=== PATIENT | female | born 1975 | race Caucasian/White ===

== ENCOUNTER → 2017-07-03 | Outpatient (CLI) | payer OTHER ==
[~2017-07-03] MED LIST: DRV100 PO; PRENTAB26 PO
--- NOTE | 2017-07-03 15:20 | MAMMOGRAPHY REPORT ---
UNILATERAL LEFT DIGITAL DIAGNOSTIC MAMMOGRAM TOMOSYNTHESIS: 07/03/2017 CLINICAL HISTORY: Callback from screening mammogram for left breast asymmetry. TECHNIQUE: Breast tomosynthesis in addition to standard 2D mammography was performed. Spot compress ion left MLO 2-D and tomosynthesis images were obtained. COMPARISON: Comparison is made to exams dated: 06/18/2016 mammogram, 06/21/2017 mammogram, 04/03/2013 mammogram, and 06/15/2015 mammogram - [facility]. BREAST COMPOSITION: The tissue of the left breast is heterogeneously dense, which may obscure small masses. FINDINGS: The previously described asymmetry within the left superior posterior breast effaces to a b aseline appearance on the additional images, with appearance of this region similar to multiple prior exams including the 2014 and also the 2012 exams. The tissue in this region has the appearance of n ormal fibroglandular tissue on the tomosynthesis images, without a suspicious mass, architectural dis tortion, or other suspicious abnormality seen on the additional images. Findings are benign and comp atible with normal fibroglandular tissue. IMPRESSION: ACR BI-RADS CATEGORY 2: BENIGN The left breast asymmetry effaces on the additional images, and is benign and compatible with normal fibroglandular tissue. There is no mammographic evidence of malignancy. A 1 year screening mammogram is recommended. The patient has been verbally notified of the results. Approximately 10% of breast cancers are not detected with mammography. A negative mammographic report should not delay biopsy if a clinically suggestive mass is present. Kyra Maxwell M.D. ah/:07/03/2017 11:24:23 Log Rafter: Karen LEE(Caitlyn)(M), [facility] letter sent: Normal 1/2 BI-RADS Code: ACR BI-RADS Category 2: Benign
== END | disposition home or self-care (01) ==
LOC: C.MAMM 11:02
PROVIDERS: ATTEND Family Medicine
DX: N64.89 Other specified disorders of breast (principal)

== ENCOUNTER 2024-04-13 17:33 | Inpatient (IN) ==
--- NOTE | 2024-04-13 18:48 | Emergency Department Note ---
Impression & Plan Elevated LFTs, Cholelithiasis, Biliary colic ED Provider Note NAME: PATY SIMMS AGE: 49 SEX: F : 1975 ARRIVES VIA: Walk-In INFORMANT: Patient, ED PROVIDER(S): Paul Duran MD CHIEF COMPLAINT: Abdominal pain, abnormal blood work, outpatient referral MEDICAL DECISION MAKING: Patient presents due to concern for abdominal pain that is postprandial nature: No history of gallstones with transaminitis as an outpatient. IV was established and blood work was obtained along with a right upper quadrant ultrasound. Gallbladder ultrasound shows CBD of 0.5 cm and gallbladder wall is 0.2 cm. Patient does have a large gallstone approximately 2.4 cm. Blood work does show a leukopenia with anemia of 11.9 which is virtually normal. The patient does have transaminitis with an AST and ALT of 1171 and 1189. Alk phos of 143 bilirubin of 2.1. Lipase is negative. Urinalysis does not show evidence of obvious infection. I did speak with on-call general surgery CAMELIA Dinero and the patient was seen and evaluated. I also did speak with the inpatient medicine service Dr. Arnold and the patient was admitted. MRCP was ordered and pending at the time of admission. Discussion w/ other healthcare providers: John Smith PA-C with Dr. Dodson general surgery Dr. Arnold inpatient medicine service Prior /Outside records reviewed: None Differential diagnosis: Appendicitis, ovarian cyst, ovarian torsion, ectopic , TOA, PID, diverticulitis, UTI, obstruction, inflammatory bowel disease, renal colic, PUD, pancreatitis, biliary pathology, hernia, volvulus, constipation, as well as other pathologies were considered. Diagnostics, as interpreted by me: ECG: None Cardiac monitoring: An order was placed for continuous cardiac monitoring. The monitor shows a rate of 75 with sinus rhythm. Patient was placed on pulse oximetry Medical decision rules: None Imaging studies: I informally interpreted the patient's right upper quadrant ultrasound does show gallstone with formal report to follow. HPI: Patient presents due to concern for abnormal outpatient blood work which showed elevated liver function testing. I was able to review these from her [employer]. The patient's liver function testing did show a bilirubin of 2.3 with an AST of greater than 700 and an ALT of 697. The patient reports that she has weekly blood work checked as she does follow with Dr. Ferreira and is currently on chemotherapy for history of breast cancer. Patient states that her last chemo was about a week prior. Patient thought that maybe she was having gallbladder attacks over the weekend is after she would eat or drink something she would get pain in her upper abdomen which would radiate toward her back. Patient did have some associated nausea but no vomiting. No urinary symptoms no issues with defecation. Patient was told about her abnormal blood work and was advised to present here for further evaluation and treatment. The patient states that she does have a prior history of gallstones and was told that she did have a large gallstone noted on a prior ultrasound that she believes was completed years ago. PAST MEDICAL HISTORY: See Below PAST SURGICAL HISTORY: See Below SOCIAL HISTORY: See Below HOME MEDICATIONS: See Below ALLERGIES: See Below VITALS: See Below PHYSICAL EXAMINATION: GENERAL: NAD, non-toxic. Wearing a mask. EYE EXAM: Normal conjunctiva. PERRL, no anisocoria and EOM's grossly intact w/o pain. NECK: Trachea midline, no stridor. LUNGS: Clear to auscultation. Normal chest wall mechanics. HEART: NSR, no MRG. ABDOMEN: Abdomen soft, non-tender, negative Madison sign, no masses, no rebound or guarding. BACK: No CVA TTP. SKIN: No rashes and no bruising. UPPER EXTREMITIES: Upper extremities are grossly normal. LOWER EXTREMITIES: Grossly normal, no edema. NEURO EXAM: A&O x3, cranial nerves II-XII grossly intact, normal speech, moves all 4 extremities. Past Med/Surg History Problem List (Updated 04/13/24 @ 23:18 by Paul Duran MD) Biliary colic (Acute) Elevated LFTs (Acute) Cholelithiasis (Acute) Malignant neoplasm of central portion of left breast in female, estrogen receptor positive (Chronic 11/29/23) Family history of malignant neoplasm of ovary sister, granulosa cell 2008 Medical History Gallstone Nausea after anesthesia Limb alert care status left arm Breast cancer (2023) left History of COVID-19 (2019) Symptoms resolved GERD (gastroesophageal reflux disease) Hypothyroidism History of PCOS H/O dysfunctional uterine bleeding no current issues Surgical History History of partial mastectomy of left breast (01/20/24) 01/20/24; limb restriction History of esophagogastroduodenoscopy (EGD) Hx of colonoscopy H/O cervical polypectomy Family History Sister Ovarian cancer Onset age 20, recurrence in 30's. Granulosa Cell Tumor Mother Breast cancer, Onset Age: 64 Radiation Therapy Father Prostate cancer Brachytherapy Son No problems noted. Social History Smoking Status: Never smoker Second Hand Exposure: Yes (mother smoked in home and history of bartending); Do You Dip or Chew Tobacco: No; Hx Alcohol Use: Yes (social) Hx Substance Use: No Preferred Language: Bengali Communication Ability: Effective Visual Impairment: Limited Hearing Ability: Normal Public Transit Bus Driver Required: No Beliefs That Will Affect Care: None marital status: Current Living Situation: Spouse current occupational status: employed How many Children do You have: 1 Feels Safe at Home: Yes Childhood Exposure to Second-Hand Smoke: Yes Diet: regular caffeine: Yes during the past year weight has: remained stable Dental Care, Regularly: Yes Assistive Devices: Contacts and Glasses Allergies Allergies Allergy/AdvReac Type Severity Reaction Status Date / Time No Known Allergies Allergy Unknown Verified 02/28/24 07:28 Home Meds Home Medications Medication Instructions Recorded Confirmed levothyroxine 50 mcg tablet 50 mcg PO QAM 09/15/19 02/28/24 omeprazole 20 mg capsule,delayed 20 mg PO DAILY PRN Acid Reflux 01/08/24 02/28/24 release cholecalciferol (vitamin D3) 1,250 1,250 mcg PO DAILY 02/21/24 02/28/24 mcg (50,000 unit) tablet dexamethasone 4 mg tablet 4 mg PO UD PRN prior to chemo 02/21/24 02/28/24 ondansetron HCl 8 mg tablet 8 mg PO Q8H PRN Nausea And Vomiting 02/21/24 02/28/24 prochlorperazine maleate 10 mg 10 mg PO Q6H PRN Nausea And 02/21/24 02/28/24 tablet Vomiting Results & Data (ED) Vital Signs Vital Signs - 24 hr 04/13/24 18:06 04/13/24 19:14 04/13/24 21:00 Temperature 36.5 C Temperature Source Temporal Artery Scan Pulse Rate 86 Pulse Rate [Finger] 74 82 Respiratory Rate 16 18 18 Respiratory Effort / Characteristics Non-Labored Spontaneous Non-Labored Spontaneous Non-Labored Spontaneous Respiratory Depth Normal Normal Normal Respiratory Pattern Regular Regular Blood Pressure 132/90 Blood Pressure [Right Arm] 124/79 117/84 Blood Pressure Mean 104 Blood Pressure Mean [Right Arm] 94 95 Pulse Oximetry 97 98 100 Oxygen Delivery Method Room Air Room Air Room Air Sepsis Recent Fever Within 48 Hours No Sepsis New/Unexplained Change in Mental Status No Sepsis Action Taken by Nursing No Action Required 04/13/24 22:30 Temperature Temperature Source Pulse Rate Pulse Rate [Finger] 77 Respiratory Rate 16 Respiratory Effort / Characteristics Non-Labored Spontaneous Respiratory Depth Normal Respiratory Pattern Regular Blood Pressure Blood Pressure [Right Arm] 131/91 Blood Pressure Mean Blood Pressure Mean [Right Arm] 104 Pulse Oximetry 97 Oxygen Delivery Method Room Air Sepsis Recent Fever Within 48 Hours Sepsis New/Unexplained Change in Mental Status Sepsis Action Taken by Usp Medications Current Medication List: was personally reviewed by me Laboratory Data Attestation: I reviewed the patient's lab results. 04/13/24 19:15 04/13/24 19:15 Lab Results 04/13/24 04/13/24 Range/Units 19:15 20:25 WBC 2.96 L (4.8-10.8) K/ul RBC 4.12 L (4.20-5.40) M/uL Hgb 11.9 L (12.0-16.0) g/dl Hct 34.8 L (37.0-47.0) % MCV 84.5 (80.0-100.0) fL MCH 28.9 (25.0-34.0) pg MCHC 34.2 (32.0-36.0) g/dL RDW Std Deviation 41.1 (36.4-46.3) fL RDW Coeff of Lauri 13.5 (11.5-14.5) % Plt Count 311 (130-400) K/uL MPV 9.5 (9.4-12.4) fL Immature Gran % (Auto) 1.4 % Neut % (Auto) 57.0 % Lymph % (Auto) 34.5 % [place] % (Auto) 4.7 % Eos % (Auto) 0.7 % Baso % (Auto) 1.7 % Neut # (Auto) 1.69 (1.40-6.50) K/uL Lymph # (Auto) 1.02 L (1.20-3.40) K/uL [place] # (Auto) 0.14 (0.11-0.59) K/uL Eos # (Auto) 0.02 (0.00-0.50) K/uL Baso # (Auto) 0.05 (0.00-0.20) K/uL Immature Gran # (Auto) 0.04 (0.01-0.20) K/uL Sodium 136 (136-145) mmol/L Potassium 4.0 (3.5-5.1) mmol/L Chloride 106 (98-107) mmol/L Carbon Dioxide 24 (21-32) mmol/L Anion Gap 6 (3-11) BUN 6 (6-23) mg/dl Creatinine 0.66 (0.6-1.2) mg/dl Est Cr Clr Drug Dosing 83.4 ml/min Est GFR ( Amer) 118.5 ml/min Est GFR (Non-Af Amer) 102.3 ml/min BUN/Creatinine Ratio 9.1 L (10-20) Glucose 95 (70-99(Fasting)) mg/dl Calcium 9.1 (8.6-10.3) mg/dl Total Bilirubin 2.1 H (0.2-1.0) mg/dl AST 1171 H (13-39) U/L ALT 1189 H (7-52) U/L Alkaline Phosphatase 143 H (34-104) U/L Total Protein 7.1 (6.0-8.3) gm/dl Albumin 4.6 (3.4-5.0) gm/dl Globulin 2.5 (2.5-4.0) gm/dl Albumin/Globulin Ratio 1.8 (0.9-2) Lipase 62 (11-82) U/L HCG, Qual Negative (Negative) Urine Color Dark Yellow Urine Appearance Clear (Clear) Urine pH 5.5 (4.5-7.5) Ur Specific [place] 1.014 (1.000-1.030) Urine Protein Negative (Negative) Urine Glucose (UA) Negative (Negative) Urine Ketones Negative (Negative) Urine Blood Negative (Negative) Urine Nitrite Negative (Negative) Urine Bilirubin 1+ H (Negative) Urine Urobilinogen Negative (Negative) Ur Leukocyte Esterase Trace H (Negative) Urine WBC (Auto) 0-5 (0-5) /hpf Urine RBC (Auto) 0-2 (0-2) /hpf U Hyaline Cast (Auto) 0-2 (0-2) /lpf U Epithel Cells (Auto) 0-2 (0-2) /hpf Urine Bacteria (Auto) None Seen (None Seen) Administered Medications Discontinued Medications Famotidine (Pepcid 20mg Iv Push) 20 mg in 5 mls @ 2.5 mls/min IV NOW STA Stop: 04/13/24 21:56 Last Admin: 04/13/24 22:06 Dose: 2.5 mls/min Documented By: ELADIO Sodium Chloride (Nss) 500 mls @ 999 mls/hr IV .Q31M ONE Stop: 04/13/24 22:25 Last Admin: 04/13/24 22:07 Dose: 999 mls/hr Documented By: ELADIO Ondansetron HCl (Ondansetron Inj 2 Mg/Ml 2 Ml Vial) 4 mg IV NOW STA Stop: 04/13/24 21:56 Last Admin: 04/13/24 22:06 Dose: 4 mg Documented By: ELADIO Discharge Plan Visit Data Chief Complaint: Abnormal Labs/Diagnostic Testing Stated Complaint: ABNORMAL LABS, POSS GALLBLADDER ATTACK, REF BY ED Provider: Paul Duran Discharge Problem: Elevated LFTs, Cholelithiasis, Biliary colic Forms Stand Alone Forms: [facility] Prescriptions Prescriptions: No Action levothyroxine 50 mcg tablet 50 mcg PO QAM omeprazole 20 mg Capsule,Delayed Release(Dr/Ec) 20 mg PO DAILY PRN (Reason: Acid Reflux) ondansetron HCl 8 mg Tablet 8 mg PO Q8H PRN (Reason: Nausea And Vomiting) prochlorperazine maleate 10 mg Tablet 10 mg PO Q6H PRN (Reason: Nausea And Vomiting) dexamethasone 4 mg Tablet 4 mg PO UD PRN (Reason: prior to chemo) cholecalciferol (vitamin D3) 1,250 mcg (50,000 unit) Tablet 1,250 mcg PO DAILY Referrals Referrals: Haylee Skinner DO [Primary Care Provider] - Discharge Problem: Cholelithiasis Qualifiers: Cholelithiasis location: gallbladder Cholecystitis presence: without cholecystitis Biliary obstruction: without biliary obstruction Qualified Code(s): K80.20 - Calculus of gallbladder without cholecystitis without obstruction
[2024-04-13 19:43] LABS: Basophils # (auto) 0.05 K/uL (0.00-0.20); Basophils % (auto) 1.7 %; Eosinophils # (auto) 0.02 K/uL (0.00-0.50); Eosinophils % (auto) 0.7 %; Hematocrit (blood only) 34.8 % (37.0-47.0); Hemoglobin 11.9 g/dl (12.0-16.0); Immature Granulocytes # (auto) 0.04 K/uL (0.01-0.20); Immature Granulocytes % (auto) 1.4 %; Lymphocytes # (auto) 1.02 K/uL (1.20-3.40); Lymphocytes % (auto) 34.5 %; Mean Corpuscular Hemoglobin 28.9 pg (25.0-34.0); Mean Corpuscular Hgb Conc 34.2 g/dL (32.0-36.0); Mean Corpuscular Volume 84.5 fL (80.0-100.0); Mean Platelet Volume 9.5 fL (9.4-12.4); Monocytes # (auto) 0.14 K/uL (0.11-0.59); Monocytes % (auto) 4.7 %; Neutrophils # (auto) 1.69 K/uL (1.40-6.50); Platelet Count 311 K/uL (130-400); RDW Coefficient of Variation 13.5 % (11.5-14.5); RDW Standard Deviation 41.1 fL (36.4-46.3); Red Blood Count 4.12 M/uL (4.20-5.40); White Blood Count 2.96 K/ul (4.8-10.8)
[2024-04-13 20:55] LABS: Pregnancy Test, Serum Negative (Negative)
[2024-04-13 20:57] LABS: BUN Creatinine Ratio 9.1 (10-20); Calcium 9.1 mg/dl (8.6-10.3); Creatinine Clr Calc Pharmacy 83.4 ml/min; Est GFR (African American) 118.5 ml/min; Est GFR (Non-African American) 102.3 ml/min
[2024-04-13 20:59] LABS: Appearance Urine Clear (Clear); Bacteria Urine Automated None Seen (None Seen); Bilirubin Urine 1+ (Negative); Blood Urine Negative (Negative); Cast Urine Automated 0-2 /lpf (0-2); Color Urine Dark Yellow; Epithelial Cell Urine Auto 0-2 /hpf (0-2); Glucose Urine UA Negative (Negative); Ketones Urine Negative (Negative); Leukocyte Esterase Urine Trace (Negative); Nitrite Urine Negative (Negative); Protein Urine Negative (Negative); RBC Urine Automated 0-2 /hpf (0-2); Specific Gravity Urine 1.014 (1.000-1.030); Urobilinogen Urine Negative (Negative); WBC Urine Automated 0-5 /hpf (0-5); pH Urine 5.5 (4.5-7.5)
[2024-04-13 21:26] LABS: Albumin Globulin Ratio 1.8 (0.9-2); Albumin Level 4.6 gm/dl (3.4-5.0); Bilirubin,Total 2.1 mg/dl (0.2-1.0); Globulin 2.5 gm/dl (2.5-4.0); Total Protein 7.1 gm/dl (6.0-8.3)
[2024-04-13] MEDS: ONDANSETRON INJ 2 MG/ML 2 ML VIAL IV STA (22:06)
[2024-04-13] MEDS: FAMOTIDINE 20MG IV PUSH 20 MG/5 ML SYR IV STA (22:06)
[2024-04-13] MEDS: SODIUM CHLORIDE 0.9% 500 ML IV ONE (22:07)
--- NOTE | 2024-04-13 22:27 | Surgery Consultation ---
Date of Consultation April 13, 2024 Assessment & Plan (1) Cholelithiasis: I discussed with the treating emergency room physician the patient is being admitted on the hospitalist service. From surgery perspective we recommend the following: It does not appear that the patient has cholecystitis, however the official radiology report of her gallbladder ultrasound is pending and we will follow for the results of this The patient does have known cholelithiasis, raising the question if patient has choledocholithiasis causing her elevated LFTs. I did discuss with the patient that I am uncertain if her elevated LFTs are related to her underlying cholelithiasis or could be a side effect of her chemotherapy medications. I did discuss with the patient that it may be beneficial to obtain an MRCP (this has been ordered by the treating emergency room physician) to see if she does have any element of choledocholithiasis and if this is present gastroenterology consultation will be warranted to determine if patient will require an ERCP I did discuss with the patient that typically if patients have symptomatic gallstones the treatment of choice is typically cholecystectomy, however in her case with the patient undergoing active chemotherapy a discussion will need to be had between the surgical team and the patient's oncologist to determine the best course of actionif the patient does not have evidence of cholecystitis perhaps watchful waiting until patient completes her chemotherapy may be in her best interest or if some type of biliary drainage is needed a temporary cholecystostomy with plans for a cholecystectomy upon conclusion of her chemotherapy. Would recommend following serial laboratories Analgesics to be provided Antiemetics to be provided Antibiotic should be initiated IV fluid should be provided for hydration As the patient is currently asymptomatic the feel be acceptable for her to have sips of clear liquids this evening, but she should be made n.p.o. after midnight in the event of any procedural intervention is planned for 04/14/2024 Additional recommendations with forthcoming based on patient's MRCP results, pending laboratory results, as well as input from her oncology team and gastroenterology (2) Elevated LFTs: Supervising Physician Co-Signing Physician Notes Patient seen and examined, labs and imaging reviewed, agree with above. 49-year-old female with breast cancer status post lumpectomy, now on chemotherapy. She developed epigastric pain radiating to her back over the past few days after eating. She had routine blood work done prior to her chemo and LFTs were elevated. She presented to the emergency department and imaging showed cholelithiasis with no choledocholithiasis or cholecystitis. GI has been consulted as well. AFVSS NAD, AAOx3 Lungs CTAP CV RRR Abdomen soft, minimally tender to palpation in epigastrium, no right upper quadrant tenderness, no guarding or rebound Labs: WBC 3.28, bilirubin normalized, AST and ALT still elevated but slightly d own from yesterday Ultrasound showed 2.5 cm gallstone with no choledocholithiasis or cholecystitis, MRCP confirmed a large gallstone, no cholecystitis, no choledocholithiasis Appreciate GI input, we will consult oncology to determine best timing for cholecystectomy if necessary Discussed options to include observation versus cholecystectomy LFT elevation may be secondary to cholelithiasis, occult choledocholithiasis, or reaction to chemotherapy If LFTs continue to downtrend and GI plans no intervention and oncology okay with timing of surgery, they may proceed with cholecystectomy tomorrow Further recommendations to follow History of Present Illness Reason for Consultation: Cholelithiasis History of Present Illness This is a 49-year-old female who presented the emergency department at the recommendation of her outpatient physicians. Patient currently is undergoing treatment for breast cancer. Patient says that she has left-sided breast cancer that was diagnosed in November of this year. She has undergone a left lumpectomy and is having a port placed in February of this year. Patient states that she has had 6 cycles of chemotherapy with her most recent treatment being 1 week ago and her next treatment being due tomorrow which is 04/14/2024 okay. Patient says that she is scheduled to undergo radiation therapy at the conclusion of her chemotherapy but she has yet to initiate this that okay. As part of the patient's chemotherapy regimen she is having routine blood work checked at selected intervals and she was told that her LFTs were elevated prompting her visit to the emergency department. Patient does report that she has never been told that she has had any elevation of her LFTs since her chemotherapy was initiated. The patient's current oncologist is Dr. Orantes of [facility] hematology/oncology. It is noteworthy to mention that the patient reports she has a known gallstone but has never had any issues related to this. Patient does admit to 2 to 3 days ago however she did have 2 episodes of upper abdominal pain radiating to her shoulder that self resolved. She does note that the second episode was worse than the first. When she did have a tachycardia since. She denies any nausea or vomiting and also denies any fevers, shakes, or chills. Patient says that she has never had any abdominal surgeries in the past. Patient denies ever having any blood clotting issues and she also denies taking any anticoagulant. Since arrival to the emergency department the patient has had labs and independently reviewed. Patient did have a gallbladder ultrasound which showed the patient had at least 1 large gallstone. There not appear to be any dilatation of the common bile duct., Pericholecystic fluid, or gallbladder wall thickening (of note the official radiology report is pending however). Labs included CBC her white blood cell count was 2.9. Hemoglobin and hematocrit are 11.9 and 34.8. Patient's neutrophil count was within the normal range. Chemistry profile showed sodium and potassium as well as the BUN and creatinine were within normal. Patient's LFTs were elevated including total bilirubin of 2.1, AST of 1171, ALT of 1189, and alkaline phosphatase of 143. The patient's lipase was nonelevated and a test was negative. The urinalysis did show trace leukocyte Estrace but was otherwise not indicative of infection. At the time of my interview the patient was resting comfortably in bed and she was in no distress or pain. Allergies Allergy/AdvReac Type Severity Reaction Status Date / Time No Known Allergies Allergy Unknown Verified 02/28/24 07:28 Home Medications Medication Instructions Recorded Confirmed Type levothyroxine 50 mcg tablet 50 mcg PO QAM 09/15/19 04/14/24 History ondansetron HCl 8 mg tablet 8 mg PO Q8H PRN Nausea And Vomiting 02/21/24 04/14/24 History prochlorperazine maleate 10 mg 10 mg PO Q6H PRN Nausea And 02/21/24 04/14/24 History tablet Vomiting Patient History Medical History Gallstone Nausea after anesthesia Limb alert care status left arm Breast cancer (2023) left History of COVID-19 (2019) Symptoms resolved GERD (gastroesophageal reflux disease) Hypothyroidism History of PCOS H/O dysfunctional uterine bleeding no current issues Surgical History History of partial mastectomy of left breast (01/20/24) 01/20/24; limb restriction History of esophagogastroduodenoscopy (EGD) Hx of colonoscopy H/O cervical polypectomy Family History Sister Ovarian cancer Onset age 20, recurrence in 30's. Granulosa Cell Tumor Mother Breast cancer, Onset Age: 64 Radiation Therapy Father Prostate cancer Brachytherapy Son No problems noted. Social History Smoking Status: Never smoker Second Hand Exposure: No; Do You Dip or Chew Tobacco: No; Tobacco Cessation Education Requested by Patient: No Hx Alcohol Use: No Hx Substance Use: No Preferred Language: Kinyarwanda Communication Ability: Effective Visual Impairment: Limited Hearing Ability: Normal Tape Sewer Required: No Beliefs That Will Affect Care: None marital status: Current Living Situation: Spouse current occupational status: employed How many Children do You have: 1 Other Information That Helps Us Care for You: No Feels Safe at Home: Yes Safety Concerns: Feels Safe At This Time Childhood Exposure to Second-Hand Smoke: Yes Diet: regular caffeine: Yes during the past year weight has: remained stable Dental Care, Regularly: Yes Assistive Devices: None Review of Systems Review of Systems: All systems reviewed & are unremarkable except as noted in HPI & below Physical Exam Constitutional: WD/WN, vitals as above Eyes: + anicteric sclerae ENMT: Ears: no hearing impairment and no external ear abnormality Sublingual jaundice is absent Neck: trachea midline Respiratory: normal respiratory effort; no respiratory distress and no labored breathing Cardiovascular: Rate/Rhythm: regular rate and regular rhythm Vessels: posterior tibial pulses present Gastrointestinal (Abdomen): At the time of my exam the patient's abdomen is noted to be soft and nondistended. It is nonrigid. There is no tenderness noted with palpation Madison sign is noted to be negative. Musculoskeletal: No calf tenderness Skin: no jaundice Neurologic: moves all extremities Psychiatric: A+Ox3, euthymic affect Results & Data Vital Signs (Past 12 Hours) Vital Signs Temp Pulse Pulse Resp BP BP Pulse Ox 04/13/24 21:00 82 18 117/84 100 04/13/24 19:14 74 18 124/79 98 04/13/24 18:06 36.5 C 86 16 132/90 97 O2 Del Method 04/13/24 21:00 Room Air 04/13/24 19:14 Room Air 04/13/24 18:06 Room Air PG Care Time/CCT Total # of Minutes Spent Total Time Spent with Patient: Total time spent is greater than 50% in coordination of care (as documented) at patient's floor/unit and/or counseling patient: Coding Level of Care Code 24399 IN/OBS CONSULT LVL 5,80M Diagnoses Cholelithiasis K80.20 Elevated LFTs R79.89
--- NOTE | 2024-04-13 23:24 | Ultrasound Report ---
Exam(s): US GALLBLADDER EXAM: US Abdomen Limited, Gallbladder CLINICAL HISTORY: Reason for exam: RUQ pain, transaminitis. TECHNIQUE: Real-time ultrasound of the right upper quadrant with image documentation. COMPARISON: No relevant prior studies available. FINDINGS: Gallbladder: The gallbladder is distended containing a 2.4 cm calculus. It also contained some sludge. Gallbladder wall measured 2 mm. A negative Madison sign was reported.. Common bile duct: Unremarkable as visualized. No stones. The common bile duct measured 5 mm. Pancreas: The pancreas is limitedly visualized. The visualized portions are unremarkable. Liver: The liver is of increased echogenicity. Right kidney: No evidence of calculi or hydronephrosis. IMPRESSION: The gallbladder is distended containing a 2.4 cm calculus. It also contained some sludge. Liver is of increased echogenicity which may be due to fatty infiltration and/or hepatocellular disease. Electronically signed by: Quentin Kurtz MD 04/13/24 23:24 PM
--- NOTE | 2024-04-13 23:49 | History & Physical Report ---
Date of Service April 13, 2024 Assessment & Plan (1) Biliary colic: Plan: choledocholithiasis No sepsis for now hypothyroidism, euthyroid as of recent outpatient TSH left breast cancer status post surgery ongoing chemotherapy Incidental finding of complex renal cyst on imaging chronic anemia, hemoglobin at baseline OBS GMF GI consult re: choledocholithiasis N.p.o. until patient seen by GI in anticipation of procedure Outpatient urology consult for complex renal cyst DVT prophylaxis. SCDs Full code Text document was generated using Beanup voice recognition software. It may contain grammatical or spelling errors. Kindly contact undersigned for clarification of any documentation item in question. History of Present Illness Chief Complaint: Abdominal pain, abnormal blood work Primary Care Provider: Haylee Skinner DO History obtained from patient and records. Medical history significant for hypothyroidism, left breast cancer status post surgery ongoing chemotherapy, PCOS, chronic anemia (baseline hemoglobin of 11). Few days history of intermittent postprandial upper abdominal pain attributed to possible gallbladder attack. Some nausea without emesis. No chest pain, no SOB, no fever, no chills. Short-lived episodes the last few months. Discomfort more intense than usual. Abnormal LFTs noted on outpatient blood work today. AST 700, ALT 697, bilirubin 2.3. Patient directed to ER by PCP after being seen at the office. Medical History as above Surgical History : Vascular procedure, left partial mastectomy Family History : Breast cancer, colon cancer, DM, heart disease, ovarian cancer Personal/Social history : Non-smoker, no EtOH intake, production checker at [employer] Allergies Allergy/AdvReac Type Severity Reaction Status Date / Time No Known Allergies Allergy Unknown Verified 02/28/24 07:28 Home Medications Medication Instructions Recorded Confirmed Type levothyroxine 50 mcg tablet 50 mcg PO QAM 09/15/19 04/14/24 History ondansetron HCl 8 mg tablet 8 mg PO Q8H PRN Nausea And Vomiting 02/21/24 04/14/24 History prochlorperazine maleate 10 mg 10 mg PO Q6H PRN Nausea And 02/21/24 04/14/24 History tablet Vomiting Past Med/Surg History Problem List (Updated 04/14/24 @ 10:53 by IAN Liu) Complex renal cyst Biliary colic (Acute) Elevated LFTs (Acute) Cholelithiasis (Acute) Malignant neoplasm of central portion of left breast in female, estrogen receptor positive (Chronic 11/29/23) Family history of malignant neoplasm of ovary sister, granulosa cell 2009 Medical History Gallstone Nausea after anesthesia Limb alert care status left arm Breast cancer (2023) left History of COVID-19 (2019) Symptoms resolved GERD (gastroesophageal reflux disease) Hypothyroidism History of PCOS H/O dysfunctional uterine bleeding no current issues Surgical History History of partial mastectomy of left breast (01/20/24) 01/20/24; limb restriction History of esophagogastroduodenoscopy (EGD) Hx of colonoscopy H/O cervical polypectomy Family History Sister Ovarian cancer Onset age 20, recurrence in 30's. Granulosa Cell Tumor Mother Breast cancer, Onset Age: 64 Radiation Therapy Father Prostate cancer Brachytherapy Son No problems noted. Social History Smoking Status: Never smoker Second Hand Exposure: No; Do You Dip or Chew Tobacco: No; Tobacco Cessation Education Requested by Patient: No Hx Alcohol Use: No Hx Substance Use: No Preferred Language: Malay Communication Ability: Effective Visual Impairment: Limited Hearing Ability: Normal School Standards Coach Required: No Beliefs That Will Affect Care: None marital status: Current Living Situation: Spouse current occupational status: employed How many Children do You have: 1 Other Information That Helps Us Care for You: No Feels Safe at Home: Yes Safety Concerns: Feels Safe At This Time Childhood Exposure to Second-Hand Smoke: Yes Diet: regular caffeine: Yes during the past year weight has: remained stable Dental Care, Regularly: Yes Assistive Devices: None Review of Systems Review of Systems: As per HPI, all other systems reviewed and negative Physical Exam Physical Exam: GENERAL: Comfortable, pleasant, no respiratory distress SKIN: Pallor, warm HEENT: Alopecia, pale palpebral conjunctivae, no ptosis, dry buccal mucosa NECK : Supple, no tenderness CHEST : CTA, no tenderness HEART : RRR, no obvious murmurs ABDOMEN: Some distention, epigastric tenderness EXTREMITIES : No LE swelling/tenderness, no other conspicuous deformities noted NEUROLOGIC : Coherent, no facial asymmetry, no other gross focality Results & Data Results & Data Vital Signs (Past 12 Hours) Vital Signs Temp Pulse Pulse Resp BP BP Pulse Ox 04/13/24 22:30 77 16 131/91 97 04/13/24 21:00 82 18 117/84 100 04/13/24 19:14 74 18 124/79 98 04/13/24 18:06 36.5 C 86 16 132/90 97 O2 Del Method 04/13/24 22:30 Room Air 04/13/24 21:00 Room Air 04/13/24 19:14 Room Air 04/13/24 18:06 Room Air Laboratory Results Laboratory Results WBC 2.96 K/ul (4.8-10.8) L 04/13/24 19:15 RBC 4.12 M/uL (4.20-5.40) L 04/13/24 19:15 Hgb 11.9 g/dl (12.0-16.0) L 04/13/24 19:15 Hct 34.8 % (37.0-47.0) L 04/13/24 19:15 MCV 84.5 fL (80.0-100.0) 04/13/24 19:15 MCH 28.9 pg (25.0-34.0) 04/13/24 19:15 MCHC 34.2 g/dL (32.0-36.0) 04/13/24 19:15 RDW Std Deviation 41.1 fL (36.4-46.3) 04/13/24 19:15 RDW Coeff of Lauri 13.5 % (11.5-14.5) 04/13/24 19:15 Plt Count 311 K/uL (130-400) 04/13/24 19:15 MPV 9.5 fL (9.4-12.4) 04/13/24 19:15 Immature Gran % (Auto) 1.4 % 04/13/24 19:15 Neut % (Auto) 57.0 % 04/13/24 19:15 Lymph % (Auto) 34.5 % 04/13/24 19:15 [place] % (Auto) 4.7 % 04/13/24 19:15 Eos % (Auto) 0.7 % 04/13/24 19:15 Baso % (Auto) 1.7 % 04/13/24 19:15 Neut # (Auto) 1.69 K/uL (1.40-6.50) 04/13/24 19:15 Lymph # (Auto) 1.02 K/uL (1.20-3.40) L 04/13/24 19:15 [place] # (Auto) 0.14 K/uL (0.11-0.59) 04/13/24 19:15 Eos # (Auto) 0.02 K/uL (0.00-0.50) 04/13/24 19:15 Baso # (Auto) 0.05 K/uL (0.00-0.20) 04/13/24 19:15 Immature Gran # (Auto) 0.04 K/uL (0.01-0.20) 04/13/24 19:15 Sodium 136 mmol/L (136-145) 04/13/24 19:15 Potassium 4.0 mmol/L (3.5-5.1) 04/13/24 19:15 Chloride 106 mmol/L (98-107) 04/13/24 19:15 Carbon Dioxide 24 mmol/L (21-32) 04/13/24 19:15 Anion Gap 6 (3-11) 04/13/24 19:15 BUN 6 mg/dl (6-23) 04/13/24 19:15 Creatinine 0.66 mg/dl (0.6-1.2) 04/13/24 19:15 Est Cr Clr Drug Dosing 83.4 ml/min 04/13/24 19:15 Est GFR ( Amer) 118.5 ml/min 04/13/24 19:15 Est GFR (Non-Af Amer) 102.3 ml/min 04/13/24 19:15 BUN/Creatinine Ratio 9.1 (10-20) L 04/13/24 19:15 Glucose 95 mg/dl (70-99(Fasting)) 04/13/24 19:15 Calcium 9.1 mg/dl (8.6-10.3) 04/13/24 19:15 Total Bilirubin 2.1 mg/dl (0.2-1.0) H 04/13/24 19:15 AST 1171 U/L (13-39) H 04/13/24 19:15 ALT 1189 U/L (7-52) H 04/13/24 19:15 Alkaline Phosphatase 143 U/L (34-104) H 04/13/24 19:15 Total Protein 7.1 gm/dl (6.0-8.3) 04/13/24 19:15 Albumin 4.6 gm/dl (3.4-5.0) 04/13/24 19:15 Globulin 2.5 gm/dl (2.5-4.0) 04/13/24 19:15 Albumin/Globulin Ratio 1.8 (0.9-2) 04/13/24 19:15 Lipase 62 U/L (11-82) 04/13/24 19:15 HCG, Qual Negative (Negative) 04/13/24 19:15 Urine Color Dark Yellow 04/13/24 20:25 Urine Appearance Clear (Clear) 04/13/24 20:25 Urine pH 5.5 (4.5-7.5) 04/13/24 20:25 Ur Specific [place] 1.014 (1.000-1.030) 04/13/24 20:25 Urine Protein Negative (Negative) 04/13/24 20:25 Urine Glucose (UA) Negative (Negative) 04/13/24 20:25 Urine Ketones Negative (Negative) 04/13/24 20:25 Urine Blood Negative (Negative) 04/13/24 20:25 Urine Nitrite Negative (Negative) 04/13/24 20:25 Urine Bilirubin 1+ (Negative) H 04/13/24 20:25 Urine Urobilinogen Negative (Negative) 04/13/24 20:25 Ur Leukocyte Esterase Trace (Negative) H 04/13/24 20:25 Urine WBC (Auto) 0-5 /hpf (0-5) 04/13/24 20:25 Urine RBC (Auto) 0-2 /hpf (0-2) 04/13/24 20:25 U Hyaline Cast (Auto) 0-2 /lpf (0-2) 04/13/24 20:25 U Epithel Cells (Auto) 0-2 /hpf (0-2) 04/13/24 20:25 Urine Bacteria (Auto) None Seen (None Seen) 04/13/24 20:25 Impressions Gallbladder Ultrasound 04/13/24 19:03 Exam(s): US GALLBLADDER EXAM: US Abdomen Limited, Gallbladder CLINICAL HISTORY: Reason for exam: RUQ pain, transaminitis. TECHNIQUE: Real-time ultrasound of the right upper quadrant with image documentation. COMPARISON: No relevant prior studies available. FINDINGS: Gallbladder: The gallbladder is distended containing a 2.4 cm calculus. It also contained some sludge. Gallbladder wall measured 2 mm. A negative Madison sign was reported.. Common bile duct: Unremarkable as visualized. No stones. The common bile duct measured 5 mm. Pancreas: The pancreas is limitedly visualized. The visualized portions are unremarkable. Liver: The liver is of increased echogenicity. Right kidney: No evidence of calculi or hydronephrosis. IMPRESSION: The gallbladder is distended containing a 2.4 cm calculus. It also contained some sludge. Liver is of increased echogenicity which may be due to fatty infiltration and/or hepatocellular disease. Electronically signed by: Quentin Kurtz MD 04/13/24 23:24 PM MRCP: Cholelithiasis. No ductal dilatation is noted. The liver is of diffuse signal abnormality which may be due to fatty infiltration and/or hepatocellular disease. There is a 5 mm lesion noted in the upper pole of the right kidney which may represent a complex cyst. Other possibilities cannot be excluded on this non-contrast study..
--- NOTE | 2024-04-14 | Magnetic Resonance Report ---
Exam(s): MRI MRCP EXAM: MR Abdomen Without Intravenous Contrast, MRCP Protocol CLINICAL HISTORY: Reason for exam: transaminitis. TECHNIQUE: Multiplanar magnetic resonance images of the abdomen without intravenous contrast using MRCP protocol. COMPARISON: No relevant prior studies available. FINDINGS: Bile ducts:. The common bile duct measured 5 mm. No filling defect is noted.. Gallbladder: There is a 2 cm filling defect noted within the gallbladder.. Liver: The liver is of diffuse signal abnormality. Pancreas: No ductal dilation. Spleen: No splenomegaly. Adrenals: No mass. Kidneys and ureters: No hydronephrosis. There is a 5 mm rounded lesion noted in the upper pole of the right kidney. Stomach and bowel: There are some air and fluid within the stomach. There is air and stool noted in the colon.. IMPRESSION: Cholelithiasis. No ductal dilatation is noted. The liver is of diffuse signal abnormality which may be due to fatty infiltration and/or hepatocellular disease. There is a 5 mm lesion noted in the upper pole of the right kidney which may represent a complex cyst. Other possibilities cannot be excluded on this non-contrast study.. Electronically signed by: Quentin Kurtz MD 04/13/24 23:59 PM
[2024-04-14] MEDS ORDERED: LORazepam 0.5 MG TAB PO PRN (00:20)
[2024-04-14] MEDS ORDERED: MoRPHine SULFATE 4 MG/ML 1 ML CARP\\VIAL IV PRN (00:20)
[2024-04-14] MEDS ORDERED: PROMETHAZINE 6.25 MG/50.25 ML BAG IV PRN (00:20)
[2024-04-14] MEDS ORDERED: LORATADINE 10 MG TAB PO PRN (00:22)
[2024-04-14] MEDS: SODIUM CHLORIDE 0.9% 1,000 ML IV ONE (00:31)
[2024-04-14] MEDS: LEVOTHYROXINE SODIUM 50 MCG TABLET PO SCH (06:59)
--- OUTSIDE RECORDS SUMMARY | 2024-04-14 07:10 | External Medical Summary | Summary of Care ---
Author Name Unknown Organization [facility] Address [address] [facility] [facility] [address] Phone [phone] Care Team Providers Care Office Support Clerk Name Role Phone Haylee Skinner DO Primary Care Provider [phone] Reason for Visit * Reason Comments Outpatient Testing Encounter Details Date Type Department Care Team (Late st Contact Info) Description 04/13/2024 8:40 AM EDT Laboratory Laboratory, [facility] [address] [facility] [place] [phone] [facility] [address] [facility] [place] [address] Vitamin D deficiency; Breast carcinoma, female, left (HCC) Allergies No known active allergiesdocumented as of this encounter (statuses as of 04/13/2024) Medications Medication Sig Dispensed Refills Start Date End Date Status Loratadine 10 MG Oral Tablet (Claritin)Indicati ons:Viral URI with cough,Sensation of fullness in both ears Take 1 Tablet by mouth at bedtime. 07/08/2023 Active Additional Information Patient not taking.Reported on 03/03/2024 Omeprazole 20 MG Oral Tablet Delayed Release Take 1 Tablet by mouth in the morning and 1 Tablet in the evening. 180 Tablet 3 10/14/2023 Active Ondansetron HCl 8 MG Oral TabletIndications: Breast carcinoma, female, left (HCC) Take 1 Tablet by mouth every 8 hours as needed for Nausea. 30 Tablet 02/19/2024 Active Additional Information Patient not taking.Reported on 03/03/2024 Prochlorperazine Maleate 10 MG Oral Tablet (Compazine)Indicat ions:Breast carcinoma, female, left (HCC) Take 1 Tablet by mouth every 6 hours as needed for Nausea. 30 Tablet 02/19/2024 Active Additional Information Patient not taking.Reported on 03/03/2024 Levothyroxine Sodium 50 MCG Oral Tablet (Levoxyl)Indicatio ns:Abnormal thyroid blood test TAKE 1 TABLET BY MOUTH EVERY DAY AT LEAST 30 MINUTES PRIOR TO BREAKFAST OR OTHER MEDICATIONS 90 Tablet 1 03/18/2024 Active Vitamin D3 1.25 MG (75646 UT) Oral CapsuleIndications :Vitamin D deficiency TAKE 1 CAPSULE BY MOUTH ONCE WEEKLY 12 Capsule 03/26/2024 Active One-A-Day Womens VitaCraves Oral Tablet Chewable Take 1 Tablet by mouth daily. Active dexAMETHasone 4 MG Oral TabletIndications: Breast carcinoma, female, left (HCC) 12 mg (3 tab) 12 and 6 hours before chemotherapy 42 Tablet 03/31/2024 Active documented as of this encounter (statuses as of 04/13/2024) Active Problems Problem Noted Date Diagnosed Date Encounter for antineoplastic chemotherapy 2023 Breast carcinoma, female, left 02/19/2024 PND (post-nasal drip) 11/15/2021 Acquired hypothyroidism 02/25/2021 Polycystic ovaries 12/30/2001 documented as of this encounter (statuses as of 04/13/2024) Resolved Problems Problem Noted Date Diagnosed Date Resolved Date Throat irritation 11/15/2021 06/12/2023 COVID-19 virus infection 08/09/2020 documented as of this encounter (statuses as of 04/13/2024) Immunizations Name Administration Dates Next Due COVID-19 mRNA, LNP-s, No Pre serve, 2-Dose Series (CHARMS PPEC) 11/26/2020,11/05/2020 COVID-19, LNP-s, No Preserve , Yusef-sucrose, Ages 12+ (CHARMS PPEC) 05/10/2022,07/25/2021 Seasonal Influenza Virus Vac cine, Unspecified Formulation 06/04/2019 Seasonal Influenza, PF, 6 M & above, IM , (FluLaval or Fluzone) 06/12/2023,05/08/2022,05/09/2021,2019,05/08/2017 Seasonal Influenza, Quadriva lent, No Preserve, IM 05/01/2018 Seasonal Influenza, Split, I IV3, With Preserve, Inj 06/17/2016,05/19/2014,06/04/2011,2006 TD - Tetanus/Diptheria (ADULT) 01/05/2000 TDAP (age 10 and older)(Boostrix) 11/22/2021 TDAP, Age 7 and older, IM (Adacel) 09/12/2011 Zoster Vaccine Recombinant (Shingrix) 06/12/2023 documented as of this encounter Social History Tobacco Use Types Packs/Day Years Used Date Smoking Tobacco: Never Smokeless Tobacco: Never Alcohol Use Standard Drinks/Week Comments No 0 (1 standard drink = 0.6 oz pur e alcohol) PHQ-2 Answer Date Recorded PHQ Adult Total Score 0 06/12/2023 Hunger Vital Sign Answer Date Recorded Within the past 12 months, y ou worried that your food would run out before you got the money to buy more. Never true 09/06/19 21 Within the past 12 months, t he food you bought just didn't last and you didn't have money to get more. Never true 09/06/2020 Utilities Answer Date Recorded Do you have trouble paying y our heating, water, or electric bill? (Adult - for ages 18 years and over) Not on file 02/04/2024 Is your family able to pay t he heat, water, or electric bill? (Household - for ages 0-17 years) Not on file 02/04/2024 Does your family have access to good internet? (Household - for ages 0-17 years) Not on file 02/04/2024 Social Connections Answer Date Recorded How often do you feel lonely or isolated from those around you? (Adult - for ages 18 years and over) Not on file 02/04/2024 Sex and Gender Information Value Date Recorded Sex Assigned at Not on file Gender Identity Not on file Sexual Orientation Not on file Job Start Date Occupation Industry Not on file Not on file Not on file documented as of this encounter Plan of Treatment Upcoming Encounters Date Type Department Care Team (Late st Contact Info) Description 04/14/2024 1:00 PM EDT Hem/Onc Treatment Hematology/Oncology Treatment, [place] [address] [facility], [place] [phone] Sada, Chair 10 Hem Onc Sc[address] [place] [address] 04/21/2024 8:00 AM EDT [facility], [facility] [address] [facility] [phone] Ian Roman [facility] [address] [facility] [place] [address] 04/22/2024 8:00 AM EDT [facility] [address] [facility], [place] [phone] Sada, Chair 1 Hem Onc Scenery [address] [place] [address] 04/27/2024 9:00 AM EDT Laboratory Laboratory [facility] [place] [address] [place] [phone] Sada, Lab [facility] [address] [place], [place] [address] 04/27/2024 9:30 AM EDT Office Visit Hematology/Oncology [facility] [address] [place] [phone] Corina Dong CRNP [address] [place] [address] [place] [address] 04/28/2024 8:00 AM EDT [facility] [address] [facility], [place] [phone] Sada, Chair 5 Hem Onc Scenery [address] [place] [address] 07/10/2024 9:45 AM EST Office Visit General Surgery, [facility] [address] [place] [address] Renzo Rees MD [address] [place] [address] 07/14/2024 11:00 AM EST Telemedicine Genetics HemOnc, [facility] [address] [place] [address] Jen Marie, [place] [address] [place] [address] Pending Results Name Type Priority Associated Diagnoses Date /Time 25-HYDROXY VITAMIN D Lab Routine Vitamin D deficiency 04/13/2024 8:33 AM EDT CBC WITH WBC DIFFERENTIAL Lab STAT Breast carcinoma, female, left (HCC) 04/13/2024 8:33 AM EDT COMPREHENSIVE METABOLIC PANEL Lab STAT Breast carcinoma, female, left (HCC) 04/13/2024 8:33 AM EDT CBC Lab STAT Breast carcinoma, female, left (HCC) 04/13/2024 8:33 AM EDT DIFFERENTIAL, AUTOMATED Lab STAT Breast carcinoma, female, left (HCC) 04/13/2024 8:33 AM EDT HCG QUALITATIVE, URINE Lab STAT Breast carcinoma, female, left (HCC) 04/13/2024 8:49 AM EDT Scheduled Procedures Name Priority Associated Diagnoses Date/Ti me MASTECTOMY PARTIAL Infiltrating ductal carcinoma of breast, left (HCC) EXCISION OF BREAST LESION RADIOLOGICAL MARKER Infiltrating ductal carcinoma of breast, left (HCC) BIOPSY LYMPH NODE DEEP AXILL ROBERTA OPEN Infiltrating ductal carcinoma of breast, left (HCC) INJECTION PROCEDURE FOR IDENTIFICATION SENTINEL NODE Infiltrating ductal carcinoma of breast, left (HCC) COLONOSCOPY FLEXIBLE PROXIMA L DIAGNOSTIC Recall History of colonic polyps Health Maintenance Due Date Last Done Comments Hepatitis C Screening 1991 Hepatitis B Vaccine (1 of 3 - 19+ 3-dose series) 02/14/1992 HPV/Co-Test 2003 Cologuard 2018 Fecal Occult Blood Test 2018 Sigmoidoscopy 2018 COVID-19 Vaccine ( season) 2023 05/10/2022, 05/10/2022, 07/25/2021, Additional history exists Zoster Vaccines (2 of 2) 08/07/2023 06/12/2023 Influenza Vaccine (FLU shot) (#1) 2024 06/12/2023, 05/08/2022, 05/08/2022, Additional history exists Depression Screening 06/12/2024 06/12/2023 Cervical Cancer Screening 11/22/2024 Pap Smear 11/22/2024 11/22/2021, 08/19, 06/02/2015, Additional history exists Mammogram 12/31/2024 01/01/2024, 11/17, 11/27/2023, Additional history exists TSH 04/06/2025 04/06/2024, 03/19, 11/24/2021, Additional history exists Colonoscopy 05/19/2026 05/19/2021, 05/19/2021 Colorectal Cancer Screening 05/19/2026 Lipid Panel 01/08/2029 01/09/2024, 0412/2018, 09/15/2011 DTaP,Tdap,and Td Vaccines (3 - Td or Tdap) 11/23/2031 11/22/2021, 09/12/2011, 01/05/2000, Additional history exists RETIRED - COLONOSCOPY-EVERY 5 YRS AGES 18-100 Discontinued 05/19/2021, 05/19/2021 HPV (Gardasil) Vaccine Aged Out No lo nger eligible based on patient's age to complete this topic MENINGOCOCCAL (MENACTRA/MENVEO) Aged Out No longer eligible based on patient's age to complete this topic Pneumococcal Vaccine: Pediatrics (0 to 5 Years) and At-Risk Patients (6 to 64 Years) Aged Out No longer eligible based on patient's age to complete this topic documented as of this encounter Medical Devices Not on filedocumented as of this encounter Visit Diagnoses Diagnosis Vitamin D deficiency Unspecified vitamin D deficiency Breast carcinoma, female, left (HCC) documented in this encounter Care Teams Office Support Clerk Relationship Specialty Start Date End Date Haylee Skinner DO [address] [place] [id number] PCP - General Family Medicine 11/13/18 documented as of this encounter
--- OUTSIDE RECORDS SUMMARY | 2024-04-14 07:10 | External Medical Summary ---
Author Name Unknown Address Unknown Organization [facility] [address] [place] [address] Laboratory Report Ordering Provider Test Date Status BETZAIDA IBARRA 04/13/2024 08:33:43 Final Observation Date Value Abnormality Reference (Units ) Status Nucleated erythrocytes/100 leukocytes [Ratio] in Blood by Automated count 04/13/2024 08:33:43 Final Performing Location [facility] [place] [address]
--- OUTSIDE RECORDS SUMMARY | 2024-04-14 07:10 | External Medical Summary ---
Author Name Unknown Address Unknown Organization [facility] [address] [place] [address] Laboratory Report Ordering Provider Test Date Status BETZAIDA IBARRA 04/13/2024 08:33:43 Final Observation Date Value Abnormality Reference (Units ) Status BUN 04/13/2024 08:33:43 8 6-20 (mg/dL) Final Creatinine 04/13/2024 08:33:43 0.8 0.5-1.0 (mg/dL) Final Glomerular filtration rate/1.73 sq M.predicted [Volume Rate/Area] in Serum, Plasma or Blood by Creatinine-based formula (CKD-EPI) 04/13/2024 08:33:43 >90 >=60 (mL/min) Final eGFR is calculated based on the CKD-EPI 2020 equation. Sodium 04/13/2024 08:33:43 140 135-146 (m mol/L) Final Potassium 04/13/2024 08:33:43 3.6 3.5-5.1 (m mol/L) Final Cl 04/13/2024 08:33:43 102 98-107 (mm ol/L) Final CO2 04/13/2024 08:33:43 27 22-32 (mmo l/L) Final Anion gap 04/13/2024 08:33:43 11 7-15 (mmol /L) Final Glucose 04/13/2024 08:33:43 161 Above high normal 70 -120 (mg/dL) Final Albumin 04/13/2024 08:33:43 4.4 3.8-5.0 (g /dL) Final AST (Aspartate aminotransferase) 04/13/2024 08:33:43 >700 Above high normal 10-35 (U/L) Final Results rechecked Alk Phos 04/13/2024 08:33:43 128 35-130 (U/ L) Final Bilirubin, Total 04/13/2024 08:33:43 2.3 Above high no rmal <=1.2 (mg/dL) Final Calcium 04/13/2024 08:33:43 9.4 8.4-10.2 ( mg/dL) Final Protein 04/13/2024 08:33:43 7.2 6.0-8.3 (g /dL) Final ALT (Alanine aminotransferase) 04/13/2024 08:33:43 697 Above high normal 10-35 (U/L) Final Results rechecked [facility] [address] [place] [address]
--- OUTSIDE RECORDS SUMMARY | 2024-04-14 07:10 | External Medical Summary ---
Author Name Unknown Address Unknown Organization [id number][facility] [facility] [address] [place] [address] Laboratory Report Ordering Provider Test Date Status BETZAIDA IBARRA 04/13/2024 08:33:43 Final Observation Date Value Abnormality Reference (Units ) Status SYNC LEUKOCYTES IN BLOOD BY AUTOMATED COUNT 04/13/2024 08:33:43 3.27 Below low normal 4.00-10.80 (K/uL) Final Segs 04/13/2024 08:33:43 62.4 40.0-75.0 (%) Final Lymphs % 04/13/2024 08:33:43 32.4 18.0-42.0 (%) Final Monos 04/13/2024 08:33:43 4.0 1.0-11.0 (%) Final Eosinophils 04/13/2024 08:33:43 0.3 0.0-6.0 (%) Final Basos 04/13/2024 08:33:43 0.9 0.0-2.0 (%) Final Absolute Segs 04/13/2024 08:33:43 2.04 1.80-7.70 (K/uL) Final Lymphs, absolute 04/13/2024 08:33:43 1.06 1.00-4.80 (K/ul) Final Monos, Abs 04/13/2024 08:33:43 0.13 0.00-1.10 (K/uL) Final Eos, Abs 04/13/2024 08:33:43 0.01 0.00-0.70 (K/uL) Final Basos, Abs 04/13/2024 08:33:43 0.03 0.00-0.20 (K/uL) Final Performing Location LABORATORY ROB [facility] 57-1 0 - [address] [place] [address]
--- OUTSIDE RECORDS SUMMARY | 2024-04-14 07:10 | External Medical Summary ---
Author Name Unknown Address Unknown Organization [id number]:LAB[facility]ORY [facility] MAIRELA 57-10 - [address] [place] [address] Laboratory Report Ordering Provider Test Date Status BETZAIDA IBARRA 04/13/2024 08:33:43 Final Observation Date Value Abnormality Reference (Units ) Status WBC, Total 04/13/2024 08:33:43 3.27 Below low normal 4. 00-10.80 (K/uL) Final RBC 04/13/2024 08:33:43 4.22 3.85-5.15 (M/uL) Final Hemoglobin 04/13/2024 08:33:43 12.4 12.0-15.3 (g/dL) Final HCT 04/13/2024 08:33:43 36.5 36.0-45.2 (%) Final MCV 04/13/2024 08:33:43 86.5 81.5-97.5 (fL) Final MCH 04/13/2024 08:33:43 29.4 27.0-34.0 (pg) Final MCHC 04/13/2024 08:33:43 34.0 32.0-36.0 (g/dL) Final RDW 04/13/2024 08:33:43 13.5 11.5-15.5 (%) Final Platelets 04/13/2024 08:33:43 331 140-400 (K /uL) Final MPV 04/13/2024 08:33:43 9.3 6.6-11.1 ( fL) Final Performing Location LABORATORY SHANTE [facility] 57-1 0 - [address] [place] [address]
--- OUTSIDE RECORDS SUMMARY | 2024-04-14 07:10 | External Medical Summary | Summary of Care ---
Author Name Unknown Organization [facility] Address [address] [facility] [address] Phone [phone] Care Team Providers Care Recording Studio Internship Name Role Phone Haylee Skinner DO Primary Care Provider [phone] Reason for Visit * Reason Comments Outpatient Testing Encounter Details Date Type Department Care Team (Late st Contact Info) Description 04/13/2024 8:40 AM EDT Laboratory Laboratory, [facility] 132 [facility] [place] [phone] [facility] 132 [facility] [place] [address] Vitamin D deficiency; Breast carcinoma, female, left [...] 1 03/18/2024 Active Vitamin D3 1.25 MG (45280 UT) Oral CapsuleIndications :Vitamin D deficiency TAKE [...] mRNA, LNP-s, No Pre serve, 2-Dose Series (Suitey) 11/26/2020,11/05/2020 COVID-19, LNP-s, No Preserve , Yusef-sucrose, Ages 12+ (Suitey) 05/10/2022,07/25/2021 Seasonal Influenza Virus Vac cine, Unspecified [...] 1:00 PM EDT Hem/Onc Treatment Hematology/Oncology Treatment, [place] 200 [facility], [place] [phone] Sada, Chair 10 Hem Onc Scenery [address] [place] [address] 04/21/2024 8:00 AM EDT Laboratory Laboratory, [facility] [phone] Ian Roman [facility] [place] [address] 04/22/2024 8:00 AM EDT [facility] 200 [facility], [place] [phone] Sada, Chair 1 Hem Onc Scenery [address] [place] [address] 04/27/2024 9:00 AM EDT Laboratory Laboratory [facility] [place] [address] [place] [phone] Sada, Lab [facility] [address] [place], [place] [address] 04/27/2024 9:30 AM EDT Office Visit Hematology/Oncology [facility] [address] [place] [phone] Corina Dong CRNP [address] [place] [address] [place] [address] 04/28/2024 8:00 AM EDT Hem[facility] 200 [facility], [place] [phone] Sada, Chair 5 Hem Onc Scenery [address] [place] [address] 07/10/2024 9:45 AM EST Office Visit General Surgery, [facility] 132 [place] [address] Renzo Rees MD [address] [place] [address] 07/14/2024 11:00 AM EST Telemedicine Genetics HemOnc, [facility] [address] [place] [address] [place], [place] [address] [place] [address] Pending Results Name Type Priority Associated Diagnoses [...] (HCC) documented in this encounter Care Teams Recording Studio Internship Relationship Specialty Start Date End Date Haylee Skinner DO [address] [place] [address] PCP - General Family Medicine 11/13/18 documented as of this encounter
--- OUTSIDE RECORDS SUMMARY | 2024-04-14 07:10 | External Medical Summary ---
Author Name Unknown Address Unknown Organization K0G:LABORATORY ROB [facility] [address] - [address] [place] [address] Laboratory Report Ordering Provider Test Date Status BETZAIDA IBARRA 04/13/2024 08:49:51 Final Observation Date Value Abnormality Reference (Units ) Status Screen, Urine 04/13/2024 08:49:51 Negative Negative Final Performing Location LABORATORY ROB [facility] 57-[address] 0 - [address] [place] [address]
--- OUTSIDE RECORDS SUMMARY | 2024-04-14 07:10 | External Medical Summary ---
Author Name Unknown Address Unknown Organization K01:[facility]ATORY [facility] - [address] [place] [address] Laboratory Report Ordering Provider Test Date Status JACI KNOTT 04/13/2024 08:33:43 Final Deficient: <20 ng/mL
Ins ufficient: 20-29 ng/mL
Recommended/Optimum:30-50 ng/mL

Vitamin D intoxication is rare. If suspicious of Vitamin D toxicity, evaluation of serum Calcium and PTH is recommended. Observation Date Value Abnormality Reference (Units ) Status 25-OH Vitamin D total 04/13/2024 08:33:43 67 >19 (ng/mL) Final Performing Location LAB[facility]ORY [facility] - [address] [place] [address]
--- OUTSIDE RECORDS SUMMARY | 2024-04-14 07:11 | External Medical Summary | Summary of Care ---
Author Name Unknown Organization [facility] Address [address] [place] [address] Phone [phone] Care Team Providers Care Beef Cattle Grazier Name Role Phone BrodyHaylee Kiran LOYOLA Primary Care Provider [phone] Encounter Details Date Type Department Care Team (Late st Contact Info) Description 04/05/2024 Orders Only Hematology/Oncology, [facility] 400 [facility] [place] [address] Charlotte Ferreira MD 200 [facility] [address] Allergies No known active allergiesdocumented as of this encounter (statuses as of 04/05/2024) Medications Medication Sig Dispensed Refills Start Date [...] 1 03/18/2024 Active Vitamin D3 1.25 MG (91696 UT) Oral CapsuleIndications :Vitamin D deficiency TAKE 1 CAPSULE BY MOUTH ONCE WEEKLY 12 Capsule 03/26/2024 Active One-A-Day Womens VitaCraves Oral Tablet Chewable Take 1 Tablet by mouth daily. Active dexAMETHasone 4 MG Oral TabletIndications: Breast carcinoma, female, left (HCC) 12 mg (3 tab) 12 and 6 hours before chemotherapy 42 Tablet 03/31/2024 Active documented as of this encounter (statuses as of 04/05/2024) Active Problems Problem Noted Date Diagnosed Date Encounter for antineoplastic chemotherapy 2023 Breast carcinoma, female, left 02/19/2024 PND (post-nasal drip) 11/15/2021 Acquired hypothyroidism 02/25/2021 Polycystic ovaries 12/30/2001 documented as of this encounter (statuses as of 04/05/2024) Resolved Problems Problem Noted Date Diagnosed Date Resolved Date Throat irritation 11/15/2021 06/12/2023 COVID-19 virus infection 08/09/2020 documented as of this encounter (statuses as of 04/05/2024) Immunizations Name Administration Dates Next Due COVID-19 mRNA, LNP-s, No Pre serve, 2-Dose Series (Twingly) 11/26/2020,11/05/2020 COVID-19, LNP-s, No Preserve , Yusef-sucrose, Ages 12+ (Twingly) 05/10/2022,07/25/2021 Seasonal Influenza Virus Vac cine, Unspecified Formulation 06/04/2019 Seasonal Influenza, PF, 6 M & above, IM , (FluLaval or Fluzone) 06/12/2023,05/08/2022,05/09/2021,2019,05/08/2017 Seasonal Influenza, Quadriva lent, No Preserve, IM 05/01/2018 Seasonal Influenza, Split, I IV3, With Preserve, Inj 06/17/2016,05/19/2014,06/04/2011,2006 TDAP (age 10 and older)(Boostrix) 11/22/2021 TDAP, [...] Care Team (Late st Contact Info) Description 04/06/2024 8:00 AM EDT [facility] 132 [facility] [place] [phone] Ian Roman [facility] [address] 04/07/2024 1:45 PM EDT Hem/Onc Treatment Hematology/Oncology Treatment, [place] [address] [place] [phone] 04/27/2024 9:30 AM EDT Office Visit Hematology/Oncology [facility] [address] [place] [phone] oCrina Dong CRNP 400 [place] [address] 07/10/2024 9:45 AM EST Office Visit General Surgery, [facility] 132 [facility] [place] [address] Renzo Rees MD 132 [place] [address] 07/14/2024 11:00 AM EST Telemedicine Genetics HemOnc, [facility] [address] [place] [address] [place], [place] [address] [place] [address] Scheduled Procedures Name Priority Associated Diagnoses Date/Ti [...] Zoster Vaccines (2 of 2) 08/07/2023 06/12/2023 TSH 04/04/2024 04/04/2023, 04/0 03/2022, 02/25/2021, Additional history exists Influenza Vaccine (FLU shot) (#1) 2024 06/12/2023, 05/08/2022, 05/08/2022, Additional history exists Depression Screening 06/12/2024 06/12/2023 Cervical Cancer Screening 11/22/2024 Pap Smear 11/22/2024 11/22/2021, 08/19, 06/02/2015, Additional history exists Mammogram 12/31/2024 01/01/2024, 11/17, 11/27/2023, Additional history exists Colonoscopy 05/19/2026 05/19/2021, 05/19/2021 Colorectal Cancer Screening 05/19/2026 Lipid Panel 01/08/2029 01/09/2024, 04/0 12/2018, 09/15/2011 DTaP,Tdap,and Td Vaccines (3 - Td [...] Not on filedocumented as of this encounter Care Teams Beef Cattle Grazier Relationship Specialty Start Date End Date Haylee Skinner DO [address] [place] [address] PCP - General Family Medicine 11/13/18 documented as of this encounter
--- OUTSIDE RECORDS SUMMARY | 2024-04-14 07:11 | External Medical Summary ---
Author Name Unknown Address Unknown Organization K0G:LABORATORY ROB [facility] 57-[address] - [address] [place] [address] Laboratory Report Ordering Provider Test Date Status BETZAIDA IBARRA 04/06/2024 08:58:49 Final Observation Date Value Abnormality Reference (Units ) Status Screen, Urine 04/06/2024 08:58:49 Negative Negative Final Performing Location LABORATORY ROB [facility] 57-[address] 0 - [address] [place] [address]
--- OUTSIDE RECORDS SUMMARY | 2024-04-14 07:11 | External Medical Summary ---
Author Name Unknown Address Unknown Organization K0G:LABORATORY ROB [facility] 57-[address] - [address] [place] [address] Laboratory Report Ordering Provider Test Date Status BETZAIDA IBARRA 04/06/2024 08:56:17 Final Observation Date Value Abnormality Reference (Units ) Status BUN 04/06/2024 08:56:17 8 6-20 (mg/dL) Final Creatinine 04/06/2024 08:56:17 0.7 0.5-1.0 (mg/dL) Final Glomerular filtration rate/1.73 sq M.predicted [Volume Rate/Area] in Serum, Plasma or Blood by Creatinine-based formula (CKD-EPI) 04/06/2024 08:56:17 >90 >=60 (mL/min) Final eGFR is calculated based on the CKD-EPI 2020 equation. Sodium 04/06/2024 08:56:17 140 135-146 (m mol/L) Final Potassium 04/06/2024 08:56:17 4.0 3.5-5.1 (m mol/L) Final Cl 04/06/2024 08:56:17 105 98-107 (mm ol/L) Final CO2 04/06/2024 08:56:17 25 22-32 (mmo l/L) Final Anion gap 04/06/2024 08:56:17 10 7-15 (mmol /L) Final Glucose 04/06/2024 08:56:17 104 70-120 (mg /dL) Final Albumin 04/06/2024 08:56:17 4.2 3.8-5.0 (g /dL) Final AST (Aspartate aminotransferase) 04/06/2024 08:56:17 18 10-35 (U/L) Fin al Alk Phos 04/06/2024 08:56:17 44 35-130 (U/ L) Final Bilirubin, Total 04/06/2024 08:56:17 0.6 <=1 .2 (mg/dL) Final Calcium 04/06/2024 08:56:17 9.2 8.4-10.2 ( mg/dL) Final Protein 04/06/2024 08:56:17 6.6 6.0-8.3 (g /dL) Final ALT (Alanine aminotransferase) 04/06/2024 08:56:17 36 Above high normal 10-35 (U/L) Final Performing Location LABORATORY [facility] 57-1 0 - [address] [facility] [address]
--- OUTSIDE RECORDS SUMMARY | 2024-04-14 07:11 | External Medical Summary | Summary of Care ---
Author Name Unknown Organization [facility] Address [address] [facility] [place] [address] Phone [phone] Care Team Providers Care Kettle Loader Name Role Phone Haylee Skinner DO Primary Care Provider [phone] Reason for Visit * Reason Comments Chemotherapy C6D1 Ontruzant/ Pacl iaxel * Episode Based Medications (Routine) - Authorized Specialty Diagnoses / Procedures Referred By Reggie miller Referred To Contact Diagnoses Breast carcinoma, female, left (HCC) Encounter for antineoplastic chemotherapy Procedures [place] PALONOSETRON HCL [place] INJ ONTRUZANT 10 MG [place] PACLITAXEL INJECTION Charlotte Ferreira MD [address] [place] [id number] Anc Hem/Onc [address] [address] Referral ID Status Reason Start Date Expiration Date V isits Requested Visits Authorized [id number] Authorized 02/26/2024 07/28/2024 [id number] Encounter Details Date Type Department Care Team (Latest Contact Info) Description 04/07/2024 1:45 PM EDT Hem/Onc Treatment Hematology/Oncolog y Treatment, [address] [phone] Breast carcinoma, female, left (HCC)*; Encounter for antineoplastic chemotherapy Allergies No known active allergiesdocumented as of this encounter (statuses as of 04/07/2024) Medications Medication Sig Dispensed Refills Start Date [...] 1 03/18/2024 Active Vitamin D3 1.25 MG (56896 UT) Oral CapsuleIndications :Vitamin D deficiency TAKE 1 CAPSULE BY MOUTH ONCE WEEKLY 12 Capsule 03/26/2024 Active One-A-Day Womens VitaCraves Oral Tablet Chewable Take 1 Tablet by mouth daily. Active dexAMETHasone 4 MG Oral TabletIndications: Breast carcinoma, female, left (HCC) 12 mg (3 tab) 12 and 6 hours before chemotherapy 42 Tablet 03/31/2024 Active documented as of this encounter (statuses as of 04/07/2024) Active Problems Problem Noted Date Diagnosed Date Encounter for antineoplastic chemotherapy 2023 Breast carcinoma, female, left 02/19/2024 PND (post-nasal drip) 11/15/2021 Acquired hypothyroidism 02/25/2021 Polycystic ovaries 12/30/2001 documented as of this encounter (statuses as of 04/07/2024) Resolved Problems Problem Noted Date Diagnosed Date Resolved Date Throat irritation 11/15/2021 06/12/2023 COVID-19 virus infection 08/09/2020 documented as of this encounter (statuses as of 04/07/2024) Immunizations Name Administration Dates Next Due COVID-19 mRNA, LNP-s, No Pre serve, 2-Dose Series (Pfizer) 11/26/2020,11/05/2020 COVID-19, LNP-s, No Preserve , Yusef-sucrose, Ages 12+ (Pfizer) 05/10/2022,07/25/2021 Seasonal Influenza Virus Vac cine, Unspecified [...] on file documented as of this encounter Last Filed Vital Signs Vital Sign Reading Time Taken Comments Blood Pressure 131/89 04/07/2024 2:29 PM EDT Pulse 93 04/07/2024 2:29 PM EDT Temperature 37.1 C (98.8 F) 04/07/2024 2:29 PM ED T Respiratory Rate 18 04/07/2024 2:29 PM EDT Oxygen Saturation 98% 04/07/2024 2:29 PM EDT Inhaled Oxygen Concentration - - Weight 61.6 kg (135 lb 12.8 oz) 04/07/2024 2:29 PM EDT Height - - Body Mass Index 24.44 02/19/2024 2:54 PM EDT documented in this encounter Nursing Notes * Chandni Eric RN - 04/07/2024 4:22 PM EDT Goals: Patient will remain free from injury Possible barriers to meeting goals: Benadryl and Ambulating with IV pump Stability of the patient: Moderately stable - low risk of patient condition declining or worsening Summary regarding today's goals: Met: Patient remained free from harm. Patient received treatment without difficulty or complaints. Pt discharged in stable condition. * Chandni Eric RN - 04/07/2024 2:30 PM EDT Chair 6 Patient arrived for infusion. Complained of diarrhea over weekend and took imodium Saturday which resolved it. She offered no other complaints. Labs reviewed with tucker Montano to treat. Port accessed with good blood return and without difficulty. Chemotherapy/Immunotherapy agents: HERCEPTIN and TAXOL Consent for chemotherapy drug treatment complete, dated, and signed? yes, date - 02/19/24 Treatment lab parameters met? Yes Has treatment weight changed > than 10%? No Treatment preauthorized? Yes VITALS Filed Vitals: 04/07/24 1429 BP: 131/89 Pulse: 93 Resp: 18 Temp: 37.1 C (98.8 F) SpO2: 98% Weight: 61.6 kg (135 lb 12.8 oz) Urine protein: N/A Patient education completed for treatment? Yes Blood transfusion consent signed and complete? NA Return appointment scheduled? Yes Patient had provider visit today? No - If no provider visit must complete Pretreatment Assessment Functional Status: Functional status at today's visit: Fully active, able to carry on all pre-disease performance without restriction The drug name, dose, infusion volume, rate and route of administration, expiration date and time, appearance and physical integrity of the drug and rate set on the pump and sequencing of drug administration (as applicable) were verified by me and second sign-in RN. Patient was assessed for symptoms or adverse side effects during treatment. Patient Education: Patient instructed on use of heat and massage functions where applicable. Patient shown how to operate the heat function of the chair and to alert nursing staff if the chair feels too warm. Patient instructed on the risk of potential reza while using the heat function. PRE-TREATMENT ASSESSMENT: NEURO: denies symptoms CV/RESP: denies symptoms GI/: diarrhea: see above documentation OTHER: rash:reports rash on chest a couple days after treatment but resolves after a day or so. PAIN: 0 Safety and Risk for Injury Patient will remain free from injury. Ensure appropriate safety devices are available. Provide and maintain safe environment. documented in this encounter Plan of Treatment Upcoming Encounters Date Type Department Care Team (Late st Contact Info) Description 04/13/2024 8:00 AM EDT Laboratory Laboratory, [facility] [place] [address] [place] [phone] Ian Roman [address] [place] [address] 04/14/2024 1:00 PM EDT Hem/Onc Treatment Hematology/Oncology Treatment, [place] [address] [place] [address] Park, Chair 10 Hem Onc Scenery [address] [place], [place] [address] 04/21/2024 8:00 AM EDT Laboratory Laboratory, [facility] 132 [facility] [place] [phone] [facility] 132 [facility] [place] [address] 04/22/2024 8:00 AM EDT [facility] 200 [facility], [place] [phone] Sada, Chair 1 Hem Onc Scenery [address] [place] [address] 04/27/2024 9:00 AM EDT Laboratory Laboratory [facility] [place] [address] [place] [phone] Sada, Lab Scenery [address] [facility] [place] [address] 04/27/2024 9:30 AM EDT Office Visit Hematology/Oncology [facility] [place] [address] [place] [phone] Corina Dong CRNP 400 [facility] [place] [phone] 04/28/2024 8:00 AM EDT Hem[facility]c [facility] 200 [facility], [place] [phone] Sada, Chair 5 Hem Onc Scenery [address] [place] [address] 07/10/2024 9:45 AM EST Office Visit General Surgery, [facility] 132 [facility] [place] [phone] Renzo Rees MD [address] [place] [address] 07/14/2024 11:00 AM EST Telemedicine Genetics HemOnc, [facility] [address] [place] [address] [place], [place] [address] [place] [phone] Scheduled Procedures Name Priority Associated Diagnoses Date/Ti [...] as of this encounter Visit Diagnoses Diagnosis Breast carcinoma, female, left (HCC)- Primary Encounter for antineoplastic chemotherapy documented in this encounter Administered Medications Active Administered Medications - up to 3 most recent administrations Medication Order MAR Action Action Date Dose Rate Site diphenhydrAMINE (Benadryl) inj 50 mg 50 mg, IV Push, ONCE PRN Other, Hypersensitivity Reaction, Starting on Sat04/07/24 at 1401, Until Sat04/08/24 at 1400, For 24 hours EPINEPHrine 1 MG/ML inj 0.3 mg 0.3 mg, Intramuscular, ONCE PRN Other, Hypersensitivity Reaction or Anaphylaxis, Starting on Sat04/07/24 at 1401, Until Sat04/08/24 at 1400, For 24 hours hEParin 100 UNIT/ML Lock Flush inj 500 Units 500 Units (5 mL), IV Lock, PRN Other, IV Flush, Starting on Sat04/07/24 at 1401, Until Sat04/08/24 at 1400, For 24 hours, Do not flush if lock, PICC, or central line not in place; IV infusing or unable to flush. Given 04/07/2024 4:15 PM EDT 500 Units Hydrocortisone Sod Suc (PF) (Solu-Cortef) inj 100 mg 100 mg, IV Push, ONCE PRN Other, Hypersensitivity Reaction, Starting on Sat04/07/24 at 1401, Until Sat04/08/24 at 1400, For 24 hours NSS infusion Intravenous, at 50 mL/hr, PRN, Starting on Sat04/07/24 at 1515, Until Discontinued, Maintenance line Start Infusion 04/07/2024 2:05 PM EDT 50 mL/hr oxygen GAS Inhalation, OXYGEN, First dose on Sat04/07/24 at 1600, Until Discontinued, Device/Managed by: Low Flow Device, Goal SPO2 (%): 91-95, Starting Device: Nasal Cannula, Initial Flow Rate (LPM): 2, Lowest Support: Nasal Cannula: Flow 0-6 LPM. Titrate up/down by 1 LPM., Higher Support: Non-Rebreather (NRB) Mask: Minimum of 10 LPM. Titrate to maintain bag inflation., Titration Interval: Q2 minutes and as needed., Notify Provider: For sudden DECREASE in resting SPO2 to less than 85% and when escalating delivery device., Wean patient off Oxygen when the oxygen saturation is greater than or equal to 93% sodium chloride 0.9 % flush central line 10 mL 10 mL, IV Push, PRN Other, IV Flush, Starting on Sat04/07/24 at 1401, Until Sat04/08/24 at 1400, For 24 hours, Do not flush if lock, PICC, or central line not in place; IV infusing or unable to flush. Given 04/07/2024 4:15 PM EDT 10 mL Inactive Administered Medications - up to 3 most recent administrations Medication Order MAR Action Action Date Dose Rate Site Acetaminophen (Tylenol) tab 650 mg 650 mg, Oral, ONCE, On Sat04/07/24 at 1515, For 1 dose, Give 30 minutes prior to chemotherapy. Maximum of 4 grams (4000 mg) per day. Given 04/07/2024 2:10 PM EDT 650 mg dexAMETHasone (Decadron) tab 12 mg 12 mg, Oral, ONCE, On Sat04/07/24 at 1445, For 1 dose Given 04/07/2024 2:10 PM EDT 12 mg diphenhydrAMINE (Benadryl) cap 25 mg 25 mg, Oral, ONCE, On Sat04/07/24 at 1515, For 1 dose Given 04/07/2024 2:10 PM EDT 25 mg Famotidine (Pepcid) tab 20 mg 20 mg, Oral, ONCE, On Sat04/07/24 at 1515, For 1 dose Given 04/07/2024 2:10 PM EDT 20 mg PACLitaxel (Taxol) 136 mg in NSS 250 mL infusion 136 mg (80 mg/m2 1.7 m2 Treatment Plan BSA from Recorded weight), IV Piggyback, ONCE, 1 dose, On Sat04/07/24 at 1545, Administer over 60 Minutes, Administer through 0.22 micron low protein binding filter! Start Infusion 04/07/2024 3:10 PM EDT 136 mg 255 mL/hr Trastuzumab-dttb (Ontruzant) 131.46 mg in NSS 250 mL infusion 131.46 mg (rounded from 131.4 mg = 2 mg/kg 65.7 kg Treatment plan Recorded weight), IV Piggyback, ONCE, 1 dose, On Sat04/07/24 at 1545, Administer over 30 Minutes Start Infusion 04/07/2024 2:21 PM EDT 131.46 mg 510 mL/hr documented in this encounter Care Teams Kettle Loader Relationship Specialty Start Date End Date Haylee Skinner DO [address] [place] [address] PCP - General Family Medicine 11/13/18 documented as of this encounter
--- OUTSIDE RECORDS SUMMARY | 2024-04-14 07:11 | External Medical Summary ---
Author Name Unknown Address Unknown Organization K0G:[facility] - [address] [place] [address] Laboratory Report Ordering Provider Test Date Status BETZAIDA IBARRA 04/06/2024 08:56:17 Final Observation Date Value Abnormality Reference (Units ) Status SYNC LEUKOCYTES IN BLOOD BY AUTOMATED COUNT 04/06/2024 08:56:17 3.54 Below low normal 4.00-10.80 (K/uL) Final Neutrophils/100 leukocytes in Blood by Manual count 04/06/2024 08:56:17 40.0 40.0-75.0 (%) Final Lymphocytes/100 leukocytes in Blood by Manual count 04/06/2024 08:56:17 53.0 Above high normal 18.0-42.0 (%) Final Monocytes/100 leukocytes in Blood by Manual count 04/06/2024 08:56:17 7.0 1.0-11.0 (%) Final Neutrophils [#/volume] in Blood by Manual count 04/06/2024 08:56:17 1.42 Below low normal 1.80-7.70 (K/uL) Final Lymphocytes [#/volume] in Blood by Manual count 04/06/2024 08:56:17 1.88 1.00-4.80 (K/uL) Final Monocytes [#/volume] in Blood by Manual count 04/06/2024 08:56:17 0.25 0.00-1.10 (K/uL) Final Nucleated erythrocytes/100 leukocytes [Ratio] in Blood by Automated count 04/06/2024 08:56:17 Final Variant lymphocytes [Presence] in Blood by Light microscopy 04/06/2024 08:56:17 Present Abnormal None Seen Final Performing Location [facility] 0 - [address] [place] [address]
--- OUTSIDE RECORDS SUMMARY | 2024-04-14 07:11 | External Medical Summary | Summary of Care ---
Author Name Unknown Organization [facility] Address [address] [facility] [address] Phone [phone] Care Team Providers Care Outreach Educator Name Role Phone Haylee Skinner DO Primary Care Provider [phone] Reason for Visit * Reason Comments Outpatient Testing Encounter Details Date Type Department Care Team (Late st Contact Info) Description 04/06/2024 9:00 AM EDT Laboratory Laboratory, [facility] [address] [facility] [place] [address] [facility] 132 [facility] [place] [address] Acquired hypothyroidism; Breast carcinoma, female, left (HCC) Allergies No known active allergiesdocumented as of this encounter (statuses as of 04/06/2024) Medications Medication Sig Dispensed Refills Start Date [...] 1 03/18/2024 Active Vitamin D3 1.25 MG (26100 UT) Oral CapsuleIndications :Vitamin D deficiency TAKE 1 CAPSULE BY MOUTH ONCE WEEKLY 12 Capsule 03/26/2024 Active One-A-Day Womens VitaCraves Oral Tablet Chewable Take 1 Tablet by mouth daily. Active dexAMETHasone 4 MG Oral TabletIndications: Breast carcinoma, female, left (HCC) 12 mg (3 tab) 12 and 6 hours before chemotherapy 42 Tablet 03/31/2024 Active documented as of this encounter (statuses as of 04/06/2024) Active Problems Problem Noted Date Diagnosed Date Encounter for antineoplastic chemotherapy 2023 Breast carcinoma, female, left 02/19/2024 PND (post-nasal drip) 11/15/2021 Acquired hypothyroidism 02/25/2021 Polycystic ovaries 12/30/2001 documented as of this encounter (statuses as of 04/06/2024) Resolved Problems Problem Noted Date Diagnosed Date Resolved Date Throat irritation 11/15/2021 06/12/2023 COVID-19 virus infection 08/09/2020 documented as of this encounter (statuses as of 04/06/2024) Immunizations Name Administration Dates Next Due COVID-19 mRNA, LNP-s, No Pre serve, 2-Dose Series ([employer] 11/26/2020,11/05/2020 COVID-19, LNP-s, No Preserve , Yusef-sucrose, Ages 12+ ([employer] 05/10/2022,07/25/2021 Seasonal Influenza Virus Vac cine, Unspecified [...] Care Team (Late st Contact Info) Description 04/07/2024 1:45 PM EDT Hem/Onc Treatment Hematology/Oncology Treatment, [place] [address] [place] [address] 04/27/2024 9:30 AM EDT Office Visit Hematology/Oncology [facility] [address] [place] [phone] Corina Dong CRNP [address] [facility] [place] [address] 07/10/2024 9:45 AM EST Office Visit General Surgery, [facility] [address] [place] [address] Renzo Rees MD [address] [place] [address] 07/14/2024 11:00 AM EST Telemedicine Genetics HemOnc, [facility] [address] [place] [address] [place], [place] [address] [place] [address] Pending Results Name Type Priority Associated Diagnoses Date /Time TSH WITH FREE T4 IF INDICATED Lab Routine Acquired hypothyroidism 04/06/2024 8:56 AM EDT Scheduled Orders Name Type Priority Associated Diagnoses Orde r Schedule TSH WITH FREE T4 IF INDICATED Lab Routine Acquired hypothyroidism Expected: 04/06/2024 (Approximate), Expires: 04/06/2025 Scheduled Procedures Name Priority Associated Diagnoses Date/Ti [...] Blood Test 2018 Sigmoidoscopy 2018 COVID-19 Vaccine (6 - 2022-24 season) 2023 05/10/2022, 05/10/2022, 07/25/2021, Additional history [...] Not on filedocumented as of this encounter Procedures Procedure Name Priority Date/Time Associated Diagnosis Comments HCG QUALITATIVE, URINE STAT 4 8:58 AM EDT Breast carcinoma, female, left (HCC) DIFFERENTIAL, AUTOMATED STAT 04/06/2024 8:56 AM EDT Breast carcinoma, female, left (HCC) COMPREHENSIVE METABOLIC PANEL STAT 04/06/2024 8:56 AM EDT Breast carcinoma, female, left (HCC) CBC STAT 04/06/2024 8:56 AM EDT Breast carcinoma, female, left (HCC) CBC STAT 04/06/2024 8:56 AM EDT Breast carcinoma, female, left (HCC) DIFFERENTIAL, TECHNOLOGIST REVIEW Routine 04/06/2024 8:56 AM EDT Breast carcinoma, female, left (HCC) documented in this encounter Results * HCG QUALITATIVE, URINE (04/06/2024 8:58 AM EDT) HCG Qualitative, Urine Negative Negative 04/06/2024 9:04 AM EDT [facility] 57-10 Urine Urine specimen obtained by clean catch procedure / Unknown Non-blood Collection / Unknown 04/06/2024 8:58 AM EDT 04/06/2024 8:58 AM EDT Charlotte Ferreira MD LAB URINE [facility] [address] [place] [address] * (ABNORMAL) DIFFERENTIAL, TECHNOLOGIST REVIEW (04/06/2024 8:56 AM EDT) WBC 3.54(L) 4.00 - 10.80 K/uL 04/06/2024 9:43 AM EDT [facility] Neutrophils % 40.0 40.0 - 75.0 % 04/06/2024 9:43 AM EDT [facility] [place] [facility]10 Lymphocytes % 53.0(H) 18.0 - 42.0 % 04/06/2024 9:43 AM EDT [facility] [place] [facility] [facility]10 Monocytes % 7.0 1.0 - 11.0 % 04/06/2024 9:43 AM EDT [facility] [place] [facility] Absolute Neutrophils 1.42(L) 1.80 - 7.70 K/uL 04/06/2024 9:43 AM EDT [facility] [place] [facility]10 Absolute Lymphocytes 1.88 1.00 - 4.80 K/uL 04/06/2024 9:43 AM EDT [facility] [place] [facility] [facility] Absolute Monocytes 0.25 0.00 - 1.10 K/uL 04/06/2024 9:43 AM EDT [facility] [place] [facility]10 nRBCs 04/06/2024 9:43 AM EDT [facility] [place] [facility] [facility]10 Reactive Lymphocytes Present(A ) None Seen 04/06/2024 9:43 AM EDT [facility] [place] [facility] [facility]10 Blood Venous blood specimen / Unknown Venipuncture / Unknown 04/06/2024 8:56 AM EDT 04/06/2024 8:56 AM EDT Charlotte Ferreira MD LAB BLOOD [facility] [place] [facility] [facility] ([place], [place] [address] * DIFFERENTIAL, AUTOMATED (04/06/2024 8:56 AM EDT) Blood Venous blood specimen / Unknown Venipuncture / Unknown 04/06/2024 8:56 AM EDT 04/06/2024 8:56 AM EDT Charlotte Ferreira MD LAB BLOOD [facility] [place] [facility] [facility], [place] [address] * (ABNORMAL) CBC (04/06/2024 8:56 AM EDT) [facility] WBC 3.54(L) 4.00 - 10.80 K/uL 04/06/2024 9:43 AM EDT [facility] [place] [facility]10 RBC 4.04 3.85 - 5.15 M/uL 04/06/2024 9:43 AM EDT [facility] [place] [facility]10 HGB 11.9(L) 12.0 - 15.3 g/dL 04/06/2024 9:43 AM EDT [facility] [place] [facility] [facility]10 HCT 35.2(L) 36.0 - 45.2 % 04/06/2024 9:43 AM EDT [facility] [place] [facility] [facility]10 MCV 87.1 81.5 - 97.5 fL 04/06/2024 9:43 AM EDT [facility] [place] [facility]10 MCH 29.5 27.0 - 34.0 pg 04/06/2024 9:43 AM EDT [facility] [place] [facility]10 MCHC 33.8 32.0 - 36.0 g/dL 04/06/2024 9:43 AM EDT [facility] [place] [facility] [facility]10 RDW 13.1 11.5 - 15.5 % 04/06/2024 9:43 AM EDT [facility] [place] [facility]10 PLT 326 140 - 400 K/uL 04/06/2024 9:43 AM EDT [facility] [place] [facility] MPV 9.3 6.6 - 11.1 fL 04/06/2024 9:43 AM EDT [facility] [place] [facility] [facility]10 Blood Venous blood specimen / Unknown Venipuncture / Unknown 04/06/2024 8:56 AM EDT 04/06/2024 8:56 AM EDT Charlotte Ferreira MD LAB BLOOD ORDER[facility] [place] [facility] [place] [address] * (ABNORMAL) COMPREHENSIVE METABOLIC PANEL (04/06/2024 8:56 AM EDT) BUN 8 6 - 20 mg/dL 04/06/2024 9:20 AM EDT [facility] [place] [facility]10 Creatinine 0.7 0.5 - 1.0 mg/dL 04/06/2024 9:20 AM EDT [facility] [place] [facility] [facility]10 Estimated Glomerular Filtration Rate >90 >=60 mL/min 04/06/2024 9:20 AM EDT [facility] [place] [facility]10 Comment:eGFR is calculated b ased on the CKD-EPI 2020 equation. Sodium 140 135 - 146 mmol/L 04/06/2024 9:20 AM EDT [facility] [place] [facility]10 Potassium 4.0 3.5 - 5.1 mmol/L 04/06/2024 9:20 AM EDT [facility] [place] [facility] [facility]10 Chloride 105 98 - 107 mmol/L 04/06/2024 9:20 AM EDT [facility] [place] [facility]10 CO2 25 22 - 32 mmol/L 04/06/2024 9:20 AM EDT [facility] [place] [facility] [facility]10 Anion Gap 10 7 - 15 mmol/L 04/06/2024 9:20 AM EDT [facility] [place] [facility]10 Glucose 104 70 - 120 mg/dL 04/06/2024 9:20 AM EDT [facility] [place] [facility]10 Albumin 4.2 3.8 - 5.0 g/dL 04/06/2024 9:20 AM EDT [facility] [place] [facility]10 AST 18 10 - 35 U/L 04/06/2024 9:20 AM EDT [facility] [place] [facility]10 Alkaline Phosphatase 44 35 - 130 U/L 04/06/2024 9:20 AM EDT [facility] [place] [facility]10 Bilirubin, Total 0.6 <=1.2 mg/dL 04/06/2024 9:20 AM EDT [facility] [place] [facility]10 Calcium 9.2 8.4 - 10.2 mg/dL 04/06/2024 9:20 AM EDT [facility] [place] [facility]10 Protein 6.6 6.0 - 8.3 g/dL 04/06/2024 9:20 AM EDT [facility] [place] [facility]10 ALT 36(H) 10 - 35 U/L 04/06/2024 9:20 AM EDT [facility] [place] [facility]10 Blood Venous blood specimen / Unknown Venipuncture / Unknown 04/06/2024 8:56 AM EDT 04/06/2024 8:56 AM EDT Charlotte Ferreira MD LAB BLOOD ORDERA BLES [facility] [place] [address] documented in this encounter Visit Diagnoses Diagnosis Acquired hypothyroidism Unspecified hypothyroidism Breast carcinoma, female, left (HCC) documented in this encounter Care Teams Outreach Educator Relationship Specialty Start Date End Date Haylee Skinner DO [address] [place] [address] PCP - General Family Medicine 11/13/18 documented as of this encounter
--- OUTSIDE RECORDS SUMMARY | 2024-04-14 07:11 | External Medical Summary ---
Author Name Unknown Address Unknown Organization K0G:[facility] - [address] [place] [address] Laboratory Report Ordering Provider Test Date Status BETZAIDA IBARRA 04/06/2024 08:56:17 Final Observation Date Value Abnormality Reference (Units ) Status WBC, Total 04/06/2024 08:56:17 3.54 Below low normal 4. 00-10.80 (K/uL) Final RBC 04/06/2024 08:56:17 4.04 3.85-5.15 (M/uL) Final Hemoglobin 04/06/2024 08:56:17 11.9 Below low normal 12 .0-15.3 (g/dL) Final HCT 04/06/2024 08:56:17 35.2 Below low normal 36. 0-45.2 (%) Final MCV 04/06/2024 08:56:17 87.1 81.5-97.5 (fL) Final MCH 04/06/2024 08:56:17 29.5 27.0-34.0 (pg) Final MCHC 04/06/2024 08:56:17 33.8 32.0-36.0 (g/dL) Final RDW 04/06/2024 08:56:17 13.1 11.5-15.5 (%) Final Platelets 04/06/2024 08:56:17 326 140-400 (K /uL) Final MPV 04/06/2024 08:56:17 9.3 6.6-11.1 ( fL) Final Performing Location [facility] 0 - [address] [place] [address]
--- OUTSIDE RECORDS SUMMARY | 2024-04-14 07:11 | External Medical Summary | Summary of Care ---
Author Name Unknown Organization [facility] Address [address] [facility] [address] Phone [phone] Care Team Providers Care Audio Visual Production Specialist Name Role Phone BrodyHaylee Kiran LOYOLA Primary Care Provider [phone] Encounter Details Date Type Department Care Team (Late st Contact Info) Description 04/11/2024 Orders Only Hematology/Oncology [facility] [place] [address] [facility] [place] [phone] Charlotte Ferreira MD 200 [facility] [place] [address] Allergies No known active allergiesdocumented as of this encounter (statuses as of 04/11/2024) Medications Medication Sig Dispensed Refills Start Date [...] 1 03/18/2024 Active Vitamin D3 1.25 MG (39975 UT) Oral CapsuleIndications :Vitamin D deficiency TAKE 1 CAPSULE BY MOUTH ONCE WEEKLY 12 Capsule 03/26/2024 Active One-A-Day Womens VitaCraves Oral Tablet Chewable Take 1 Tablet by mouth daily. Active dexAMETHasone 4 MG Oral TabletIndications: Breast carcinoma, female, left (HCC) 12 mg (3 tab) 12 and 6 hours before chemotherapy 42 Tablet 03/31/2024 Active documented as of this encounter (statuses as of 04/11/2024) Active Problems Problem Noted Date Diagnosed Date Encounter for antineoplastic chemotherapy 2023 Breast carcinoma, female, left 02/19/2024 PND (post-nasal drip) 11/15/2021 Acquired hypothyroidism 02/25/2021 Polycystic ovaries 12/30/2001 documented as of this encounter (statuses as of 04/11/2024) Resolved Problems Problem Noted Date Diagnosed Date Resolved Date Throat irritation 11/15/2021 06/12/2023 COVID-19 virus infection 08/09/2020 documented as of this encounter (statuses as of 04/11/2024) Immunizations Name Administration Dates Next Due COVID-19 mRNA, LNP-s, No Pre serve, 2-Dose Series ([employer]) 11/26/2020,11/05/2020 COVID-19, LNP-s, No Preserve , Yusef-sucrose, Ages 12+ ([employer]) 05/10/2022,07/25/2021 Seasonal Influenza Virus Vac cine, Unspecified [...] Description 04/13/2024 8:00 AM EDT Laboratory Laboratory, [facility] [place] [address] RomanIan aaron 132 [facility] [place] [address] 04/14/2024 1:00 PM EDT [facility] 200 [facility], [place] [address] Sada, Chair 10 Hem Onc Scenery 200 [facility] [place] [address] 04/21/2024 8:00 AM EDT [facility] 132 [facility] [place] [phone] Ian Roman [address] [facility] [place] [address] 04/22/2024 8:00 AM EDT Hem[facility] 200 [facility], [place] [phone] Sada, Chair 1 Hem Onc Scenery 200 [facility] [place], [place] [address] 04/27/2024 9:00 AM EDT Laboratory Laboratory [facility] 200 [facility] [place], [place] [address] Sada, Lab [facility] 200 [facility] [place], [place] [address] 04/27/2024 9:30 AM EDT Office Visit Hematology/Oncology [facility] 200 [facility] [place], [place] [address] Corina Dong CRNP [address] [place] [address] [place] [address] 04/28/2024 8:00 AM EDT Hem[facility]c [facility] 200 [facility], [place] [phone] Sada, Chair 5 Hem Onc Scenery 200 [facility] [place], [place] [address] 07/10/2024 9:45 AM EST Office Visit General Surgery, [facility] [address] [place] [address] Renzo Rees MD [address] [place] [address] 07/14/2024 11:00 AM EST Telemedicine Genetics HemOnc, [facility] [address] [place] [place] [phone] [place], [place] [address] [facility] [place] [phone] Scheduled Procedures Name Priority Associated Diagnoses Date/Ti [...] filedocumented as of this encounter Care Teams Audio Visual Production Specialist Relationship Specialty Start Date End Date Haylee Skinner DO [address] [place] [address] PCP - General Family Medicine 11/13/18 documented as of this encounter
--- OUTSIDE RECORDS SUMMARY | 2024-04-14 07:11 | External Medical Summary | Summary of Care ---
Author Name Unknown Organization [facility] Address [address] [place] [address] Phone [phone] Care Team Providers Care Enamel Finisher Name Role Phone BrodyHaylee Kiran LOYOLA Primary Care Provider [phone] Encounter Details Date Type Department Care Team (Late st Contact Info) Description 04/05/2024 Orders Only Hematology/Oncology, [facility] [address] [facility] [address] Charlotte Fer[facility] [address] [facility] [address] Allergies No known active allergiesdocumented as [...] 1 03/18/2024 Active Vitamin D3 1.25 MG (80251 UT) Oral CapsuleIndications :Vitamin D deficiency TAKE [...] mRNA, LNP-s, No Pre serve, 2-Dose Series ([employer]) 11/26/2020,11/05/2020 COVID-19, LNP-s, No Preserve , Yusef-sucrose, Ages 12+ ([employer]) 05/10/2022,07/25/2021 Seasonal Influenza Virus Vac cine, Unspecified [...] Description 04/06/2024 8:00 AM EDT [facility] 132 [facility] [place] [address] Ian Roman [address] [place] [address] 04/07/2024 1:45 PM EDT Hem/Onc Treatment Hematology/Oncology Treatment, [place] [address] [place] [phone] 04/27/2024 9:30 AM EDT Office Visit Hematology/Oncology [facility] [address] [place] [phone] Corina Dong CRNP 400 [place] [address] 07/10/2024 9:45 AM EST Office Visit General Surgery, [facility] 132 [facility] [place] [address] Renzo Rees MD 132 [facility] [place] [address] 07/14/2024 11:00 AM EST Telemedicine Genetics HemOnc, [facility] [address] [place] [address] [place], [place] [address] [place] [address] Scheduled Procedures Name Priority Associated Diagnoses Date/Ti [...] filedocumented as of this encounter Care Teams Enamel Finisher Relationship Specialty Start Date End Date Haylee Skinner DO [address] [place] [address] PCP - General Family Medicine 11/13/18 documented as of this encounter
--- OUTSIDE RECORDS SUMMARY | 2024-04-14 07:11 | External Medical Summary ---
Author Name Unknown Address Unknown Organization K01:LAB[facility]ATORY [facility] - [address] [place] [address] Laboratory Report Ordering Provider Test Date Status JACI KNOTT 04/06/2024 08:56:17 Final Observation Date Value Abnormality Reference (Units ) Status TSH 04/06/2024 08:56:17 2.12 0.27-4.20 (uIU/mL) Final Performing Location LABORATORY C - [address] [place] [address]
--- OUTSIDE RECORDS SUMMARY | 2024-04-14 07:12 | External Medical Summary | Summary of Care ---
Author Name Unknown Organization [facility] Address [address] [place] [address] Phone [phone] Care Team Providers Care Metal Crafts Teacher Name Role Phone Haylee Skinner DO Primary Care Provider [phone] Reason for Visit * Reason Comments Treatment Ontruzant/Taxol C1,D 1 * Episode Based Medications (Routine) - Authorized Specialty Diagnoses / Procedures Referred By Reggie miller Referred To Contact Diagnoses Breast carcinoma, female, left (HCC) Encounter for antineoplastic chemotherapy Procedures WI PALONOSETRON HCL WI INJ ONTRUZANT 10 MG WI PACLITAXEL INJECTION Charlotte Ferreira MD 200 [facility] [place] [address] Anc Hem/Onc [address] [address] Referral ID Status Reason Start Date Expiration Date V isits Requested Visits Authorized [id number] Authorized 02/26/2024 07/28/2024 [id number] Encounter Details Date Type Department Care Team (Latest Contact Info) Description 03/03/2024 10:45 AM EDT Hem/Onc Treatment Hematology/Oncolog y Treatment, [address] [address] Sada Chair 2 Hem Onc [address] [place] [address] Breast carcinoma, female, left (HCC)*; Encounter for antineoplastic chemotherapy Allergies No known active allergiesdocumented as of this encounter (statuses as of 03/27/2024) Medications Medication Sig Dispensed Refills Start Date End Date Status Loratadine 10 MG Oral Tablet (Claritin)Indic ations:Viral URI with cough,Sensation of fullness in both ears Take 1 Tablet by mouth at bedtime. 3 Active Additional Information Patient not taking.Reported on 03/03/2024 Omeprazole 20 MG Oral Tablet Delayed Release Take 1 Tablet by mouth in the morning and 1 Tablet in the evening. 180 Tablet 3 4 Active Ondansetron HCl 8 MG Oral TabletIndicatio ns:Breast carcinoma, female, left (HCC) Take 1 Tablet by mouth every 8 hours as needed for Nausea. 30 Tablet 4 Active Additional Information Patient not taking.Reported on 03/03/2024 Prochlorperazin e Maleate 10 MG Oral Tablet (Compazine)Raeann cations:Breast carcinoma, female, left (HCC) Take 1 Tablet by mouth every 6 hours as needed for Nausea. 30 Tablet 4 Active Additional Information Patient not taking.Reported on 03/03/2024 dexAMETHasone 4 MG Oral TabletIndicatio ns:Breast carcinoma, female, left (HCC) 12 mg (3 tab) 12 and 6 hours before chemotherapy 40 Tablet 4 Active Levothyroxine Sodium 50 MCG Oral Tablet (Levoxyl)Indica tions:Abnormal thyroid blood test TAKE 1 TABLET BY MOUTH EVERY DAY AT LEAST 30 MINUTES PRIOR TO BREAKFAST OR OTHER MEDICATIONS 90 Tablet 1 4 03/18/20 24 Discontinued(Ref ill) Vitamin D3 1.25 MG (71306 UT) Oral CapsuleIndicati ons:Vitamin D deficiency Take 1 Capsule by mouth once a week. 12 Capsule 4 03/26/20 24 Discontinued documented as of this encounter (statuses as of 03/27/2024) Active Problems Problem Noted Date Diagnosed Date Encounter for antineoplastic chemotherapy 2023 Breast carcinoma, female, left 02/19/2024 PND (post-nasal drip) 11/15/2021 Acquired hypothyroidism 02/25/2021 Polycystic ovaries 12/30/2001 documented as of this encounter (statuses as of 03/27/2024) Resolved Problems Problem Noted Date Diagnosed Date Resolved Date Throat irritation 11/15/2021 06/12/2023 COVID-19 virus infection 08/09/2020 documented as of this encounter (statuses as of 03/27/2024) Immunizations Name Administration Dates Next Due COVID-19 [...] Sign Reading Time Taken Comments Blood Pressure 129/84 03/03/2024 10:51 AM EDT Pulse 98 03/03/2024 10:51 AM EDT Temperature 36.7 C (98.1 F) 03/03/2024 10:51 AM E DT Respiratory Rate - - Oxygen Saturation 98% 03/03/2024 10:51 AM EDT Inhaled Oxygen Concentration - - Weight 65 kg (143 lb 3.2 oz) 03/03/2024 10:51 AM EDT Height - - Body Mass Index 25.77 02/19/2024 2:54 PM EDT documented in this encounter Nursing Notes * Sammy Schneider, RN - 03/03/2024 2:55 PM EDT Pt infusions completed without issues. Pt denies any current symptoms and is feeling well other than some minor fatigue. VAD flushed with NSS/Heparin per orders, positive blood return noted. VAD access removed. Pt ambulated from treatment room in stable condition. Goals: Pt will remain free from injury. Possible barriers to meeting goals: Chemotherapy Stability of the patient: Moderately stable - low risk of patient condition declining or worsening Summary regarding today's goals: Met: Pt remained free from injury. * Rita Jordan RN - 03/03/2024 10:54 AM EDT Chemotherapy/Immunotherapy agents: ONTRUZANT and TAXOL Consent for chemotherapy drug treatment complete, dated, and signed? yes, date - 02/19/24 Treatment lab parameters met? Yes Has treatment weight changed > than 10%? No Treatment preauthorized? Yes VITALS Filed Vitals: 03/03/24 1051 BP: 129/84 Pulse: 98 Temp: 36.7 C (98.1 F) TempSrc: Tympanic SpO2: 98% Weight: 65 kg (143 lb 3.2 oz) Urine protein: N/A Patient education completed for treatment? Yes Blood transfusion consent signed and complete? NA Return appointment scheduled? No Patient had provider visit today? No - If no provider visit must complete Pretreatment Assessment PRE-TREATMENT ASSESSMENT: NEURO: denies symptoms CV/RESP: denies symptoms GI/: denies symptoms OTHER: denies any additional symptoms PAIN: 0 Functional Status: Functional status at today's visit: [...] symptoms or adverse side effects during treatment. documented in this encounter Plan of Treatment Upcoming Encounters Date Type Department Care Team (Late st Contact Info) Description 03/30/2024 8:00 AM EDT Laboratory Laboratory [address] [place] [phone] [address] [facility] [place] [address] 03/30/2024 8:30 AM EDT Office Visit Hematology/Oncology [facility] [address] [place] [address] Corina Dong CRNP 400 [facility] [place] [address] 03/31/2024 11:30 AM EDT Hem/Onc Treatment Hematology/Oncology Treatment, [address] [place] [phone] 07/10/2024 9:45 AM EST Office Visit General Surgery, [facility] [address] [place] [address] Renzo Rees MD [address] [place] [address] 07/14/2024 11:00 AM EST Telemedicine Genetics HemOnc, [facility] [address] [place] [phone] [place], [place] [address] [place] [address] Scheduled Procedures Name Priority Associated Diagnoses Date/Ti [...] chemotherapy documented in this encounter Administered Medications Inactive Administered Medications - up to 3 most recent administrations Medication Order MAR Action Action Date Dose Rate Site Acetaminophen (Tylenol) tab 650 mg 650 mg, Oral, ONCE, On Sat03/03/24 at 1200, For 1 dose, Give 30 minutes prior to chemotherapy. Maximum of 4 grams (4000 mg) per day. Given 03/03/2024 11:15 AM EDT 650 mg dexAMETHasone (Decadron) tab 12 mg 12 mg, Oral, ONCE, On Sat03/03/24 at 1130, For 1 dose Given 03/03/2024 11:15 AM EDT 12 mg diphenhydrAMINE (Benadryl) cap 50 mg 50 mg, Oral, ONCE, On Sat03/03/24 at 1200, For 1 dose Given 03/03/2024 11:15 AM EDT 50 mg Famotidine (Pepcid) tab 20 mg 20 mg, Oral, ONCE, On Sat03/03/24 at 1200, For 1 dose Given 03/03/2024 11:15 AM EDT 20 mg hEParin 100 UNIT/ML Lock Flush inj 500 Units 500 Units (5 mL), IV Lock, PRN Other, IV Flush, Starting on Sat03/03/24 at 1058, Until Sat03/03/24 at 1857, For 24 hours, Do not flush if lock, PICC, or central line not in place; IV infusing or unable to flush. Given 03/03/2024 2:41 PM EDT 500 Units NSS infusion Intravenous, at 50 mL/hr, PRN, Starting on Sat03/03/24 at 1200, Until Sat03/03/24 at 1857, Maintenance line Start Infusion 03/03/2024 11:16 AM EDT 50 mL/hr PACLitaxel (Taxol) 136 mg in NSS 250 mL infusion 136 mg (80 mg/m2 1.7 m2 Treatment Plan BSA from Recorded weight), IV Piggyback, ONCE, 1 dose, On Sat03/03/24 at 1230, Administer over 60 Minutes, Administer through 0.22 micron low protein binding filter! Rate Verify 03/03/2024 1:42 PM EDT 255 mL/hr Start Infusion 03/03/2024 1:38 PM EDT 136 mg 255 mL/hr sodium chloride 0.9 % flush central line 10 mL 10 mL, IV Push, PRN Other, IV Flush, Starting on Sat03/03/24 at 1058, Until Sat03/03/24 at 1857, For 24 hours, Do not flush if lock, PICC, or central line not in place; IV infusing or unable to flush. Given 03/03/2024 2:41 PM EDT 10 mL Trastuzumab-dttb (Ontruzant) 262.71 mg in NSS 250 mL infusion 262.71 mg (rounded from 262.8 mg = 4 mg/kg 65.7 kg Treatment plan Recorded weight), IV Piggyback, ONCE, 1 dose, On Sat03/03/24 at 1230, Administer over 90 Minutes Start Infusion 03/03/2024 12:02 PM EDT 262.71 mg 170 mL/hr documented in this encounter Care Teams Metal Crafts Teacher Relationship Specialty Start Date End Date Haylee Skinner DO [address] [place] [address] PCP - General Family Medicine 11/13/18 documented as of this encounter
--- OUTSIDE RECORDS SUMMARY | 2024-04-14 07:12 | External Medical Summary | Summary of Care ---
Author Name Unknown Organization [facility] Address [address] [place] [address] Phone [phone] Care Team Providers Care Summer Counselor Name Role Phone BrodyHaylee Kiran LOYOLA Primary Care Provider [phone] Reason for Visit * Reason Onset Date Comments Medication Refill 03/31/2024 Encounter Details Date Type Department Care Team (Late st Contact Info) Description 03/31/2024 Refill Hematology/Oncology Treatment, [place] [address] [facility] [address] [place] [phone] Rossi Greco MD [address] [place] [address] Breast carcinoma, female, left (HCC) Allergies No known active allergiesdocumented as of this encounter (statuses as of 03/31/2024) Medications Medication Sig Dispensed Refills Start Date End Date Status Loratadine 10 MG Oral Tablet (Claritin)Indica tions:Viral URI with cough,Sensation of fullness in both ears Take 1 Tablet by mouth at bedtime. 07/08/2023 Active Additional Information Patient not taking.Reported on 03/03/2024 Omeprazole 20 MG Oral Tablet Delayed Release Take 1 Tablet by mouth in the morning and 1 Tablet in the evening. 180 Tablet 3 10/14/2023 Active Ondansetron HCl 8 MG Oral TabletIndication s:Breast carcinoma, female, left (HCC) Take 1 Tablet by mouth every 8 hours as needed for Nausea. 30 Tablet 02/19/2024 Active Additional Information Patient not taking.Reported on 03/03/2024 Prochlorperazine Maleate 10 MG Oral Tablet (Compazine)Indic ations:Breast carcinoma, female, left (HCC) Take 1 Tablet by mouth every 6 hours as needed for Nausea. 30 Tablet 02/19/2024 Active Additional Information Patient not taking.Reported on 03/03/2024 Levothyroxine Sodium 50 MCG Oral Tablet (Levoxyl)Indicat ions:Abnormal thyroid blood test TAKE 1 TABLET BY MOUTH EVERY DAY AT LEAST 30 MINUTES PRIOR TO BREAKFAST OR OTHER MEDICATIONS 90 Tablet 1 03/18/2024 Active Vitamin D3 1.25 MG (92202 UT) Oral CapsuleIndicatio ns:Vitamin D deficiency TAKE 1 CAPSULE BY MOUTH ONCE WEEKLY 12 Capsule 03/26/2024 Active One-A-Day Womens VitaCraves Oral Tablet Chewable Take 1 Tablet by mouth daily. Active dexAMETHasone 4 MG Oral TabletIndication s:Breast carcinoma, female, left (HCC) 12 mg (3 tab) 12 and 6 hours before chemotherapy 42 Tablet 03/31/2024 Active dexAMETHasone 4 MG Oral TabletIndication s:Breast carcinoma, female, left (HCC) 12 mg (3 tab) 12 and 6 hours before chemotherapy 40 Tablet 02/19/2024 Discontinue d(Refill) documented as of this encounter (statuses as of 03/31/2024) Active Problems Problem Noted Date Diagnosed Date Encounter for antineoplastic chemotherapy 2023 Breast carcinoma, female, left 02/19/2024 PND (post-nasal drip) 11/15/2021 Acquired hypothyroidism 02/25/2021 Polycystic ovaries 12/30/2001 documented as of this encounter (statuses as of 03/31/2024) Resolved Problems Problem Noted Date Diagnosed Date Resolved Date Throat irritation 11/15/2021 06/12/2023 COVID-19 virus infection 08/09/2020 documented as of this encounter (statuses as of 03/31/2024) Immunizations Name Administration Dates Next Due COVID-19 mRNA, LNP-s, No Pre serve, 2-Dose Series ([employer]) 11/26/2020,11/05/2020 COVID-19, LNP-s, No Preserve , Yusef-sucrose, Ages 12+ ([employer]) 05/10/2022,07/25/2021 Seasonal Influenza Virus Vac cine, Unspecified [...] on file documented as of this encounter Miscellaneous Notes * Telephone Encounter - Sammy Schneider, RN - 03/31/2024 3:57 PM EDTSigned Prescriptions: Disp Refills dexAMETHasone 4 MG Oral Tablet 42 Tab*0 Si mg (3 tab) 12 and 6 hours before chemotherapyAuthorizing Provider: ROSSI GRECO * Telephone Encounter - Rossi Greco MD - 03/31/2024 3:53 PM EDT E-prescribed Rossi Greco MD Hem/Onc * Telephone Encounter - Lauren Stephens RN - 03/31/2024 3:16 PM EDT Patient states that she needs refill of decadron. documented in this encounter Plan of Treatment Upcoming Encounters Date Type Department Care Team (Late st Contact Info) Description 04/06/2024 8:00 AM EDT Laboratory Laboratory [facility] [place] [phone] [address] [facility] [place] [address] 04/07/2024 1:45 PM EDT Hem/Onc Treatment Hematology/Oncology Treatment, [place] [address] [facility] [place] [phone] 04/30/2024 12:00 PM EDT Office Visit Hematology/Oncology [facility] [place] [address] [place] [address] Corina Dong CRNP [address] [place] [place] [address] 07/10/2024 9:45 AM EST Office Visit General Surgery, [facility] [address] [place] [address] Renzo Rees MD [address] [place] [address] 07/14/2024 11:00 AM EST Telemedicine Genetics HemOnc, [facility] [address] [place] [address] [place], [place] [address] [place] [address] Scheduled Procedures Name Priority Associated Diagnoses Date/Ti [...] Blood Test 2018 Sigmoidoscopy 2018 COVID-19 Vaccine (2022- season) 2023 05/10/2022, 05/10/2022, 07/25/2021, Additional history [...] Visit Diagnoses Diagnosis Breast carcinoma, female, left (HCC) documented in this encounter Care Teams Summer Counselor Relationship Specialty Start Date End Date Haylee Skinner DO [address] [place] [address] PCP - General Family Medicine 11/13/18 documented as of this encounter
--- OUTSIDE RECORDS SUMMARY | 2024-04-14 07:12 | External Medical Summary ---
Author Name Unknown Address Unknown Organization [facility] [place] [place] [address] Laboratory Report Ordering Provider Test Date Status IBARRABETZAIDA 03/30/2024 08:23:32 Final Observation Date Value Abnormality Reference (Units ) Status Nucleated erythrocytes/100 leukocytes [Ratio] in Blood by Automated count 03/30/2024 08:23:32 Final Variant lymphocytes [Presence] in Blood by Light microscopy 03/30/2024 08:23:32 Present Abnormal None Seen Final Performing Location [facility] [place] [address]
--- OUTSIDE RECORDS SUMMARY | 2024-04-14 07:12 | External Medical Summary ---
Author Name Unknown Address Unknown Organization [facility] [place] [address] Laboratory Report Ordering Provider Test Date Status BETZAIDA IBARRA 03/30/2024 08:23:32 Final Observation Date Value Abnormality Reference (Units ) Status Screen, Urine 03/30/2024 08:23:32 Negative Negative Final Performing Location [facility] [place] [address]
--- OUTSIDE RECORDS SUMMARY | 2024-04-14 07:12 | External Medical Summary ---
Author Name Unknown Address Unknown Organization [facility] [place] [address] Laboratory Report Ordering Provider Test Date Status BETZAIDA IBARRA 03/30/2024 08:23:32 Final Observation Date Value Abnormality Reference (Units ) Status WBC, Total 03/30/2024 08:23:32 3.83 Below low normal 4. 00-10.80 (K/uL) Final RBC 03/30/2024 08:23:32 4.24 3.85-5.15 (M/uL) Final Hemoglobin 03/30/2024 08:23:32 12.3 12.0-15.3 (g/dL) Final HCT 03/30/2024 08:23:32 37.0 36.0-45.2 (%) Final MCV 03/30/2024 08:23:32 87.3 81.5-97.5 (fL) Final MCH 03/30/2024 08:23:32 29.0 27.0-34.0 (pg) Final MCHC 03/30/2024 08:23:32 33.2 32.0-36.0 (g/dL) Final RDW 03/30/2024 08:23:32 13.1 11.5-15.5 (%) Final Platelets 03/30/2024 08:23:32 344 140-400 (K /uL) Final MPV 03/30/2024 08:23:32 9.2 6.6-11.1 ( fL) Final Performing Location [facility] [place] [address]
--- OUTSIDE RECORDS SUMMARY | 2024-04-14 07:12 | External Medical Summary | Summary of Care ---
Author Name Unknown Organization [facility] Address [address] [place] [address] Phone [phone] Care Team Providers Care Lock Corner Machine Operator Name Role Phone BrodyHaylee Kiran LOYOLA Primary Care Provider [phone] Encounter Details Date Type Department Care Team (Late st Contact Info) Description 03/30/2024 Orders Only Outcomes Research Department [address] [place] [address] Abbie Pinedo CHRA [employer] Other*[id number] Allergies No known active allergiesdocumented as of this encounter (statuses as of 03/30/2024) Medications Medication Sig Dispensed Refills Start Date [...] taking.Reported on 03/03/2024 dexAMETHasone 4 MG Oral TabletIndications: Breast carcinoma, female, left (HCC) 12 mg (3 tab) 12 and 6 hours before chemotherapy 40 Tablet 02/19/2024 Active Levothyroxine Sodium 50 MCG Oral Tablet (Levoxyl)Indicatio ns:Abnormal thyroid blood test TAKE 1 TABLET BY MOUTH EVERY DAY AT LEAST 30 MINUTES PRIOR TO BREAKFAST OR OTHER MEDICATIONS 90 Tablet 1 03/18/2024 Active Vitamin D3 1.25 MG (15458 UT) Oral CapsuleIndications :Vitamin D deficiency TAKE 1 CAPSULE BY MOUTH ONCE WEEKLY 12 Capsule 03/26/2024 Active One-A-Day Womens VitaCraves Oral Tablet Chewable Take 1 Tablet by mouth daily. Active documented as of this encounter (statuses as of 03/30/2024) Active Problems Problem Noted Date Diagnosed Date Encounter for antineoplastic chemotherapy 2023 Breast carcinoma, female, left 02/19/2024 PND (post-nasal drip) 11/15/2021 Acquired hypothyroidism 02/25/2021 Polycystic ovaries 12/30/2001 documented as of this encounter (statuses as of 03/30/2024) Resolved Problems Problem Noted Date Diagnosed Date Resolved Date Throat irritation 11/15/2021 06/12/2023 COVID-19 virus infection 08/09/2020 documented as of this encounter (statuses as of 03/30/2024) Immunizations Name Administration Dates Next Due COVID-19 mRNA, LNP-s, No Pre serve, 2-Dose Series ([employer]) 11/26/2020,11/05/2020 COVID-19, LNP-s, No Preserve , Yusef-sucrose, Ages 12+ ([employer]) 05/10/2022,07/25/2021 Seasonal Influenza Virus Vac cine, Unspecified [...] Description 03/30/2024 8:00 AM EDT Laboratory Laboratory [facility] [place] [address] [place] [phone] Ian Tomlin [address] [place] [address] 03/30/2024 8:30 AM EDT Office Visit Hematology/Oncology [facility] [address] [place] [phone] Cor[facility] Dong [facility] [address] [facility] [place] [address] 03/31/2024 11:30 AM EDT Hem/Onc Treatment Hematology/Oncology Treatment, [place] [address] [facility] [address] [place] [phone] 07/10/2024 9:45 AM EST Office Visit General Surgery, [facility] [address] [place] [address] Renzo Rees MD [address] [place] [address] 07/14/2024 11:00 AM EST Telemedicine Genetics HemOnc, [facility] [address] [place] [address] [place], [place] [address] [place] [address] Scheduled Orders Name Type Priority Associated Diagnoses Orde r Schedule MYCODE SUBSEQUENT ADULT Lab Routine [employer] Other*[id number] Every 6 Months for 2 Occurrences starting 03/30/2024 until 04/19/2025 Scheduled Procedures Name Priority Associated Diagnoses Date/Ti [...] 2018 Sigmoidoscopy 2018 COVID-19 Vaccine (6 - 2023-24 season) 2023 05/10/2022, 05/10/2022, 07/25/2021, Additional history [...] as of this encounter Visit Diagnoses Diagnosis [employer] Other*[id number] documented in this encounter Care Teams Lock Corner Machine Operator Relationship Specialty Start Date End Date Haylee Skinner DO [address] [place] [address] PCP - General Family Medicine 11/13/18 documented as of this encounter
--- OUTSIDE RECORDS SUMMARY | 2024-04-14 07:12 | External Medical Summary | Summary of Care ---
Author Name Unknown Organization [facility] [address] [facility] [address] Phone [phone] Care Team Providers Care Plastics Scientist Name Role Phone Haylee Skinner DO Primary Care Provider [phone] Reason for Visit * Reason Comments Outpatient Testing Encounter Details Date Type Department Care Team (Late st Contact Info) Description 03/30/2024 8:00 AM EDT Laboratory Laboratory [facility] [place] [address] [place] [phone] [place], Lab [address]en[address] [place] [address] Breast carcinoma, female, left (HCC); [employer] Other*[id number] Allergies No known active allergiesdocumented as of [...] 1 03/18/2024 Active Vitamin D3 1.25 MG (31774 UT) Oral CapsuleIndications :Vitamin D deficiency TAKE [...] mRNA, LNP-s, No Pre serve, 2-Dose Series ([employer]) 11/26/2020,11/05/2020 COVID-19, LNP-s, No Preserve , Yusef-sucrose, Ages 12+ ([employer]) 05/10/2022,07/25/2021 Seasonal Influenza Virus Vac cine, Unspecified [...] Team (Late st Contact Info) Description 03/31/2024 11:30 AM EDT Hem/Onc Treatment Hematology/Oncology Treatment, [place] [address] [place] [address] 07/10/2024 9:45 AM EST Office Visit General Surgery, [facility] [address] [place] [address] Renzo Rees MD [address] [place] [address] 07/14/2024 11:00 AM EST Telemedicine Genetics HemOnc, [facility] [address] [place] [address] [place], [place] [address] [place] [phone] Pending Results Name Type Priority Associated Diagnoses Date /Time CBC WITH WBC DIFFERENTIAL Lab STAT Breast carcinoma, female, left (HCC) 03/30/2024 8:23 AM EDT COMPREHENSIVE METABOLIC PANEL Lab STAT Breast carcinoma, female, left (HCC) 03/30/2024 8:23 AM EDT MYCODE SUBSEQUENT ADULT Lab Routine [employer] Other*[id number] 03/30/2024 8:23 AM EDT CBC Lab STAT Breast carcinoma, female, left (HCC) 03/30/2024 8:23 AM EDT DIFFERENTIAL, AUTOMATED Lab STAT Breast carcinoma, female, left (HCC) 03/30/2024 8:23 AM EDT MYCODE SST1 Lab Routine [employer] Other*[id number] 03/30/2024 8:23 AM EDT MYCODE SST2 Lab Routine [employer] Other*[id number] 03/30/2024 8:23 AM EDT Scheduled Procedures Name Priority Associated [...] Test 2018 Sigmoidoscopy 2018 COVID-19 Vaccine ( - 2022- season) 2023 05/10/2022, 05/10/2022, 07/25/2021, Additional history [...] Associated Diagnosis Comments HCG QUALITATIVE, URINE STAT 03/30/2024 8:23 AM EDT Breast carcinoma, female, left (HCC) documented in this encounter Results * HCG QUALITATIVE, URINE (03/30/2024 8:23 AM EDT) HCG Qualitative, Urine Negative Negative 03/30/2024 8:37 AM EDT [facility] 56-02 Urine Urine specimen obtained by clean catch procedure / Unknown Non-blood Collection / Unknown 03/30/2024 8:23 AM EDT 03/30/2024 8:23 AM EDT Charlotte Ferreira MD LAB URINE ORDERA BLES [facility] [address] [place] [address] documented in this encounter Visit Diagnoses Diagnosis Breast carcinoma, female, left (HCC) [employer] Other*[id number] documented in this encounter Care Teams Plastics Scientist Relationship Specialty Start Date End Date Haylee Skinner DO [address] [facility] [place] [address] PCP - General Family Medicine 11/13/18 documented as of this encounter
--- OUTSIDE RECORDS SUMMARY | 2024-04-14 07:12 | External Medical Summary ---
Author Name Unknown Address Unknown Organization K09:[facility] [address] [place] [address] Laboratory Report Ordering Provider Test Date Status BETZAIDA IBARRA 03/30/2024 08:23:32 Final Observation Date Value Abnormality Reference (Units ) Status BUN 03/30/2024 08:23:32 11 6-20 (mg/dL) Final Creatinine 03/30/2024 08:23:32 0.8 0.5-1.0 (mg/dL) Final Glomerular filtration rate/1.73 sq M.predicted [Volume Rate/Area] in Serum, Plasma or Blood by Creatinine-based formula (CKD-EPI) 03/30/2024 08:23:32 >90 >=60 (mL/min) Final eGFR is calculated based on the CKD-EPI 2020 equation. Sodium 03/30/2024 08:23:32 139 135-146 (m mol/L) Final Potassium 03/30/2024 08:23:32 4.2 3.5-5.1 (m mol/L) Final Cl 03/30/2024 08:23:32 104 98-107 (mm ol/L) Final CO2 03/30/2024 08:23:32 24 22-32 (mmo l/L) Final Anion gap 03/30/2024 08:23:32 11 7-15 (mmol /L) Final Glucose 03/30/2024 08:23:32 110 70-120 (mg /dL) Final Albumin 03/30/2024 08:23:32 4.4 3.8-5.0 (g /dL) Final AST (Aspartate aminotransferase) 03/30/2024 08:23:32 12 10-35 (U/L) Final Alk Phos 03/30/2024 08:23:32 45 35-130 (U/ L) Final Bilirubin, Total 03/30/2024 08:23:32 0.5 <=1 .2 (mg/dL) Final Calcium 03/30/2024 08:23:32 9.4 8.4-10.2 ( mg/dL) Final Protein 03/30/2024 08:23:32 7.0 6.0-8.3 (g /dL) Final ALT (Alanine aminotransferase) 03/30/2024 08:23:32 20 10-35 (U/L) Final Performing Location [facility] [address]- 02 [address] [place] [address]
--- OUTSIDE RECORDS SUMMARY | 2024-04-14 07:12 | External Medical Summary | Summary of Care ---
Author Name Unknown Organization [facility] Address [address] [place] [address] Phone [phone] Care Team Providers Care Etiquette Coach Name Role Phone Haylee Skinner DO Primary Care Provider [phone] Reason for Visit * Reason Comments Treatment Ontruzant/Taxol C1,D 1 * Episode Based Medications (Routine) - Authorized Specialty Diagnoses / Procedures Referred By Reggie miller Referred To Contact Diagnoses Breast carcinoma, female, left (HCC) Encounter for antineoplastic chemotherapy Procedures [place] PALONOSETRON HCL [place] INJ ONTRUZANT 10 MG [place] PACLITAXEL INJECTION Charlotte Ferreira MD 200 [facility] [place] [address] Anc Hem/Onc [address] [address] Referral ID Status Reason Start Date Expiration Date V isits Requested Visits Authorized [id number] Authorized 02/26/2024 07/28/[id number] Encounter Details Date Type Department Care Team (Latest Contact Info) Description 03/03/2024 10:45 AM EDT Hem/Onc Treatment Hematology/Oncolog y Treatment, [address] [address] Sada Chair [address] Hem Onc [address] [place] [address] Breast carcinoma, female, left (HCC)*; Encounter for [...] 24 Discontinued(Ref ill) Vitamin D3 1.25 MG (99412 UT) Oral CapsuleIndicati ons:Vitamin D deficiency Take [...] Description 03/30/2024 8:00 AM EDT Laboratory Laboratory [address] [place] [address] [place] [address] [facility] [place] [address] 03/30/2024 8:30 AM EDT Office Visit Hematology/Oncology [facility] [address] [place] [address] Corina Dong CRNP 400 [facility] [place] [address] 03/31/2024 11:30 AM EDT Hem/Onc Treatment Hematology/Oncology Treatment, [address] [place] [phone] 07/10/2024 9:45 AM EST Office Visit General Surgery, [facility] [address] [place] [address] Renzo Rees MD [address] [place] [address] 07/14/2024 11:00 AM EST Telemedicine Genetics HemOnc, [facility] [address] [place] [phone] [place], [place] [address] [place] [address] Scheduled Procedures Name Priority Associated Diagnoses Date/Ti [...] mL/hr documented in this encounter Care Teams Etiquette Coach Relationship Specialty Start Date End Date Haylee Skinner DO 132 [place] [address] PCP - General Family Medicine 11/13/18 documented as of this encounter
--- OUTSIDE RECORDS SUMMARY | 2024-04-14 07:12 | External Medical Summary | Summary of Care ---
Author Name Unknown Organization [facility] Address [address] [place] [address] Phone [phone] Care Team Providers Care Molecular Technologist Name Role Phone Haylee Skinner DO Primary Care Provider [phone] Reason for Visit * Reason Comments Treatment Ontruzant/Taxol C1,D 1 * Episode Based Medications (Routine) - Authorized Specialty Diagnoses / Procedures Referred By Reggie miller Referred To Contact Diagnoses Breast carcinoma, female, left (HCC) Encounter for antineoplastic chemotherapy Procedures MD PALONOSETRON HCL MD INJ ONTRUZANT 10 MG MD PACLITAXEL INJECTION Charlotte Ferreira MD 200 [facility] [place] [address] Anc Hem/Onc [address] [address] Referral ID Status Reason Start Date Expiration Date V isits Requested Visits Authorized [id number] Authorized 02/26/2024 07/28/[id number] Encounter Details Date Type Department Care Team (Latest Contact Info) Description 03/03/2024 10:45 AM EDT Hem/Onc Treatment Hematology/Oncolog y Treatment, [address] [address] Sada Chair 2 Hem Onc [address] [place] [address] Breast carcinoma, female, left (HCC)*; Encounter for [...] 24 Discontinued(Ref ill) Vitamin D3 1.25 MG (51785 UT) Oral CapsuleIndicati ons:Vitamin D deficiency Take [...] Description 03/30/2024 8:00 AM EDT Laboratory Laboratory [address] [place] [address] [place] [address] [facility] [place] [address] 03/30/2024 8:30 AM EDT Office Visit Hematology/Oncology [facility] [address] [place] [address] Corina Dong CRNP 400 [facility] [place] [address] 03/31/2024 11:30 AM EDT Hem/Onc Treatment Hematology/Oncology Treatment, [address] [place] [phone] 07/10/2024 9:45 AM EST Office Visit General Surgery, [facility] [address] [place] [address] Renzo Rees MD [address] [place] [address] 07/14/2024 11:00 AM EST Telemedicine Genetics HemOnc, [facility] [address] [place] [phone] [place], [place] [address] [place] [address] Scheduled Procedures Name Priority Associated Diagnoses Date/Ti [...] mL/hr documented in this encounter Care Teams Molecular Technologist Relationship Specialty Start Date End Date Haylee Skinner DO 132 [place] [address] PCP - General Family Medicine 11/13/18 documented as of this encounter
--- OUTSIDE RECORDS SUMMARY | 2024-04-14 07:12 | External Medical Summary | Summary of Care ---
Author Name Unknown Organization [facility] Address [address] [place] [address] Phone [phone] Care Team Providers Care Seafood Harvester Name Role Phone Haylee Skinner DO Primary Care Provider [phone] Reason for Visit * Reason Comments Treatment Ontruzant/Taxol C1,D 1 * Episode Based Medications (Routine) - Authorized Specialty Diagnoses / Procedures Referred By Reggie miller Referred To Contact Diagnoses Breast carcinoma, female, left (HCC) Encounter for antineoplastic chemotherapy Procedures [place] PALONOSETRON HCL NM INJ ONTRUZANT 10 MG [place] PACLITAXEL INJECTION Charlotte Ferreira MD 200 [facility] [place] [address] Anc Hem/Onc [address] [address] Referral ID Status Reason Start Date Expiration Date V isits Requested Visits Authorized [id number] Authorized 02/26/2024 07/28/[phone] Encounter Details Date Type Department Care Team (Latest Contact Info) Description 03/03/2024 10:45 AM EDT Hem/Onc Treatment Hematology/Oncolog y Treatment, [address] [address] Sada Chair 2 Hem Onc [address] [place] [address] Breast carcinoma, female, left (HCC)*; Encounter for [...] 24 Discontinued(Ref ill) Vitamin D3 1.25 MG (13359 UT) Oral CapsuleIndicati ons:Vitamin D deficiency Take [...] Description 03/30/2024 8:00 AM EDT Laboratory Laboratory [address] [place] [address] [place] [address] [facility] [place] [address] 03/30/2024 8:30 AM EDT Office Visit Hematology/Oncology [facility] [address] [place] [address] Corina Dong CRNP 400 [facility] [place] [address] 03/31/2024 11:30 AM EDT Hem/Onc Treatment Hematology/Oncology Treatment, [address] [place] [phone] 07/10/2024 9:45 AM EST Office Visit General Surgery, [facility] [address] [place] [address] Renzo Rees MD [address] [place] [address] 07/14/2024 11:00 AM EST Telemedicine Genetics HemOnc, [facility] [address] [place] [phone] [place], [place] [address] [place] [address] Scheduled Procedures Name Priority Associated Diagnoses Date/Ti [...] mL/hr documented in this encounter Care Teams Seafood Harvester Relationship Specialty Start Date End Date Haylee Skinner DO 132 [place] [address] PCP - General Family Medicine 11/13/18 documented as of this encounter
--- OUTSIDE RECORDS SUMMARY | 2024-04-14 07:12 | External Medical Summary | Summary of Care ---
Author Name Unknown Organization [facility] Address [address] [place] [address] Phone [phone] Care Team Providers Care Filler Spreader Name Role Phone Haylee Skinner DO Primary Care Provider [phone] Reason for Visit * Reason Comments Treatment Ontruzant/Taxol C1,D 1 * Episode Based Medications (Routine) - Authorized Specialty Diagnoses / Procedures Referred By Reggie miller Referred To Contact Diagnoses Breast carcinoma, female, left (HCC) Encounter for antineoplastic chemotherapy Procedures NM PALONOSETRON HCL NM INJ ONTRUZANT 10 MG NM PACLITAXEL INJECTION Charlotte Ferreira MD 200 [facility] [place] [address] Anc Hem/Onc [address] [address] Referral ID Status Reason Start Date Expiration Date V isits Requested Visits Authorized [id number] Authorized 02/26/2024 07/28/[phone] Encounter Details Date Type Department Care Team (Latest Contact Info) Description 03/03/2024 10:45 AM EDT Hem/Onc Treatment Hematology/Oncolog y Treatment, [address] [address] Sada Chair [address] Hem On[address] [place] [address] Breast carcinoma, female, left (HCC)*; Encounter for [...] 24 Discontinued(Ref ill) Vitamin D3 1.25 MG (65864 UT) Oral CapsuleIndicati ons:Vitamin D deficiency Take [...] Description 03/30/2024 8:00 AM EDT Laboratory Laboratory [address] [place] [address] [place] [address] [facility] [place] [address] 03/30/2024 8:30 AM EDT Office Visit Hematology/Oncology [facility] [address] [place] [address] Corina Dong CRNP 400 [facility] [place] [address] 03/31/2024 11:30 AM EDT Hem/Onc Treatment Hematology/Oncology Treatment, [address] [place] [address] 07/10/2024 9:45 AM EST Office Visit General Surgery, [facility] [address] [place] [address] Renzo Rees MD [address] [place] [address] 07/14/2024 11:00 AM EST Telemedicine Genetics HemOnc, [facility] [address] [place] [phone] [place], [place] [address] [place] [address] Scheduled Procedures Name Priority Associated Diagnoses Date/Ti [...] mL/hr documented in this encounter Care Teams Filler Spreader Relationship Specialty Start Date End Date Haylee Skinner DO 132 [place] [address] PCP - General Family Medicine 11/13/18 documented as of this encounter
--- OUTSIDE RECORDS SUMMARY | 2024-04-14 07:12 | External Medical Summary | Summary of Care ---
Author Name Unknown Organization [facility] Address [address] [place] [address] Phone [phone] Care Team Providers Care Outside Energy Sales Representatives Name Role Phone Haylee Skinner DO Primary Care Provider [phone] Reason for Visit * Reason Comments Treatment Ontruzant/Taxol C1,D 1 * Episode Based Medications (Routine) - Authorized Specialty Diagnoses / Procedures Referred By Reggie miller Referred To Contact Diagnoses Breast carcinoma, female, left (HCC) Encounter for antineoplastic chemotherapy Procedures [place] PALONOSETRON HCL [place] INJ ONTRUZANT 10 MG [place] PACLITAXEL INJECTION Charlotte Ferreira MD 200 [facility] [place] [address] Anc Hem/Onc [address] [address] Referral ID Status Reason Start Date Expiration Date V isits Requested Visits Authorized [id number] Authorized 02/26/2024 07/28/[phone] Encounter Details Date Type Department Care Team (Latest Contact Info) Description 03/03/2024 10:45 AM EDT Hem/Onc Treatment Hematology/Oncolog y Treatment, [address] [address] Sada Chair 2 Hem Onc [address] [place] [address] Breast carcinoma, female, left (HCC)*; Encounter for [...] 24 Discontinued(Ref ill) Vitamin D3 1.25 MG (38269 UT) Oral CapsuleIndicati ons:Vitamin D deficiency Take [...] Description 03/30/2024 8:00 AM EDT Laboratory Laboratory [address] [place] [address] [place] [address] [facility] [place] [address] 03/30/2024 8:30 AM EDT Office Visit Hematology/Oncology [facility] [address] [place] [address] Corina Dong CRNP 400 [facility] [place] [address] 03/31/2024 11:30 AM EDT Hem/Onc Treatment Hematology/Oncology Treatment, [address] [place] [phone] 07/10/2024 9:45 AM EST Office Visit General Surgery, [facility] [address] [place] [address] Renzo Rees MD [address] [place] [address] 07/14/2024 11:00 AM EST Telemedicine Genetics HemOnc, [facility] [address] [place] [phone] [place], [place] [address] [place] [address] Scheduled Procedures Name Priority Associated Diagnoses Date/Ti [...] mL/hr documented in this encounter Care Teams Outside Energy Sales Representatives Relationship Specialty Start Date End Date Haylee Skinner DO 132 [place] [address] PCP - General Family Medicine 11/13/18 documented as of this encounter
--- OUTSIDE RECORDS SUMMARY | 2024-04-14 07:12 | External Medical Summary ---
Author Name Unknown Address Unknown Organization K01:[facility] - [address] [place] [address] Laboratory Report Ordering Provider Test Date Status JITENDRA CROWDER 03/30/2024 08:23:32 Final Observation Date Value Abnormality Reference (Units ) Status MYCODE SPECIMEN-SST 03/30/2024 08:23:32 Freezing of extracted DNA, whole blood and/or serum. Final Performing Location [facility] - [address] [place] [address]
--- OUTSIDE RECORDS SUMMARY | 2024-04-14 07:12 | External Medical Summary | Summary of Care ---
Author Name Unknown Organization [facility] Address [address] [place] [place] [address] Phone [phone] Care Team Providers Care Uniform Room Attendant Name Role Phone SherieHaylee lawson Kiran LOYOLA Primary Care Provider [phone] Reason for Visit * Reason Comments Chemotherapy Chemo/recheck Encounter Details Date Type Department Care Team (Late st Contact Info) Description 03/30/2024 8:30 AM EDT Office Visit Hematology/Oncology [facility] [place] [address] [facility] [address] Corina Dong CRNP [address] [place] [address] Breast carcinoma, female, left (HCC)* Allergies No known active allergiesdocumented as of [...] 1 03/18/2024 Active Vitamin D3 1.25 MG (41613 UT) Oral CapsuleIndications :Vitamin D deficiency TAKE [...] mRNA, LNP-s, No Pre serve, 2-Dose Series (Fanchimp) 11/26/2020,11/05/2020 COVID-19, LNP-s, No Preserve , Yusef-sucrose, Ages 12+ (Fanchimp) 05/10/2022,07/25/2021 Seasonal Influenza Virus Vac cine, Unspecified [...] Date Smoking Tobacco: Never Smokeless Tobacco: Never Tobacco Cessation:Counseling Given: Not Answered Alcohol Use Standard Drinks/Week Comments No 0 [...] Sign Reading Time Taken Comments Blood Pressure 118/80 03/30/2024 8:29 AM EDT Pulse 82 03/30/2024 8:29 AM EDT Temperature 36.3 C (97.4 F) 03/30/2024 8:29 AM ED T Respiratory Rate - - Oxygen Saturation 98% 03/30/2024 8:29 AM EDT Inhaled Oxygen Concentration - - Weight 62.4 kg (137 lb 9.6 oz) 03/30/2024 8:29 AM EDT Height - - Body Mass Index 24.77 02/19/2024 2:54 PM EDT documented in this encounter Progress Notes * Corina Dong CRNP - 03/30/2024 8:30 AM EDT Hematology/Oncology Outpatient Clinic note [facility] [address] [place] [address] Name: Tata Lombardi Date: 03/30/2024 CHIEF COMPLAINT: Tata Lombardi is a 49 year old female patient of Dr. Charlotte Ferreira here today for f/u visit today. From Patient chart confirmed with patient. From Dr. Charlotte Ferreira note 03/10/24. HEMATOLOGY/ONCOLOGY DIAGNOSIS: Infiltrating ductal carcinoma of left breast -grade 2, the size of the tumor was 10 x 8 x 8 mm and lymph nodes were negative for metastasis Cancer Staging She has pT1 pN0 disease DATE OF DIAGNOSIS: 11/29/23 TREATMENT HISTORY: 01/21/2024 she underwent partial mastectomy and sentinel lymph biopsy CURRENT TREATMENT: Weekly Paclitaxel + Trastuzumab x 12 Weeks, Followed by Trastuzumab Maintenance q21 Days x 13 Cycles (03/03/24 - ) ONCOLOGY HISTORY: Premenopausal woman otherwise healthy referred with the diagnosis of left breast cancer which was found on screening mammogram. She had screening mammogram and ultrasound done on 11/29/2023 which revealed Irregular hypoechoic 10 mm mass in the left 12:00 breast on ultrasound, which corresponds witha mammographic focal asymmetry with associated architectural distortion. A few faint calcifications are seen extending anterior to the mass, with total extent of the mass, distortion, and calcifications estimated to measure approximately 19 x 11 mm mammographically. Biopsy from this areas consistent with invasive ductal carcinoma grade 2 with ER/NE and HER2 Jagdeep positive. Ki-67 index was 35%. FINAL DIAGNOSIS Breast, left, 12:00, core biopsy: - Invasive ductal carcinoma, grade 2. - Estrogen Receptor: Positive (90%, intermediate intensity, H score 180). - Progesterone Receptor: Positive (95%, strong intensity, H score 285). - HER2/jagdeep Immunohistochemistry: Positive (score 3+). - Ki-67 Proliferation Index: 35% (high) MRI breast was done on 12/18/2023 which revealed Irregular enhancing 1.1 x 1.0 cm mass with associated clip artifact in the left 12:00 breast, consistent with the biopsy-proven malignancy. Focal non-mass enhancement measuring 2.1 x 0.5 cm in the left 1:00 breast middle depth, superior and lateral to the biopsy-proven malignancy. No evidence of axillary or internal mammary adenopathy. Biopsy from the other breast lesion seen on MRI was done on 01/01/2024 and pathology was consistentwith high-grade ductal carcinoma in Situ with focal expenses central necrosis ER was strongly positive and NE moderate to weak positive. On 01/21/2024 she underwent partial mastectomy and sentinel lymph biopsy and pathology was consistent with infiltrative ductal carcinoma grade 2 with negative surgical margin. FINAL DIAGNOSIS A. Breast, left (left breast partial mastectomy with wire localization and left axillary sentinel lymph node biopsy): - Infiltrative duct adenocarcinoma, grade 2, is seen. - The en face surgical margins of resection are negative for carcinoma. - Lymphatic/vascular space invasion is not seen. - Please see comment. - Please see synoptic report. B. Breast, left, new anterior margin: - Fibrocystic change is seen. - No tumor seen. C. Breast, left, new inferior margin: - Fibrocystic change is seen. - No tumor seen. D. Lymph node, left axillary lymph node #1: - Sinus histiocytosis is seen. - No tumor seen. - An immunohistochemical stain for cytokeratin is negative. - Please note that external control cells are appropriately positive for all immunohistochemical stains in this case. E. Lymph node, left axillary lymph node #2: - Sinus histiocytosis is seen. - No tumor seen. - An immunohistochemical stain for cytokeratin is negative TUMOR Tumor Site: Not specified Histologic Type: Invasive carcinoma of no special type (ductal) Histologic Type Comment: None Glandular (Acinar) / Tubular Differentiation: Score 2 Nuclear Pleomorphism: Score 3 Mitotic Rate: Score 2 Overall Grade: Grade 2 (scores of 6 or 7) Tumor Size: Greatest dimension of largest invasive focus (Millimeters) - 10 x 8 x 8 mm Tumor Focality: Single focus of invasive carcinoma Ductal Carcinoma In Situ (DCIS): Present Number of Blocks with DCIS: 4 Number of Blocks Examined: 5 Lymphatic and / or Vascular Invasion: Not identified Treatment Effect in the Breast: No known presurgical therapy MARGINS Margin Status for Invasive Carcinoma: All margins negative for invasive carcinoma Distance from Invasive Carcinoma to Closest Margin: 7 mm Margin Status for DCIS: All margins negative for DCIS Distance from DCIS to Closest Margin: 10 mm Closest Margin(s) to DCIS: Anterior Margin Comment: None REGIONAL LYMPH NODES Regional Lymph Node Status: All regional lymph nodes negative for tumor Total Number of Lymph Nodes Examined (sentinel and non-sentinel): 2 Number of [place] Nodes Examined: 0 Regional Lymph Node Comment: None pTNM CLASSIFICATION (AJCC 8th Edition) pT Category: pT1b pN Category: pN0 She denies smoking and drinks alcohol socially. Family history significant for mother was diagnosed of breast cancer at the age of 64. Maternal grandmother was diagnosed of colon cancer and breast cancer. Sister was diagnosed of ovarian cancer. HISTORY OF PRESENT ILLNESS: Tata Lombardi is a 49 year old female with a history as outlined above. Currently here for f/u visittoday and consideration for C5D1 of treatment scheduled for tomorrow. Patient overall feels that she is tolerating treatment well. Some mild diarrhea. Imodium is effective. Denies nausea or vomiting.Denies mouth sores or pain. Some mild numbness in her fingertips that is intermittent. Past Medical History: Diagnosis Date COVID-19 virus infection 08/09/2020 NONE PCOS (polycystic ovarian syndrome) Past Surgical History: Procedure Laterality Date COLONOSCOPY, DIAGNOSTIC (RECTUM) 05/19/2021 internal hemorrhoids/biopsies show adenomatous polyps/recall 5 years/COLONOSCOPY FLEXIBLE PROXIMAL DIAGNOSTIC performed by Delma Gonzales MD at [facility]COPY [facility] EGD, FLEXIBLE, DIAGNOSTIC 05/19/2021 normal/ESOPHAGOGASTRODUODENOSCOPY (EGD), FLEXIBLE, TRANSORAL, DIAGNOSTIC performed by Delma Gonzales MD at ENDOSCOPY [facility] NONE SURGICAL PROCEDURE ONLY Left 01/20/2024 Left breast partial mastectomy by Dr. Renzo Rees. Social History Socioeconomic History Marital status: Spouse name: Not on file Number of children: Not on file Years of education: Not on file Highest education level: Not on file Occupational History Occupation: Human Resources Tobacco Use Smoking status: Never Smokeless tobacco: Never Vaping Use Vaping status: Never Used Substance and Sexual Activity Alcohol use: No Drug use: No Sexual activity: Yes control/protection: Pill Other Topics Concern Not on file Social History Narrative Not on file Social Determinants of Health Financial Resource Strain: Not on file Food Insecurity: No Food Insecurity (09/06/2020) Hunger Vital Sign Worried About Running Out of Food in the Last Year: Never true Ran Out of Food in the Last Year: Never true Transportation Needs: Not on file Social Connections: Unknown (02/04/2024) Social Connections How often do you feel lonely or isolated from those around you? (Adult - for ages 18 years and over): Not on file Housing Stability: Not on file Review of patient's allergies indicates: No Known Allergies Current Outpatient Medications Medication Sig Dispense Refill Loratadine 10 MG Oral Tablet (Claritin) Take 1 Tablet by mouth at bedtime. (Patient not taking: Reported on 03/03/2024) Omeprazole 20 MG Oral Tablet Delayed Release Take 1 Tablet by mouth in the morning and 1 Tablet in the evening. 180 Tablet 3 Ondansetron HCl 8 MG Oral Tablet Take 1 Tablet by mouth every 8 hours as needed for Nausea. (Patient not taking: Reported on 03/03/2024) 30 Tablet 0 Prochlorperazine Maleate 10 MG Oral Tablet (Compazine) Take 1 Tablet by mouth every 6 hours as needed for Nausea. (Patient not taking: Reported on 03/03/2024) 30 Tablet 0 dexAMETHasone 4 MG Oral Tablet 12 mg (3 tab) 12 and 6 hours before chemotherapy 40 Tablet 0 Levothyroxine Sodium 50 MCG Oral Tablet (Levoxyl) TAKE 1 TABLET BY MOUTH EVERY DAY AT LEAST 30 MINUTES PRIOR TO BREAKFAST OR OTHER MEDICATIONS 90 Tablet 1 Vitamin D3 1.25 MG (99897 UT) Oral Capsule TAKE 1 CAPSULE BY MOUTH ONCE WEEKLY 12 Capsule 0 One-A-Day Womens VitaCraves Oral Tablet Chewable Take 1 Tablet by mouth daily. No current facility-administered medications for this visit. REVIEW OF SYSTEMS: See HPI - otherwise negative OBJECTIVE: Filed Vitals: 03/30/24 0829 BP: 118/80 Pulse: 82 Temp: 36.3 C (97.4 F) TempSrc: Tympanic SpO2: 98% Weight: 62.4 kg (137 lb 9.6 oz) Wt Readings from Last 5 Encounters: 03/30/24 62.4 kg (137 lb 9.6 oz) 03/24/24 63 kg (138 lb 12.8 oz) 03/17/24 63.6 kg (140 lb 3.2 oz) 03/10/24 63 kg (139 lb) 03/03/24 65 kg (143 lb 3.2 oz) PHYSICAL EXAM: ECOG: Performance Status 0 = 100% Normal Activity General Appearance: Normal - Healthy appearing patient in no acute distress HEENT: Normal - No oral or pharyngeal masses, ulceration or thrush noted Lymph Nodes: Normal - No palpable lymph nodes in the neck or supraclavicular areas Lungs/Thorax: Normal - Clear to auscultation Heart: Normal - Regular rate and rhythm, normal S1, S2, no appreciable murmurs Pulses/Extremities: Normal - 2+ throughout and symmetrical, no edema Neurologic: Normal - Grossly intact LABS: Results for orders placed or performed in visit on 03/30/24 COMPREHENSIVE METABOLIC PANEL Result Value Ref Range BUN 11 6 - 20 mg/dL Creatinine 0.8 0.5 - 1.0 mg/dL Estimated Glomerular Filtration Rate >90 >=60 mL/min Sodium 139 135 - 146 mmol/L Potassium 4.2 3.5 - 5.1 mmol/L Chloride 104 98 - 107 mmol/L CO2 24 22 - 32 mmol/L Anion Gap 11 7 - 15 mmol/L Glucose 110 70 - 120 mg/dL Albumin 4.4 3.8 - 5.0 g/dL AST 12 10 - 35 U/L Alkaline Phosphatase 45 35 - 130 U/L Bilirubin, Total 0.5 <=1.2 mg/dL Calcium 9.4 8.4 - 10.2 mg/dL Protein 7.0 6.0 - 8.3 g/dL ALT 20 10 - 35 U/L HCG QUALITATIVE, URINE Result Value Ref Range HCG Qualitative, Urine Negative Negative CBC Result Value Ref Range WBC 3.83 (L) 4.00 - 10.80 K/uL RBC 4.24 3.85 - 5.15 M/uL HGB 12.3 12.0 - 15.3 g/dL HCT 37.0 36.0 - 45.2 % MCV 87.3 81.5 - 97.5 fL MCH 29.0 27.0 - 34.0 pg MCHC 33.2 32.0 - 36.0 g/dL RDW 13.1 11.5 - 15.5 % PLT 344 140 - 400 K/uL MPV 9.2 6.6 - 11.1 fL DIFFERENTIAL, AUTOMATED Result Value Ref Range WBC 3.83 (L) 4.00 - 10.80 K/uL Neutrophils % 50.7 40.0 - 75.0 % Lymphocytes % 44.1 (H) 18.0 - 42.0 % Monocytes % 3.9 1.0 - 11.0 % Eosinophils % 0.3 0.0 - 6.0 % Basophils % 1.0 0.0 - 2.0 % Absolute Neutrophils 1.94 1.80 - 7.70 K/uL Absolute Lymphocytes 1.69 1.00 - 4.80 K/ul Absolute Monocytes 0.15 0.00 - 1.10 K/uL Absolute Eosinophils 0.01 0.00 - 0.70 K/uL Absolute Basophils 0.04 0.00 - 0.20 K/uL DIFFERENTIAL, TECHNOLOGIST REVIEW Result Value Ref Range nRBCs Reactive Lymphocytes Present (A) None Seen IMPRESSION/PLAN: Infiltrating ductal carcinoma of left breast 01/21/2024 she underwent partial mastectomy and sentinel lymph biopsy Now completing adjuvant chemotherapy with weekly Paclitaxel + Trastuzumab x 12 Weeks, Followed by Trastuzumab Maintenance q21 Days x 13 Cycles. Presents today for consideration of C5D1. Lab results reviewed: unremarkable Ok for treatment tomorrow as scheduled. Tolerating treatment plan well with no signs or symptoms of toxicity noted. Confirmed taking dexamethasone as prescribed. ECHO every three months during treatment - next due early May Continue to follow with general surgery as recommended. Recommend alternating mammogram and MRI forbreast surveillance every six months. Mammogram will be due October and MRI April Plan for radiation therapy to follow chemotherapy Genetic appointment scheduled for June RTC in four weeks with provider for chemo return IAN Herrera documented in this encounter Nursing Notes * Rita Fofana MED ASSIST - 03/30/2024 8:29 AM EDT Patient identifed by name and birthdate Do you have any concerns about pain management for today's visit? No Living Will or Advance Directive for Health Care as noted on the problem list. [facility] is a way you can talk to your provider on line through e-mail. Would you like to sign up? I can activate it for you? ALREADY ACTIVE Filed Vitals: 03/30/24 0829 BP: 118/80 Pulse: 82 Temp: 36.3 C (97.4 F) TempSrc: Tympanic SpO2: 98% Weight: 62.4 kg (137 lb 9.6 oz) Patient was instructed to not get up on the exam table/exam chair until directed and assisted by their provider; patient is to remain seated in the chair/ wheelchair/ exam table/ exam chair for fall prevention and safety reasons. Patient is aware to have assistance to step down off exam table/exam chair with personnel. Patient voiced full comprehension of instructions. documented in this encounter Plan of Treatment Upcoming Encounters Date Type Department Care Team (Late st Contact Info) Description 03/31/2024 11:30 AM EDT Hem/Onc Treatment [facility]ology[facility] [place] [address] [facility] [address] 04/30/2024 12:00 PM EDT Office Visit Hematology/Oncology [facility] [address] [facility] [address] Corina Dong CRNP [address] [place] [address] [place] [address] 07/10/2024 9:45 AM EST Office Visit General Surgery, [facility] [address] [place] [address] Renzo Rees MD [address] [place] [address] 07/14/2024 11:00 AM EST Telemedicine Genetics HemOnc, [facility] [address] [place] [address] Jen Marie [place], [place] [address] [place] [id number] Scheduled Procedures Name Priority Associated Diagnoses Date/Ti [...] Diagnosis Breast carcinoma, female, left (HCC)- Primary documented in this encounter Care Teams Uniform Room Attendant Relationship Specialty Start Date End Date Haylee Skinner DO [address] [facility] [place] [address] PCP - General Family Medicine 11/13/18 documented as of this encounter
--- OUTSIDE RECORDS SUMMARY | 2024-04-14 07:12 | External Medical Summary ---
Author Name Unknown Address Unknown Organization [id number]:LABORATORY [facility] - [address] [place] [address] Laboratory Report Ordering Provider Test Date Status JITENDRA CROWDER 03/30/2024 08:23:32 Final Observation Date Value Abnormality Reference (Units ) Status MYCODE SPECIMEN-SST 03/30/2024 08:23:32 Freezing of extracted DNA, whole blood and/or serum. Final Performing Location LABORATORY C - [address] [place] [address]
--- OUTSIDE RECORDS SUMMARY | 2024-04-14 07:12 | External Medical Summary ---
Author Name Unknown Address Unknown Organization K09:[facility] [place] [place] [address] Laboratory Report Ordering Provider Test Date Status BETZAIDA IBARRA 03/30/2024 08:23:32 Final Observation Date Value Abnormality Reference (Units ) Status SYNC LEUKOCYTES IN BLOOD BY AUTOMATED COUNT 03/30/2024 08:23:32 3.83 Below low normal 4.00-10.80 (K/uL) Final Segs 03/30/2024 08:23:32 50.7 40.0-75.0 (%) Final Lymphs % 03/30/2024 08:23:32 44.1 Above high normal 18.0-42.0 (%) Final Monos 03/30/2024 08:23:32 3.9 1.0-11.0 (%) Final Eosinophils 03/30/2024 08:23:32 0.3 0.0-6.0 (%) Final Basos 03/30/2024 08:23:32 1.0 0.0-2.0 (%) Final Absolute Segs 03/30/2024 08:23:32 1.94 1.80-7.70 (K/uL) Final Lymphs, absolute 03/30/2024 08:23:32 1.69 1.00-4.80 (K/ul) Final Monos, Abs 03/30/2024 08:23:32 0.15 0.00-1.10 (K/uL) Final Eos, Abs 03/30/2024 08:23:32 0.01 0.00-0.70 (K/uL) Final Basos, Abs 03/30/2024 08:23:32 0.04 0.00-0.20 (K/uL) Final Performing Location [facility] [place] [address]
--- OUTSIDE RECORDS SUMMARY | 2024-04-14 07:12 | External Medical Summary | Summary of Care ---
Author Name Unknown Organization [facility] Address [address] [place] [address] Phone [phone] Care Team Providers Care Python Developer Name Role Phone Haylee Skinner DO Primary Care Provider [phone] Reason for Visit * Reason Comments Treatment * Episode Based Medications (Routine) - Authorized Specialty Diagnoses / Procedures Referred By Reggie t Referred To Contact Diagnoses Breast carcinoma, female, left (HCC) Encounter for antineoplastic chemotherapy Procedures [place] PALONOSETRON HCL [place] INJ ONTRUZANT 10 MG [place] PACLITAXEL INJECTION Charlotte Ferreira MD [address] [place] [address] Anc Hem/Onc [address] [address] Referral ID Status Reason Start Date Expiration Date V isits Requested Visits Authorized [id number] Authorized 02/26/2024 07/28/2024 [id number] Encounter Details Date Type Department Care Team (Latest Contact Info) Description 03/31/2024 11:30 AM EDT Hem/Onc Treatment Hematology/Oncolog y Treatment, [address] [address] Breast carcinoma, female, left (HCC)*; [...] 1 03/18/2024 Active Vitamin D3 1.25 MG (94770 UT) Oral CapsuleIndications :Vitamin D deficiency TAKE [...] Sign Reading Time Taken Comments Blood Pressure 116/80 03/31/2024 11:42 AM EDT Pulse 66 03/31/2024 11:42 AM EDT Temperature 36.9 C (98.4 F) 03/31/2024 11:42 AM E DT Respiratory Rate 18 03/31/2024 11:42 AM EDT Oxygen Saturation 96% 03/31/2024 11:42 AM EDT Inhaled Oxygen Concentration - - Weight - - Height - - Body Mass Index - - documented in this encounter Nursing Notes * Cee Schmidt RN - 03/31/2024 2:30 PM EDT Chemotherapy/Immunotherapy agents: Ontruzant and TAXOL Consent for chemotherapy drug treatment complete, dated, and signed? yes, date - 02/19/24 Treatment lab parameters met? Yes Has treatment weight changed > than 10%? No Treatment preauthorized? Yes VITALS Filed Vitals: 03/31/24 1142 BP: 116/80 Pulse: 66 Resp: 18 Temp: 36.9 C (98.4 F) TempSrc: Tympanic SpO2: 96% Urine protein: N/A Patient education completed for [...] heat function. PRE-TREATMENT ASSESSMENT: NEURO: denies symptoms and OTHER: finger sensitivity CV/RESP: denies symptoms GI/: denies symptoms OTHER: denies any additional symptoms PAIN: 0 Goals: Patient kept safe while in treatment chair. Possible barriers to meeting goals: none Stability of the patient: Moderately stable - low risk of patient condition declining or worsening Summary regarding today's goals: Met: Patient received treatment without any issues. Patient instructed on use of heat and massage functions where applicable. Patient shown how to operate the heat function of the chair and to alert nursing staff if the chair feels too warm. Patient instructed on the risk of potential reza while using the heat function. documented in this encounter Plan of Treatment Upcoming Encounters Date Type Department Care Team (Late st Contact Info) Description 04/06/2024 8:00 AM EDT Laboratory Laboratory [address] [place] [address] [place] [address] [place] [address] 04/07/2024 1:45 PM EDT Hem/Onc Treatment Hematology/Oncology [address] [id number] 04/30/2024 12:00 PM EDT Office Visit Hematology/Oncology [facility] [address] [place] [address] Corina Dong CRNP [address] [facility] [place] [address] 07/10/2024 9:45 AM EST Office Visit General Surgery, [facility] [address] [place] [address] Renzo Rees MD [address] [place] [address] 07/14/2024 11:00 AM EST Telemedicine Genetics HemOnc, [facility] [address] [place] [address] [place], [place] [address] [place] [address] Scheduled Procedures Name Priority Associated Diagnoses Date/Ti [...] Cancer Screening 05/19/2026 Lipid Panel 01/08/2029 01/09/2024, 12/2018, 09/15/2011 DTaP,Tdap,and Td Vaccines (3 - [...] ONCE PRN Other, Hypersensitivity Reaction, Starting on Sat03/31/24 at 1144, Until Sat04/01/24 at 1143, For 24 hours EPINEPHrine 1 MG/ML inj 0.3 mg 0.3 mg, Intramuscular, ONCE PRN Other, Hypersensitivity Reaction or Anaphylaxis, Starting on Sat03/31/24 at 1144, Until Sat04/01/24 at 1143, For 24 hours hEParin 100 UNIT/ML Lock Flush inj 500 Units 500 Units (5 mL), IV Lock, PRN Other, IV Flush, Starting on Sat03/31/24 at 1144, Until Sat04/01/24 at 1143, For 24 hours, Do not flush if lock, PICC, or central line not in place; IV infusing or unable to flush. Given 03/31/2024 2:16 PM EDT 500 Units Hydrocortisone Sod Suc (PF) (Solu-Cortef) inj 100 mg 100 mg, IV Push, ONCE PRN Other, Hypersensitivity Reaction, Starting on Sat03/31/24 at 1144, Until Sat04/01/24 at 1143, For 24 hours NSS infusion Intravenous, at 50 mL/hr, PRN, Starting on Sat03/31/24 at 1245, Until Discontinued, Maintenance line Start Infusion 03/31/2024 12:35 PM EDT 50 mL/hr oxygen GAS Inhalation, OXYGEN, First dose on Sat03/31/24 at 1600, Until Discontinued, Device/Managed by: Low [...] Push, PRN Other, IV Flush, Starting on Sat03/31/24 at 1144, Until Sat04/01/24 at 1143, For 24 hours, Do not flush if lock, PICC, or central line not in place; IV infusing or unable to flush. Given 03/31/2024 2:16 PM EDT 10 mL Inactive Administered Medications - up to 3 most recent administrations Medication Order MAR Action Action Date Dose Rate Site Acetaminophen (Tylenol) tab 650 mg 650 mg, Oral, ONCE, On Sat03/31/24 at 1245, For 1 dose, Give 30 minutes prior to chemotherapy. Maximum of 4 grams (4000 mg) per day. Given 03/31/2024 11:49 AM EDT 650 mg dexAMETHasone (Decadron) tab 12 mg 12 mg, Oral, ONCE, On Sat03/31/24 at 1215, For 1 dose Given 03/31/2024 11:49 AM EDT 12 mg diphenhydrAMINE (Benadryl) cap 25 mg 25 mg, Oral, ONCE, On Sat03/31/24 at 1245, For 1 dose Given 03/31/2024 11:49 AM EDT 25 mg Famotidine (Pepcid) tab 20 mg 20 mg, Oral, ONCE, On Sat03/31/24 at 1245, For 1 dose Given 03/31/2024 11:49 AM EDT 20 mg PACLitaxel (Taxol) 136 mg in NSS 250 mL infusion 136 mg (80 mg/m2 1.7 m2 Treatment Plan BSA from Recorded weight), IV Piggyback, ONCE, 1 dose, On Sat03/31/24 at 1315, Administer over 60 Minutes, Administer through 0.22 micron low protein binding filter! Start Infusion 03/31/2024 1:17 PM EDT 136 mg 255 mL/hr Trastuzumab-dttb (Ontruzant) 131.46 mg in NSS 250 mL infusion 131.46 mg (rounded from 131.4 mg = 2 mg/kg 65.7 kg Treatment plan Recorded weight), IV Piggyback, ONCE, 1 dose, On Sat03/31/24 at 1315, Administer over 30 Minutes Start Infusion 03/31/2024 12:38 PM EDT 131.46 mg 510 mL/hr documented in this encounter Care Teams Python Developer Relationship Specialty Start Date End Date Haylee Skinner DO [address] [place] [address] PCP - General Family Medicine 11/13/18 documented as of this encounter
--- OUTSIDE RECORDS SUMMARY | 2024-04-14 07:13 | External Medical Summary | Summary of Care ---
Author Name Unknown Organization [facility] Address [address] [place] [address] Phone [phone] Care Team Providers Care Disbursement Clerk Name Role Phone Haylee Skinner DO Primary Care Provider [phone] Reason for Visit * Reason Comments Chemotherapy C2/D1 - Ontruzant * Episode Based Medications (Routine) - Authorized Specialty Diagnoses / Procedures Referred By Contciara t Referred To Contact Diagnoses Breast carcinoma, female, left (HCC) Encounter for antineoplastic chemotherapy Procedures NM PALONOSETRON HCL NM INJ ONTRUZANT 10 MG NM PACLITAXEL INJECTION Charlotte Ferreira MD 200 [facility] [place] [address] Anc Hem/Onc [address] [address] Referral ID Status Reason Start Date Expiration Date V isits Requested Visits Authorized [id number] Authorized 02/26/2024 07/28/2024 999 [id number] Encounter Details Date Type Department Care Team (Latest Contact Info) Description 03/10/2024 1:30 PM EDT Hem/Onc Treatment Hematology/Oncolog y Treatment, [address] [address] Chair Sada 7 Hem Onc [address] [place] [address] Breast carcinoma, female, left (HCC)*; Encounter for [...] 24 Discontinued(Ref ill) Vitamin D3 1.25 MG (57529 UT) Oral CapsuleIndicati ons:Vitamin D deficiency Take [...] on file documented as of this encounter Nursing Notes * Dorothea Abdi RN - 03/10/2024 4:29 PM EDT Goals: Patient will remain free from injury. Possible barriers to meeting goals: ambulating with IV pole Stability of the patient: Moderately stable - low risk of patient condition declining or worsening Summary regarding today's goals: Met: patient remained free of harm today Patient tolerated treatment well without any acute issues or problems. Patient left facility in stable condition and denied any further needs. * Dorothea Abdi RN - 03/10/2024 3:29 PM EDT Chair 5. Port accessed, no issues. Patient saw Dr. Ferreira today -- see OV note for details. Chemotherapy/Immunotherapy agents: Ontruzant and TAXOL Consent for chemotherapy drug treatment complete, dated, and signed? yes, date - 02/19/2024 Treatment lab parameters met? Yes Has treatment weight changed > than 10%? No Treatment preauthorized? Yes VITALS There were no vitals filed for this visit. Urine protein: N/A Patient education completed for treatment? Yes Blood transfusion consent signed and complete? NA Return appointment scheduled? Yes Patient had provider visit today? Yes - Ok to release order and treat per provider Functional Status: Functional status at today's visit: [...] symptoms or adverse side effects during treatment. Safety and Risk for Injury Patient will remain free from injury. Ensure appropriate safety devices are available. Provide and maintain safe environment. documented in this encounter Plan of Treatment Upcoming Encounters Date Type Department Care Team (Late st Contact Info) Description 03/30/2024 8:00 AM EDT Laboratory Laboratory [facility] [address] [address] [address] 03/30/2024 8:30 AM EDT Office Visit Hematology/Oncology [address] [address] Corina Dong CRNP [address] [place] [address] [place] [address] 03/31/2024 11:30 AM EDT Hem/Onc Treatment Hematology/Oncology Treatment, [address] [address] 07/10/2024 9:45 AM EST Office Visit General Surgery, [facility] 132 [facility] [place] [address] Renzo Rees MD 132 [facility] [place] [address] 07/14/2024 11:00 AM EST Telemedicine Genetics HemOnc, [facility] [address] [place] [phone] [place], [place] 1000 E [facility] [place] [address] Scheduled Procedures Name Priority Associated Diagnoses Date/Ti [...] 650 mg 650 mg, Oral, ONCE, On Sat03/10/24 at 1500, For 1 dose, Give 30 minutes prior to chemotherapy. Maximum of 4 grams (4000 mg) per day. Given 03/10/2024 2:18 PM EDT 650 mg dexAMETHasone (Decadron) tab 12 mg 12 mg, Oral, ONCE, On Sat03/10/24 at 1430, For 1 dose Given 03/10/2024 2:18 PM EDT 12 mg diphenhydrAMINE (Benadryl) cap 25 mg 25 mg, Oral, ONCE, On Sat03/10/24 at 1500, For 1 dose Given 03/10/2024 2:17 PM EDT 25 mg Famotidine (Pepcid) tab 20 mg 20 mg, Oral, ONCE, On Sat03/10/24 at 1500, For 1 dose Given 03/10/2024 2:18 PM EDT 20 mg hEParin 100 UNIT/ML Lock Flush inj 500 Units 500 Units (5 mL), IV Lock, PRN Other, IV Flush, Starting on Sat03/10/24 at 1352, Until Sat03/10/24 at 2030, For 24 hours, Do not flush if lock, PICC, or central line not in place; IV infusing or unable to flush. Given 03/10/2024 4:25 PM EDT 500 Units NSS infusion Intravenous, at 50 mL/hr, PRN, Starting on Sat03/10/24 at 1500, Until Sat03/10/24 at 2030, Maintenance line Start Infusion 03/10/2024 2:19 PM EDT 50 mL/hr PACLitaxel (Taxol) 136 mg in NSS 250 mL infusion 136 mg (80 mg/m2 1.7 m2 Treatment Plan BSA from Recorded weight), IV Piggyback, ONCE, 1 dose, On Sat03/10/24 at 1530, Administer over 60 Minutes, Administer through 0.22 micron low protein binding filter! Start Infusion 03/10/2024 3:21 PM EDT 136 mg 255 mL/hr sodium chloride 0.9 % flush central line 10 mL 10 mL, IV Push, PRN Other, IV Flush, Starting on Sat03/10/24 at 1352, Until Sat03/10/24 at 2031, For 24 hours, Do not flush if lock, PICC, or central line not in place; IV infusing or unable to flush. Given 03/10/2024 4:25 PM EDT 10 mL Trastuzumab-dttb (Ontruzant) 131.46 mg in NSS 250 mL infusion 131.46 mg (rounded from 131.4 mg = 2 mg/kg 65.7 kg Treatment plan Recorded weight), IV Piggyback, ONCE, 1 dose, On Sat03/10/24 at 1530, Administer over 30 Minutes Start Infusion 03/10/2024 2:39 PM EDT 131.46 mg 510 mL/hr documented in this encounter Care Teams Disbursement Clerk Relationship Specialty Start Date End Date Haylee Skinner DO 132 [place] [address] PCP - General Family Medicine 11/13/18 documented as of this encounter
--- OUTSIDE RECORDS SUMMARY | 2024-04-14 07:13 | External Medical Summary | Summary of Care ---
Author Name Unknown Organization [facility] Address [address] [place] [address] Phone [phone] Care Team Providers Care Cab Driver Name Role Phone Haylee Skinner DO Primary Care Provider [phone] Reason for Visit * Reason Comments Chemotherapy C2/D1 - Ontruzant * Episode Based Medications (Routine) - Authorized Specialty Diagnoses / Procedures Referred By Contciara t Referred To Contact Diagnoses Breast carcinoma, female, left (HCC) Encounter for antineoplastic chemotherapy Procedures MT PALONOSETRON HCL MT INJ ONTRUZANT 10 MG MT PACLITAXEL INJECTION Charlotte Ferriera MD 200 [facility] [place] [address] Anc Hem/Onc [address] [address] Referral ID Status Reason Start Date Expiration Date V isits Requested Visits Authorized [id number] Authorized 02/26/2024 07/28/2024 999 [id number] Encounter Details Date Type Department Care Team (Latest Contact Info) Description 03/10/2024 1:30 PM EDT Hem/Onc Treatment Hematology/Oncolog y Treatment, [address] [address] Chair Sada 7 Hem Onc [address] [place] [address] Breast carcinoma, female, left (HCC)*; Encounter for [...] 24 Discontinued(Ref ill) Vitamin D3 1.25 MG (97709 UT) Oral CapsuleIndicati ons:Vitamin D deficiency Take [...] Description 03/30/2024 8:00 AM EDT Laboratory Laboratory [facility] [address] [address] [address] 03/30/2024 8:30 AM EDT Office Visit Hematology/Oncology [address] [phone] Corina Dong CRNP [address] [place] [address] [place] [address] 03/31/2024 11:30 AM EDT Hem/Onc Treatment Hematology/Oncology Treatment, [address] [address] 07/10/2024 9:45 AM EST Office Visit General Surgery, [facility] 132 [facility] [place] [address] Renzo Rees MD 132 [facility] [place] [address] 07/14/2024 11:00 AM EST Telemedicine Genetics HemOnc, [facility] 1000 [facility] [place] [phone] [place], [place] 1000 [address] [facility] [place] [address] Scheduled Procedures Name Priority Associated Diagnoses Date/Ti [...] mL/hr documented in this encounter Care Teams Cab Driver Relationship Specialty Start Date End Date Haylee Skinner DO 132 [place] [address] PCP - General Family Medicine 11/13/18 documented as of this encounter
--- OUTSIDE RECORDS SUMMARY | 2024-04-14 07:13 | External Medical Summary | Summary of Care ---
Author Name Unknown Organization [facility] Address [address] [place] [address] Phone [phone] Care Team Providers Care Pourer Metal Name Role Phone Haylee Skinner DO Primary Care Provider [phone] Reason for Visit * Reason Comments Chemotherapy C2/D1 - Ontruzant * Episode Based Medications (Routine) - Authorized Specialty Diagnoses / Procedures Referred By Contciara t Referred To Contact Diagnoses Breast carcinoma, female, left (HCC) Encounter for antineoplastic chemotherapy Procedures MT PALONOSETRON HCL MT INJ ONTRUZANT 10 MG MT PACLITAXEL INJECTION Charlotte Ferreira MD 200 [facility] [place] [place] [address] Anc Hem/Onc [address] [address] Referral ID Status Reason Start Date Expiration Date V isits Requested Visits Authorized [id number] Authorized 02/26/2024 07/28/2024 999 999 Encounter Details Date Type Department Care Team (Latest Contact Info) Description 03/10/2024 1:30 PM EDT Hem/Onc Treatment Hematology/Oncolog y Treatment, [address] [address] Chair Sada 7 Hem Onc [address] [place] [address] Breast carcinoma, female, left (HCC)*; Encounter for antineoplastic chemotherapy Allergies No known active allergiesdocumented as of this encounter (statuses as of 03/26/2024) Medications Medication Sig Dispensed Refills Start Date [...] 24 Discontinued(Ref ill) Vitamin D3 1.25 MG (25957 UT) Oral CapsuleIndicati ons:Vitamin D deficiency Take 1 Capsule by mouth once a week. 12 Capsule 4 03/26/20 24 Discontinued documented as of this encounter (statuses as of 03/26/2024) Active Problems Problem Noted Date Diagnosed Date Encounter for antineoplastic chemotherapy 2023 Breast carcinoma, female, left 02/19/2024 PND (post-nasal drip) 11/15/2021 Acquired hypothyroidism 02/25/2021 Polycystic ovaries 12/30/2001 documented as of this encounter (statuses as of 03/26/2024) Resolved Problems Problem Noted Date Diagnosed Date Resolved Date Throat irritation 11/15/2021 06/12/2023 COVID-19 virus infection 08/09/2020 documented as of this encounter (statuses as of 03/26/2024) Immunizations Name Administration Dates Next Due COVID-19 [...] Description 03/30/2024 8:00 AM EDT Laboratory Laboratory [facility] [address] [address] [address] 03/30/2024 8:30 AM EDT Office Visit Hematology/Oncology [address] [phone] Corina Dong CRNP [address] [place] [address] [place] [address] 03/31/2024 11:30 AM EDT Hem/Onc Treatment Hematology/Oncology Treatment, [address] [address] 07/10/2024 9:45 AM EST Office Visit General Surgery, [facility] 132 [facility] [place] [address] Renzo Rees MD 132 [facility] [place] [address] 07/14/2024 11:00 AM EST Telemedicine Genetics HemOnc, [facility] 1000 [place] [phone] [place], [place] 1000 E [facility] [place] [address] Scheduled Procedures Name Priority Associated Diagnoses Date/Ti [...] mL/hr documented in this encounter Care Teams Pourer Metal Relationship Specialty Start Date End Date Haylee Skinner DO 132 [place] [address] PCP - General Family Medicine 11/13/18 documented as of this encounter
--- OUTSIDE RECORDS SUMMARY | 2024-04-14 07:13 | External Medical Summary | Summary of Care ---
Author Name Unknown Organization [facility] Address [address] [place] [address] Phone [phone] Care Team Providers Care Wireless Consultant Name Role Phone Haylee Skinner DO Primary Care Provider [phone] Reason for Visit * Reason Comments Chemotherapy C2/D1 - Ontruzant * Episode Based Medications (Routine) - Authorized Specialty Diagnoses / Procedures Referred By Contciara t Referred To Contact Diagnoses Breast carcinoma, female, left (HCC) Encounter for antineoplastic chemotherapy Procedures [place] PALONOSETRON HCL VA INJ ONTRUZANT 10 MG VA PACLITAXEL INJECTION Charlotte Ferreira MD 200 [facility] [place] [address] Anc Hem/Onc [address] [address] Referral ID Status Reason Start Date Expiration Date V isits Requested Visits Authorized [id number] Authorized 02/26/2024 07/28/[phone] Encounter Details Date Type Department Care Team (Latest Contact Info) Description 03/10/2024 1:30 PM EDT Hem/Onc Treatment Hematology/Oncolog y Treatment, [address] [address] Chair Sada 7 Hem Onc [address] [place] [address] Breast carcinoma, female, left (HCC)*; Encounter for [...] 24 Discontinued(Ref ill) Vitamin D3 1.25 MG (65685 UT) Oral CapsuleIndicati ons:Vitamin D deficiency Take [...] Description 03/30/2024 8:00 AM EDT Laboratory Laboratory [facility] 200 [facility] [address] [address] [address] 03/30/2024 8:30 AM EDT Office Visit Hematology/Oncology [address] [address] Corina Dong CRNP [address] [place] [address] [place] [address] 03/31/2024 11:30 AM EDT Hem/Onc Treatment Hematology/Oncology Treatment, [address] [address] 07/10/2024 9:45 AM EST Office Visit General Surgery, [facility] 132 [facility] [place] [address] Renzo Rees MD 132 [facility] [place] [address] 07/14/2024 11:00 AM EST Telemedicine Genetics HemOnc, [facility] [address] [place] [phone] Jen Marie, [place] 1000 E [facility] [place] [address] Scheduled Procedures Name Priority Associated Diagnoses Date/Ti [...] mL/hr documented in this encounter Care Teams Wireless Consultant Relationship Specialty Start Date End Date Haylee Skinner DO 132 [place] [address] PCP - General Family Medicine 11/13/18 documented as of this encounter
--- OUTSIDE RECORDS SUMMARY | 2024-04-14 07:13 | External Medical Summary | Summary of Care ---
Author Name Unknown Organization [facility] Address [address] [place] [address] Phone [phone] Care Team Providers Care Resident Inspector Name Role Phone Haylee Skinner DO Primary Care Provider [phone] Reason for Visit * Reason Comments Treatment Ontruzant/Taxol C1,D 1 * Episode Based Medications (Routine) - Authorized Specialty Diagnoses / Procedures Referred By Reggie miller Referred To Contact Diagnoses Breast carcinoma, female, left (HCC) Encounter for antineoplastic chemotherapy Procedures [place] PALONOSETRON HCL [place] INJ ONTRUZANT 10 MG [place] PACLITAXEL INJECTION Charlotte Ferreira MD 200 [facility] [place] [address] Anc Hem/Onc [address] [address] Referral ID Status Reason Start Date Expiration Date V isits Requested Visits Authorized [id number] Authorized 02/26/2024 07/28/2024 999 999 Encounter Details Date Type Department Care Team (Latest Contact Info) Description 03/03/2024 10:45 AM EDT Hem/Onc Treatment Hematology/Oncolog y Treatment, [address] [address] Sada Chair 2 Hem Onc [address] [place] [address] Breast carcinoma, female, left (HCC)*; Encounter for [...] 24 Discontinued(Ref ill) Vitamin D3 1.25 MG (00581 UT) Oral CapsuleIndicati ons:Vitamin D deficiency Take [...] Description 03/30/2024 8:00 AM EDT Laboratory Laboratory [address] [place] [address] [place] [address] [facility] [place] [address] 03/30/2024 8:30 AM EDT Office Visit Hematology/Oncology [facility] [address] [place] [address] Corina Dong CRNP 400 [facility] [place] [address] 03/31/2024 11:30 AM EDT Hem/Onc Treatment Hematology/Oncology Treatment, [address] [place] [address] 07/10/2024 9:45 AM EST Office Visit General Surgery, [facility] [address] [place] [address] Renzo Rees MD [address] [place] [address] 07/14/2024 11:00 AM EST Telemedicine Genetics HemOnc, [facility] [address] [place] [phone] [place], [place] [address] [place] [address] Scheduled Procedures Name Priority Associated Diagnoses Date/Ti [...] mL/hr documented in this encounter Care Teams Resident Inspector Relationship Specialty Start Date End Date Haylee Skinner DO 132 [place] [address] PCP - General Family Medicine 11/13/18 documented as of this encounter
--- OUTSIDE RECORDS SUMMARY | 2024-04-14 07:13 | External Medical Summary | Summary of Care ---
Author Name Unknown Organization [facility] Address 100 [facility] [place] [address] Phone [phone] Care Team Providers Care Big Data Developer Name Role Phone Nikos Beatty DO Primary Care Provider [phone] Reason for Visit * Reason Comments eRx-Medication Refill Encounter Details Date Type Department Care Team (Late st Contact Info) Description 03/25/2024 Refill Family Practice [facility] [address] [place] [address] Nikos Beatty DO [address] [place] [address] Vitamin D deficiency Allergies No known active allergiesdocumented as of [...] 10/14/2023 Active Ondansetron HCl 8 MG Oral TabletIndicatio [...] 1 03/18/2024 Active Vitamin D3 1.25 MG (36515 UT) Oral CapsuleIndicati ons:Vitamin D deficiency TAKE 1 CAPSULE BY MOUTH ONCE WEEKLY 12 Capsule 03/26/2024 Active One-A-Day Womens VitaCraves Oral Tablet Chewable Take 1 Tablet by mouth daily. Active Vitamin D3 1.25 MG (47923 UT) Oral CapsuleIndicati ons:Vitamin D deficiency Take 1 Capsule by mouth once a week. 12 Capsule 01/15/2024 Discontinued documented as of this encounter (statuses [...] mRNA, LNP-s, No Pre serve, 2-Dose Series ([employer]) 11/26/2020,11/05/2020 COVID-19, LNP-s, No Preserve , Yusef-sucrose, Ages 12+ ([employer]) 05/10/2022,07/25/2021 Seasonal Influenza Virus Vac cine, Unspecified [...] encounter Miscellaneous Notes * Telephone Encounter - Nikos Beatty DO - 03/26/2024 10:39 AM EDTSigned Prescriptions: Disp Refills Vitamin D3 1.25 MG (74150 UT) Oral Capsule 12 Cap*0 Sig: TAKE 1 CAPSULE BY MOUTH ONCE WEEKLY Authorizing Provider: NIKOS BEATTY * Telephone Encounter - Kevyn Castillo [facility] - 03/26/2024 7:48 AM EDT Pending Prescriptions: Disp Refills Vitamin D3 1.25 MG (25366 UT) Oral Capsule*12 Cap*0 Sig: TAKE 1CAPSULE BY MOUTH ONCE WEEKLY documented in this encounter Plan of Treatment Upcoming Encounters Date Type Department Care Team (Late st Contact Info) Description 03/30/2024 8:00 AM EDT Laboratory Laboratory [facility] [place] [address] [place] [place], [place] [address] Ian Tom[place] [address] [place] [address] 03/30/2024 8:30 AM EDT Office Visit Hematology/Oncology [facility] [place] 200 [facility] [place], [place] [address] Corina Dong CRNP [address] [place], [place] [address] [address] 03/31/2024 11:30 AM EDT Hem/Onc Treatment Hematology/Oncology Treatment, [place] [address] [place] [address] 07/10/2024 9:45 AM EST Office Visit General Surgery, [facility] [address] [place] [address] Renzo Rees MD [address] [place] [address] 07/14/2024 11:00 AM EST Telemedicine Genetics HemOnc, [facility] [address] [place] [phone] [place], [place] [address] [place] [phone] Scheduled Procedures Name Priority Associated Diagnoses Date/Ti [...] Vitamin D deficiency Unspecified vitamin D deficiency documented in this encounter Care Teams Big Data Developer Relationship Specialty Start Date End Date Nikos Beatty DO 132 [place] [address] PCP - General Family Medicine 11/13/18 documented as of this encounter
--- OUTSIDE RECORDS SUMMARY | 2024-04-14 07:13 | External Medical Summary | Summary of Care ---
Author Name Unknown Organization [facility] Address [address] [place] [address] Phone [phone] Care Team Providers Care Bread Jockey Name Role Phone Haylee Skinner DO Primary Care Provider [phone] Reason for Visit * Reason Comments Chemotherapy C2/D1 - Ontruzant * Episode Based Medications (Routine) - Authorized Specialty Diagnoses / Procedures Referred By Contciara t Referred To Contact Diagnoses Breast carcinoma, female, left (HCC) Encounter for antineoplastic chemotherapy Procedures NM PALONOSETRON HCL NM INJ ONTRUZANT 10 MG NM PACLITAXEL INJECTION Charlotte Ferreira MD 200 [facility] [place] [address] Anc Hem/Onc [address] [address] Referral ID Status Reason Start Date Expiration Date V isits Requested Visits Authorized [id number] Authorized 02/26/2024 07/28/2024 999 999 Encounter Details Date Type Department Care Team (Latest Contact Info) Description 03/10/2024 1:30 PM EDT Hem/Onc Treatment Hematology/Oncolog y Treatment, [address] [address] Chair Sada 7 Hem On[address] [place] [address] Breast carcinoma, female, left (HCC)*; Encounter for [...] 24 Discontinued(Ref ill) Vitamin D3 1.25 MG (78709 UT) Oral CapsuleIndicati ons:Vitamin D deficiency Take [...] Description 03/30/2024 8:00 AM EDT Laboratory Laboratory [facility] 200 [facility] [address] [address] [address] 03/30/2024 8:30 AM EDT Office Visit Hematology/Oncology [address] [address] Corina Dong CRNP [address] [place] [address] [place] [address] 03/31/2024 11:30 AM EDT Hem/Onc Treatment Hematology/Oncology Treatment, [address] [address] 07/10/2024 9:45 AM EST Office Visit General Surgery, [facility] 132 [facility] [place] [address] Renzo Rees MD 132 [facility] [place] [address] 07/14/2024 11:00 AM EST Telemedicine Genetics HemOnc, [facility] [address] [place] [phone] Jen Marie, [place] 1000 E [facility] [place] [address] Scheduled Procedures Name Priority Associated Diagnoses Date/Ti [...] mL/hr documented in this encounter Care Teams Bread Jockey Relationship Specialty Start Date End Date Haylee Skinner DO 132 [place] [address] PCP - General Family Medicine 11/13/18 documented as of this encounter
--- OUTSIDE RECORDS SUMMARY | 2024-04-14 07:14 | External Medical Summary ---
Author Name Unknown Address Unknown Organization [facility] [place] [address] [place] [address] Laboratory Report Ordering Provider Test Date Status BETZAIDA IBARRA 03/23/2024 08:19:48 Final Observation Date Value Abnormality Reference (Units ) Status Screen, Urine 03/23/2024 08:19:48 Negative Negative Final Performing Location [facility] [place] [facility] 0 - [address] [place] [address]
--- OUTSIDE RECORDS SUMMARY | 2024-04-14 07:14 | External Medical Summary | Summary of Care ---
Author Name Unknown Organization [facility] Address [address] [place] [address] Phone [phone] Care Team Providers Care Coremaker Name Role Phone Haylee Skinner DO Primary Care Provider [phone] Reason for Visit * Reason Comments Chemotherapy Ontruzant/paclitaxel . * Episode Based Medications (Routine) - Authorized Specialty Diagnoses / Procedures Referred By Contciara t Referred To Contact Diagnoses Breast carcinoma, female, left (HCC) Encounter for antineoplastic chemotherapy Procedures MT PALONOSETRON HCL MT INJ ONTRUZANT 10 MG [place] PACLITAXEL INJECTION Charlotte Ferreira MD 200 [facility] [place] [address] Anc Hem/Onc [address] [address] Referral ID Status Reason Start Date Expiration Date V isits Requested Visits Authorized [id number] Authorized 02/26/2024 07/28/2024 999 [id number] Encounter Details Date Type Department Care Team (Latest Contact Info) Description 03/17/2024 10:00 AM EDT Hem/Onc Treatment Hematology/Oncolog y Treatment, [address] [address] Chair Sada 10 Hem Onc [address] [place] [address] Breast carcinoma, female, left (HCC)*; Encounter for antineoplastic chemotherapy Allergies No known active allergiesdocumented as of this encounter (statuses as of 03/24/2024) Medications Medication Sig Dispensed Refills Start Date [...] the evening. 180 Tablet 3 10/14/2023 Active Vitamin D3 1.25 MG (16877 UT) Oral CapsuleIndicatio ns:Vitamin D deficiency Take 1 Capsule by mouth once a week. 12 Capsule 01/15/2024 4 Active Ondansetron HCl 8 MG Oral TabletIndication [...] taking.Reported on 03/03/2024 dexAMETHasone 4 MG Oral TabletIndication s:Breast carcinoma, female, left (HCC) 12 mg (3 tab) 12 and 6 hours before chemotherapy 40 Tablet 02/19/2024 Active Levothyroxine Sodium 50 MCG Oral Tablet (Levoxyl)Indicat ions:Abnormal thyroid blood test TAKE 1 TABLET BY MOUTH EVERY DAY AT LEAST 30 MINUTES PRIOR TO BREAKFAST OR OTHER MEDICATIONS 90 Tablet 1 12/30/2023 4 Discontinue d(Refill) documented as of this encounter (statuses as of 03/24/2024) Active Problems Problem Noted Date Diagnosed Date Encounter for antineoplastic chemotherapy 2023 Breast carcinoma, female, left 02/19/2024 PND (post-nasal drip) 11/15/2021 Acquired hypothyroidism 02/25/2021 Polycystic ovaries 12/30/2001 documented as of this encounter (statuses as of 03/24/2024) Resolved Problems Problem Noted Date Diagnosed Date Resolved Date Throat irritation 11/15/2021 06/12/2023 COVID-19 virus infection 08/09/2020 documented as of this encounter (statuses as of 03/24/2024) Immunizations Name Administration Dates Next Due COVID-19 [...] Sign Reading Time Taken Comments Blood Pressure 127/77 03/17/2024 10:51 AM EDT Pulse 94 03/17/2024 10:51 AM EDT Temperature 36.3 C (97.3 F) 03/17/2024 10:51 AM E DT Respiratory Rate 18 03/17/2024 10:51 AM EDT Oxygen Saturation 97% 03/17/2024 10:51 AM EDT Inhaled Oxygen Concentration - - Weight 63.6 kg (140 lb 3.2 oz) 03/17/2024 10:51 AM EDT Height - - Body Mass Index 25.23 02/19/2024 2:54 PM EDT documented in this encounter Nursing Notes * Joyce Tillman RN - 03/17/2024 12:59 PM EDT Goals: Patient will remain free from injury. Possible barriers to meeting goals: Fall risk d/t ambulation with IV pole. Stability of the patient: Moderately stable - low risk of patient condition declining or worsening Summary regarding today's goals: Met: Patient remained free of injury. Patient tolerated infusion well. Discharged in stable condition. * Joyce Tillman RN - 03/17/2024 10:53 AM EDT Chair 9. Patient arrrived for Ontruzant/paclitaxel with no acute complaints. VAD accessed. Chemotherapy/Immunotherapy agents: Ontruzant/paclitaxel. Consent for chemotherapy drug treatment complete, dated, and signed? yes, date - 02/19/24 Treatment lab parameters met? Yes Has treatment weight changed > than 10%? No Treatment preauthorized? Yes VITALS Filed Vitals: 03/17/24 1051 BP: 127/77 Pulse: 94 Resp: 18 Temp: 36.3 C (97.3 F) TempSrc: Tympanic SpO2: 97% Weight: 63.6 kg (140 lb 3.2 oz) Urine protein: N/A Patient [...] OTHER: denies any additional symptoms PAIN: 0 Safety and Risk for Injury Patient will remain free from injury. Ensure appropriate safety devices are available. Provide and maintain safe environment. documented in this encounter Plan of Treatment Upcoming Encounters Date Type Department Care Team (Late st Contact Info) Description 03/24/2024 1:00 PM EDT Hem/Onc Treatment Hematology/Oncology Treatment, [place] [address] [place] [phone] Sada, Chair 5 Hem Onc Scenery [address] [place] [address] 03/30/2024 8:00 AM EDT Laboratory Laboratory [place] [place] [address] [place] [address] [phone] Ian Tomlin [facility] [address] [place] [address] 03/30/2024 8:30 AM EDT Office Visit Hematology/Oncology [facility] 200 [facility] [place] [phone] Corina Dong, STRIP MILL OPERATOR [address] [place] [address] 03/31/2024 11:30 AM EDT Hem/Onc Treatment Hematology/Oncology Treatment, [place] [facility], [place] [phone] 07/10/2024 9:45 AM EST Office Visit General Surgery, [facility] [address] [place] [address] Renzo Rees MD [address] [place] [address] 07/14/2024 11:00 AM EST Telemedicine Genetics HemOnc, [facility] [address] [place] [address] [place] Marie, [place] [address] [place] [address] Scheduled Procedures Name Priority Associated Diagnoses Date/Ti [...] 05/19/2026 05/19/2021, 05/19/2021 Colorectal Cancer Screening 05/19/2026 Diabetes Screening 03/23/2027 03/23/2024, 0 03/16/2024, 03/09/2024, Additional history exists Lipid Panel 01/08/2029 01/09/2024, 04/0 12/2018, 09/15/2011 [...] 650 mg 650 mg, Oral, ONCE, On Sat03/17/24 at 1100, For 1 dose, Give 30 minutes prior to chemotherapy. Maximum of 4 grams (4000 mg) per day. Given 03/17/2024 10:20 AM EDT 650 mg dexAMETHasone (Decadron) tab 12 mg 12 mg, Oral, ONCE, On Sat03/17/24 at 1030, For 1 dose Given 03/17/2024 10:20 AM EDT 12 mg diphenhydrAMINE (Benadryl) cap 25 mg 25 mg, Oral, ONCE, On Sat03/17/24 at 1100, For 1 dose Given 03/17/2024 10:20 AM EDT 25 mg Famotidine (Pepcid) tab 20 mg 20 mg, Oral, ONCE, On Sat03/17/24 at 1100, For 1 dose Given 03/17/2024 10:20 AM EDT 20 mg hEParin 100 UNIT/ML Lock Flush inj 500 Units 500 Units (5 mL), IV Lock, PRN Other, IV Flush, Starting on Sat03/17/24 at 0959, Until Sat03/17/24 at 1701, For 24 hours, Do not flush if lock, PICC, or central line not in place; IV infusing or unable to flush. Given 03/17/2024 12:27 PM EDT 500 Units NSS infusion Intravenous, at 50 mL/hr, PRN, Starting on Sat03/17/24 at 1100, Until Sat03/17/24 at 1701, Maintenance line Start Infusion 03/17/2024 10:19 AM EDT 50 mL/hr PACLitaxel (Taxol) 136 mg in NSS 250 mL infusion 136 mg (80 mg/m2 1.7 m2 Treatment Plan BSA from Recorded weight), IV Piggyback, ONCE, 1 dose, On Sat03/17/24 at 1130, Administer over 60 Minutes, Administer through 0.22 micron low protein binding filter! Start Infusion 03/17/2024 11:27 AM EDT 136 mg 255 mL/hr sodium chloride 0.9 % flush central line 10 mL 10 mL, IV Push, PRN Other, IV Flush, Starting on Sat03/17/24 at 0959, Until Sat03/17/24 at 1701, For 24 hours, Do not flush if lock, PICC, or central line not in place; IV infusing or unable to flush. Given 03/17/2024 12:27 PM EDT 10 mL Trastuzumab-dttb (Ontruzant) 131.46 mg in NSS 250 mL infusion 131.46 mg (rounded from 131.4 mg = 2 mg/kg 65.7 kg Treatment plan Recorded weight), IV Piggyback, ONCE, 1 dose, On Sat03/17/24 at 1130, Administer over 30 Minutes Start Infusion 03/17/2024 10:44 AM EDT 131.46 mg 510 mL/hr documented in this encounter Care Teams Coremaker Relationship Specialty Start Date End Date Haylee Skinner DO [address] [place] [address] PCP - General Family Medicine 11/13/18 documented as of this encounter
--- OUTSIDE RECORDS SUMMARY | 2024-04-14 07:14 | External Medical Summary ---
Author Name Unknown Address Unknown Organization K01:LABORATORY [facility] [place] - [address] [place] [address] Laboratory Report Ordering Provider Test Date Status JITENDRA CROWEDR 03/23/2024 08:19:48 Final Observation Date Value Abnormality Reference (Units ) Status MYCODE SPECIMEN-SST 03/23/2024 08:19:48 Freezing of extracted DNA, whole blood and/or serum. Final Performing Location LABORATORY C - [address] [place] [address]
--- OUTSIDE RECORDS SUMMARY | 2024-04-14 07:14 | External Medical Summary | Summary of Care ---
Author Name Unknown Organization [facility] Address [address] [place] [address] Phone [phone] Care Team Providers Care Nail Welter Name Role Phone Haylee Skinner DO Primary Care Provider [phone] Reason for Visit * Reason Comments Chemotherapy Ontruzant/paclitaxel . * Episode Based Medications (Routine) - Authorized Specialty Diagnoses / Procedures Referred By Contciara t Referred To Contact Diagnoses Breast carcinoma, female, left (HCC) Encounter for antineoplastic chemotherapy Procedures [place] PALONOSETRON HCL [place] INJ ONTRUZANT 10 MG [place] PACLITAXEL INJECTION Charlotte Ferreira MD 200 [facility] [place] [address] Anc Hem/Onc [address] [address] Referral ID Status Reason Start Date Expiration Date V isits Requested Visits Authorized [id number] Authorized 02/26/2024 07/28/[phone] Encounter Details Date Type Department Care Team (Latest Contact Info) Description 03/17/2024 10:00 AM EDT Hem/Onc Treatment Hematology/Oncolog y Treatment, [address] [address] Chair Sada 10 Hem Onc [address] [place] [address] Breast carcinoma, female, left (HCC)*; Encounter for [...] 3 10/14/2023 Active Vitamin D3 1.25 MG (55552 UT) Oral CapsuleIndicatio ns:Vitamin D deficiency Take [...] 1:00 PM EDT Hem/Onc Treatment Hematology/Oncology Treatment, [place] [address] [place] [phone] Sada, Chair 5 Hem Onc Scenery [address] [place] [address] 03/30/2024 8:00 AM EDT Laboratory Laboratory [place] [place] [address] [place] [address] [phone] Ian Tomlin [facility] [address] [place] [address] 03/30/2024 8:30 AM EDT Office Visit Hematology/Oncology [facility] 200 [facility] [place] [phone] Corina Dong, BLENDING KETTLE TENDER [address] [place] [address] 03/31/2024 11:30 AM EDT Hem/Onc Treatment Hematology/Oncology Treatment, [place] 200 [facility], [place] [phone] 07/10/2024 9:45 AM EST Office Visit General Surgery, [facility] [address] [place] [address] Renzo Rees MD [address] [place] [address] 07/14/2024 11:00 AM EST Telemedicine Genetics HemOnc, [facility] [address] [place] [address] [place] Marie, [place] [address] [place] [address] Scheduled Procedures Name Priority Associated Diagnoses Date/Ti [...] mL/hr documented in this encounter Care Teams Nail Welter Relationship Specialty Start Date End Date Haylee Skinner DO [address] [place] [address] PCP - General Family Medicine 11/13/18 documented as of this encounter
--- OUTSIDE RECORDS SUMMARY | 2024-04-14 07:14 | External Medical Summary ---
Author Name Unknown Address Unknown Organization K01:[facility] [address] [place] [address] Laboratory Report Ordering Provider Test Date Status JITENDRA CROWDER 03/23/2024 08:19:48 Final Observation Date Value Abnormality Reference (Units ) Status MYCODE SPECIMEN-SST 03/23/2024 08:19:48 Freezing of extracted DNA, whole blood and/or serum. Final Performing Location LABORATORY C - [address] [place] [address]
--- OUTSIDE RECORDS SUMMARY | 2024-04-14 07:14 | External Medical Summary | Summary of Care ---
Author Name Unknown Organization [facility] Address [address] [place] [address] Phone [phone] Care Team Providers Care Public Policy Mediator Name Role Phone Haylee Skinner DO Primary Care Provider [phone] Reason for Visit * Reason Comments Chemotherapy Ontruzant/paclitaxel . * Episode Based Medications (Routine) - Authorized Specialty Diagnoses / Procedures Referred By Contciara t Referred To Contact Diagnoses Breast carcinoma, female, left (HCC) Encounter for antineoplastic chemotherapy Procedures [place] PALONOSETRON HCL [place] INJ ONTRUZANT 10 MG [place] PACLITAXEL INJECTION Charlotte Ferreira MD 200 [place] [address] Anc Hem/Onc [address] [address] Referral ID Status Reason Start Date Expiration Date V isits Requested Visits Authorized [id number] Authorized 02/26/2024 07/28/[phone] Encounter Details Date Type Department Care Team (Latest Contact Info) Description 03/17/2024 10:00 AM EDT Hem/Onc Treatment Hematology/Oncolog y Treatment, [address] [address] Chair Sada 10 Hem Onc [address] [place] [address] Breast carcinoma, female, left (HCC)*; Encounter for [...] 3 10/14/2023 Active Vitamin D3 1.25 MG (87926 UT) Oral CapsuleIndicatio ns:Vitamin D deficiency Take [...] 1:00 PM EDT Hem/Onc Treatment Hematology/Oncology Treatment, [place] [address] [place] [phone] Sada, Chair 5 Hem Onc Scenery [address] [place] [address] 03/30/2024 8:00 AM EDT Laboratory Laboratory [place] [place] [address] [place] [phone] Ian Tomlin [facility] [address] [place] [address] 03/30/2024 8:30 AM EDT Office Visit Hematology/Oncology [facility] 200 [facility] [place] [phone] Corina Dong, BAND TOP MAKER [address] [place] [address] 03/31/2024 11:30 AM EDT Hem/Onc Treatment Hematology/Oncology Treatment, [place] 200 [facility], [place] [phone] 07/10/2024 9:45 AM EST Office Visit General Surgery, [facility] [address] [place] [address] Renzo Rees MD [address] [place] [address] 07/14/2024 11:00 AM EST Telemedicine Genetics HemOnc, [facility] [address] [place] [address] Jen Marie, [place] [address] [place] [address] Scheduled Procedures Name Priority Associated Diagnoses Date/Ti [...] mL/hr documented in this encounter Care Teams Public Policy Mediator Relationship Specialty Start Date End Date Haylee Skinner DO 132 [place] [address] PCP - General Family Medicine 11/13/18 documented as of this encounter
--- OUTSIDE RECORDS SUMMARY | 2024-04-14 07:14 | External Medical Summary ---
Author Name Unknown Address Unknown Organization K01:[facility] [place] [address] [place] [address] Laboratory Report Ordering Provider Test Date Status JITENDRA CROWDER 03/23/2024 08:19:48 Final Observation Date Value Abnormality Reference (Units ) Status MYCODE SPECIMEN-LAV 03/23/2024 08:19:48 Freezing of extracted DNA, whole blood and/or serum. Final Performing Location LABORATORY C - [address] [place] [address]
--- OUTSIDE RECORDS SUMMARY | 2024-04-14 07:14 | External Medical Summary | Summary of Care ---
Author Name Unknown Organization [facility] Address [address] [place] [address] Phone [phone] Care Team Providers Care Cannon Crewmember Name Role Phone Haylee Skinner DO Primary Care Provider [phone] Reason for Visit * Reason Comments Chemotherapy Ontruzant/paclitaxel . * Episode Based Medications (Routine) - Authorized Specialty Diagnoses / Procedures Referred By Contciara t Referred To Contact Diagnoses Breast carcinoma, female, left (HCC) Encounter for antineoplastic chemotherapy Procedures [place] PALONOSETRON HCL [place] INJ ONTRUZANT 10 MG [place] PACLITAXEL INJECTION Charlotte Ferreira MD 200 [facility] [place] [address] Anc Hem/Onc [address] [address] Referral ID Status Reason Start Date Expiration Date V isits Requested Visits Authorized [id number] Authorized 02/26/2024 07/28/[phone] Encounter Details Date Type Department Care Team (Latest Contact Info) Description 03/17/2024 10:00 AM EDT Hem/Onc Treatment Hematology/Oncolog y Treatment, [address] [address] Chair Sada 10 Hem On[address] [place] [address] Breast carcinoma, female, left (HCC)*; Encounter for [...] 3 10/14/2023 Active Vitamin D3 1.25 MG (34097 UT) Oral CapsuleIndicatio ns:Vitamin D deficiency Take [...] 1:00 PM EDT Hem/Onc Treatment Hematology/Oncology Treatment, [place] [address] [place] [phone] Sada, Chair 5 Hem Onc Scenery [address] [place] [address] 03/30/2024 8:00 AM EDT Laboratory Laboratory [place] [address] [place] [address] [phone] Ian Tomlin [facility] [address] [place] [address] 03/30/2024 8:30 AM EDT Office Visit Hematology/Oncology [facility] 200 [facility] [place] [phone] Corina Dong, OTORHINOLARYNGOLOGIST [address] [place] [address] 03/31/2024 11:30 AM EDT Hem/Onc Treatment Hematology/Oncology Treatment, [place] 200 [facility], [place] [phone] 07/10/2024 9:45 AM EST Office Visit General Surgery, [facility] [address] [place] [address] Renzo Rees MD [address] [place] [address] 07/14/2024 11:00 AM EST Telemedicine Genetics HemOnc, [facility] [address] [place] [address] Jen Marie, [place] [address] [place] [address] Scheduled Procedures Name Priority Associated Diagnoses Date/Ti [...] mL/hr documented in this encounter Care Teams Cannon Crewmember Relationship Specialty Start Date End Date Haylee Skinner DO [address] [place] [address] PCP - General Family Medicine 11/13/18 documented as of this encounter
--- OUTSIDE RECORDS SUMMARY | 2024-04-14 07:14 | External Medical Summary | Summary of Care ---
Author Name Unknown Organization [facility] Address [address] [place] [address] Phone [phone] Care Team Providers Care International Travel Consultant Name Role Phone Haylee Skinner DO Primary Care Provider [phone] Reason for Visit * Reason Comments Chemotherapy Ontruzant/paclitaxel . * Episode Based Medications (Routine) - Authorized Specialty Diagnoses / Procedures Referred By Contciara t Referred To Contact Diagnoses Breast carcinoma, female, left (HCC) Encounter for antineoplastic chemotherapy Procedures MT PALONOSETRON HCL MT INJ ONTRUZANT 10 MG MT PACLITAXEL INJECTION Charlotte Ferreira MD 200 [facility] [address] Anc Hem/Onc [address] [address] Referral ID Status Reason Start Date Expiration Date V isits Requested Visits Authorized [id number] Authorized 02/26/2024 07/28/[phone] Encounter Details Date Type Department Care Team (Latest Contact Info) Description 03/17/2024 10:00 AM EDT Hem/Onc Treatment Hematology/Oncolog y Treatment, [address] [address] Chair Sada [address] Hem On[address] [place] [address] Breast carcinoma, female, left (HCC)*; Encounter for [...] 3 10/14/2023 Active Vitamin D3 1.25 MG (30080 UT) Oral CapsuleIndicatio ns:Vitamin D deficiency Take [...] 1:00 PM EDT Hem/Onc Treatment Hematology/Oncology Treatment, [place] [address] [place] [phone] Sada, Chair 5 Hem Onc Scenery [address] [place] [address] 03/30/2024 8:00 AM EDT Laboratory Laboratory [place] [address] [place] [address] [phone] [place] Tom[place] [facility] [address] [place] [address] 03/30/2024 8:30 AM EDT Office Visit Hematology/Oncology [facility] 200 [facility] [place] [phone] Corina Dong, METALLURGICAL TESTER [address] [place] [address] 03/31/2024 11:30 AM EDT Hem/Onc Treatment Hematology/Oncology Treatment, [place] 200 [facility], [place] [phone] 07/10/2024 9:45 AM EST Office Visit General Surgery, [facility] [address] [place] [address] Renzo Rees MD [address] [place] [address] 07/14/2024 11:00 AM EST Telemedicine Genetics HemOnc, [facility] [address] [place] [address] Jen Marie, [place] [address] [place] [address] [place] [address] Scheduled Procedures Name Priority Associated Diagnoses Date/Ti [...] mL/hr documented in this encounter Care Teams International Travel Consultant Relationship Specialty Start Date End Date Haylee Skinner DO [address] [place] [address] PCP - General Family Medicine 11/13/18 documented as of this encounter
--- OUTSIDE RECORDS SUMMARY | 2024-04-14 07:14 | External Medical Summary | Summary of Care ---
Author Name Unknown Organization [facility] Address [address] [facility] [address] Phone [phone] Care Team Providers Care Sales Merchandising Specialist Name Role Phone Haylee Skinner DO Primary Care Provider [phone] Reason for Visit * Reason Comments Outpatient Testing Encounter Details Date Type Department Care Team (Late st Contact Info) Description 03/23/2024 8:30 AM EDT Laboratory Laboratory, [facility] 132 [facility] [place] [phone] [facility] 132 [facility] [place] [address] [employer] Other*[id number]; Breast carcinoma, female, left (HCC) Allergies No known active allergiesdocumented as of this encounter (statuses as of 03/23/2024) Medications Medication Sig Dispensed Refills Start Date End Date Status Loratadine 10 MG Oral Tablet (Claritin)Indicat ions:Viral URI with cough,Sensation of fullness in both ears Take 1 Tablet by mouth at bedtime. 07/08/2023 Active Additional Information Patient not taking.Reported on 03/03/2024 Omeprazole 20 MG Oral Tablet Delayed Release Take 1 Tablet by mouth in the morning and 1 Tablet in the evening. 180 Tablet 3 10/14/2023 Active Vitamin D3 1.25 MG (74069 UT) Oral CapsuleIndication s:Vitamin D deficiency Take 1 Capsule by mouth once a week. 12 Capsule 01/15/2024 04/14/2024 Active Ondansetron HCl 8 MG Oral TabletIndications :Breast carcinoma, female, left (HCC) Take 1 Tablet by mouth every 8 hours as needed for Nausea. 30 Tablet 02/19/2024 Active Additional Information Patient not taking.Reported on 03/03/2024 Prochlorperazine Maleate 10 MG Oral Tablet (Compazine)Indica tions:Breast carcinoma, female, left (HCC) Take 1 Tablet by mouth every 6 hours as needed for Nausea. 30 Tablet 02/19/2024 Active Additional Information Patient not taking.Reported on 03/03/2024 dexAMETHasone 4 MG Oral TabletIndications :Breast carcinoma, female, left (HCC) 12 mg (3 tab) 12 and 6 hours before chemotherapy 40 Tablet 02/19/2024 Active Levothyroxine Sodium 50 MCG Oral Tablet (Levoxyl)Indicati ons:Abnormal thyroid blood test TAKE 1 TABLET BY MOUTH EVERY DAY AT LEAST 30 MINUTES PRIOR TO BREAKFAST OR OTHER MEDICATIONS 90 Tablet 1 03/18/2024 Active documented as of this encounter (statuses as of 03/23/2024) Active Problems Problem Noted Date Diagnosed Date Encounter for antineoplastic chemotherapy 2023 Breast carcinoma, female, left 02/19/2024 PND (post-nasal drip) 11/15/2021 Acquired hypothyroidism 02/25/2021 Polycystic ovaries 12/30/2001 documented as of this encounter (statuses as of 03/23/2024) Resolved Problems Problem Noted Date Diagnosed Date Resolved Date Throat irritation 11/15/2021 06/12/2023 COVID-19 virus infection 08/09/2020 documented as of this encounter (statuses as of 03/23/2024) Immunizations Name Administration Dates Next Due COVID-19 mRNA, LNP-s, No Pre serve, 2-Dose Series (iLike) 11/26/2020,11/05/2020 COVID-19, LNP-s, No Preserve , Yusef-sucrose, Ages 12+ (iLike) 05/10/2022,07/25/2021 Seasonal Influenza Virus Vac cine, Unspecified [...] Care Team (Late st Contact Info) Description 03/23/2024 9:20 AM EDT Laboratory Laboratory, [facility] 132 [facility] [place] [phone] [facility] [place] [address] 03/24/2024 1:00 PM EDT Hem/Onc Treatment Hematology/Oncology [facility] [phone] Sada, Chair 5 Hem Onc [address] [address] 03/30/2024 8:00 AM EDT Laboratory Laboratory [facility] 200 [facility] [place] [phone] Sada Lab [address] [place] [address] 03/30/2024 8:30 AM EDT Office Visit Hematology/Oncology [facility] [phone] Corina Dong CRNP [address] [place] [address] 03/31/2024 11:30 AM EDT Hem/Onc Treatment [facility]cology [facility] [phone] 07/10/2024 9:45 AM EST Office Visit General Surgery, [facility] 132 [facility] [place] [address] Renzo Rees MD 132 [facility] [place] [address] 07/14/2024 11:00 AM EST Telemedicine Genetics [facility], [facility] [place] [phone] [place], [place] [address] [facility] [place] [phone] Pending Results Name Type Priority Associated Diagnoses Date /Time MYCODE INITIAL ADULT Lab Routine [employer] Research Other*[id number] 03/23/2024 8:19 AM EDT CBC WITH WBC DIFFERENTIAL Lab STAT Breast carcinoma, female, left (HCC) 03/23/2024 8:19 AM EDT COMPREHENSIVE METABOLIC PANEL Lab STAT Breast carcinoma, female, left (HCC) 03/23/2024 8:19 AM EDT MYCODE INITIAL ADULT-PINK Lab Routine [employer] Other*[id number] 03/23/2024 8:19 AM EDT MYCODE SST1 Lab Routine [employer] Other*[id number] 03/23/2024 8:19 AM EDT MYCODE SST2 Lab Routine [employer] Other*[id number] 03/23/2024 8:19 AM EDT CBC Lab STAT Breast carcinoma, female, left (HCC) 03/23/2024 8:19 AM EDT DIFFERENTIAL, AUTOMATED Lab STAT Breast carcinoma, female, left (HCC) 03/23/2024 8:19 AM EDT Scheduled Procedures Name Priority Associated [...] 05/19/2021 Colorectal Cancer Screening 05/19/2026 Diabetes Screening 03/16/2027 03/16/2024, 0 03/09/2024, 03/02/2024, Additional history exists Lipid Panel 01/08/2029 01/09/2024, 04/12/2018, 09/15/2011 DTaP,Tdap,and Td Vaccines (3 - Td [...] Associated Diagnosis Comments HCG QUALITATIVE, URINE STAT 03/23/2024 8:19 AM EDT Breast carcinoma, female, left (HCC) documented in this encounter Results * HCG QUALITATIVE, URINE (03/23/2024 8:19 AM EDT) HCG Qualitative, Urine Negative Negative 03/23/2024 8:28 AM EDT LABORATORY [facility] 57-10 Urine Urine specimen obtained by clean catch procedure / Unknown Non-blood Collection / Unknown 03/23/2024 8:19 AM EDT 03/23/2024 8:19 AM EDT Charlotte Ferreira MD LAB URINE ORDERA BLES [facility] 57-10 [address] [place] [address] documented in this encounter Visit Diagnoses Diagnosis [employer] Other*[id number] Breast carcinoma, female, left (HCC) documented in this encounter Care Teams Sales Merchandising Specialist Relationship Specialty Start Date End Date Haylee Skinner DO 132 [place] [address] PCP - General Family Medicine 11/13/18 documented as of this encounter
--- OUTSIDE RECORDS SUMMARY | 2024-04-14 07:14 | External Medical Summary | Summary of Care ---
Author Name Unknown Organization [facility] Address [address] [place] [address] Phone [phone] Care Team Providers Care Human Resources Technician Name Role Phone Haylee Skinner DO Primary Care Provider [phone] Reason for Visit * Reason Comments Chemotherapy C4D1 Ontruzant/Taxol * Episode Based Medications (Routine) - Authorized Specialty Diagnoses / Procedures Referred By Contciara t Referred To Contact Diagnoses Breast carcinoma, female, left (HCC) Encounter for antineoplastic chemotherapy Procedures MI PALONOSETRON HCL MI INJ ONTRUZANT 10 MG MI PACLITAXEL INJECTION Charlotte Ferreira MD 200 [facility] [place] [address] Anc Hem/Onc [address] [phone] Referral ID Status Reason Start Date Expiration Date V isits Requested Visits Authorized [id number] Authorized 02/26/2024 07/28/[phone] Encounter Details Date Type Department Care Team (Latest Contact Info) Description 03/24/2024 1:00 PM EDT Hem/Onc Treatment Hematology/Oncolog y Treatment, [address] [phone] Sada Chair 5 Hem Onc [address] [place] [address] Breast carcinoma, female, left (HCC)*; Encounter for [...] 3 10/14/2023 Active Vitamin D3 1.25 MG (54341 UT) Oral CapsuleIndication s:Vitamin D deficiency Take [...] Sign Reading Time Taken Comments Blood Pressure 116/79 03/24/2024 1:10 PM EDT Pulse 96 03/24/2024 1:10 PM EDT Temperature 36.5 C (97.7 F) 03/24/2024 1:10 PM ED T Respiratory Rate 14 03/24/2024 1:10 PM EDT Oxygen Saturation 97% 03/24/2024 1:10 PM EDT Inhaled Oxygen Concentration - - Weight 63 kg (138 lb 12.8 oz) 03/24/2024 1:10 PM EDT Height - - Body Mass Index 24.98 02/19/2024 2:54 PM EDT documented in this encounter Nursing Notes * Shandra Prado RN - 03/24/2024 4:05 PM EDT Goals: Patient will remain free from injury. Possible barriers to meeting goals: ambulation with IV pole Stability of the patient: Moderately stable - low risk of patient condition declining or worsening Summary regarding today's goals: Met: patient without injury during treatment today. Pt tolerated ordered meds well. No complaints. Discharged in stable condition. * Shandra Prado RN - 03/24/2024 3:50 PM EDT Chair 5 Pt here for C4D1 Ontruzant/Taxol. No acute complaints. Chemotherapy/Immunotherapy agents: Ontruzant and TAXOL Consent for chemotherapy drug treatment complete, dated, and signed? yes, date - 02/19/24 Treatment lab parameters met? No, Dr. Ferreira aware of ANC 1.26 and ok for treatment today. Explainedneutropenic precautions to patient. Has treatment weight changed > than 10%? No Treatment preauthorized? Yes VITALS Filed Vitals: 03/24/24 1310 BP: 116/79 Pulse: 96 Resp: 14 Temp: 36.5 C (97.7 F) TempSrc: Tympanic SpO2: 97% Weight: 63 kg (138 lb 12.8 oz) Urine protein: N/A Patient education completed for treatment? Yes Blood transfusion consent signed and complete? NA Return appointment scheduled? Yes Patient had provider visit today? No - If no provider visit must complete Pretreatment Assessment Functional Status: Functional status at today's visit: Restricted in physically strenuous activity but ambulatory and able to carry out work on a light orsedentary nature, e.g. light house work, office work The drug name, dose, infusion volume, rate [...] using the heat function. PRE-TREATMENT ASSESSMENT: NEURO: fatigue:at times CV/RESP: denies symptoms GI/: diarrhea: after treatment - now resolved and mucositis:after treatment - now resolved OTHER: denies any additional symptoms PAIN: 0 Safety and Risk for Injury Patient will remain free from injury. Ensure appropriate safety devices are available. Provide and maintain safe environment. documented in this encounter Plan of Treatment Upcoming Encounters Date Type Department Care Team (Late st Contact Info) Description 03/30/2024 8:00 AM EDT Laboratory [facility] [place] [address] [place] [address] [place] [phone] Ian o[facility]mlin [facility] [address] [place] [address] [address] 03/30/2024 8:30 AM EDT Office Visit Hematology/Oncology [facility] [address] [place], [place] [phone] Corina Dong CRNP 400 [facility] [place] [address] 03/31/2024 11:30 AM EDT Hem/Onc Treatment Hematology/Oncology Treatment, [place] 200 [facility], [place] [phone] 07/10/2024 9:45 AM EST Office Visit General Surgery, [facility] [address] [place] [address] Renzo Rees MD [address] [place] [address] 07/14/2024 11:00 AM EST Telemedicine Genetics HemOnc, [facility] [address] [facility] [place] [address] [place], [place] [address] [place] [address] Scheduled Procedures Name Priority Associated Diagnoses Date/Ti [...] ONCE PRN Other, Hypersensitivity Reaction, Starting on Sat03/24/24 at 1322, Until Sat03/25/24 at 1321, For 24 hours EPINEPHrine 1 MG/ML inj 0.3 mg 0.3 mg, Intramuscular, ONCE PRN Other, Hypersensitivity Reaction or Anaphylaxis, Starting on Sat03/24/24 at 1322, Until Sat03/25/24 at 1321, For 24 hours hEParin 100 UNIT/ML Lock Flush inj 500 Units 500 Units (5 mL), IV Lock, PRN Other, IV Flush, Starting on Sat03/24/24 at 1322, Until Sat03/25/24 at 1321, For 24 hours, Do not flush if lock, PICC, or central line not in place; IV infusing or unable to flush. Given 03/24/2024 3:56 PM EDT 500 Units Hydrocortisone Sod Suc (PF) (Solu-Cortef) inj 100 mg 100 mg, IV Push, ONCE PRN Other, Hypersensitivity Reaction, Starting on Sat03/24/24 at 1322, Until Sat03/25/24 at 1321, For 24 hours NSS infusion Intravenous, at 50 mL/hr, PRN, Starting on Sat03/24/24 at 1430, Until Discontinued, Maintenance line Start Infusion 03/24/2024 1:40 PM EDT 50 mL/hr oxygen GAS Inhalation, OXYGEN, First dose on Sat03/24/24 at 1600, Until Discontinued, Device/Managed by: Low [...] Push, PRN Other, IV Flush, Starting on Sat03/24/24 at 1322, Until Sat03/25/24 at 1321, For 24 hours, Do not flush if lock, PICC, or central line not in place; IV infusing or unable to flush. Given 03/24/2024 3:56 PM EDT 10 mL Inactive Administered Medications - up to 3 most recent administrations Medication Order MAR Action Action Date Dose Rate Site Acetaminophen (Tylenol) tab 650 mg 650 mg, Oral, ONCE, On Sat03/24/24 at 1430, For 1 dose, Give 30 minutes prior to chemotherapy. Maximum of 4 grams (4000 mg) per day. Given 03/24/2024 1:38 PM EDT 650 mg dexAMETHasone (Decadron) tab 12 mg 12 mg, Oral, ONCE, On Sat03/24/24 at 1400, For 1 dose Given 03/24/2024 1:38 PM EDT 12 mg diphenhydrAMINE (Benadryl) cap 25 mg 25 mg, Oral, ONCE, On Sat03/24/24 at 1430, For 1 dose Given 03/24/2024 1:38 PM EDT 25 mg Famotidine (Pepcid) tab 20 mg 20 mg, Oral, ONCE, On Sat03/24/24 at 1430, For 1 dose Given 03/24/2024 1:38 PM EDT 20 mg PACLitaxel (Taxol) 136 mg in NSS 250 mL infusion 136 mg (80 mg/m2 1.7 m2 Treatment Plan BSA from Recorded weight), IV Piggyback, ONCE, 1 dose, On Sat03/24/24 at 1500, Administer over 60 Minutes, Administer through 0.22 micron low protein binding filter! Start Infusion 03/24/2024 2:56 PM EDT 136 mg 255 mL/hr Trastuzumab-dttb (Ontruzant) 131.46 mg in NSS 250 mL infusion 131.46 mg (rounded from 131.4 mg = 2 mg/kg 65.7 kg Treatment plan Recorded weight), IV Piggyback, ONCE, 1 dose, On Sat03/24/24 at 1415, Administer over 30 Minutes Start Infusion 03/24/2024 2:14 PM EDT 131.46 mg 510 mL/hr documented in this encounter Care Teams Human Resources Technician Relationship Specialty Start Date End Date Haylee Skinner DO 132 [place] [address] PCP - General Family Medicine 3/28/19 documented as of this encounter
--- OUTSIDE RECORDS SUMMARY | 2024-04-14 07:14 | External Medical Summary ---
Author Name Unknown Address Unknown Organization [facility]:LABORATORY [facility] [address] - [address] [place] [address] Laboratory Report Ordering Provider Test Date Status BETZAIDA IBARRA 03/23/2024 08:19:48 Final Observation Date Value Abnormality Reference (Units ) Status BUN 03/23/2024 08:19:48 14 6-20 (mg/dL) Final Creatinine 03/23/2024 08:19:48 0.8 0.5-1.0 (mg/dL) Final Glomerular filtration rate/1.73 sq M.predicted [Volume Rate/Area] in Serum, Plasma or Blood by Creatinine-based formula (CKD-EPI) 03/23/2024 08:19:48 >90 >=60 (mL/min) Final eGFR is calculated based on the CKD-EPI 2020 equation. Sodium 03/23/2024 08:19:48 138 135-146 (m mol/L) Final Potassium 03/23/2024 08:19:48 4.2 3.5-5.1 (m mol/L) Final Cl 03/23/2024 08:19:48 102 98-107 (mm ol/L) Final CO2 03/23/2024 08:19:48 24 22-32 (mmo l/L) Final Anion gap 03/23/2024 08:19:48 12 7-15 (mmol /L) Final Glucose 03/23/2024 08:19:48 112 70-120 (mg /dL) Final Albumin 03/23/2024 08:19:48 4.4 3.8-5.0 (g /dL) Final AST (Aspartate aminotransferase) 03/23/2024 08:19:48 23 10-35 (U/L) Fin al Alk Phos 03/23/2024 08:19:48 50 35-130 (U/ L) Final Bilirubin, Total 03/23/2024 08:19:48 0.5 <=1 .2 (mg/dL) Final Calcium 03/23/2024 08:19:48 9.3 8.4-10.2 ( mg/dL) Final Protein 03/23/2024 08:19:48 7.1 6.0-8.3 (g /dL) Final ALT (Alanine aminotransferase) 03/23/2024 08:19:48 36 Above high normal 10-35 (U/L) Final Performing Location LABORATORY [place] 57-[address] 0 - [address] [facility] [address]
--- OUTSIDE RECORDS SUMMARY | 2024-04-14 07:14 | External Medical Summary ---
Author Name Unknown Address Unknown Organization [facility] 57-[address] - [address] [place] [address] Laboratory Report Ordering Provider Test Date Status BETZAIDA IBARRA 03/23/2024 08:19:48 Final Observation Date Value Abnormality Reference (Units ) Status Nucleated erythrocytes/100 leukocytes [Ratio] in Blood by Automated count 03/23/2024 08:19:48 Final Performing Location LABORATORY [facility] 57-1 0 - [address] [place] [address]
--- OUTSIDE RECORDS SUMMARY | 2024-04-14 07:14 | External Medical Summary ---
Author Name Unknown Address Unknown Organization [facility] [place] 57-[address] - [address] [place] [address] Laboratory Report Ordering Provider Test Date Status BETZAIDA IBARRA 03/23/2024 08:19:48 Final Observation Date Value Abnormality Reference (Units ) Status SYNC LEUKOCYTES IN BLOOD BY AUTOMATED COUNT 03/23/2024 08:19:48 3.14 Below low normal 4.00-10.80 (K/uL) Final Segs 03/23/2024 08:19:48 40.1 40.0-75.0 (%) Final Lymphs % 03/23/2024 08:19:48 50.3 Above high normal 18.0-42.0 (%) Final Monos 03/23/2024 08:19:48 8.0 1.0-11.0 (%) Final Eosinophils 03/23/2024 08:19:48 0.6 0.0-6.0 (%) Final Basos 03/23/2024 08:19:48 1.0 0.0-2.0 (%) Final Absolute Segs 03/23/2024 08:19:48 1.26 Below low normal 1.80-7.70 (K/uL) Final Lymphs, absolute 03/23/2024 08:19:48 1.58 1.00-4.80 (K/ul) Final Monos, Abs 03/23/2024 08:19:48 0.25 0.00-1.10 (K/uL) Final Eos, Abs 03/23/2024 08:19:48 0.02 0.00-0.70 (K/uL) Final Basos, Abs 03/23/2024 08:19:48 0.03 0.00-0.20 (K/uL) Final Performing Location LABORATORY [facility] 57-1 0 - [address] [place] [address]
--- OUTSIDE RECORDS SUMMARY | 2024-04-14 07:14 | External Medical Summary ---
Author Name Unknown Address Unknown Organization [facility] - [address] [place] [address] Laboratory Report Ordering Provider Test Date Status BETZAIDA IBARRA 03/23/2024 08:19:48 Final Observation Date Value Abnormality Reference (Units ) Status WBC, Total 03/23/2024 08:19:48 3.14 Below low normal 4. 00-10.80 (K/uL) Final RBC 03/23/2024 08:19:48 4.29 3.85-5.15 (M/uL) Final Hemoglobin 03/23/2024 08:19:48 12.6 12.0-15.3 (g/dL) Final HCT 03/23/2024 08:19:48 37.2 36.0-45.2 (%) Final MCV 03/23/2024 08:19:48 86.7 81.5-97.5 (fL) Final MCH 03/23/2024 08:19:48 29.4 27.0-34.0 (pg) Final MCHC 03/23/2024 08:19:48 33.9 32.0-36.0 (g/dL) Final RDW 03/23/2024 08:19:48 12.9 11.5-15.5 (%) Final Platelets 03/23/2024 08:19:48 348 140-400 (K /uL) Final MPV 03/23/2024 08:19:48 8.9 6.6-11.1 ( fL) Final Performing Location LABORATORY [facility] 57-1 0 - [address] [place] [address]
--- OUTSIDE RECORDS SUMMARY | 2024-04-14 07:14 | External Medical Summary | Summary of Care ---
Author Name Unknown Organization [facility] Address [address] [facility] [place] [address] Phone [phone] Care Team Providers Care Photographer Assistant Name Role Phone BrodyHaylee Kiran LOYOLA Primary Care Provider [phone] Encounter Details Date Type Department Care Team (Late st Contact Info) Description 03/24/2024 Orders Only Hematology/Oncology [facility] [place] 200 [facility] [place] [phone] Corina Dong CRNP [address] [place] [address] Breast carcinoma, female, left (HCC)* [...] 3 10/14/2023 Active Vitamin D3 1.25 MG (99341 UT) Oral CapsuleIndication s:Vitamin D deficiency Take [...] mRNA, LNP-s, No Pre serve, 2-Dose Series (DragonRAD) 11/26/2020,11/05/2020 COVID-19, LNP-s, No Preserve , Yusef-sucrose, Ages 12+ (DragonRAD) 05/10/2022,07/25/2021 Seasonal Influenza Virus Vac cine, Unspecified [...] Description 03/30/2024 8:00 AM EDT Laboratory Laboratory [facility] [place] [address] [place] [phone] [address] [place] [address] 03/30/2024 8:30 AM EDT Office [facility] [address] [place] [phone] Corina Dong CRNP [address] [place] [address] 03/31/2024 11:30 AM EDT Hem/Onc Treatment Hematology/Oncology Treatment, [place] [address] [place] [phone] 07/10/2024 9:45 AM EST Office Visit General Surgery, [facility] [place] [address] Renzo Rees MD 132 [facility] [place] [address] 07/14/2024 11:00 AM EST Telemedicine Genetics HemOnc, [facility] [address] [place] [address] [place] Marie, [place] [address] [facility] [place] [phone] Scheduled Procedures Name Priority Associated Diagnoses Date/Ti [...] Primary documented in this encounter Care Teams Photographer Assistant Relationship Specialty Start Date End Date Haylee Skinner DO [address] [place] [address] PCP - General Family Medicine 11/13/18 documented as of this encounter
--- OUTSIDE RECORDS SUMMARY | 2024-04-14 07:15 | External Medical Summary | Summary of Care ---
Author Name Unknown Organization [facility] Address [address] [place] [address] Phone [phone] Care Team Providers Care Manager Casino Name Role Phone BrodyHaylee Kiran LOYOLA Primary Care Provider [phone] Encounter Details Date Type Department Care Team (Late st Contact Info) Description 03/14/2024 Orders Only Hematology/Oncology, [facility] 400 [facility] [place] [address] Charlotte Ferreira MD 200 [facility] [address] Allergies No known active allergiesdocumented as of this encounter (statuses as of 03/14/2024) Medications Medication Sig Dispensed Refills Start Date [...] the evening. 180 Tablet 3 10/14/2023 Active Levothyroxine Sodium 50 MCG Oral Tablet (Levoxyl)Indicati ons:Abnormal thyroid blood test TAKE 1 TABLET BY MOUTH EVERY DAY AT LEAST 30 MINUTES PRIOR TO BREAKFAST OR OTHER MEDICATIONS 90 Tablet 1 12/30/2023 Active Vitamin D3 1.25 MG (73440 UT) Oral CapsuleIndication s:Vitamin D deficiency Take [...] hours before chemotherapy 40 Tablet 02/19/2024 Active documented as of this encounter (statuses as of 03/14/2024) Active Problems Problem Noted Date Diagnosed Date Encounter for antineoplastic chemotherapy 2023 Breast carcinoma, female, left 02/19/2024 PND (post-nasal drip) 11/15/2021 Acquired hypothyroidism 02/25/2021 Polycystic ovaries 12/30/2001 documented as of this encounter (statuses as of 03/14/2024) Resolved Problems Problem Noted Date Diagnosed Date Resolved Date Throat irritation 11/15/2021 06/12/2023 COVID-19 virus infection 08/09/2020 documented as of this encounter (statuses as of 03/14/2024) Immunizations Name Administration Dates Next Due COVID-19 mRNA, LNP-s, No Pre serve, 2-Dose Series (AFFi[employer]iS) 11/26/2020,11/05/2020 COVID-19, LNP-s, No Preserve , Yusef-sucrose, Ages 12+ (AFFiRiS) 05/10/2022,07/25/2021 Seasonal Influenza Virus Vac cine, Unspecified [...] Care Team (Late st Contact Info) Description 03/16/2024 9:30 AM EDT [facility] [address] [place] [phone] Ian Roman 132 [facility] [place] [address] 03/17/2024 10:00 AM EDT Hem/Onc Treatment Hematology/Oncology Treatment, [place] [facility] [phone] Sada, Chair 10 Hem Onc Scenery 200 [facility] [place] [address] 03/23/2024 9:20 AM EDT Laboratory Laboratory, [facility] 132 [facility] [place] [phone] Ian Roman[address] [place] [address] 03/24/2024 1:00 PM EDT Hem[facility] [phone] Sada, Chair 5 Hem Onc [facility] 200 [facility] [place] [address] 03/30/2024 8:00 AM EDT Laboratory Laboratory [facility] [place] 200 [facility] [place] [phone] Sada, Lab [facility] 200 [facility] [place], [place] [address] 03/30/2024 8:30 AM EDT Office Visit Hematology/Oncology [facility] [place] [address] [place] [phone] Corina Dong CRNP 400 [facility] [place] [address] 03/31/2024 11:30 AM EDT Hem[facility]Onc [facility] [phone] 07/10/2024 9:45 AM EST Office Visit General Surgery, [facility] [address] [address] Renzo Rees MD [address] [place] [address] 07/14/2024 11:00 AM EST Telemedicine Genetics HemOnc, [facility] [address] [place] [address] [place], [place] 1000 [address] [facility] [place] [address] Scheduled Procedures Name Priority Associated Diagnoses Date/Ti [...] 05/19/2021 Colorectal Cancer Screening 05/19/2026 Diabetes Screening 03/09/2027 03/09/2024, 0 03/02/2024, 02/24/2024, Additional history exists Lipid Panel 01/08/2029 01/09/2024, [...] filedocumented as of this encounter Care Teams Manager Casino Relationship Specialty Start Date End Date Haylee Skinner DO [address] [place] [address] PCP - General Family Medicine 11/13/18 documented as of this encounter
--- OUTSIDE RECORDS SUMMARY | 2024-04-14 07:15 | External Medical Summary ---
Author Name Unknown Address Unknown Organization [facility] [address] [place] [address] Laboratory Report Ordering Provider Test Date Status BETZAIDA IBARRA 03/16/2024 08:41:19 Final Observation Date Value Abnormality Reference (Units ) Status WBC, Total 03/16/2024 08:41:19 3.47 Below low normal 4. 00-10.80 (K/uL) Final RBC 03/16/2024 08:41:19 4.15 3.85-5.15 (M/uL) Final Hemoglobin 03/16/2024 08:41:19 12.0 12.0-15.3 (g/dL) Final HCT 03/16/2024 08:41:19 36.2 36.0-45.2 (%) Final MCV 03/16/2024 08:41:19 87.2 81.5-97.5 (fL) Final MCH 03/16/2024 08:41:19 28.9 27.0-34.0 (pg) Final MCHC 03/16/2024 08:41:19 33.1 32.0-36.0 (g/dL) Final RDW 03/16/2024 08:41:19 12.7 11.5-15.5 (%) Final Platelets 03/16/2024 08:41:19 313 140-400 (K /uL) Final MPV 03/16/2024 08:41:19 9.4 6.6-11.1 ( fL) Final Performing Location [facility] [address] 0 [address] [place] [address]
--- OUTSIDE RECORDS SUMMARY | 2024-04-14 07:15 | External Medical Summary | Summary of Care ---
Author Name Unknown Organization [facility] Address [address] [facility] [address] Phone [phone] Care Team Providers Care Tin Plater Name Role Phone Haylee Skinner DO Primary Care Provider [phone] Reason for Visit * Reason Comments Outpatient Testing Encounter Details Date Type Department Care Team (Late st Contact Info) Description 03/16/2024 9:30 AM EDT Laboratory Laboratory, [facility] 132 [facility] [place] [phone] [facility] 132 [facility] [place] [address] Breast carcinoma, female, left (HCC) Allergies No known active allergiesdocumented as of this encounter (statuses as of 03/16/2024) Medications Medication Sig Dispensed Refills Start Date [...] 1 12/30/2023 Active Vitamin D3 1.25 MG (92344 UT) Oral CapsuleIndication s:Vitamin D deficiency Take [...] as of this encounter (statuses as of 03/16/2024) Active Problems Problem Noted Date Diagnosed Date Encounter for antineoplastic chemotherapy 2023 Breast carcinoma, female, left 02/19/2024 PND (post-nasal drip) 11/15/2021 Acquired hypothyroidism 02/25/2021 Polycystic ovaries 12/30/2001 documented as of this encounter (statuses as of 03/16/2024) Resolved Problems Problem Noted Date Diagnosed Date Resolved Date Throat irritation 11/15/2021 06/12/2023 COVID-19 virus infection 08/09/2020 documented as of this encounter (statuses as of 03/16/2024) Immunizations Name Administration Dates Next Due COVID-19 mRNA, LNP-s, No Pre serve, 2-Dose Series ([employer]) 11/26/2020,11/05/2020 COVID-19, LNP-s, No Preserve , Yusef-sucrose, Ages 12+ ([employer]) 05/10/2022,07/25/2021 Seasonal Influenza Virus Vac cine, Unspecified [...] Care Team (Late st Contact Info) Description 03/17/2024 10:00 AM EDT Hem/Onc Treatment Hematology/Oncology Treatment, [place] [address] [place] [address] Sada, Chair 10 Hem Onc Scenery 200 [facility] [place] [address] 03/23/2024 9:20 AM EDT Laboratory Laboratory, [facility] 132 [facility] [place] [phone] Ian Roman [facility] 132 [facility] [place] [address] 03/24/2024 1:00 PM EDT Hem/Onc Treatment Hematology/Oncology [facility] 200 [facility], [place] [phone] Sada, Chair 5 Hem Onc [facility] 200 [facility] [place] [address] 03/30/2024 8:00 AM EDT Laboratory Laboratory [facility] [place] 200 [facility] [place] [phone] Sada Lab [address] [place], [place] [address] 03/30/2024 8:30 AM EDT Office Visit Hematology/Oncology [facility] 200 [facility] [phone] Corina Dong, SENIOR CLINICAL RESEARCH ASSOCIATE [address] [place] [address] [place] [address] 03/31/2024 11:30 AM EDT Hem[facility]Onc [facility] 200 [facility], [place] [phone] 07/10/2024 9:45 AM EST Office Visit General Surgery, [facility] 132 [facility] [place] [address] Renzo Rees MD 132 [facility] [place] [address] 07/14/2024 11:00 AM EST Telemedicine Genetics HemOnc, [facility] [address] [place] [address] [place], [place] 1000 [address] [facility] [place] [phone] Pending Results Name Type Priority Associated Diagnoses Date /Time CBC WITH WBC DIFFERENTIAL Lab STAT Breast carcinoma, female, left (HCC) 03/16/2024 8:41 AM EDT COMPREHENSIVE METABOLIC PANEL Lab STAT Breast carcinoma, female, left (HCC) 03/16/2024 8:41 AM EDT HCG QUALITATIVE, URINE Lab STAT Breast carcinoma, female, left (HCC) 03/16/2024 8:41 AM EDT CBC Lab STAT Breast carcinoma, female, left (HCC) 03/16/2024 8:41 AM EDT DIFFERENTIAL, AUTOMATED Lab STAT Breast carcinoma, female, left (HCC) 03/16/2024 8:41 AM EDT Scheduled Procedures Name Priority Associated [...] Additional history exists Lipid Panel 01/08/2029 01/09/2024, 0412/2018, 09/15/2011 DTaP,Tdap,and [...] (HCC) documented in this encounter Care Teams Tin Plater Relationship Specialty Start Date End Date Haylee Skinner DO 132 [facility] [place] [address] PCP - General Family Medicine 11/13/18 documented as of this encounter
--- OUTSIDE RECORDS SUMMARY | 2024-04-14 07:15 | External Medical Summary ---
Author Name Unknown Address Unknown Organization [facility] [address] [place] [address] Laboratory Report Ordering Provider Test Date Status BETZAIDA IBARRA 03/16/2024 08:41:19 Final Observation Date Value Abnormality Reference (Units ) Status BUN 03/16/2024 08:41:19 13 6-20 (mg/dL) Final Creatinine 03/16/2024 08:41:19 0.8 0.5-1.0 (mg/dL) Final Glomerular filtration rate/1.73 sq M.predicted [Volume Rate/Area] in Serum, Plasma or Blood by Creatinine-based formula (CKD-EPI) 03/16/2024 08:41:19 >90 >=60 (mL/min) Final eGFR is calculated based on the CKD-EPI 2020 equation. Sodium 03/16/2024 08:41:19 140 135-146 (m mol/L) Final Potassium 03/16/2024 08:41:19 4.1 3.5-5.1 (m mol/L) Final Cl 03/16/2024 08:41:19 105 98-107 (mm ol/L) Final CO2 03/16/2024 08:41:19 24 22-32 (mmo l/L) Final Anion gap 03/16/2024 08:41:19 11 7-15 (mmol /L) Final Glucose 03/16/2024 08:41:19 95 70-120 (mg /dL) Final Albumin 03/16/2024 08:41:19 4.2 3.8-5.0 (g /dL) Final AST (Aspartate aminotransferase) 03/16/2024 08:41:19 10 10-35 (U/L) Final Alk Phos 03/16/2024 08:41:19 44 35-130 (U/ L) Final Bilirubin, Total 03/16/2024 08:41:19 0.4 <=1 .2 (mg/dL) Final Calcium 03/16/2024 08:41:19 9.2 8.4-10.2 ( mg/dL) Final Protein 03/16/2024 08:41:19 6.5 6.0-8.3 (g /dL) Final ALT (Alanine aminotransferase) 03/16/2024 08:41:19 20 10-35 (U/L) Final Performing Location [facility] [place] [address] [facility] [address]
--- OUTSIDE RECORDS SUMMARY | 2024-04-14 07:15 | External Medical Summary | Summary of Care ---
Author Name Unknown Organization [facility] Address [address] [place] [address] Phone [phone] Care Team Providers Care Quick Mixer Operator Name Role Phone BrodyHaylee Kiran LOYOLA Primary Care Provider [phone] Encounter Details Date Type Department Care Team (Late st Contact Info) Description 03/14/2024 Orders Only Hematology/Oncology, [facility] 400 [facility] [place] [address] Charlotte Ferreira MD 200 [facility] [address] Allergies No known active allergiesdocumented as [...] 1 12/30/2023 Active Vitamin D3 1.25 MG (96553 UT) Oral CapsuleIndication s:Vitamin D deficiency Take [...] mRNA, LNP-s, No Pre serve, 2-Dose Series ([employer]) 11/26/2020,11/05/2020 COVID-19, LNP-s, No Preserve , Yusef-sucrose, Ages 12+ ([employer]) 05/10/2022,07/25/2021 Seasonal Influenza Virus Vac cine, Unspecified [...] 03/16/2024 9:30 AM EDT Laboratory [facility] [address] [place] [phone] Ian Roman 132 [facility] [place] [address] 03/17/2024 10:00 AM EDT Hem/Onc Treatment Hematology/Oncology Treatment, [place] 200 [facility] [phone] Sada, Chair 10 Hem Onc Scenery 200 [facility] [place] [address] 03/23/2024 9:20 AM EDT Laboratory Laboratory, [facility] 132 [facility] [place] [phone] Ian Roman[address] [place] [address] 03/24/2024 1:00 PM EDT Hem[facility] 200 [facility] [phone] Sada, Chair 5 Hem Onc [facility] 200 [facility] [place] [address] 03/30/2024 8:00 AM EDT Laboratory Laboratory [facility] [place] 200 [facility] [place] [phone] Sada, Lab [facility] 200 [facility] [place], [place] [address] 03/30/2024 8:30 AM EDT Office Visit Hematology/Oncology [facility] [place] [address] [place] [phone] Corina Dong CRNP 400 [facility] [place] [address] 03/31/2024 11:30 AM EDT Hem[facility]Onc Treatment [facility] 200 [facility] [phone] 07/10/2024 9:45 AM EST Office Visit General Surgery, [facility] [address] [place] [address] Renzo Rees MD [address] [place] [address] 07/14/2024 11:00 AM EST Telemedicine Genetics HemOnc, [facility] [address] [place] [address] [place], [place] [address] [facility] [place] [address] Scheduled Procedures Name Priority [...] filedocumented as of this encounter Care Teams Quick Mixer Operator Relationship Specialty Start Date End Date Haylee Skinner DO [address] [place] [address] PCP - General Family Medicine 11/13/18 documented as of this encounter
--- OUTSIDE RECORDS SUMMARY | 2024-04-14 07:15 | External Medical Summary | Summary of Care ---
Author Name Unknown Organization [facility] Address [address] [place] [address] Phone [phone] Care Team Providers Care Application Release Manager Name Role Phone BrodyHaylee Kiran LOYOLA Primary Care Provider [phone] Encounter Details Date Type Department Care Team (Late st Contact Info) Description 03/22/2024 Orders Only Hematology/Oncology, [facility] 400 [facility] [place] [address] Charlotte Ferreira MD 200 [facility] [address] Allergies No known active allergiesdocumented as of this encounter (statuses as of 03/22/2024) Medications Medication Sig Dispensed Refills Start Date [...] 3 10/14/2023 Active Vitamin D3 1.25 MG (94367 UT) Oral CapsuleIndication s:Vitamin D deficiency Take [...] as of this encounter (statuses as of 03/22/2024) Active Problems Problem Noted Date Diagnosed Date Encounter for antineoplastic chemotherapy 2023 Breast carcinoma, female, left 02/19/2024 PND (post-nasal drip) 11/15/2021 Acquired hypothyroidism 02/25/2021 Polycystic ovaries 12/30/2001 documented as of this encounter (statuses as of 03/22/2024) Resolved Problems Problem Noted Date Diagnosed Date Resolved Date Throat irritation 11/15/2021 06/12/2023 COVID-19 virus infection 08/09/2020 documented as of this encounter (statuses as of 03/22/2024) Immunizations Name Administration Dates Next Due COVID-19 mRNA, LNP-s, No Pre serve, 2-Dose Series ([email or web address]) 11/26/2020,11/05/2020 COVID-19, LNP-s, No Preserve , Yusef-sucrose, Ages 12+ ([email or web address]) 05/10/2022,07/25/2021 Seasonal Influenza Virus Vac cine, Unspecified [...] Description 03/23/2024 9:20 AM EDT [facility] [address] [place] [phone] Ian Roman 132 [facility] [place] [address] 03/24/2024 1:00 PM EDT Hem[facility]Onc [facility] 200 [facility] [phone] Sada, Chair 5 Hem Onc [address] [place] [address] 03/30/2024 8:00 AM EDT Laboratory Laboratory [address] [place] [phone] Sada, Lab [address] [facility] [place] [address] 03/30/2024 8:30 AM EDT Office Visit Hematology/Oncology [address] [place] [phone] Corina Dong CRNP [address] [place] [address] [place] [address] 03/31/2024 11:30 AM EDT Hem/Onc Treatment Hematology/Oncology [facility] [address] [phone] 07/10/2024 9:45 AM EST Office Visit General Surgery, [facility] 132 [facility] [place] [address] Renzo Rees MD 132 [facility] [place] [address] 07/14/2024 11:00 AM EST Telemedicine Genetics HemOnc, [facility] [address] [place] [phone] [place], [place] 1000 [address] [facility] [place] [address] Scheduled Procedures Name Priority Associated Diagnoses Date/Ti [...] filedocumented as of this encounter Care Teams Application Release Manager Relationship Specialty Start Date End Date Haylee Skinner DO [address] [place] [address] PCP - General Family Medicine 11/13/18 documented as of this encounter
--- OUTSIDE RECORDS SUMMARY | 2024-04-14 07:15 | External Medical Summary | Summary of Care ---
Author Name Unknown Organization [facility] Address [address] [place] [address] Phone [phone] Care Team Providers Care Director Consumer Name Role Phone Haylee Skinner DO Primary Care Provider [phone] Reason for Visit * Reason Comments Chemotherapy Ontruzant/paclitaxel . * Episode Based Medications (Routine) - Authorized Specialty Diagnoses / Procedures Referred By Contciara t Referred To Contact Diagnoses Breast carcinoma, female, left (HCC) Encounter for antineoplastic chemotherapy Procedures AR PALONOSETRON HCL AR INJ ONTRUZANT 10 MG AR PACLITAXEL INJECTION Charlotte Ferreira MD 200 [facility] [place] [address] Anc Hem/Onc [address] [phone] Referral ID Status Reason Start Date Expiration Date V isits Requested Visits Authorized [id number] Authorized 02/26/2024 07/28/2024 999 999 Encounter Details Date Type Department Care Team (Latest Contact Info) Description 03/17/2024 10:00 AM EDT Hem/Onc Treatment Hematology/Oncolog y Treatment, [address] [phone] Chair Sada 10 Hem On[address] [place] [address] Breast carcinoma, female, left (HCC)*; Encounter for antineoplastic chemotherapy Allergies No known active allergiesdocumented as of this encounter (statuses as of 03/17/2024) Medications Medication Sig Dispensed Refills Start Date [...] 1 12/30/2023 Active Vitamin D3 1.25 MG (34176 UT) Oral CapsuleIndication s:Vitamin D deficiency Take [...] as of this encounter (statuses as of 03/17/2024) Active Problems Problem Noted Date Diagnosed Date Encounter for antineoplastic chemotherapy 2023 Breast carcinoma, female, left 02/19/2024 PND (post-nasal drip) 11/15/2021 Acquired hypothyroidism 02/25/2021 Polycystic ovaries 12/30/2001 documented as of this encounter (statuses as of 03/17/2024) Resolved Problems Problem Noted Date Diagnosed Date Resolved Date Throat irritation 11/15/2021 06/12/2023 COVID-19 virus infection 08/09/2020 documented as of this encounter (statuses as of 03/17/2024) Immunizations Name Administration Dates Next Due COVID-19 [...] Description 03/23/2024 9:20 AM EDT Laboratory [facility] [place] [address] [place] [phone] Ian Roman [address] [place] [address] 03/24/2024 1:00 PM EDT Hem/Onc Treatment Hematology/Oncology Treatment, [place] [address] [place] [phone] Sada Chair 5 Hem Onc Scenery 200 [facility] [address] 03/30/2024 8:00 AM EDT Laboratory Laboratory [facility] [address] [place] [phone] [place], [facility] Scenery [address] [facility] [place] [address] 03/30/2024 8:30 AM EDT Office Visit Hematology/Oncology [facility] [place] [address] [place] [phone] Corina Dong CRNP 400 [facility] [place] [address] 03/31/2024 11:30 AM EDT Hem/Onc Treatment Hematology/Oncology Treatment, [place] [address] [place] [phone] 07/10/2024 9:45 AM EST Office Visit General Surgery, [facility] [place] [address] Renzo Rees MD [address] [place] [address] 07/14/2024 11:00 AM EST Telemedicine Genetics HemOnc, [facility] [address] [place] [address] [place], [place] 1000 [address] [facility] [place] [address] Scheduled Procedures Name Priority Associated Diagnoses Date/Ti [...] ONCE PRN Other, Hypersensitivity Reaction, Starting on Sat03/17/24 at 0959, Until Sat03/18/24 at 0958, For 24 hours EPINEPHrine 1 MG/ML inj 0.3 mg 0.3 mg, Intramuscular, ONCE PRN Other, Hypersensitivity Reaction or Anaphylaxis, Starting on Sat03/17/24 at 0959, Until Sat03/18/24 at 0958, For 24 hours hEParin 100 UNIT/ML Lock Flush inj 500 Units 500 Units (5 mL), IV Lock, PRN Other, IV Flush, Starting on Sat03/17/24 at 0959, Until Sat03/18/24 at 0958, For 24 hours, Do not flush if lock, PICC, or central line not in place; IV infusing or unable to flush. Given 03/17/2024 12:27 PM EDT 500 Units Hydrocortisone Sod Suc (PF) (Solu-Cortef) inj 100 mg 100 mg, IV Push, ONCE PRN Other, Hypersensitivity Reaction, Starting on Sat03/17/24 at 0959, Until Sat03/18/24 at 0958, For 24 hours NSS infusion Intravenous, at 50 mL/hr, PRN, Starting on Sat03/17/24 at 1100, Until Discontinued, Maintenance line Start Infusion 03/17/2024 10:19 AM EDT 50 mL/hr oxygen GAS Inhalation, OXYGEN, First dose on Sat03/17/24 at 1030, Until Discontinued, Device/Managed by: Low Flow Device, [...] Flush, Starting on Sat03/17/24 at 0959, Until Sat03/18/24 at 0958, For 24 hours, Do not flush if lock, PICC, or central line not in place; IV infusing or unable to flush. Given 03/17/2024 12:27 PM EDT 10 mL Inactive Administered Medications [...] Given 03/17/2024 10:20 AM EDT 20 mg PACLitaxel (Taxol) 136 mg in NSS 250 mL infusion 136 mg (80 mg/m2 1.7 m2 Treatment Plan BSA from Recorded weight), IV Piggyback, ONCE, 1 dose, On Sat03/17/24 at 1130, Administer over 60 Minutes, Administer through 0.22 micron low protein binding filter! Start Infusion 03/17/2024 11:27 AM EDT 136 mg 255 mL/hr Trastuzumab-dttb (Ontruzant) 131.46 mg in NSS 250 mL infusion 131.46 mg (rounded from 131.4 mg = 2 mg/kg 65.7 kg Treatment plan Recorded weight), IV Piggyback, ONCE, 1 dose, On Sat03/17/24 at 1130, Administer over 30 Minutes Start Infusion 03/17/2024 10:44 AM EDT 131.46 mg 510 mL/hr documented in this encounter Care Teams Director Consumer Relationship Specialty Start Date End Date Haylee Skinner DO 132 [place] [address] PCP - General Family Medicine 11/13/18 documented as of this encounter
--- OUTSIDE RECORDS SUMMARY | 2024-04-14 07:15 | External Medical Summary | Summary of Care ---
Author Name Unknown Organization [facility] Address [address] [place] [address] Phone [phone] Care Team Providers Care Instructor Robotics Name Role Phone BrodyHaylee Kiran LOYOLA Primary Care Provider [phone] Encounter Details Date Type Department Care Team (Late st Contact Info) Description 03/14/2024 Orders Only Hematology/Oncology, [facility] 400 [facility] [place] [address] Charlotte Ferreira [facility] 200 [facility] [address] Allergies No known active [...] 1 12/30/2023 Active Vitamin D3 1.25 MG (92074 UT) Oral CapsuleIndication s:Vitamin D deficiency Take [...] mRNA, LNP-s, No Pre serve, 2-Dose Series ([employer]) 11/26/2020,11/05/2020 COVID-19, LNP-s, No Preserve , Yusef-sucrose, Ages 12+ ([employer]) 05/10/2022,07/25/2021 Seasonal Influenza Virus Vac cine, Unspecified [...] 03/16/2024 9:30 AM EDT [facility] [address] [place] [phone] Ian Roman 132 [facility] [place] [address] 03/17/2024 10:00 AM EDT Hem/Onc Treatment Hematology/Oncology Treatment, [place] 200 [facility] [phone] Sada, Chair 10 Hem Onc Scenery 200 [facility] [place] [address] 03/23/2024 9:20 AM EDT Laboratory Laboratory, [facility] 132 [facility] [place] [phone] Ian Roman[address] [place] [address] 03/24/2024 1:00 PM EDT Hem[facility] 200 [facility] [phone] Sada, Chair 5 Hem Onc [facility] 200 [facility] [place] [address] 03/30/2024 8:00 AM EDT Laboratory Laboratory [facility] [place] 200 [facility] [place] [phone] Sada, Lab [facility] 200 [facility] [place], [place] [address] 03/30/2024 8:30 AM EDT Office Visit Hematology/Oncology [facility] [place] [address] [place] [phone] Corina Dong CRNP 400 [facility] [place] [address] 03/31/2024 11:30 AM EDT Hem[facility] 200 [facility] [phone] 07/10/2024 9:45 AM EST Office Visit General Surgery, [facility] [address] [address] Renzo Rees MD [address] [place] [address] 07/14/2024 11:00 AM EST Telemedicine Genetics HemOnc, [facility] [address] [place] [address] [place], [place] 1000 [address] [facility] [place] [address] Scheduled Procedures Name Priority [...] filedocumented as of this encounter Care Teams Instructor Robotics Relationship Specialty Start Date End Date Haylee Skinner DO [address] [place] [address] PCP - General Family Medicine 11/13/18 documented as of this encounter
--- OUTSIDE RECORDS SUMMARY | 2024-04-14 07:15 | External Medical Summary ---
Author Name Unknown Address Unknown Organization : Laboratory Report Ordering Provider Test Date Status BETZAIDA IBARRA 03/16/2024 08:41:19 Final Observation Date Value Abnormality Reference (Units ) Status Screen, Urine 03/16/2024 08:41:19 Negative Negative Final Performing Location
--- OUTSIDE RECORDS SUMMARY | 2024-04-14 07:15 | External Medical Summary ---
Author Name Unknown Address Unknown Organization [facility] [place] [address] Laboratory Report Ordering Provider Test Date Status BETZAIDA IBARRA 03/16/2024 08:41:19 Final Observation Date Value Abnormality Reference (Units ) Status SYNC LEUKOCYTES IN BLOOD BY AUTOMATED COUNT 03/16/2024 08:41:19 3.47 Below low normal 4.00-10.80 (K/uL) Final Segs 03/16/2024 08:41:19 43.7 40.0-75.0 (%) Final Lymphs % 03/16/2024 08:41:19 49.0 Above high normal 18.0-42.0 (%) Final Monos 03/16/2024 08:41:19 5.8 1.0-11.0 (%) Final Eosinophils 03/16/2024 08:41:19 0.9 0.0-6.0 (%) Final Basos 03/16/2024 08:41:19 0.6 0.0-2.0 (%) Final Absolute Segs 03/16/2024 08:41:19 1.52 Below low normal 1.80-7.70 (K/uL) Final Lymphs, absolute 03/16/2024 08:41:19 1.70 1.00-4.80 (K/ul) Final Monos, Abs 03/16/2024 08:41:19 0.20 0.00-1.10 (K/uL) Final Eos, Abs 03/16/2024 08:41:19 0.03 0.00-0.70 (K/uL) Final Basos, Abs 03/16/2024 08:41:19 0.02 0.00-0.20 (K/uL) Final Performing Location LABORATORY [place] 57-[address] - [address] [place] [address]
--- OUTSIDE RECORDS SUMMARY | 2024-04-14 07:15 | External Medical Summary | Summary of Care ---
Author Name Unknown Organization [facility] Address 100 [facility] [place] [address] Phone [phone] Care Team Providers Care Baling Press Operator Name Role Phone Nikos Skinner DO Primary Care Provider [phone] Reason for Visit * Reason Onset Date Comments Medication Refill 03/18/2024 Encounter Details Date Type Department Care Team (Late st Contact Info) Description 03/18/2024 Refill Family Practice [facility] [address] [place] [address] Nikos Skinner DO [address] [place] [address] Abnormal thyroid blood test Allergies No known active allergiesdocumented as of this encounter (statuses as of 03/18/2024) Medications Medication Sig Dispensed Refills Start Date [...] 3 10/14/2023 Active Vitamin D3 1.25 MG (16685 UT) Oral CapsuleIndicatio ns:Vitamin D deficiency Take [...] OTHER MEDICATIONS 90 Tablet 1 03/18/2024 Active Levothyroxine Sodium 50 MCG Oral Tablet (Levoxyl)Indicat ions:Abnormal thyroid blood test TAKE 1 TABLET BY MOUTH EVERY DAY AT LEAST 30 MINUTES PRIOR TO BREAKFAST OR OTHER MEDICATIONS 90 Tablet 1 12/30/2023 Discontinue d(Refill) documented as of this encounter (statuses as of 03/18/2024) Active Problems Problem Noted Date Diagnosed Date Encounter for antineoplastic chemotherapy 2023 Breast carcinoma, female, left 02/19/2024 PND (post-nasal drip) 11/15/2021 Acquired hypothyroidism 02/25/2021 Polycystic ovaries 12/30/2001 documented as of this encounter (statuses as of 03/18/2024) Resolved Problems Problem Noted Date Diagnosed Date Resolved Date Throat irritation 11/15/2021 06/12/2023 COVID-19 virus infection 08/09/2020 documented as of this encounter (statuses as of 03/18/2024) Immunizations Name Administration Dates Next Due COVID-19 mRNA, LNP-s, No Pre serve, 2-Dose Series ([employer]) 11/26/2020,11/05/2020 COVID-19, LNP-s, No Preserve , Yusef-sucrose, Ages 12+ ([employer]) 05/10/2022,07/25/2021 Seasonal Influenza Virus Vac cine, Unspecified [...] encounter Miscellaneous Notes * Telephone Encounter - Ab[facility] - 03/18/2024 5:29 PM EDT Signed Prescriptions: Disp Refills Levothyroxine Sodium 50 MCG Oral Tablet (L*90 Tab*1 Sig: TAKE 1 TABLET BY MOUTH EVERY DAY AT LEAST 30 MINUTES PRIOR TO BREAKFAST OR OTHER MEDICATIONSAuthorizing Provider: NIKOS SKINNER User: ABHAY BRENNAN documented in this encounter Plan of Treatment Upcoming Encounters Date Type Department Care Team (Late st Contact Info) Description 03/23/2024 9:20 AM EDT Laboratory [facility] [place] 132 [facility] [place] [phone] Ian Roman [address] [place] [address] 03/24/2024 1:00 PM EDT Hem[facility] 200 [facility] [phone] Sada, Chair 5 Hem On[address] [place] [address] 03/30/2024 8:00 AM EDT Laboratory Laboratory [facility] [place] [address] [address] [place] [phone] [address] [place] [address] 03/30/2024 8:30 AM EDT Office Visit Hematology/Oncology [facility] [place] [address] [address] [place] [phone] Corina Freed CRNP [address] [place] [address] 03/31/2024 11:30 AM EDT Hem/Onc Treatment Hematology/Oncology Treatment, [place] [address] [place] [phone] 07/10/2024 9:45 AM EST Office Visit General Surgery, [facility] [address] [place] [address] Renzo Rees MD [address] [place] [address] 07/14/2024 11:00 AM EST Telemedicine Genetics HemOnc, [facility] [address] [place] [address] [place], [place] 1000 E [facility] [place] [address] Scheduled Procedures Name Priority Associated Diagnoses Date/Ti [...] as of this encounter Visit Diagnoses Diagnosis Abnormal thyroid blood test Nonspecific abnormal results of thyroid function study documented in this encounter Care Teams Baling Press Operator Relationship Specialty Start Date End Date Nikos Skinner DO 132 [place] [address] PCP - General Family Medicine 11/13/18 documented as of this encounter
--- OUTSIDE RECORDS SUMMARY | 2024-04-14 07:15 | External Medical Summary | Summary of Care ---
Author Name Unknown Organization [facility] Address [address] [place] [address] Phone [phone] Care Team Providers Care Airport Operations Duty Manager Name Role Phone BrodyHaylee Kiran LOYOLA Primary Care Provider [phone] Encounter Details Date Type Department Care Team (Late st Contact Info) Description 03/22/2024 Orders Only Hematology/Oncology, [facility] 400 [facility] [place] [address] Charlotte Ferreira MD 200 [facility] [address] Allergies No known active [...] 3 10/14/2023 Active Vitamin D3 1.25 MG (33309 UT) Oral CapsuleIndication s:Vitamin D deficiency Take [...] mRNA, LNP-s, No Pre serve, 2-Dose Series ([employer]) 11/26/2020,11/05/2020 COVID-19, LNP-s, No Preserve , Yusef-sucrose, Ages 12+ ([employer]) 05/10/2022,07/25/2021 Seasonal Influenza Virus Vac cine, Unspecified [...] Description 03/23/2024 9:20 AM EDT [facility] [address] [place] [phone] Ian Roman 132 [facility] [place] [address] 03/24/2024 1:00 PM EDT Hem[facility] 200 [facility] [phone] Sada, Chair 5 Hem On[address] [place] [address] 03/30/2024 8:00 AM EDT Laboratory Laboratory [address] [place] [phone] Sada, Lab [address] [facility] [address] 03/30/2024 8:30 AM EDT Office Visit Hematology/Oncology [address] [place] [phone] Corina Dong CRNP [address] [place] [address] [place] [address] 03/31/2024 11:30 AM EDT Hem/Onc Treatment Hematology/Oncology [facility] [address] [phone] 07/10/2024 9:45 AM EST Office Visit General Surgery, [facility] 132 [facility] [place] [address] Renzo Rees MD 132 [facility] [place] [address] 07/14/2024 11:00 AM EST Telemedicine Genetics HemOnc, [facility] [address] [place] [phone] [place], [place] 1000 [address] [facility] [place] [address] Scheduled Procedures Name Priority Associated Diagnoses Date/Ti [...] filedocumented as of this encounter Care Teams Airport Operations Duty Manager Relationship Specialty Start Date End Date Haylee Skinner DO [address] [place] [address] PCP - General Family Medicine 11/13/18 documented as of this encounter
--- OUTSIDE RECORDS SUMMARY | 2024-04-14 07:15 | External Medical Summary | Summary of Care ---
Author Name Unknown Organization [facility] Address [address] [place] [address] Phone [phone] Care Team Providers Care Liturgical Music Director Name Role Phone BrodyHaylee Kiran LOYOLA Primary Care Provider [phone] Encounter Details Date Type Department Care Team (Late st Contact Info) Description 03/22/2024 Orders Only Hematology/Oncology, [facility] 400 [facility] [place] [address] Charlotte Ferreira MD [address] [facility] [address] Allergies No known active allergiesdocumented [...] 3 10/14/2023 Active Vitamin D3 1.25 MG (42675 UT) Oral CapsuleIndication s:Vitamin D deficiency Take [...] mRNA, LNP-s, No Pre serve, 2-Dose Series ([employer]) 11/26/2020,11/05/2020 COVID-19, LNP-s, No Preserve , Yusef-sucrose, Ages 12+ ([employer]) 05/10/2022,07/25/2021 Seasonal Influenza Virus Vac cine, Unspecified [...] Description 03/23/2024 9:20 AM EDT [facility] [address] [place] [phone] Ian Roman 132 [facility] [place] [address] 03/24/2024 1:00 PM EDT Hem[facility] 200 [facility] [phone] Sada, Chair 5 Hem Onc [address] [place] [address] 03/30/2024 8:00 AM EDT Laboratory Laboratory [address] [place] [phone] Sada, Lab [address] [facility] [place] [address] 03/30/2024 8:30 AM EDT Office Visit Hematology/Oncology [address] [place] [phone] Corina Dong CRNP [address] [place] [address] [place] [address] 03/31/2024 11:30 AM EDT Hem/Onc Treatment Hematology/Oncology [facility] [address] [phone] 07/10/2024 9:45 AM EST Office Visit General Surgery, [facility] 132 [facility] [place] [address] Renzo Rees MD 132 [facility] [place] [address] 07/14/2024 11:00 AM EST Telemedicine Genetics HemOnc, [facility] [address] [place] [phone] [place], [place] 1000 [address] [facility] [place] [address] Scheduled Procedures Name Priority Associated Diagnoses Date/Ti [...] filedocumented as of this encounter Care Teams Liturgical Music Director Relationship Specialty Start Date End Date Haylee Skinner DO [address] [place] [address] PCP - General Family Medicine 11/13/18 documented as of this encounter
--- OUTSIDE RECORDS SUMMARY | 2024-04-14 07:16 | External Medical Summary | Summary of Care ---
Author Name Unknown Organization [facility] Address 100 [facility] [address] Phone [phone] Care Team Providers Care Bomb Squad Commander Name Role Phone Haylee Skinner DO Primary Care Provider [phone] Reason for Visit * Reason Comments Outpatient Testing Encounter Details Date Type Department Care Team (Late st Contact Info) Description 03/09/2024 9:50 AM EDT Laboratory Laboratory, [facility] 132 [facility] [place] [phone] [facility] 132 [facility] [place] [address] Breast carcinoma, female, left (HCC) Allergies No known active allergiesdocumented as of this encounter (statuses as of 03/09/2024) Medications Medication Sig Dispensed Refills Start Date [...] 1 12/30/2023 Active Vitamin D3 1.25 MG (62981 UT) Oral CapsuleIndication s:Vitamin D deficiency Take [...] as of this encounter (statuses as of 03/09/2024) Active Problems Problem Noted Date Diagnosed Date Encounter for antineoplastic chemotherapy 2023 Breast carcinoma, female, left 02/19/2024 PND (post-nasal drip) 11/15/2021 Acquired hypothyroidism 02/25/2021 Polycystic ovaries 12/30/2001 documented as of this encounter (statuses as of 03/09/2024) Resolved Problems Problem Noted Date Diagnosed Date Resolved Date Throat irritation 11/15/2021 06/12/2023 COVID-19 virus infection 08/09/2020 documented as of this encounter (statuses as of 03/09/2024) Immunizations Name Administration Dates Next Due COVID-19 mRNA, LNP-s, No Pre serve, 2-Dose Series ([employer]) 11/26/2020,11/05/2020 COVID-19, LNP-s, No Preserve , Yusef-sucrose, Ages 12+ ([employer]) 05/10/2022,07/25/2021 Seasonal Influenza Virus Vac cine, Unspecified [...] Care Team (Late st Contact Info) Description 03/10/2024 1:00 PM EDT Office Visit Hematology/Oncology [facility] [place] 200 [address] [place] [phone] Charlotte Ferreira MD [address] [place] [address] 03/10/2024 1:30 PM EDT Hem/Onc Treatment Hematology/Oncology Treatment, [place] [address] [place] [phone] Park, Chair 7 Hem Onc [address] [place], [place] [address] 03/12/2024 10:45 AM EDT Office Visit General Surgery, [facility] [address] [place] [address] Renzo Rees MD [address] [place] [address] 07/14/2024 11:00 AM EST Telemedicine Genetics HemOnc, [facility] [address] [place] [address] [place], [place] 1000 [address] [facility] [place] [address] Pending Results Name Type Priority Associated Diagnoses Date /Time CBC WITH WBC DIFFERENTIAL Lab STAT Breast carcinoma, female, left (HCC) 03/09/2024 9:15 AM EDT COMPREHENSIVE METABOLIC PANEL Lab STAT Breast carcinoma, female, left (HCC) 03/09/2024 9:15 AM EDT CBC Lab STAT Breast carcinoma, female, left (HCC) 03/09/2024 9:15 AM EDT DIFFERENTIAL, AUTOMATED Lab STAT Breast carcinoma, female, left (HCC) 03/09/2024 9:15 AM EDT Scheduled Procedures Name Priority Associated [...] 05/19/2021 Colorectal Cancer Screening 05/19/2026 Diabetes Screening 03/02/2027 03/02/2024, 0 02/24/2024, 01/09/2024, Additional history exists Lipid Panel 01/08/2029 01/09/2024, [...] Associated Diagnosis Comments HCG QUALITATIVE, URINE STAT 03/09/2024 9:15 AM EDT Breast carcinoma, female, left (HCC) documented in this encounter Results * HCG QUALITATIVE, URINE (03/09/2024 9:15 AM EDT) HCG Qualitative, Urine Negative Negative 03/09/2024 9:30 AM EDT LAB[facility] [place] 57-10 Urine Urine specimen obtained by clean catch procedure / Unknown Non-blood Collection / Unknown 03/09/2024 9:15 AM EDT 03/09/2024 9:15 AM EDT Charlotte Ferreria MD LAB URINE ORDERA BLES [facility] [place] [facility] [facility] [place] [address] documented in this encounter Visit Diagnoses Diagnosis Breast carcinoma, female, left (HCC) documented in this encounter Care Teams Bomb Squad Commander Relationship Specialty Start Date End Date Haylee Skinner DO [address] [place] [address] PCP - General Family Medicine 11/13/18 documented as of this encounter
--- OUTSIDE RECORDS SUMMARY | 2024-04-14 07:16 | External Medical Summary | Summary of Care ---
Author Name Unknown Organization [facility] Address [address] [place] [address] Phone [phone] Care Team Providers Care Housekeeping Department Worker Name Role Phone BrodyHaylee Kiran LOYOLA Primary Care Provider [phone] Encounter Details Date Type Department Care Team (Late st Contact Info) Description 03/08/2024 Orders Only Hematology/Oncology, [facility] 400 [facility] [place] [address] Charlotte Ferreira MD 200 [facility] [address] Allergies No known active allergiesdocumented as of this encounter (statuses as of 03/08/2024) Medications Medication Sig Dispensed Refills Start Date [...] 1 12/30/2023 Active Vitamin D3 1.25 MG (36633 UT) Oral CapsuleIndication s:Vitamin D deficiency Take [...] as of this encounter (statuses as of 03/08/2024) Active Problems Problem Noted Date Diagnosed Date Encounter for antineoplastic chemotherapy 2023 Breast carcinoma, female, left 02/19/2024 PND (post-nasal drip) 11/15/2021 Acquired hypothyroidism 02/25/2021 Polycystic ovaries 12/30/2001 documented as of this encounter (statuses as of 03/08/2024) Resolved Problems Problem Noted Date Diagnosed Date Resolved Date Throat irritation 11/15/2021 06/12/2023 COVID-19 virus infection 08/09/2020 documented as of this encounter (statuses as of 03/08/2024) Immunizations Name Administration Dates Next Due COVID-19 mRNA, LNP-s, No Pre serve, 2-Dose Series ([employer]) 11/26/2020,11/05/2020 COVID-19, LNP-s, No Preserve , Yusef-sucrose, Ages 12+ ([employer]) 05/10/2022,07/25/2021 Seasonal Influenza Virus Vac cine, Unspecified [...] Description 03/09/2024 9:50 AM EDT [facility] [address] [place] [phone] Ian Roman 132 [facility] [place] [address] 03/10/2024 1:00 PM EDT Office Visit Hematology/Oncology [facility] [address] [place] [phone] Charlotte Ferreira MD [address] [place] [address] 03/10/2024 1:30 PM EDT Hem/Onc Treatment Hematology/Oncology Treatment, [place] [address] [place] [phone] Sada, Chair 7 Hem Onc [facility] 200 [facility] [place] [address] 03/12/2024 10:45 AM EDT Office Visit General Surgery, [facility] [address] [place] [address] Renzo Rees MD [address] [place] [address] 07/14/2024 11:00 AM EST Telemedicine Genetics HemOnc, [facility] [address] [place] [address] [place], [place] 1000 [address] [facility] [place] [address] Scheduled Procedures Name Priority Associated Diagnoses Date/Ti [...] Blood Test 2018 Sigmoidoscopy 2018 COVID-19 Vaccine (24 season) 2023 05/10/2022, 05/10/2022, 07/25/2021, Additional history [...] filedocumented as of this encounter Care Teams Housekeeping Department Worker Relationship Specialty Start Date End Date Haylee Skinner DO 132 [place] [address] PCP - General Family Medicine 11/13/18 documented as of this encounter
--- OUTSIDE RECORDS SUMMARY | 2024-04-14 07:16 | External Medical Summary ---
Author Name Unknown Address Unknown Organization K0G:[facility] [place] [address] - [address] [place] [address] Laboratory Report Ordering Provider Test Date Status BETZAIDA IBARRA 03/09/2024 09:15:26 Final Observation Date Value Abnormality Reference (Units ) Status Nucleated erythrocytes/100 leukocytes [Ratio] in Blood by Automated count 03/09/2024 09:15:26 Final Performing Location [facility] 57-[address] 0 - [address] [place] [address]
--- OUTSIDE RECORDS SUMMARY | 2024-04-14 07:16 | External Medical Summary | Summary of Care ---
Author Name Unknown Organization [facility] Address [address] [place] [address] Phone [phone] Care Team Providers Care Conductor Road Freight Name Role Phone Haylee Skinner DO Primary Care Provider [phone] Reason for Visit * Reason Comments Chemotherapy C2/D1 - Ontruzant * Episode Based Medications (Routine) - Authorized Specialty Diagnoses / Procedures Referred By Contciara t Referred To Contact Diagnoses Breast carcinoma, female, left (HCC) Encounter for antineoplastic chemotherapy Procedures IL PALONOSETRON HCL IL INJ ONTRUZANT 10 MG IL PACLITAXEL INJECTION Charlotte Ferreira MD [address] [facility] [place] [address] Anc Hem/Onc [address] [address] Referral ID Status Reason Start Date Expiration Date V isits Requested Visits Authorized [id number] Authorized 02/26/2024 07/28/2024 [id number] Encounter Details Date Type Department Care Team (Latest Contact Info) Description 03/10/2024 1:30 PM EDT Hem/Onc Treatment Hematology/Oncolog y Treatment, [address] [address] Chair Sada 7 Hem Onc [address] [place] [address] Breast carcinoma, female, left (HCC)*; Encounter for antineoplastic chemotherapy Allergies No known active allergiesdocumented as of this encounter (statuses as of 03/10/2024) Medications Medication Sig Dispensed Refills Start Date [...] 1 12/30/2023 Active Vitamin D3 1.25 MG (91852 UT) Oral CapsuleIndication s:Vitamin D deficiency Take [...] as of this encounter (statuses as of 03/10/2024) Active Problems Problem Noted Date Diagnosed Date Encounter for antineoplastic chemotherapy 2023 Breast carcinoma, female, left 02/19/2024 PND (post-nasal drip) 11/15/2021 Acquired hypothyroidism 02/25/2021 Polycystic ovaries 12/30/2001 documented as of this encounter (statuses as of 03/10/2024) Resolved Problems Problem Noted Date Diagnosed Date Resolved Date Throat irritation 11/15/2021 06/12/2023 COVID-19 virus infection 08/09/2020 documented as of this encounter (statuses as of 03/10/2024) Immunizations Name Administration Dates Next Due COVID-19 [...] Care Team (Late st Contact Info) Description 03/12/2024 10:45 AM EDT Office Visit General [facility], [facility] [place] [address] Renzo Rees MD [address] [place] [address] 03/16/2024 9:30 AM EDT Laboratory Laboratory [facility] [place] [address] [place] [phone] Sada, Lab Scenery [address] [place] [address] 03/17/2024 10:00 AM EDT [facility] [address] Sada, Chair 10 Hem Onc Scenery [address] [place] [address] 03/23/2024 9:20 AM EDT Laboratory Laboratory [facility] Sada [place] [address] [place] [address] Sada, Lab Scenery [address] [place] [address] 03/24/2024 1:00 PM EDT Hem/Onc Treatment Hematology/Oncology Treatment, [place] 200 [facility] [place] [address] Sada, Chair 5 Hem Onc Scenery [address] [place] [address] [address] 03/30/2024 8:00 AM EDT Laboratory Laboratory [facility] [place] [address] [place] [address] Ian Tomlin Scenery [address] [place] [address] 03/30/2024 8:30 AM EDT Office Visit Hematology/Oncology [facility] [place] [address] [place] [address] Corina Dong, IAN [address] [facility] [place] [address] 03/31/2024 11:30 AM EDT Hem/Onc Treatment Hematology/Oncology Treatment, [place] [address] [facility] [phone] 07/14/2024 11:00 AM EST Telemedicine Genetics HemOnc, [facility] [place] [address] [place], [place] [address] [facility] [place] [address] Scheduled Procedures Name Priority Associated Diagnoses Date/Ti [...] ONCE PRN Other, Hypersensitivity Reaction, Starting on Sat03/10/24 at 1352, Until Sat03/11/24 at 1351, For 24 hours EPINEPHrine 1 MG/ML inj 0.3 mg 0.3 mg, Intramuscular, ONCE PRN Other, Hypersensitivity Reaction or Anaphylaxis, Starting on Sat03/10/24 at 1352, Until Sat03/11/24 at 1351, For 24 hours hEParin 100 UNIT/ML Lock Flush inj 500 Units 500 Units (5 mL), IV Lock, PRN Other, IV Flush, Starting on Sat03/10/24 at 1352, Until Sat03/11/24 at 1351, For 24 hours, Do not flush if lock, PICC, or central line not in place; IV infusing or unable to flush. Given 03/10/2024 4:25 PM EDT 500 Units Hydrocortisone Sod Suc (PF) (Solu-Cortef) inj 100 mg 100 mg, IV Push, ONCE PRN Other, Hypersensitivity Reaction, Starting on Sat03/10/24 at 1352, Until Sat03/11/24 at 1351, For 24 hours NSS infusion Intravenous, at 50 mL/hr, PRN, Starting on Sat03/10/24 at 1500, Until Discontinued, Maintenance line Start Infusion 03/10/2024 2:19 PM EDT 50 mL/hr oxygen GAS Inhalation, OXYGEN, First dose on Sat03/10/24 at 1600, Until Discontinued, Device/Managed by: Low [...] Flush, Starting on Sat03/10/24 at 1352, Until Sat03/11/24 at 1351, For 24 hours, Do not flush if lock, PICC, or central line not in place; IV infusing or unable to flush. Given 03/10/2024 4:25 PM EDT 10 mL Inactive Administered Medications [...] Given 03/10/2024 2:18 PM EDT 20 mg PACLitaxel (Taxol) 136 mg in NSS 250 mL infusion 136 mg (80 mg/m2 1.7 m2 Treatment Plan BSA from Recorded weight), IV Piggyback, ONCE, 1 dose, On Sat03/10/24 at 1530, Administer over 60 Minutes, Administer through 0.22 micron low protein binding filter! Start Infusion 03/10/2024 3:21 PM EDT 136 mg 255 mL/hr Trastuzumab-dttb (Ontruzant) 131.46 mg in NSS 250 mL infusion 131.46 mg (rounded from 131.4 mg = 2 mg/kg 65.7 kg Treatment plan Recorded weight), IV Piggyback, ONCE, 1 dose, On Sat03/10/24 at 1530, Administer over 30 Minutes Start Infusion 03/10/2024 2:39 PM EDT 131.46 mg 510 mL/hr documented in this encounter Care Teams Conductor Road Freight Relationship Specialty Start Date End Date Haylee Skinner DO [address] [place] [address] PCP - General Family Medicine 11/13/18 documented as of this encounter
--- OUTSIDE RECORDS SUMMARY | 2024-04-14 07:16 | External Medical Summary | Summary of Care ---
Author Name Unknown Organization [facility] Address [address] [place] [address] Phone [phone] Care Team Providers Care Farm Products Shipper Name Role Phone BrodyHaylee Kiran LOYOLA Primary Care Provider [phone] Encounter Details Date Type Department Care Team (Late st Contact Info) Description 03/08/2024 Orders Only Hematology/Oncology, [facility] [address] [facility] [place] [address] Charlotte Ferreira MD [facility] [address] Allergies No known active allergiesdocumented [...] 1 12/30/2023 Active Vitamin D3 1.25 MG (50691 UT) Oral CapsuleIndication s:Vitamin D deficiency Take [...] mRNA, LNP-s, No Pre serve, 2-Dose Series (VENNCOMM) 11/26/2020,11/05/2020 COVID-19, LNP-s, No Preserve , Yusef-sucrose, Ages 12+ (VENNCOMM) 05/10/2022,07/25/2021 Seasonal Influenza Virus Vac cine, Unspecified [...] Description 03/09/2024 9:50 AM EDT [facility] [address] [place] [phone] Ian Roman 132 [facility] [place] [address] 03/10/2024 1:00 PM EDT Office Visit Hematology/Oncology [facility] [address] [place] [phone] Charlotte Ferreira MD [address] [place] [address] 03/10/2024 1:30 PM EDT Hem/Onc Treatment Hematology/Oncology Treatment, [place] [address] [place] [phone] Sada, Chair 7 Hem Onc [facility] [address] [place] [address] 03/12/2024 10:45 AM EDT Office Visit General Surgery, [facility] [address] [place] [address] Renzo Rees MD [address] [place] [address] 07/14/2024 11:00 AM EST Telemedicine Genetics HemOnc, [facility] [address] [place] [address] [place], [place] [address] [facility] [place] [address] Scheduled Procedures Name Priority Associated Diagnoses Date/Ti [...] filedocumented as of this encounter Care Teams Farm Products Shipper Relationship Specialty Start Date End Date Haylee Skinner DO [address] [place] [address] PCP - General Family Medicine 11/13/18 documented as of this encounter
--- OUTSIDE RECORDS SUMMARY | 2024-04-14 07:16 | External Medical Summary | Summary of Care ---
Author Name Unknown Organization [facility] Address [address] [facility] [address] Phone [phone] Care Team Providers Care Laboratory Mechanic Helper Name Role Phone BrodyHaylee Kiran LOYOLA Primary Care Provider [phone] Reason for Visit * Reason Comments Chemotherapy Chemo/recheck Encounter Details Date Type Department Care Team (Late st Contact Info) Description 03/10/2024 1:00 PM EDT Office Visit Hematology/Oncology [facility] [place] [address] [facility] [place] [phone] Charlotte Ferreira MD [address] [facility] [place] [address] Breast carcinoma, female, left (HCC)*; Encounter for [...] 1 12/30/2023 Active Vitamin D3 1.25 MG (68161 UT) Oral CapsuleIndication s:Vitamin D deficiency Take [...] mRNA, LNP-s, No Pre serve, 2-Dose Series (FreshOffice) 11/26/2020,11/05/2020 COVID-19, LNP-s, No Preserve , Yusef-sucrose, Ages 12+ (FreshOffice) 05/10/2022,07/25/2021 Seasonal Influenza Virus Vac cine, Unspecified [...] Sign Reading Time Taken Comments Blood Pressure 125/83 03/10/2024 12:51 PM EDT Pulse 95 03/10/2024 12:51 PM EDT Temperature 37.2 C (98.9 F) 03/10/2024 12:51 PM E DT Respiratory Rate - - Oxygen Saturation 97% 03/10/2024 12:51 PM EDT Inhaled Oxygen Concentration - - Weight 63 kg (139 lb) 03/10/2024 12:51 PM EDT Height - - Body Mass Index 25.02 02/19/2024 2:54 PM EDT documented in this encounter Progress Notes * Charlotte Ferreira MD - 03/10/2024 1:20 PM EDT Outpatient Consult Note Data Source: Patient, Epic record. Data Source: Patient, Epic record. 03/10/2024 1:20 PM Tata Lombardi [id number] 49 year old Patient Encounter: [facility] Cancer Diagnosis: Infiltrating ductal carcinoma of left breast. She underwent partial mastectomy and sentinel lymph node biopsy and pathology consistent with infiltrative ductal carcinoma, grade 2, the size of the tumor was 10 x 8 x 8 mm and lymph nodes were negative for metastasis. She has pT1 pN0 disease. Current Treatment: On weekly Taxol and Herceptin Previous Treatment: Partial mastectomy and sentinel lymph node biopsy Oncologic History : 49-year-old premenopausal woman otherwise healthy referred with the diagnosis of left breast cancerwhich was found on screening mammogram. She had screening mammogram and ultrasound done on 11/29/2023 which revealed Irregular hypoechoic 10 mm mass in the left 12:00 breast on ultrasound, which corresponds with a mammographic focal asymmetry with associated architectural distortion. A few faint calcifications are seen extending anterior to the mass, with total extent of the mass, distortion, andcalcifications estimated to measure approximately 19 x 11 mm mammographically. Biopsy from this areas consistent with invasive ductal carcinoma grade 2 with ER/PA and HER2 Jagdeep positive. Ki-67 index was [...] central necrosis ER was strongly positive and PA moderate to weak positive. On 01/21/2024 she [...] Examined (sentinel and non-sentinel): 2 Number of [place] Nodes Examined: 0 Regional Lymph Node Comment: None pTNM CLASSIFICATION (AJCC 8th Edition) pT Category: pT1b pN Category: pN0 She denies smoking and drinks alcohol socially. Family history significant for mother was diagnosed of breast cancer at the age of 64. Maternal grandmother was diagnosed of colon cancer and breast cancer. Sister was diagnosed of ovarian cancer. Interval History: She had issues with the abdominal pain and cramps day after the chemotherapy. Now she is feeling better. Denies any headache, dizziness, nausea, vomiting, neuropathy, abdominal pain, change in the bowel habits, bleeding, bruising. LABS/IMAGING: Results for orders placed or performed in visit on 03/09/24 COMPREHENSIVE METABOLIC PANEL Result Value Ref Range BUN 9 6 - 20 mg/dL Creatinine 0.7 0.5 - 1.0 mg/dL Estimated Glomerular Filtration Rate >90 >=60 mL/min Sodium 137 135 - 146 mmol/L Potassium 4.0 3.5 - 5.1 mmol/L Chloride 105 98 - 107 mmol/L CO2 22 22 - 32 mmol/L Anion Gap 10 7 - 15 mmol/L Glucose 107 70 - 120 mg/dL Albumin 4.2 3.8 - 5.0 g/dL AST 13 10 - 35 U/L Alkaline Phosphatase 45 35 - 130 U/L Bilirubin, Total 0.6 <=1.2 mg/dL Calcium 9.1 8.4 - 10.2 mg/dL Protein 7.1 6.0 - 8.3 g/dL ALT 24 10 - 35 U/L HCG QUALITATIVE, URINE Result Value Ref Range HCG Qualitative, Urine Negative Negative CBC Result Value Ref Range WBC 6.51 4.00 - 10.80 K/uL RBC 4.50 3.85 - 5.15 M/uL HGB 13.1 12.0 - 15.3 g/dL HCT 38.2 36.0 - 45.2 % MCV 84.9 81.5 - 97.5 fL MCH 29.1 27.0 - 34.0 pg MCHC 34.3 32.0 - 36.0 g/dL RDW 12.8 11.5 - 15.5 % PLT 282 140 - 400 K/uL MPV 9.2 6.6 - 11.1 fL DIFFERENTIAL, AUTOMATED Result Value Ref Range WBC 6.51 4.00 - 10.80 K/uL Neutrophils % 76.4 (H) 40.0 - 75.0 % Lymphocytes % 20.0 18.0 - 42.0 % Monocytes % 2.9 1.0 - 11.0 % Eosinophils % 0.5 0.0 - 6.0 % Basophils % 0.2 0.0 - 2.0 % Absolute Neutrophils 4.98 1.80 - 7.70 K/uL Absolute Lymphocytes 1.30 1.00 - 4.80 K/ul Absolute Monocytes 0.19 0.00 - 1.10 K/uL Absolute Eosinophils 0.03 0.00 - 0.70 K/uL Absolute Basophils 0.01 0.00 - 0.20 K/uL DIFFERENTIAL, TECHNOLOGIST REVIEW Result Value Ref Range nRBCs Result of all the blood tests including CBC and CMP are in acceptable range. REVIEW OF SYSTEMS: General: No Fever, chills, night sweats HEENT: No change in visual acuity, blurred or double vision. No epistaxis, facial pain, nasal discharge or change in hearing. Denies dysphagia, no muscosal ulceration, or sores noted. Cardiovascular: No chest pain, TRIVEDI, or palpitations Respiratory: No shortness of breath, cough, hemoptysis, or pleuritic chest pain Gastrointestinal: No abdominal pain, nausea, vomiting, diarrhea, rectal pain or bleeding Genitourinary: Denies Hematuria or dysuria Musculoskeletal: No bone pain Skin: No skin rash or lesions noted Neurologic: No numbness, weakness, neuropathic pain or change in cognitive function Psychiatric: No vegetative signs of depression Endocrine: No symptoms of hypothyroidism or hyperglycemia Hematologic: No bleeding or lymph nodes noted As mentioned above, all of the systems were reviewed in full and are unremarkable. Past Medical History: Diagnosis Date COVID-19 virus infection 08/09/2020 NONE PCOS (polycystic ovarian syndrome) Current Outpatient Medications Medication Sig Dispense Refill Loratadine 10 MG Oral Tablet (Claritin) Take 1 Tablet by mouth at bedtime. (Patient not taking: Reported on 03/03/2024) Omeprazole 20 MG Oral Tablet Delayed Release Take 1 Tablet by mouth in the morning and 1 Tablet in the evening. 180 Tablet 3 Levothyroxine Sodium 50 MCG Oral Tablet (Levoxyl) TAKE 1 TABLET BY MOUTH EVERY DAY AT LEAST 30 MINUTES PRIOR TO BREAKFAST OR OTHER MEDICATIONS 90 Tablet 1 Vitamin D3 1.25 MG (76862 UT) Oral Capsule Take 1 Capsule by mouth once a week. 12 Capsule 0 Ondansetron HCl 8 MG Oral Tablet Take [...] 6 hours before chemotherapy 40 Tablet 0 No current facility-administered medications for this visit. Social History Tobacco Use Smoking status: Never Smokeless tobacco: Never Vaping Use Vaping status: Never Used Substance Use Topics Alcohol use: No Drug use: No Review of patient's allergies indicates: No Known Allergies PHYSICAL EXAMINATION: General Appearance: Healthy appearing patient in no acute distress BP 125/83 (BP Site: Left Arm, BP Position: Sitting, BP Cuff Size: Regular) | Pulse 95 | Temp 37.2 C (98.9 F) (Tympanic) | Wt 63 kg (139 lb) | SpO2 97% | BMI 25.02 kg/m | BSA 1.67 m Vitals reviewed. HEENT: No oral or pharyngeal masses, ulceration or thrush noted, no sinus tenderness. Neck is supple with no thyromegaly or JVD noted. Lymph Nodes: No lymphadenopathy noted in the occipital, pre and post auricular, cervical, supra andinfraclavicular, axillary, epitrochlear, inguinal, and popliteal region. Lungs/Thorax: Clear to auscultation, no accessory muscles of respiration being used. Heart: Regular rate and rhythm, normal S1, S2 Abdomen: Soft, nontender, bowel sounds present, no appreciable hepatosplenomegaly, no palpable masses Extremeties: Good pulses bilaterally, no peripheral edema. ASSESSMENT: 49-year-old female otherwise healthy was referred with diagnosis of the left breast cancer which was found on initial screening mammogram. Biopsy was consistent with invasive ductal carcinoma grade 2with ER/PA and HER2 Jagdeep positive. 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 She underwent partial mastectomy and axillary lymph node biopsy and pathology again was consistent with ductal carcinoma in Situ grade 2 with negative lymph node. She has stage pT1b pN0. The size of the tumor was 10 x 8 x 8 mmand there was also ductal carcinoma in Situ. She has aggressive disease with HER2 Jagdeep positive and currently she is in weekly Taxol plus Herceptin. Overall clinically she is stable. She has issues with the abdominal discomfort and cramps. Now she is feeling better. Discussed with her about diagnosis and reviewed all the available blood test result with her. PLAN: Continue current treatment. She will return clinic for follow-up in 3 weeks. The patient voiced understanding of all of the above. All questions and concerns were addressed in an apparently satisfactory manner. Charlotte Ferreira MD (This note was completed using the dictation program Fluency Direct. As such, there may be misspellings, word substitutions, or other variations that should not change the essence of the clinical content of this encounter note. If there is need for further clarification, please direct questions to me.) documented in this encounter Nursing Notes * Rita Fofana, MED ASSIST - 03/10/2024 12:52 PM EDT Patient identifed by name and birthdate Do you have any concerns about pain management for today's visit? No Living Will or Advance Directive for Health Care as noted on the problem list. [facility] is a way you can talk to your provider on line through e-mail. Would you like to sign up? I can activate it for you? ALREADY ACTIVE Filed Vitals: 03/10/24 1251 BP: 125/83 Pulse: 95 Temp: 37.2 C (98.9 F) TempSrc: Tympanic SpO2: 97% Weight: 63 kg (139 lb) Patient was instructed to not get up [...] 10:45 AM EDT Office Visit General Surgery, [facility] [address] [place] [address] Renzo Rees MD [address] [place] [address] 07/14/2024 11:00 AM EST Telemedicine Genetics HemOnc, [facility] [address] [place] [address] [place], [place] [address] [facility] [place] [address] Scheduled Procedures Name Priority [...] for antineoplastic chemotherapy documented in this encounter Care Teams Laboratory Mechanic Helper Relationship Specialty Start Date End Date Haylee Skinner DO [address] [place] [address] PCP - General Family Medicine 11/13/18 documented as of this encounter"
--- OUTSIDE RECORDS SUMMARY | 2024-04-14 07:16 | External Medical Summary ---
Author Name Unknown Address Unknown Organization [facility] [place] [address] Laboratory Report Ordering Provider Test Date Status BETZAIDA IBARRA 03/09/2024 09:15:26 Final Observation Date Value Abnormality Reference (Units ) Status Screen, Urine 03/09/2024 09:15:26 Negative Negative Final Performing Location [facility] 0 - [address] [place] [address]
--- OUTSIDE RECORDS SUMMARY | 2024-04-14 07:16 | External Medical Summary ---
Author Name Unknown Address Unknown Organization [facility] - [address] [place] [address] Laboratory Report Ordering Provider Test Date Status BETZAIDA IBARRA 03/09/2024 09:15:26 Final Observation Date Value Abnormality Reference (Units ) Status WBC, Total 03/09/2024 09:15:26 6.51 4.00-10.8 0 (K/uL) Final RBC 03/09/2024 09:15:26 4.50 3.85-5.15 (M/uL) Final Hemoglobin 03/09/2024 09:15:26 13.1 12.0-15.3 (g/dL) Final HCT 03/09/2024 09:15:26 38.2 36.0-45.2 (%) Final MCV 03/09/2024 09:15:26 84.9 81.5-97.5 (fL) Final MCH 03/09/2024 09:15:26 29.1 27.0-34.0 (pg) Final MCHC 03/09/2024 09:15:26 34.3 32.0-36.0 (g/dL) Final RDW 03/09/2024 09:15:26 12.8 11.5-15.5 (%) Final Platelets 03/09/2024 09:15:26 282 140-400 (K /uL) Final MPV 03/09/2024 09:15:26 9.2 6.6-11.1 ( fL) Final Performing Location [facility] 0 - [address] [place] [address]
--- OUTSIDE RECORDS SUMMARY | 2024-04-14 07:16 | External Medical Summary | Summary of Care ---
Author Name Unknown Organization [facility] Address [address] [place] [address] Phone [phone] Care Team Providers Care Director Of Physical Therapy Name Role Phone Villa Skinnera Kiran LOYOLA Primary Care Provider [phone] Reason for Visit * Reason Onset Date Comments Advice 03/04/2024 Encounter Details Date Type Department Care Team (Late st Contact Info) Description 03/04/2024 Telephone Hematology/Oncology [facility] Sada [place] [address] [place] [address] Services, Scheduling [address] [place] [address] Advice Allergies No known active allergiesdocumented as of this encounter (statuses as of 03/05/2024) Medications Medication Sig Dispensed Refills Start Date [...] 1 12/30/2023 Active Vitamin D3 1.25 MG (51988 UT) Oral CapsuleIndication s:Vitamin D deficiency Take [...] as of this encounter (statuses as of 03/05/2024) Active Problems Problem Noted Date Diagnosed Date Encounter for antineoplastic chemotherapy 2023 Breast carcinoma, female, left 02/19/2024 PND (post-nasal drip) 11/15/2021 Acquired hypothyroidism 02/25/2021 Polycystic ovaries 12/30/2001 documented as of this encounter (statuses as of 03/05/2024) Resolved Problems Problem Noted Date Diagnosed Date Resolved Date Throat irritation 11/15/2021 06/12/2023 COVID-19 virus infection 08/09/2020 documented as of this encounter (statuses as of 03/05/2024) Immunizations Name Administration Dates Next Due COVID-19 mRNA, LNP-s, No Pre serve, 2-Dose Series (Antavo) 11/26/2020,11/05/2020 COVID-19, LNP-s, No Preserve , Yusef-sucrose, Ages 12+ (Antavo) 05/10/2022,07/25/2021 Seasonal Influenza Virus Vac cine, Unspecified [...] Miscellaneous Notes * Telephone Encounter - Sammy Schneider RN - 03/04/2024 1:40 PM EDT Pt calling stating that shenoticed some redness down her left arm, across her chest and up her neckslightly. She denies any shortness of breath, denies itching. She states she does have minor burning sensation on her left arm. Advised her to apply moiturizing skin cream and take an oral Benadryl to see if this helps her symptoms. She is to provide us an update tomorrow. Advised that if she develops any shortness of breath or worsening symptoms she may call us back or go to the ER which she verbalized understanding. Dr. Ferreira- any further recommendations at this time? * Telephone Encounter - Courtney Anthony OSA - 03/04/2024 1:36 PM EDT What is the reason for call? Left arm/ chest burning after first chemo appt. What Clinic is the patient trying to reach? [facility] [place] hem/onc [facility] Call was warm transferred to Sammy Schneider. documented in this encounter Plan of Treatment Upcoming Encounters Date Type Department Care Team (Late st Contact Info) Description 03/09/2024 9:50 AM EDT Laboratory Laboratory, [facility] [address] [facility] [place] [phone] Ian Roman [facility] [address] [place] [address] 03/10/2024 1:00 PM EDT Office Visit Hematology/Oncology [facility] [address] [place] [phone] Charlotte Ferreira MD [address] [facility] [place] [address] 03/10/2024 1:30 PM EDT Hem/Onc Treatment Hematology/Oncology Treatment, [place] [address] [facility] [address] [place] [phone] Sada, Chair [address] Hem On[address] [place] [address] 03/12/2024 10:45 AM EDT Office Visit General Surgery, [facility] [address] [place] [address] Renzo Rees MD [address] [place] [address] 07/14/2024 11:00 AM EST Telemedicine Genetics HemOnc, [facility] [address] [place] [address] [place], [place] [address] [place] [address] Scheduled Procedures Name Priority Associated Diagnoses Date/Ti [...] filedocumented as of this encounter Care Teams Director Of Physical Therapy Relationship Specialty Start Date End Date Haylee Skinner DO [address] [place] [address] PCP - General Family Medicine 11/13/18 documented as of this encounter
--- OUTSIDE RECORDS SUMMARY | 2024-04-14 07:16 | External Medical Summary ---
Author Name Unknown Address Unknown Organization [facility] [facility] [address] [place] [address] Laboratory Report Ordering Provider Test Date Status BETZAIDA IBARRA 03/09/2024 09:15:26 Final Observation Date Value Abnormality Reference (Units ) Status SYNC LEUKOCYTES IN BLOOD BY AUTOMATED COUNT 03/09/2024 09:15:26 6.51 4.00-10.80 (K/uL) Final Segs 03/09/2024 09:15:26 76.4 Above high normal 40.0-75.0 (%) Final Lymphs % 03/09/2024 09:15:26 20.0 18.0-42.0 (%) Final Monos 03/09/2024 09:15:26 2.9 1.0-11.0 (%) Final Eosinophils 03/09/2024 09:15:26 0.5 0.0-6.0 (%) Final Basos 03/09/2024 09:15:26 0.2 0.0-2.0 (%) Final Absolute Segs 03/09/2024 09:15:26 4.98 1.80-7.70 (K/uL) Final Lymphs, absolute 03/09/2024 09:15:26 1.30 1.00-4.80 (K/ul) Final Monos, Abs 03/09/2024 09:15:26 0.19 0.00-1.10 (K/uL) Final Eos, Abs 03/09/2024 09:15:26 0.03 0.00-0.70 (K/uL) Final Basos, Abs 03/09/2024 09:15:26 0.01 0.00-0.20 (K/uL) Final Performing Location LABORATORY [facility] [address] - [address] [place] [address]
--- OUTSIDE RECORDS SUMMARY | 2024-04-14 07:16 | External Medical Summary | Summary of Care ---
Author Name Unknown Organization [facility] Address [address] [facility] [place] [address] Phone [phone] Care Team Providers Care Plaster Pattern Caster Name Role Phone BrodyNikos Kiran LOYOLA Primary Care Provider [phone] Reason for Visit * Reason Comments Follow Up S/p left partial mas tectomy on 01/20/[address] Rees. Encounter Details Date Type Department Care Team (Late st Contact Info) Description 03/12/2024 10:45 AM EDT Office Visit General Surgery, [facility] [address] [place] [address] Renzo Rees MD [address] [place] [address] Postop check* Allergies No known active allergiesdocumented as of this encounter (statuses as of 03/12/2024) Medications Medication Sig Dispensed Refills Start Date [...] 1 12/30/2023 Active Vitamin D3 1.25 MG (73386 UT) Oral CapsuleIndication s:Vitamin D deficiency Take [...] as of this encounter (statuses as of 03/12/2024) Active Problems Problem Noted Date Diagnosed Date Encounter for antineoplastic chemotherapy 2023 Breast carcinoma, female, left 02/19/2024 PND (post-nasal drip) 11/15/2021 Acquired hypothyroidism 02/25/2021 Polycystic ovaries 12/30/2001 documented as of this encounter (statuses as of 03/12/2024) Resolved Problems Problem Noted Date Diagnosed Date Resolved Date Throat irritation 11/15/2021 06/12/2023 COVID-19 virus infection 08/09/2020 documented as of this encounter (statuses as of 03/12/2024) Immunizations Name Administration Dates Next Due COVID-19 mRNA, LNP-s, No Pre serve, 2-Dose Series ([employer]) 11/26/2020,11/05/2020 COVID-19, LNP-s, No Preserve , Yusef-sucrose, Ages 12+ ([employer]) 05/10/2022,07/25/2021 Seasonal Influenza Virus Vac cine, Unspecified [...] Sign Reading Time Taken Comments Blood Pressure - - Pulse - - Temperature 37 C (98.6 F) 03/12/2024 10:45 AM EDT Respiratory Rate - - Oxygen Saturation - - Inhaled Oxygen Concentration - - Weight - - Height - - Body Mass Index - - documented in this encounter Progress Notes * Renzo Rees MD - 03/12/2024 10:57 AM EDT Images from the original note were not included. [facility] BREAST CLINIC NOTES SUBJECTIVE: Tata Lombardi is a 48 year old female who is now 17 days following a left partial mastectomy and Left sentinel lymph node biopsy for 11 mm an intermediate grade invasive ductal carcinoma. Estrogen receptor status is positive. Progesterone receptor status is positive. HER-2/chadwick receptors positive. 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 She is doing well. She is tolerating her Taxol treatment. PATHOLOGY: Pain is controlled without any medications. Fever has not been present. She has no wound drainage and has no wound erythema. The patient has no drains in place. OBJECTIVE: Temp 37 C (98.6 F) Examination today reveals healing left partial mastectomy and sentinel lymph node resection incision (Both procedures done through same incision). There is no significant wound erythema. There is no ecchymosis or hematoma. There is no wound drainage. Range of motion about the affected shoulder is normal. Some pectoralis tightening. IMPRESSION: Carcinoma LEFT breast. Stage 1 (T1-N0-M0). Excellent postoperative course without complications following left partial mastectomy and sentinellymph node biopsy. ER+, TN+, [id number]+ PLAN: Return to Breast Clinic in 4 months. Will continue med oncology tx - Taxol and Herceptin every week Radiation therapy to follow chemotherapy Given that the DCIS was seen only on breast MRI, would recommend continuation of yearly breast MRI given dense breast tissue on mammography. Mammogram will be due October and MRI April, orders placed. Encourage ROM exercises. May apply heating pad to breast to help reabsorb fluid and continue sports bra for compression. Renzo Rees MD 03/12/24 CC: Radiation Oncology at [facility] PCP: [place] [address] [phone] documented in this encounter Nursing Notes * Barbara Santamaria MED ASSIST - 03/12/2024 10:46 AM EDT Chief Complaint Patient presents with Follow Up S/p left partial mastectomy on 01/20/[address] Rees. Verified patient. No pain. Incision is healing well. documented in this encounter Plan of Treatment Upcoming Encounters Date Type Department Care Team (Late st Contact Info) Description 03/16/2024 9:30 AM EDT Laboratory Laboratory, [facility] [address] [place] [phone] Ian Roman [address] [facility] [place] [address] 03/17/2024 10:00 AM EDT Hem/Onc Treatment Hematology/Oncology Treatment, [place] [address] [facility] [address] Sada, Chair 10 Hem Onc Scenery 200 [facility] [place] [address] 03/23/2024 9:20 AM EDT Laboratory Laboratory, [facility] [address] [place] [address] Ian Roman [address] [facility] [place] [address] 03/24/2024 1:00 PM EDT Hem/Onc Treatment Hematology/Oncology Treatment, [place] [address] [facility] [address] Sada, Chair 5 Hem Onc Scenery [address] [place] [address] 03/30/2024 8:00 AM EDT Laboratory Laboratory Scene Sada [place] [address] [place] [address] Park, Lab Scenery [address] [facility] [place] [address] 03/30/2024 8:30 AM EDT Office Visit Hematology/Oncology [facility] [address] [facility] [phone] Corina Dong, [employer] [address] [facility] [place] [address] 03/31/2024 11:30 AM EDT Hem/Onc Treatment Hematology/Oncology Treatment, [place] [address] [facility], [place] [phone] 07/10/2024 9:45 AM EST Office Visit General Surgery, [facility] [address] [place] [address] Renzo Rees MD [address] [place] [address] 07/14/2024 11:00 AM EST Telemedicine Genetics HemOnc, [facility] [address] [place] [address] [place], [place] [address] [facility] [place] [address] Scheduled Procedures Name Priority Associated Diagnoses Date/Ti [...] as of this encounter Visit Diagnoses Diagnosis Postop check- Primary Follow-up examination, following unspecified surgery documented in this encounter Care Teams Plaster Pattern Caster Relationship Specialty Start Date End Date Nikos Skinner DO [address] [place] [address] PCP - General Family Medicine 11/13/18 documented as of this encounter
--- OUTSIDE RECORDS SUMMARY | 2024-04-14 07:16 | External Medical Summary ---
Author Name Unknown Address Unknown Organization K0[facility]:LABORATORY [facility] [address] - [address] [place] [address] Laboratory Report Ordering Provider Test Date Status BETZAIDA IBARRA 03/09/2024 09:15:26 Final Observation Date Value Abnormality Reference (Units ) Status BUN 03/09/2024 09:15:26 9 6-20 (mg/dL) Final Creatinine 03/09/2024 09:15:26 0.7 0.5-1.0 (mg/dL) Final Glomerular filtration rate/1.73 sq M.predicted [Volume Rate/Area] in Serum, Plasma or Blood by Creatinine-based formula (CKD-EPI) 03/09/2024 09:15:26 >90 >=60 (mL/min) Final eGFR is calculated based on the CKD-EPI 2020 equation. Sodium 03/09/2024 09:15:26 137 135-146 (m mol/L) Final Potassium 03/09/2024 09:15:26 4.0 3.5-5.1 (m mol/L) Final Cl 03/09/2024 09:15:26 105 98-107 (mm ol/L) Final CO2 03/09/2024 09:15:26 22 22-32 (mmo l/L) Final Anion gap 03/09/2024 09:15:26 10 7-15 (mmol /L) Final Glucose 03/09/2024 09:15:26 107 70-120 (mg /dL) Final Albumin 03/09/2024 09:15:26 4.2 3.8-5.0 (g /dL) Final AST (Aspartate aminotransferase) 03/09/2024 09:15:26 13 10-35 (U/L) Final Alk Phos 03/09/2024 09:15:26 45 35-130 (U/ L) Final Bilirubin, Total 03/09/2024 09:15:26 0.6 <=1 .2 (mg/dL) Final Calcium 03/09/2024 09:15:26 9.1 8.4-10.2 ( mg/dL) Final Protein 03/09/2024 09:15:26 7.1 6.0-8.3 (g /dL) Final ALT (Alanine aminotransferase) 03/09/2024 09:15:26 24 10-35 (U/L) Final Performing Location LABORATORY [facility] [address] - [address] [place], [place] [address]
--- OUTSIDE RECORDS SUMMARY | 2024-04-14 07:17 | External Medical Summary ---
Author Name Unknown Address Unknown Organization K0[facility]:LABORATORY ROB [facility] [address] - [address] [place] [address] Laboratory Report Ordering Provider Test Date Status BETZAIDA IBARRA 03/02/2024 08:05:47 Final Observation Date Value Abnormality Reference (Units ) Status Screen, Urine 03/02/2024 08:05:47 Negative Negative Final Performing Location LABORATORY [facility] [address] - [address] [place] [address]
--- OUTSIDE RECORDS SUMMARY | 2024-04-14 07:17 | External Medical Summary | Summary of Care ---
Author Name Unknown Organization [facility] Address [address] [place] [address] Phone [phone] Care Team Providers Care Smooth Plater Name Role Phone Haylee Skinner DO Primary Care Provider [phone] Reason for Visit * Reason Comments Treatment Ontruzant/Taxol C1,D 1 * Episode Based Medications (Routine) - Authorized Specialty Diagnoses / Procedures Referred By Reggie miller Referred To Contact Diagnoses Breast carcinoma, female, left (HCC) Encounter for antineoplastic chemotherapy Procedures IA PALONOSETRON HCL IA INJ ONTRUZANT 10 MG IA PACLITAXEL INJECTION Charlotte Ferreira MD [address] [facility] [place] [address] Anc Hem/Onc [address] [address] Referral ID Status Reason Start Date Expiration Date V isits Requested Visits Authorized [id number] Authorized 02/26/2024 07/28/2024 [id number] Encounter Details Date Type Department Care Team (Latest Contact Info) Description 03/03/2024 10:45 AM EDT Hem/Onc Treatment Hematology/Oncolog y Treatment, [address] [address] Sada Chair 2 Hem Onc [address] [place] [address] Breast carcinoma, female, left (HCC)*; Encounter for antineoplastic chemotherapy Allergies No known active allergiesdocumented as of this encounter (statuses as of 03/04/2024) Medications Medication Sig Dispensed Refills Start Date [...] 1 12/30/2023 Active Vitamin D3 1.25 MG (58559 UT) Oral CapsuleIndication s:Vitamin D deficiency Take [...] as of this encounter (statuses as of 03/04/2024) Active Problems Problem Noted Date Diagnosed Date Encounter for antineoplastic chemotherapy 2023 Breast carcinoma, female, left 02/19/2024 PND (post-nasal drip) 11/15/2021 Acquired hypothyroidism 02/25/2021 Polycystic ovaries 12/30/2001 documented as of this encounter (statuses as of 03/04/2024) Resolved Problems Problem Noted Date Diagnosed Date Resolved Date Throat irritation 11/15/2021 06/12/2023 COVID-19 virus infection 08/09/2020 documented as of this encounter (statuses as of 03/04/2024) Immunizations Name Administration Dates Next Due COVID-19 [...] Description 03/09/2024 9:50 AM EDT Laboratory Laboratory, [facility] 132 [facility] [place] [address] [facility] [place] [address] 03/10/2024 1:00 PM EDT Office Visit Hematology/Oncology [facility] [place] [address] [address] [place] [phone] Charlotte Ferreira MD [address] [facility] [place] [address] 03/10/2024 1:30 PM EDT Hem/Onc Treatment Hematology/Oncology Treatment, [place] 200 [facility] [place] [phone] Sada, Chair 7 Hem Onc Scenery [address] [place] [address] 03/12/2024 10:45 AM EDT Office Visit General Surgery, [facility] [address] [place] [address] Renzo Rees MD [address] [place] [address] 07/14/2024 11:00 AM EST Telemedicine Genetics HemOnc, [facility] [address] [place] [phone] [place], [place] [address] [facility] [place] [address] Scheduled Procedures Name [...] Additional history exists Lipid Panel 01/08/2029 01/09/2024, 040 12/2018, 09/15/2011 DTaP,Tdap,and Td Vaccines (3 - [...] 03/03/2024 1:38 PM EDT 136 mg 255 mL/h r sodium chloride 0.9 % flush central line [...] mL/hr documented in this encounter Care Teams Smooth Plater Relationship Specialty Start Date End Date Haylee Skinner DO 132 [place] [address] PCP - General Family Medicine 11/13/18 documented as of this encounter
--- OUTSIDE RECORDS SUMMARY | 2024-04-14 07:17 | External Medical Summary ---
Author Name Unknown Address Unknown Organization [facility] - [address] [place] [address] Laboratory Report Ordering Provider Test Date Status BETZAIDA IBARRA 03/02/2024 08:03:53 Final Observation Date Value Abnormality Reference (Units ) Status SYNC LEUKOCYTES IN BLOOD BY AUTOMATED COUNT 03/02/2024 08:03:53 7.94 4.00-10.80 (K/uL) Final Segs 03/02/2024 08:03:53 61.3 40.0-75.0 (%) Final Lymphs % 03/02/2024 08:03:53 30.0 18.0-42.0 (%) Final Monos 03/02/2024 08:03:53 7.9 1.0-11.0 (%) Final Eosinophils 03/02/2024 08:03:53 0.5 0.0-6.0 (%) Final Basos 03/02/2024 08:03:53 0.3 0.0-2.0 (%) Final Absolute Segs 03/02/2024 08:03:53 4.87 1.80-7.70 (K/uL) Final Lymphs, absolute 03/02/2024 08:03:53 2.38 1.00-4.80 (K/ul) Final Monos, Abs 03/02/2024 08:03:53 0.63 0.00-1.10 (K/uL) Final Eos, Abs 03/02/2024 08:03:53 0.04 0.00-0.70 (K/uL) Final Basos, Abs 03/02/2024 08:03:53 0.02 0.00-0.20 (K/uL) Final Performing Location LABORATORY [facility] [address] - [address] [place] [address]
--- OUTSIDE RECORDS SUMMARY | 2024-04-14 07:17 | External Medical Summary | Summary of Care ---
Author Name Unknown Organization [facility] Address [address] [facility] [address] Phone [phone] Care Team Providers Care Mediation Commissioner Name Role Phone Haylee Skinner DO Primary Care Provider Reason for Visit * Reason Comments Outpatient Testing Encounter Details Date Type Department Care Team (Late st Contact Info) Description 03/02/2024 8:00 AM EDT Laboratory Laboratory, [facility] 132 [facility] [place] [address] [facility] 132 [facility] [place] [address] Breast carcinoma, female, left (HCC) Allergies No known active allergiesdocumented as of this encounter (statuses as of 03/02/2024) Medications Medication Sig Dispensed Refills Start Date End Date Status Loratadine 10 MG Oral Tablet (Claritin)Indicat ions:Viral URI with cough,Sensation of fullness in both ears Take 1 Tablet by mouth at bedtime. 07/08/2023 Active Omeprazole 20 MG Oral Tablet Delayed Release Take 1 Tablet by mouth in the morning and 1 Tablet in the evening. 180 Tablet 3 10/14/2023 Active Levothyroxine Sodium 50 MCG Oral Tablet (Levoxyl)Indicati ons:Abnormal thyroid blood test TAKE 1 TABLET BY MOUTH EVERY DAY AT LEAST 30 MINUTES PRIOR TO BREAKFAST OR OTHER MEDICATIONS 90 Tablet 1 12/30/2023 Active Vitamin D3 1.25 MG (07356 UT) Oral CapsuleIndication s:Vitamin D deficiency Take 1 Capsule by mouth once a week. 12 Capsule 01/15/2024 04/14/2024 Active Ondansetron HCl 8 MG Oral TabletIndications :Breast carcinoma, female, left (HCC) Take 1 Tablet by mouth every 8 hours as needed for Nausea. 30 Tablet 02/19/2024 Active Prochlorperazine Maleate 10 MG Oral Tablet (Compazine)Indica tions:Breast carcinoma, female, left (HCC) Take 1 Tablet by mouth every 6 hours as needed for Nausea. 30 Tablet 02/19/2024 Active dexAMETHasone 4 MG Oral TabletIndications :Breast carcinoma, female, left (HCC) 12 mg (3 tab) 12 and 6 hours before chemotherapy 40 Tablet 02/19/2024 Active documented as of this encounter (statuses as of 03/02/2024) Active Problems Problem Noted Date Diagnosed Date Encounter for antineoplastic chemotherapy 2023 Breast carcinoma, female, left 02/19/2024 PND (post-nasal drip) 11/15/2021 Acquired hypothyroidism 02/25/2021 Polycystic ovaries 12/30/2001 documented as of this encounter (statuses as of 03/02/2024) Resolved Problems Problem Noted Date Diagnosed Date Resolved Date Throat irritation 11/15/2021 06/12/2023 COVID-19 virus infection 08/09/2020 documented as of this encounter (statuses as of 03/02/2024) Immunizations Name Administration Dates Next Due COVID-19 mRNA, LNP-s, No Pre serve, 2-Dose Series ([employer]) 11/26/2020,11/05/2020 COVID-19, LNP-s, No Preserve , Yusef-sucrose, Ages 12+ ([employer]) 05/10/2022,07/25/2021 Seasonal Influenza Virus Vac cine, Unspecified [...] Care Team (Late st Contact Info) Description 03/03/2024 10:45 AM EDT Hem/Onc Treatment Hematology/Oncology Treatment, [place] [address] [place] [phone] Sada, Chair 2 Hem Onc Scenery [address] [place] [address] 03/12/2024 10:45 AM EDT Office Visit General Surgery, [facility] [address] [place] [address] Renzo Rees MD [address] [place] [address] 07/14/2024 11:00 AM EST Telemedicine Genetics HemOnc, [facility] [address] [place] [phone] [place], [place] [address] [place] [phone] Pending Results Name Type Priority Associated Diagnoses Date /Time COMPREHENSIVE METABOLIC PANEL Lab STAT Breast carcinoma, female, left (HCC) 03/02/2024 8:03 AM EDT Scheduled Procedures Name Priority Associated [...] 05/19/2021 Colorectal Cancer Screening 05/19/2026 Diabetes Screening 02/23/2027 02/24/2024, 0 01/09/2024, 09/17/2020, Additional history exists Lipid Panel 01/08/2029 01/09/2024, [...] Associated Diagnosis Comments HCG QUALITATIVE, URINE STAT 03/02/2024 8:05 AM EDT Breast carcinoma, female, left (HCC) DIFFERENTIAL, AUTOMATED STAT 03/02/2024 8:03 AM EDT Breast carcinoma, female, left (HCC) CBC STAT 03/02/2024 8:03 AM EDT Breast carcinoma, female, left (HCC) CBC STAT 03/02/2024 8:03 AM EDT Breast carcinoma, female, left (HCC) documented in this encounter Results * HCG QUALITATIVE, URINE (03/02/2024 8:05 AM EDT) HCG Qualitative, Urine Negative Negative 03/02/2024 8:14 AM EDT [facility] [place] [facility] Urine Urine specimen obtained by clean catch procedure / Unknown Non-blood Collection / Unknown 03/02/2024 8:05 AM EDT 03/02/2024 8:05 AM EDT Charlotte Ferreira MD LAB URINE ORDERA BLES [facility] [place] [facility]10 [address] [place] [address] * DIFFERENTIAL, AUTOMATED (03/02/2024 8:03 AM EDT) WBC 7.94 4.00 - 10.80 K/uL 03/02/2024 8:15 AM EDT [facility] [place] [facility]10 Neutrophils % 61.3 40.0 - 75.0 % 03/02/2024 8:15 AM EDT [facility] [place] [facility]10 Lymphocytes % 30.0 18.0 - 42.0 % 03/02/2024 8:15 AM EDT [facility] [place] [facility]10 Monocytes % 7.9 1.0 - 11.0 % 03/02/2024 8:15 AM EDT [facility] [place] [facility]10 Eosinophils % 0.5 0.0 - 6.0 % 03/02/2024 8:15 AM EDT [facility] [place] [facility]10 Basophils % 0.3 0.0 - 2.0 % 03/02/2024 8:15 AM EDT [facility] [place] [facility]10 Absolute Neutrophils 4.87 1.80 - 7.70 K/uL 03/02/2024 8:15 AM EDT [facility] [place] [facility] Absolute Lymphocytes 2.38 1.00 - 4.80 K/ul 03/02/2024 8:15 AM EDT [facility] [place] [facility]10 Absolute Monocytes 0.63 0.00 - 1.10 K/uL 03/02/2024 8:15 AM EDT [facility] [place] 57[facility]10 Absolute Eosinophils 0.04 0.00 - 0.70 K/uL 03/02/2024 8:15 AM EDT [facility] [place] [facility]10 Absolute Basophils 0.02 0.00 - 0.20 K/uL 03/02/2024 8:15 AM EDT [facility] [place] [facility]10 Blood Venous blood specimen / Unknown Venipuncture / Unknown 03/02/2024 8:03 AM EDT 03/02/2024 8:03 AM EDT Charlotte Ferreira MD LAB BLOOD ORDERA BLES [facility] [place] [facility]10 [address] [place] [address] * CBC (03/02/2024 8:03 AM EDT) WBC 7.94 4.00 - 10.80 K/uL 03/02/2024 8:15 AM EDT [facility] [place] 57[facility]10 RBC 4.66 3.85 - 5.15 M/uL 03/02/2024 8:15 AM EDT [facility] [place] 57[facility]10 HGB 13.4 12.0 - 15.3 g/dL 03/02/2024 8:15 AM EDT [facility] [place] 57[facility]10 HCT 40.3 36.0 - 45.2 % 03/02/2024 8:15 AM EDT [facility] [place] 57[facility]10 MCV 86.5 81.5 - 97.5 fL 03/02/2024 8:15 AM EDT [facility] [place] 57[facility]10 MCH 28.8 27.0 - 34.0 pg 03/02/2024 8:15 AM EDT [facility] [place] 57-10 MCHC 33.3 32.0 - 36.0 g/dL 03/02/2024 8:15 AM EDT [facility] [place] 57[facility]10 RDW 13.3 11.5 - 15.5 % 03/02/2024 8:15 AM EDT [facility] [place] 57-10 PLT 301 140 - 400 K/uL 03/02/2024 8:15 AM EDT [facility] [place] [facility]10 MPV 9.1 6.6 - 11.1 fL 03/02/2024 8:15 AM EDT [facility] [place] [facility]10 Blood Venous blood specimen / Unknown Venipuncture / Unknown 03/02/2024 8:03 AM EDT 03/02/2024 8:03 AM EDT Charlotte Ferreira MD LAB BLOOD ORDERA BLES [facility] [place] [facility] [address] [place] [address] documented in this encounter Visit Diagnoses Diagnosis Breast carcinoma, female, left (HCC) documented in this encounter Care Teams Mediation Commissioner Relationship Specialty Start Date End Date Haylee Skinner DO [address] [address] PCP - General Family Medicine 11/13/18 documented as of this encounter
--- OUTSIDE RECORDS SUMMARY | 2024-04-14 07:17 | External Medical Summary | Summary of Care ---
Author Name Unknown Organization [facility] Address [address] [place] [address] Phone [phone] Care Team Providers Care Figure Refinisher And Repairer Name Role Phone Haylee Skinner DO Primary Care Provider [phone] Reason for Visit * Reason Comments Treatment Ontruzant/Taxol C1,D 1 * Episode Based Medications (Routine) - Authorized Specialty Diagnoses / Procedures Referred By Reggie miller Referred To Contact Diagnoses Breast carcinoma, female, left (HCC) Encounter for antineoplastic chemotherapy Procedures LA PALONOSETRON HCL LA INJ ONTRUZANT 10 MG LA PACLITAXEL INJECTION Charlotte Ferreira MD 200 [facility] [place] [address] Anc Hem/Onc [address] [address] Referral ID Status Reason Start Date Expiration Date V isits Requested Visits Authorized [id number] Authorized 02/26/2024 07/28/2024 999 [id number] Encounter Details Date Type Department Care Team (Latest Contact Info) Description 03/03/2024 10:45 AM EDT Hem/Onc Treatment Hematology/Oncolog y Treatment, [address] [address] Sada Chair 2 Hem Onc [address] [place] [address] Breast carcinoma, female, left (HCC)*; Encounter for antineoplastic chemotherapy Allergies No known active allergiesdocumented as of this encounter (statuses as of 03/03/2024) Medications Medication Sig Dispensed Refills Start Date [...] 1 12/30/2023 Active Vitamin D3 1.25 MG (65581 UT) Oral CapsuleIndication s:Vitamin D deficiency Take [...] as of this encounter (statuses as of 03/03/2024) Active Problems Problem Noted Date Diagnosed Date Encounter for antineoplastic chemotherapy 2023 Breast carcinoma, female, left 02/19/2024 PND (post-nasal drip) 11/15/2021 Acquired hypothyroidism 02/25/2021 Polycystic ovaries 12/30/2001 documented as of this encounter (statuses as of 03/03/2024) Resolved Problems Problem Noted Date Diagnosed Date Resolved Date Throat irritation 11/15/2021 06/12/2023 COVID-19 virus infection 08/09/2020 documented as of this encounter (statuses as of 03/03/2024) Immunizations Name Administration Dates Next Due COVID-19 [...] Description 03/09/2024 9:50 AM EDT Laboratory Laboratory, [facility] 132 [facility] [place] [address] [facility] [place] [address] 03/10/2024 1:00 PM EDT Office Visit Hematology/Oncology [facility] [place] [address] [address] [place] [phone] Charlotte Ferreira MD 200 [facility] [place] [address] 03/10/2024 1:30 PM EDT Hem/Onc Treatment Hematology/Oncology Treatment, [place] 200 [facility] [place] [phone] Sada, Chair 7 Hem Onc Scenery [address] [place] [address] 03/12/2024 10:45 AM EDT Office Visit General Surgery, [facility] [address] [place] [address] Renzo Rees MD [address] [place] [address] 07/14/2024 11:00 AM EST Telemedicine Genetics HemOnc, [facility] [address] [place] [phone] [place], [place] [address] [facility] [place] [address] Scheduled Procedures Name [...] ONCE PRN Other, Hypersensitivity Reaction, Starting on Sat03/03/24 at 1058, Until Sat03/04/24 at 1057, For 24 hours EPINEPHrine 1 MG/ML inj 0.3 mg 0.3 mg, Intramuscular, ONCE PRN Other, Hypersensitivity Reaction or Anaphylaxis, Starting on Sat03/03/24 at 1058, Until Sat03/04/24 at 1057, For 24 hours hEParin 100 UNIT/ML Lock Flush inj 500 Units 500 Units (5 mL), IV Lock, PRN Other, IV Flush, Starting on Sat03/03/24 at 1058, Until Sat03/04/24 at 1057, For 24 hours, Do not flush if lock, PICC, or central line not in place; IV infusing or unable to flush. Given 03/03/2024 2:41 PM EDT 500 Units Hydrocortisone Sod Suc (PF) (Solu-Cortef) inj 100 mg 100 mg, IV Push, ONCE PRN Other, Hypersensitivity Reaction, Starting on Sat03/03/24 at 1058, Until Sat03/04/24 at 1057, For 24 hours NSS infusion Intravenous, at 50 mL/hr, PRN, Starting on Sat03/03/24 at 1200, Until Discontinued, Maintenance line Start Infusion 03/03/2024 11:16 AM EDT 50 mL/hr oxygen GAS Inhalation, OXYGEN, First dose on Sat03/03/24 at 1130, Until Discontinued, Device/Managed by: Low Flow Device, [...] Flush, Starting on Sat03/03/24 at 1058, Until Sat03/04/24 at 1057, For 24 hours, Do not flush if lock, PICC, or central line not in place; IV infusing or unable to flush. Given 03/03/2024 2:41 PM EDT 10 mL Inactive Administered Medications [...] Given 03/03/2024 11:15 AM EDT 20 mg PACLitaxel (Taxol) 136 [...] 1:38 PM EDT 136 mg 255 mL/hr Trastuzumab-dttb (Ontruzant) 262.71 mg in NSS 250 mL infusion 262.71 mg (rounded from 262.8 mg = 4 mg/kg 65.7 kg Treatment plan Recorded weight), IV Piggyback, ONCE, 1 dose, On Sat03/03/24 at 1230, Administer over 90 Minutes Start Infusion 03/03/2024 12:02 PM EDT 262.71 mg 170 mL/hr documented in this encounter Care Teams Figure Refinisher And Repairer Relationship Specialty Start Date End Date Haylee Skinner DO [address] [place] [address] PCP - General Family Medicine 11/13/18 documented as of this encounter
--- OUTSIDE RECORDS SUMMARY | 2024-04-14 07:17 | External Medical Summary ---
Author Name Unknown Address Unknown Organization [facility] [facility] - [address] [place] [address] Laboratory Report Ordering Provider Test Date Status BETZAIDA IBARRA 03/02/2024 08:03:53 Final Observation Date Value Abnormality Reference (Units ) Status BUN 03/02/2024 08:03:53 8 6-20 (mg/dL) Final Creatinine 03/02/2024 08:03:53 0.7 0.5-1.0 (mg/dL) Final Glomerular filtration rate/1.73 sq M.predicted [Volume Rate/Area] in Serum, Plasma or Blood by Creatinine-based formula (CKD-EPI) 03/02/2024 08:03:53 >90 >=60 (mL/min) Final eGFR is calculated based on the CKD-EPI 2020 equation Sodium 03/02/2024 08:03:53 139 135-146 (m mol/L) Final Potassium 03/02/2024 08:03:53 3.8 3.5-5.1 (m mol/L) Final Cl 03/02/2024 08:03:53 105 98-107 (mm ol/L) Final CO2 03/02/2024 08:03:53 24 22-32 (mmo l/L) Final Anion gap 03/02/2024 08:03:53 10 7-15 (mmol /L) Final Glucose 03/02/2024 08:03:53 110 70-120 (mg /dL) Final Albumin 03/02/2024 08:03:53 4.1 3.8-5.0 (g /dL) Final AST (Aspartate aminotransferase) 03/02/2024 08:03:53 19 10-35 (U/L) Final Alk Phos 03/02/2024 08:03:53 46 35-130 (U/ L) Final Bilirubin, Total 03/02/2024 08:03:53 0.5 <=1 .2 (mg/dL) Final Calcium 03/02/2024 08:03:53 8.7 8.4-10.2 ( mg/dL) Final Protein 03/02/2024 08:03:53 6.8 6.0-8.3 (g /dL) Final ALT (Alanine aminotransferase) 03/02/2024 08:03:53 23 10-35 (U/L) Final Performing Location [facility] 0 - [address] [place] [address]
--- OUTSIDE RECORDS SUMMARY | 2024-04-14 07:17 | External Medical Summary | Summary of Care ---
Author Name Unknown Organization [facility] Address [address] [facility] [address] Phone [phone] Care Team Providers Care Cra Name Role Phone Haylee Skinner DO Primary Care Provider Reason for Visit * Reason Comments Outpatient Testing Encounter Details Date Type Department Care Team (Late st Contact Info) Description 03/02/2024 8:00 AM EDT Laboratory Laboratory, [facility] 132 [facility] [place] [phone] [facility] 132 [facility] [place] [address] Breast carcinoma, female, left (HCC) Allergies No [...] 1 12/30/2023 Active Vitamin D3 1.25 MG (84244 UT) Oral CapsuleIndication s:Vitamin D deficiency Take [...] mRNA, LNP-s, No Pre serve, 2-Dose Series ([employer]) 11/26/2020,11/05/2020 COVID-19, LNP-s, No Preserve , Yusef-sucrose, Ages 12+ ([employer]) 05/10/2022,07/25/2021 Seasonal Influenza Virus Vac cine, Unspecified [...] 10:45 AM EDT Hem/Onc Treatment Hematology/Oncology Treatment, [place] [address] [place] [phone] Sada, Chair 2 Hem Onc Scenery [address] [place] [address] 03/12/2024 10:45 AM EDT Office Visit General Surgery, [facility] [address] [place] [address] Renzo Rees MD [address] [place] [address] 07/14/2024 11:00 AM EST Telemedicine Genetics HemOnc, [facility] [address] [place] [address] [place], [place] [address] [place] [phone] Pending Results Name Type Priority Associated Diagnoses Date /Time CBC WITH WBC DIFFERENTIAL Lab STAT Breast carcinoma, female, left (HCC) 03/02/2024 8:03 AM EDT COMPREHENSIVE METABOLIC PANEL Lab STAT Breast carcinoma, female, left (HCC) 03/02/2024 8:03 AM EDT CBC Lab STAT Breast carcinoma, female, left (HCC) 03/02/2024 8:03 AM EDT DIFFERENTIAL, AUTOMATED Lab STAT Breast carcinoma, female, left (HCC) 03/02/2024 8:03 AM EDT HCG QUALITATIVE, URINE Lab STAT Breast carcinoma, female, left (HCC) 03/02/2024 8:05 AM EDT Scheduled Procedures Name Priority Associated [...] (HCC) documented in this encounter Care Teams Cra Relationship Specialty Start Date End Date Haylee Skinner DO [address] [place] [address] PCP - General Family Medicine 11/13/18 documented as of this encounter
--- OUTSIDE RECORDS SUMMARY | 2024-04-14 07:17 | External Medical Summary | Summary of Care ---
Author Name Unknown Organization [facility] Address [address] [facility] [place] [address] Phone [phone] Care Team Providers Care Hydraulic Rubbish Compactor Mechanic Name Role Phone BrodyHaylee Kiran LOYOLA Primary Care Provider [phone] Reason for Visit * Reason Onset Date Comments Follow Up 03/02/2024 Encounter Details Date Type Department Care Team (Late st Contact Info) Description 03/02/2024 Telephone General Surgery, [facility] [address] [place] [address] Renzo Rees MD [address] [place] [address] Follow Up Allergies No known active allergiesdocumented as of [...] 1 12/30/2023 Active Vitamin D3 1.25 MG (97629 UT) Oral CapsuleIndication s:Vitamin D deficiency Take [...] mRNA, LNP-s, No Pre serve, 2-Dose Series ([employer]) 11/26/2020,11/05/2020 COVID-19, LNP-s, No Preserve , Yusef-sucrose, Ages 12+ ([employer]) 05/10/2022,07/25/2021 Seasonal Influenza Virus Vac cine, Unspecified [...] encounter Miscellaneous Notes * Telephone Encounter - Marycarmen Maldonado LPN - 03/02/2024 7:51 AM EDT Patients oncotype is scanned. documented in this encounter Plan of Treatment Upcoming Encounters Date Type Department Care Team (Late st Contact Info) Description 03/03/2024 10:45 AM EDT Hem/Onc Treatment Hematology/Oncology Treatment, [place] [address] [place] [phone] [place], Chair 2 Hem Onc Scenery [address] [place] [address] 03/12/2024 10:45 AM EDT Office Visit General Surgery, [facility] [address] [place] [address] Renzo Rees MD [address] [place] [address] 07/14/2024 11:00 AM EST Telemedicine Genetics HemOnc, [facility] [address] [place] [address] [place], [place] [address] [facility] [place] [phone] Scheduled Procedures Name Priority Associated Diagnoses Date/Ti [...] filedocumented as of this encounter Care Teams Hydraulic Rubbish Compactor Mechanic Relationship Specialty Start Date End Date Haylee Skinner DO [address] [place] [address] PCP - General Family Medicine 11/13/18 documented as of this encounter
--- OUTSIDE RECORDS SUMMARY | 2024-04-14 07:17 | External Medical Summary ---
Author Name Unknown Address Unknown Organization [facility]-[address] - [address] [place] [address] Laboratory Report Ordering Provider Test Date Status BETZAIDA IBARRA 03/02/2024 08:03:53 Final Observation Date Value Abnormality Reference (Units ) Status WBC, Total 03/02/2024 08:03:53 7.94 4.00-10.8 0 (K/uL) Final RBC 03/02/2024 08:03:53 4.66 3.85-5.15 (M/uL) Final Hemoglobin 03/02/2024 08:03:53 13.4 12.0-15.3 (g/dL) Final HCT 03/02/2024 08:03:53 40.3 36.0-45.2 (%) Final MCV 03/02/2024 08:03:53 86.5 81.5-97.5 (fL) Final MCH 03/02/2024 08:03:53 28.8 27.0-34.0 (pg) Final MCHC 03/02/2024 08:03:53 33.3 32.0-36.0 (g/dL) Final RDW 03/02/2024 08:03:53 13.3 11.5-15.5 (%) Final Platelets 03/02/2024 08:03:53 301 140-400 (K /uL) Final MPV 03/02/2024 08:03:53 9.1 6.6-11.1 ( fL) Final Performing Location [facility] 57-1 0 - [address] [place] [address]
[2024-04-14 07:50] LABS: Basophils # (auto) 0.02 K/uL (0.00-0.20); Basophils % (auto) 0.6 %; Eosinophils # (auto) 0.03 K/uL (0.00-0.50); Eosinophils % (auto) 0.9 %; Hematocrit (blood only) 30.9 % (37.0-47.0); Hemoglobin 10.5 g/dl (12.0-16.0); Immature Granulocytes # (auto) 0.07 K/uL (0.01-0.20); Immature Granulocytes % (auto) 2.1 %; Lymphocytes # (auto) 1.05 K/uL (1.20-3.40); Mean Corpuscular Hemoglobin 28.9 pg (25.0-34.0); Mean Corpuscular Volume 85.1 fL (80.0-100.0); Mean Platelet Volume 9.6 fL (9.4-12.4); Monocytes # (auto) 0.17 K/uL (0.11-0.59); Monocytes % (auto) 5.2 %; Neutrophils # (auto) 1.94 K/uL (1.40-6.50); Neutrophils % (auto) 59.2 %; Platelet Count 265 K/uL (130-400); RDW Coefficient of Variation 13.7 % (11.5-14.5); RDW Standard Deviation 41.7 fL (36.4-46.3); Red Blood Count 3.63 M/uL (4.20-5.40); White Blood Count 3.28 K/ul (4.8-10.8)
[2024-04-14 08:02] LABS: Partial Thromboplastin Ratio 0.8; Partial Thromboplastin Time 22 Seconds (21-31); Prothrombin Time 10.5 Seconds (9.0-12.0)
[2024-04-14 08:08] LABS: BUN Creatinine Ratio 7.7 (10-20); Calcium 8.2 mg/dl (8.6-10.3); Creatinine Clr Calc Pharmacy 84.7 ml/min; Est GFR (African American) 119.1 ml/min; Est GFR (Non-African American) 102.8 ml/min; Potassium 3.7 mmol/L (3.5-5.1)
[2024-04-14 08:28] LABS: Albumin Globulin Ratio 1.8 (0.9-2); Albumin Level 3.9 gm/dl (3.4-5.0); Globulin 2.2 gm/dl (2.5-4.0); Total Protein 6.1 gm/dl (6.0-8.3)
--- OUTSIDE RECORDS SUMMARY | 2024-04-14 09:31 | External Medical Summary | Summary of Care ---
Author Name Unknown Organization [facility] Address [address] [facility] [address] Phone [phone] Care Team Providers Care Actuary Clerk Name Role Phone SherieHaylee lawson Primary Care Provider [phone] Reason for Visit * Reason Onset Date Comments Advice 04/13/2024 Encounter Details Date Type Department Care Team (Late st Contact Info) Description 04/13/2024 Telephone Hematology/Oncology [facility] [place] [address] [place] [address] Charlotte Ferreira MD [address] [place] [address] Advice Allergies No known active allergiesdocumented as of this encounter (statuses as of 04/13/2024) Medications Medication Sig Dispensed Refills Start Date End Date Status Loratadine 10 MG Oral Tablet (Claritin)Indicati ons:Viral URI with cough,Sensation of fullness in both ears Take 1 Tablet by mouth at bedtime. 07/08/2023 Active Ondansetron HCl 8 MG Oral TabletIndications: Breast carcinoma, female, left (HCC) Take 1 Tablet by mouth every 8 hours as needed for Nausea. 30 Tablet 02/19/2024 Active Prochlorperazine Maleate 10 MG Oral Tablet (Compazine)Indicat ions:Breast carcinoma, female, left (HCC) Take 1 Tablet by mouth every 6 hours as needed for Nausea. 30 Tablet 02/19/2024 Active Levothyroxine Sodium 50 MCG Oral Tablet (Levoxyl)Indicatio ns:Abnormal thyroid blood test TAKE 1 TABLET BY MOUTH EVERY DAY AT LEAST 30 MINUTES PRIOR TO BREAKFAST OR OTHER MEDICATIONS 90 Tablet 1 03/18/2024 Active Vitamin D3 1.25 MG (01911 UT) Oral CapsuleIndications :Vitamin D deficiency TAKE [...] mRNA, LNP-s, No Pre serve, 2-Dose Series ([employer]) 11/26/2020,11/05/2020 COVID-19, LNP-s, No Preserve , Yusef-sucrose, Ages 12+ ([employer]) 05/10/2022,07/25/2021 Seasonal Influenza Virus Vac cine, Unspecified [...] encounter Miscellaneous Notes * Telephone Encounter - Dorothea Abdi RN - 04/13/2024 6:03 PM EDT Scheduling: Please remove patient from schedule for 04/14. * Telephone Encounter - Sammy Schneider RN - 04/13/2024 4:39 PM EDT Pt has appointment with Family Practice, message sent to their MA. Spoke with Dr. Ferreira- would like to advise patient to go to the ER to have stat CT done d/t severely elevated liver enzymes. Dr. Quintero is sending patient to ER. documented in this encounter Plan of Treatment Upcoming Encounters Date Type Department Care Team (Late st Contact Info) Description 04/14/2024 1:00 PM EDT Hem/Onc Treatment Hematology/Oncology [address], [address] [phone] Sada, Chair 10 Hem On[address] [place] [address] 04/21/2024 8:00 AM EDT Laboratory Laboratory, [facility] 132 [facility] [phone] [facility] 132 [facility] [address] 04/22/2024 8:00 AM EDT Hem/Onc Treatment Hematology/Oncology [address] [phone] Sada, Chair 1 Hem Onc [address] [place] [address] 04/27/2024 9:00 AM EDT Laboratory Laboratory [facility] [address] [place] [address] Sada, Lab [address] [facility] [place] [address] 04/27/2024 9:30 AM EDT Office Visit Hematology/Oncology [facility] [place] 200 [facility] [place] [phone] Corina Dong CRNP [address] [place] [phone] 04/28/2024 8:00 AM EDT Hem/Onc Treatment Hematology/Oncology Treatment, [place] [address] [place] [address] Sada, Chair 5 Hem Onc Scenery [address] [place] [address] 07/10/2024 9:45 AM EST Office Visit General Surgery, [facility] [address] [place] [address] Renzo Rees MD [address] [place] [address] 07/14/2024 11:00 AM EST Telemedicine Genetics HemOnc, [facility] [address] [place] [phone] [place], [place] [address] [facility] [place] [phone] Scheduled Procedures Name Priority Associated Diagnoses Date/Ti [...] filedocumented as of this encounter Care Teams Actuary Clerk Relationship Specialty Start Date End Date Haylee Skinner DO [address] [place] [address] PCP - General Family Medicine 11/13/18 documented as of this encounter
--- OUTSIDE RECORDS SUMMARY | 2024-04-14 09:32 | External Medical Summary | Summary of Care ---
Author Name Unknown Organization [facility] Address [address] [facility] [address] Phone [phone] Care Team Providers Care Wallpaper Hanger Name Role Phone SherieHaylee lawson Primary Care Provider [phone] Reason for Visit * Reason Onset Date Comments Advice 04/13/2024 Encounter Details Date Type Department Care Team (Late st Contact Info) Description 04/13/2024 Telephone Hematology/Oncology [facility] Chinedu Tomlin [address] [place] [phone] Charlotte Ferreira MD [address] [place] [address] Advice Allergies No known active allergiesdocumented as [...] 1 03/18/2024 Active Vitamin D3 1.25 MG (77469 UT) Oral CapsuleIndications :Vitamin D deficiency TAKE [...] mRNA, LNP-s, No Pre serve, 2-Dose Series (Shared Spectrum) 11/26/2020,11/05/2020 COVID-19, LNP-s, No Preserve , Yusef-sucrose, Ages 12+ (Shared Spectrum) 05/10/2022,07/25/2021 Seasonal Influenza Virus Vac cine, Unspecified [...] 1:00 PM EDT Hem/Onc Treatment [facility]ematology[facility]cology [facility], [place] [address] [facility] [phone] Sada, Chair [address] [place] [address] 04/21/2024 8:00 AM EDT Laboratory Laboratory, [facility] [address] [facility] [place] [phone] [facility] [address] [facility] [place] [address] 04/22/2024 8:00 AM EDT [facility] [address] [facility] [phone] Sada, Chair 1 Hem Onc Scenery 200 [facility] [place] [address] 04/27/2024 9:00 AM EDT Laboratory Laboratory [facility] Sada [place] [address] [place] [phone] Sada Lab [facility] [address] [facility] [place] [address] 04/27/2024 9:30 AM EDT Office Visit Hematology/Oncology [facility] Sada [place] [address] [place] [phone] Corina Dong CRNP [address] [facility] [place] [address] 04/28/2024 8:00 AM EDT Hem/Onc Treatment Hematology/Oncology Treatment, [place] [address] [facility] [phone] Sada, Chair 5 Hem Onc Sc[address] [place] [address] 07/10/2024 9:45 AM EST Office Visit General Surgery, [facility] [address] [place] [address] Renzo Rees MD [address] [place] [address] 07/14/2024 11:00 AM EST Telemedicine Genetics HemOnc, [facility] [address] [place] [address] [place], [place] [address] [place] [id number] Scheduled Procedures Name Priority Associated Diagnoses Date/Ti [...] filedocumented as of this encounter Care Teams Wallpaper Hanger Relationship Specialty Start Date End Date Haylee Skinner DO [address] [place] [address] PCP - General Family Medicine 11/13/18 documented as of this encounter
--- OUTSIDE RECORDS SUMMARY | 2024-04-14 09:32 | External Medical Summary | Summary of Care ---
Author Name Unknown Organization [facility] Address [address] [facility] [address] Phone [phone] Care Team Providers Care Lead Painter Name Role Phone Brody Hayleeluis alberto Beck DO Primary Care Provider [phone] Reason for Visit * Reason Comments Acute Episodes of pain denzel t start upper mid abdomen and radiates to back x Saturday night. Encounter Details Date Type Department Care Team (Late st Contact Info) Description 04/13/2024 4:20 PM EDT Office Visit Family Practice [facility] [address] [facility] [place] [address] Emelina Quintero MD [address] [place] [address] Abdominal pain, epigastric*; Transaminitis Allergies No known active allergiesdocumented as of this encounter (statuses as of 04/13/2024) Medications Medication Sig Dispensed Refills Start Date End Date Status Loratadine 10 MG Oral Tablet (Claritin)Indica tions:Viral URI with cough,Sensation of fullness in both ears Take 1 Tablet by mouth at bedtime. 07/08/2023 Active Ondansetron HCl 8 MG Oral TabletIndication s:Breast carcinoma, female, left (HCC) Take 1 Tablet by mouth every 8 hours as needed for Nausea. 30 Tablet 02/19/2024 Active Prochlorperazine Maleate 10 MG Oral Tablet (Compazine)Indic [...] 1 03/18/2024 Active Vitamin D3 1.25 MG (60478 UT) Oral CapsuleIndicatio ns:Vitamin D deficiency TAKE 1 CAPSULE BY MOUTH ONCE WEEKLY 12 Capsule 03/26/2024 Active One-A-Day Womens VitaCraves Oral Tablet Chewable Take 1 Tablet by mouth daily. Active dexAMETHasone 4 MG Oral TabletIndication s:Breast carcinoma, female, left (HCC) 12 mg (3 tab) 12 and 6 hours before chemotherapy 42 Tablet 03/31/2024 Active Omeprazole 20 MG Oral Tablet Delayed Release Take 1 Tablet by mouth in the morning and 1 Tablet in the evening. 180 Tablet 3 10/14/2023 Discontinue d(Medicatio n List Clean Up) documented as of this encounter (statuses as [...] mRNA, LNP-s, No Pre serve, 2-Dose Series (AndroJek) 11/26/2020,11/05/2020 COVID-19, LNP-s, No Preserve , Yusef-sucrose, Ages 12+ (AndroJek) 05/10/2022,07/25/2021 Seasonal Influenza Virus Vac cine, Unspecified [...] Sign Reading Time Taken Comments Blood Pressure 134/82 04/13/2024 4:17 PM EDT Pulse 77 04/13/2024 4:17 PM EDT Temperature - - Respiratory Rate - - Oxygen Saturation 99% 04/13/2024 4:17 PM EDT Inhaled Oxygen Concentration - - Weight 60.9 kg (134 lb 3.2 oz) 04/13/2024 4:17 P M EDT Height - - Body Mass Index 24.15 02/19/2024 2:54 PM EDT documented in this encounter Progress Notes * Emelina Quintero MD - 04/13/2024 4:44 PM EDT Images from the original note were not included. History of Present Illness Tata Lombardi is a 49 year old female that presents for Acute (Episodes of pain that start upper midabdomen and radiates to back x Saturday night.) Currently undergoing chemotherapy for breast cancer. Most recent dose 04/07. Labs today show mildly decreased white blood cell count, no neutropenia. Marked increase in transaminases in the past week.AST greater than 700, ALT 697. Bilirubin 2.3 Patient with new onset bouts of epigastric pain that could be gallbladder or pancreatitis. Needs emergent workup. Current medications and allergies reviewed. Past medical history and problem list reviewed. Physical Exam Vitals: 04/13/24 1617 Pulse: 77 SpO2: 99% BP: 134/82 Physical Exam Vitals and nursing note reviewed. Constitutional: General: She is not in acute distress. Appearance: Normal appearance. Skin: Coloration: Skin is pale. Skin is not jaundiced. Neurological: Mental Status: She is alert. Psychiatric: Mood and Affect: Mood normal. Behavior: Behavior normal. I have reviewed the following results: CMP and CBC Assessment and Plan Abdominal pain, epigastric Transaminitis Patient needs stat imaging, likely IV antibiotics. She lives close by, will drive home, pack a bagand will go over to the emergency department at [facility] with her . Encouraged her to wear a mask while and a healthcare setting given her immune system and the currently high rates of COVID. Wrap-Up Time: I spent a total of 10-19 minutes (exact time 10 mins) on the date of service in preparation, delivery, and documentation of the care provided to Tata Lombardi excluding any time spent in the performance of separately billed services. documented in this encounter Plan of Treatment Upcoming Encounters Date Type Department Care Team (Late st Contact Info) Description 04/14/2024 1:00 PM EDT Hem/Onc Treatment Hematology/Oncology [facility] [place] [address] [facility] [phone] Sada, Chair [address] [facility] [place] [address] 04/21/2024 8:00 AM EDT Laboratory Laboratory, [facility] [address] [facility] [place] [phone] [facility] [address] [facility] [place] [address] 04/22/2024 8:00 AM EDT [facility] [phone] Sada, Chair 1 Hem Onc Scenery [address] [facility] [place] [address] 04/27/2024 9:00 AM EDT Laboratory Laboratory [facility] [place] [address] [facility] [place] [phone] Sada, Lab [facility] [place] [address] [facility] [place] [address] 04/27/2024 9:30 AM EDT Office Visit Hematology/Oncology [facility] [place] [address] [place] [phone] Corina Dong CRNP 400 [facility] [place] [phone] 04/28/2024 8:00 AM EDT Hem/Onc Treatment Hematology/Oncology Treatment, [place] [address] [facility] [phone] Sada, Chair [address] Hem On[address] [place] [address] 07/10/2024 9:45 AM EST Office Visit General Surgery, [facility] [address] [place] [address] Renzo Rees MD [address] [place] [address] 07/14/2024 11:00 AM EST Telemedicine Genetics HemOnc, [facility] [address] [place] [phone] [place], [place] [address] [place] [phone] Scheduled Procedures Name Priority Associated Diagnoses Date/Ti [...] as of this encounter Visit Diagnoses Diagnosis Abdominal pain, epigastric- Primary Transaminitis Nonspecific elevation of levels of transaminase or lactic acid dehydrogenase (LDH) documented in this encounter Care Teams Lead Painter Relationship Specialty Start Date End Date Haylee Skinner DO [address] [place] [address] PCP - General Family Medicine 11/13/18 documented as of this encounter
[2024-04-14 10:06] LABS: Bilirubin Direct 0.4 mg/dl (0-0.2)
--- NOTE | 2024-04-14 10:47 | Urology Consultation ---
Date of Consultation April 14, 2024 Assessment & Plan (1) Complex renal cyst: Plan 49 yo/F with a hx of breast cancer, currently undergoing chemo, admitted with elevated LFTs and cholelithiasis. She underwent MRCP and was incidentally noted to have a 5mm right renal lesion, possible complex cyst. Urology consulted for complex renal cyst. We reviewed her MRCP findings noting a 5mm lesion in the upper pole of the right kidney which may represent a complex cyst. We reviewed the difference between cyst and mass. We discussed contrasted renal imaging to further characterize the lesion which can be performed as an outpatient. Discussed small renal lesions and continued surveillance for any changes in size and/or complexities. No acute intervention warranted. Will arrange outpatient follow-up for further work-up and monitoring of the right renal lesion. Patient agreeable to plan, all questions were answered. Urology will sign off. Please call with any further questions/concerns. History of Present Illness Attending Physician: Robert Ruiz MD History of Present Illness 49 year old female who is currently undergoing treatment for breast cancer presented the emergency department at the recommendation of her outpatient physician due to elevated LFTs. She is admitted to medicine service with biliary colic and cholelithiasis. She underwent MRCP and was incidentally found to have 5 mm lesion noted in the upper pole of the right kidney which may represent a complex cyst, other possibilities could not be excluded on this non- contrast study. Urology was consulted for complex renal cyst. Chart review: Afebrile with stable vitals Labs (04/14/24): WBC 3.28, Hemoglobin 10.5, Creatinine 0.65. Urinalysis (04/13/24): Trace leukocytes otherwise negative for blood or signs of infection Pt was seen at bedside today. Awake, resting in bed on arrival. No acute distress. She denies prior urological history. Allergies Allergy/AdvReac Type Severity Reaction Status Date / Time No Known Allergies Allergy Unknown Verified 02/28/24 07:28 Home Medications Medication Instructions Recorded Confirmed Type levothyroxine 50 mcg tablet 50 mcg PO QAM 09/15/19 04/14/24 History ondansetron HCl 8 mg tablet 8 mg PO Q8H PRN Nausea And Vomiting 02/21/24 04/14/24 History prochlorperazine maleate 10 mg 10 mg PO Q6H PRN Nausea And 02/21/24 04/14/24 History tablet Vomiting Patient History Medical History Gallstone Nausea after anesthesia Limb alert care status left arm Breast cancer (2023) left History of COVID-19 (2019) Symptoms resolved GERD (gastroesophageal reflux disease) Hypothyroidism History of PCOS H/O dysfunctional uterine bleeding no current issues Surgical History History of partial mastectomy of left breast (01/20/24) 01/20/24; limb restriction History of esophagogastroduodenoscopy (EGD) Hx of colonoscopy H/O cervical polypectomy Family History Sister Ovarian cancer Onset age 20, recurrence in 30's. Granulosa Cell Tumor Mother Breast cancer, Onset Age: 64 Radiation Therapy Father Prostate cancer Brachytherapy Son No problems noted. Social History Smoking Status: Never smoker Second Hand Exposure: No; Do You Dip or Chew Tobacco: No; Tobacco Cessation Education Requested by Patient: No Hx Alcohol Use: No Hx Substance Use: No Preferred Language: Yoruba Communication Ability: Effective Visual Impairment: Limited Hearing Ability: Normal Brake Shoe Rebuilder Required: No Beliefs That Will Affect Care: None marital status: Current Living Situation: Spouse current occupational status: employed How many Children do You have: 1 Other Information That Helps Us Care for You: No Feels Safe at Home: Yes Safety Concerns: Feels Safe At This Time Childhood Exposure to Second-Hand Smoke: Yes Diet: regular caffeine: Yes during the past year weight has: remained stable Dental Care, Regularly: Yes Assistive Devices: None Review of Systems Review of Systems: All systems reviewed & are unremarkable except as noted in HPI & below Physical Exam Constitutional: no acute distress Respiratory: no respiratory distress and no labored breathing Musculoskeletal: Head/Neck/Chest: normocephalic Skin: No visible rashes or lesions to exposed skin areas Neurologic: moves all extremities and awake Psychiatric: A+Ox3, euthymic affect Results & Data Vital Signs (Past 12 Hours) Vital Signs Pulse Resp BP Pulse Ox O2 Del Method 04/14/24 08:28 68 15 115/81 96 Room Air 04/14/24 05:30 78 16 100/69 97 Room Air 04/14/24 04:30 62 17 97/66 L 97 Room Air 04/14/24 03:53 60 18 103/71 98 Room Air 04/14/24 02:41 Room Air 04/14/24 02:41 Room Air 04/14/24 02:41 67 18 108/73 98 Room Air 04/14/24 01:17 62 17 102/68 98 Room Air PG Care Time/CCT Total # of Minutes Spent Total Time Spent with Patient: Total time spent is greater than 50% in coordination of care (as documented) at patient's floor/unit and/or counseling patient: Coding Level of Care Code 24425 IN/OBS CONSULT LVL 3,45M Diagnoses Complex renal cyst N28.1
--- NOTE | 2024-04-14 11:25 | Gastrointestinal Consultation ---
Date of Consultation April 14, 2024 Assessment & Plan (1) Elevated LFTs: (2) Cholelithiasis: Plan Patient is a 49 year old female with a history of breast cancer, currently undergoing chemo, who presented to the ED for evaluation of elevated LFTs which is new for her. she did have recent episodes of what she would describe as gallbladder attacks. She has undergone both US and MRCP showing cholelithiasis but not choledocholithiasis was noted. no ductal dilation. Reviewed labs and imaging with patient. - LFTs have trended down this today. will continue to monitor. - surgery is following. would await their input on whether patient needs cholecystectomy. - will discuss case further with Dr. Jennings. further recommendations to follow. Supervising Physician Co-Signing Physician Notes I saw and examined this patient with our nurse practitioner and agree with her assessment and plan. Clinically improved pain resolved. Symptoms consistent with recurrent biliary colic. Elevated liver enzymes most likely related to either a passed stone or a Mirizzi syndrome due to the large gallbladder neck stone. Less likely a viral hepatitis. Contacted oncology at [facility] who feel it is okay to proceed with any endoscopic or surgical intervention for gallbladder disease. Based on her MRI is likely to have a retained common duct stone at this point. Could consider intraoperative cholangiogram at time of cholecystectomy planned for this admission. History of Present Illness Reason for Consultation: abnormal LFTs Requesting Physician: Sandor Arnold MD Attending Physician: Robert Ruiz MD History of Present Illness Patient is a 49 year old female who presented the emergency department at the recommendation of her outpatient physicians. Patient currently is undergoing treatment for breast cancer that was diagnosed in November 2023. She has been doing chemo with plans for radiation. Patient states that she has had 6 cycles of chemotherapy with her most recent treatment being 1 week ago. As part of the patient's chemotherapy regimen she was having routine blood work checked at selected intervals and she was told that her LFTs were elevated prompting ED evaluation. Patient tells me that at no time prior to this did she have elevated LFTs. no known family history of liver disease. Patient tells me she has known she has had gallstones for several years. She admits that this past weekend she was having what she was describing as "gallbladder attacks". she would get RUQ pain that would radiate into her back and associated with nausea after she would eat. she endorses occasional heartburn, but this is controlled with omeprazole as an outpatient. Patient denies any current issues with acholic stools, dark urine, itching, jaundice, dysphagia, change in bowels, melena, or bright red blood per rectum. 04/13/24 T bili 2.1, AST 1171, ALT 1189, Alk phos 143, lipase 62. 04/14/24 T bili 1, d bili 0.4, AST 520, ALT 933, Alk phos 123. Allergies Allergy/AdvReac Type Severity Reaction Status Date / Time No Known Allergies Allergy Unknown Verified 02/28/24 07:28 Home Medications Medication Instructions Recorded Confirmed Type levothyroxine 50 mcg tablet 50 mcg PO QAM 09/15/19 04/14/24 History ondansetron HCl 8 mg tablet 8 mg PO Q8H PRN Nausea And Vomiting 02/21/24 04/14/24 History prochlorperazine maleate 10 mg 10 mg PO Q6H PRN Nausea And 02/21/24 04/14/24 History tablet Vomiting Patient History Medical History Gallstone Nausea after anesthesia Limb alert care status left arm Breast cancer (2023) left History of COVID-19 (2019) Symptoms resolved GERD (gastroesophageal reflux disease) Hypothyroidism History of PCOS H/O dysfunctional uterine bleeding no current issues Surgical History History of partial mastectomy of left breast (01/20/24) 01/20/24; limb restriction History of esophagogastroduodenoscopy (EGD) Hx of colonoscopy H/O cervical polypectomy Family History Sister Ovarian cancer Onset age 20, recurrence in 30's. Granulosa Cell Tumor Mother Breast cancer, Onset Age: 64 Radiation Therapy Father Prostate cancer Brachytherapy Son No problems noted. Social History Smoking Status: Never smoker Second Hand Exposure: No; Do You Dip or Chew Tobacco: No; Tobacco Cessation Education Requested by Patient: No Hx Alcohol Use: No Hx Substance Use: No Preferred Language: Chadian Communication Ability: Effective Visual Impairment: Limited Hearing Ability: Normal Crossing Supervisor Required: No Beliefs That Will Affect Care: None marital status: Current Living Situation: Spouse current occupational status: employed How many Children do You have: 1 Other Information That Helps Us Care for You: No Feels Safe at Home: Yes Safety Concerns: Feels Safe At This Time Childhood Exposure to Second-Hand Smoke: Yes Diet: regular caffeine: Yes during the past year weight has: remained stable Dental Care, Regularly: Yes Assistive Devices: None Review of Systems Review of Systems: All systems reviewed & are unremarkable except as noted in HPI & below Physical Exam Constitutional: WD/WN, vitals as above Respiratory: normal respiratory effort, lungs clear to auscultation Cardiovascular: Rate/Rhythm: regular rate and regular rhythm Gastrointestinal (Abdomen): normal bowel sounds, soft, nontender, no hepatosplenomegaly Psychiatric: Orientation: alert and oriented x 3 Affect: euthymic affect Results & Data Vital Signs (Past 12 Hours) Vital Signs Pulse Resp BP Pulse Ox O2 Del Method 04/14/24 08:28 68 15 115/81 96 Room Air 04/14/24 05:30 78 16 100/69 97 Room Air 04/14/24 04:30 62 17 97/66 L 97 Room Air 04/14/24 03:53 60 18 103/71 98 Room Air 04/14/24 02:41 Room Air 04/14/24 02:41 Room Air 04/14/24 02:41 67 18 108/73 98 Room Air 04/14/24 01:17 62 17 102/68 98 Room Air Laboratory Results Laboratory Results - last 48 hr 04/13/24 04/13/24 04/14/24 19:15 20:25 07:07 WBC 2.96 L 3.28 L RBC 4.12 L 3.63 L Hgb 11.9 L 10.5 L Hct 34.8 L 30.9 L MCV 84.5 85.1 MCH 28.9 28.9 MCHC 34.2 34.0 RDW Std Deviation 41.1 41.7 RDW Coeff of Lauri 13.5 13.7 Plt Count 311 265 MPV 9.5 9.6 Immature Gran % (Auto) 1.4 2.1 Neut % (Auto) 57.0 59.2 Lymph % (Auto) 34.5 32.0 Coosa % (Auto) 4.7 5.2 Eos % (Auto) 0.7 0.9 Baso % (Auto) 1.7 0.6 Neut # (Auto) 1.69 1.94 Lymph # (Auto) 1.02 L 1.05 L [place] # (Auto) 0.14 0.17 Eos # (Auto) 0.02 0.03 Baso # (Auto) 0.05 0.02 Immature Gran # (Auto) 0.04 0.07 PT 10.5 INR 1.0 APTT 22 PTT Ratio 0.8 Sodium 136 139 Potassium 4.0 3.7 Chloride 106 110 H Carbon Dioxide 24 23 Anion Gap 6 6 BUN 6 5 L Creatinine 0.66 0.65 Est Cr Clr Drug Dosing 83.4 84.7 Est GFR ( Amer) 118.5 119.1 Est GFR (Non-Af Amer) 102.3 102.8 BUN/Creatinine Ratio 9.1 L 7.7 L Glucose 95 84 Calcium 9.1 8.2 L Total Bilirubin 2.1 H 1.0 D Direct Bilirubin 0.4 H AST 1171 H 520 H ALT 1189 H 933 H Alkaline Phosphatase 143 H 123 H Total Protein 7.1 6.1 Albumin 4.6 3.9 Globulin 2.5 2.2 L Albumin/Globulin Ratio 1.8 1.8 Lipase 62 HCG, Qual Negative Urine Color Dark Yellow Urine Appearance Clear Urine pH 5.5 Ur Specific [place] 1.014 Urine Protein Negative Urine Glucose (UA) Negative Urine Ketones Negative Urine Blood Negative Urine Nitrite Negative Urine Bilirubin 1+ H Urine Urobilinogen Negative Ur Leukocyte Esterase Trace H Urine WBC (Auto) 0-5 Urine RBC (Auto) 0-2 U Hyaline Cast (Auto) 0-2 U Epithel Cells (Auto) 0-2 Urine Bacteria (Auto) None Seen Diagnostic Findings MRI MRCP EXAM: MR Abdomen Without Intravenous Contrast, MRCP Protocol CLINICAL HISTORY: Reason for exam: transaminitis. TECHNIQUE: Multiplanar magnetic resonance images of the abdomen without intravenous contrast using MRCP protocol. COMPARISON: No relevant prior studies available. FINDINGS: Bile ducts:. The common bile duct measured 5 mm. No filling defect is noted.. Gallbladder: There is a 2 cm filling defect noted within the gallbladder.. Liver: The liver is of diffuse signal abnormality. Pancreas: No ductal dilation. Spleen: No splenomegaly. Adrenals: No mass. Kidneys and ureters: No hydronephrosis. There is a 5 mm rounded lesion noted in the upper pole of the right kidney. Stomach and bowel: There are some air and fluid within the stomach. There is air and stool noted in the colon.. IMPRESSION: Cholelithiasis. No ductal dilatation is noted. The liver is of diffuse signal abnormality which may be due to fatty infiltration and/or hepatocellular disease. There is a 5 mm lesion noted in the upper pole of the right kidney which may represent a complex cyst. Other possibilities cannot be excluded on this non-contrast study.. Electronically signed by: Quentin Kurtz MD 04/13/24 23:59 PM US GALLBLADDER EXAM: US Abdomen Limited, Gallbladder CLINICAL HISTORY: Reason for exam: RUQ pain, transaminitis. TECHNIQUE: Real-time ultrasound of the right upper quadrant with image documentation. COMPARISON: No relevant prior studies available. FINDINGS: Gallbladder: The gallbladder is distended containing a 2.4 cm calculus. It also contained some sludge. Gallbladder wall measured 2 mm. A negative Maidson sign was reported.. Common bile duct: Unremarkable as visualized. No stones. The common bile duct measured 5 mm. Pancreas: The pancreas is limitedly visualized. The visualized portions are unremarkable. Liver: The liver is of increased echogenicity. Right kidney: No evidence of calculi or hydronephrosis. IMPRESSION: The gallbladder is distended containing a 2.4 cm calculus. It also contained some sludge. Liver is of increased echogenicity which may be due to fatty infiltration and/or hepatocellular disease. Electronically signed by: Quentin Kurtz MD 04/13/24 23:24 PM Coding Level of Care Code 51672 IN/OBS CONSULT LVL 4,60M Diagnoses Elevated LFTs R79.89 Cholelithiasis K80.20 Biliary obstruction: without biliary obstruction Cholecystitis presence: without cholecystitis Cholelithiasis location: gallbladder (2) Cholelithiasis Biliary obstruction: without biliary obstruction Cholecystitis presence: without cholecystitis Cholelithiasis location: gallbladder Qualified Code(s): K80.20 - Calculus of gallbladder without cholecystitis without obstruction
--- OUTSIDE RECORDS SUMMARY | 2024-04-14 13:45 | External Medical Summary | Summary of Care ---
Author Name Unknown Organization [facility] Address [address] [facility] [address] Phone [phone] Care Team Providers Care Cloth Tearer Name Role Phone SherieHaylee lawson Primary Care Provider [phone] Reason for Visit * Reason Onset Date Comments Advice 04/13/2024 Encounter Details Date Type Department Care Team (Late st Contact Info) Description 04/13/2024 Telephone Hematology/Oncology [facility] Chinedu Tomlin [address] [place] [phone] Charlotte Ferreira MD [address] [place] [address] Advice Allergies No known active allergiesdocumented as of this encounter (statuses as of 04/14/2024) Medications Medication Sig Dispensed Refills Start Date [...] 1 03/18/2024 Active Vitamin D3 1.25 MG (13685 UT) Oral CapsuleIndications :Vitamin D deficiency TAKE 1 CAPSULE BY MOUTH ONCE WEEKLY 12 Capsule 03/26/2024 Active One-A-Day Womens VitaCraves Oral Tablet Chewable Take 1 Tablet by mouth daily. Active dexAMETHasone 4 MG Oral TabletIndications: Breast carcinoma, female, left (HCC) 12 mg (3 tab) 12 and 6 hours before chemotherapy 42 Tablet 03/31/2024 Active documented as of this encounter (statuses as of 04/14/2024) Active Problems Problem Noted Date Diagnosed Date Encounter for antineoplastic chemotherapy 2023 Breast carcinoma, female, left 02/19/2024 PND (post-nasal drip) 11/15/2021 Acquired hypothyroidism 02/25/2021 Polycystic ovaries 12/30/2001 documented as of this encounter (statuses as of 04/14/2024) Resolved Problems Problem Noted Date Diagnosed Date Resolved Date Throat irritation 11/15/2021 06/12/2023 COVID-19 virus infection 08/09/2020 documented as of this encounter (statuses as of 04/14/2024) Immunizations Name Administration Dates Next Due COVID-19 mRNA, LNP-s, No Pre serve, 2-Dose Series ([employer]) 11/26/2020,11/05/2020 COVID-19, LNP-s, No Preserve , Yusef-sucrose, Ages 12+ ([employer]) 05/10/2022,07/25/2021 Seasonal Influenza Virus Vac cine, Unspecified [...] encounter Miscellaneous Notes * Telephone Encounter - Cecilia Mckeon OSA - 04/14/2024 7:40 AM EDT Canceled apt per note below * Telephone Encounter - Dorothea Abdi RN [...] Care Team (Late st Contact Info) Description 04/21/2024 8:00 AM EDT Laboratory Laboratory, [facility] [address] [facility] [place] [phone] [facility] [address] [place] [address] 04/22/2024 8:00 AM EDT Hem/Onc Treatment Hematology/Oncology Treatment, [place] [address] [facility] [phone] Sada, Chair 1 Hem Onc [address] [place] [address] 04/27/2024 9:00 AM EDT Laboratory Laboratory [facility] [place] 200 [facility] [place] [address] Sada, Lab [facility] [address] [facility] [place] [address] 04/27/2024 9:30 AM EDT Office Visit Hematology/Oncology [facility] [place] 200 [facility] [place] [phone] Corina Dong CRNP [address] [facility] [place] [address] 04/28/2024 8:00 AM EDT Hem/Onc Treatment Hematology/Oncology Treatment, [place] [address] [place] [phone] Sada, Chair 5 Hem Onc [address] [place] [address] 07/10/2024 9:45 AM EST Office Visit General Surgery, [facility] [address] [place] [address] Renzo Rees MD [address] [place] [address] 07/14/2024 11:00 AM EST Telemedicine Genetics HemOnc, [facility] [address] [place] [address] [place], [place] [address] [facility] [place] [address] Scheduled Procedures Name Priority Associated Diagnoses Date/Ti [...] 05/19/2026 Lipid Panel 01/08/2029 01/09/2024, 12/2018, 09/15/2011 DTap/Tdap Vaccines (3 - Td or Tdap) 11/23/2031 [...] filedocumented as of this encounter Care Teams Cloth Tearer Relationship Specialty Start Date End Date Haylee Skinner DO [address] [place] [address] PCP - General Family Medicine 11/13/18 documented as of this encounter
[2024-04-14] MEDS: ADVANCED PROBIOTIC 625 MG CAPSULE PO SCH (18:22)
[2024-04-14] MEDS: PIPERACILLIN/TAZOBACTAM 4.5 GM/100 ML BAG IV SCH (18:44)
--- NOTE | 2024-04-14 18:48 | Hospitalist Progress Note ---
Date of Service April 14, 2024 Assessment & Plan (1) Biliary colic: Plan: Cholelithiasis Gallbladder ultrasound: The gallbladder is distended containing a 2.4 cm calculus. It also contained some sludge. Liver is of increased echogenicity which may be due to fatty infiltration and/or hepatocellular disease. MRCP: No CBD obstruction noted LFTs improving General Surgery, GI consulted Planning for possible cholecystectomy tomorrow Start IV Zosyn in light of immunocompromise state from ongoing chemotherapy for breast cancer IV fluids Hypothyroidism, euthyroid as of recent outpatient TSH Left breast cancer status post surgery ongoing chemotherapy Incidental finding of complex renal cyst on imaging -- Urology service consulted chronic anemia, hemoglobin at baseline -- Anemia panel ordered for tomorrow DVT prophylaxis. SCDs Full code Disposition Anticipate return home when medically stable Admission and Anticipated Discharge Date Admission Date: April 14, 2024 Subjective Follow-up for abdominal pain, gallbladder stone, etc. Seen resting in bed, sitting up, not in distress, in good spirits States abdominal pain seems to be improving Tolerating clear liquids so far, no nausea/vomiting, fevers or chills No other new symptom Review of Systems Review of Systems: all noted and negative except for above Physical Exam Physical Exam: General- oriented x 3, not in distress, speaks in sentences with no effort or accessory muscle use Eyes- anicteric Neck- no JVD Lungs- clear breath sounds bilaterally, no rales/wheezes Heart- normal rate, regular rhythm; no murmurs Abdomen- normal bowel sounds, nondistended, soft, nontender Extremities- no pretibial edema, no calf tenderness Neuro- alert, oriented x 3; no gross focal neurologic deficits Skin- warm & dry Results & Data Results & Data Vital Signs (Past 12 Hours) Vital Signs Temp Pulse Resp BP Pulse Ox O2 Del Method 04/14/24 15:24 36.6 C 77 16 114/73 97 Room Air 04/14/24 08:28 68 15 115/81 96 Room Air all noted and reviewed including below
[2024-04-14] MEDS: NSS + 20MEQ KCL 20 MEQ/1,000 ML BAG IV SCH (19:36)
--- OUTSIDE RECORDS SUMMARY | 2024-04-14 22:56 | External Medical Summary | Summary of Care ---
Author Name Unknown Organization [facility] Address [address] [facility] [address] Phone [phone] Care Team Providers Care Glass Tube Bender Name Role Phone SherieHaylee lawson Primary Care Provider [phone] Reason for Visit * Reason Onset Date Comments Advice 04/13/2024 Encounter Details Date Type Department Care Team (Late st Contact Info) Description 04/13/2024 Telephone Hematology/Oncology [facility] Kristy Tomlin [address] [place] [phone] Charlotte Ferreira MD [address] [place] [address] Advice Allergies No known active allergiesdocumented as [...] 1 03/18/2024 Active Vitamin D3 1.25 MG (00991 UT) Oral CapsuleIndications :Vitamin D deficiency TAKE [...] mRNA, LNP-s, No Pre serve, 2-Dose Series ([employer]) 11/26/2020,11/05/2020 COVID-19, LNP-s, No Preserve , Yusef-sucrose, Ages 12+ ([employer]) 05/10/2022,07/25/2021 Seasonal Influenza Virus Vac cine, [...] Encounter - Cecilia Mckeon OSA - 04/14/2024 9:37 AM EDT Spoke to her and confirmed apts and times and she did not want the other time that was suyapa and was ok with the appt time that was org scheduled for the 8 am * Telephone Encounter - Estelita [place] OSA - 04/14/2024 9:17 AM EDT Patient returned call from Cecilia regarding her 04/22 & 04/23 appointments. She asked if her treatment on 04/23 could be rescheduled to a later time. Please contact pt at [phone]. Thank you. * Telephone Encounter - Sammy Schneider RN - 04/14/2024 8:32 AM EDT Pt currently under surgical observation at [facility] pending results of MRCP. Liver enzymes elevated, MRCP report reviewed with Dr. Ferreira. Spoke with scheduling to place on schedule with Dr. Ferreira on 04/22 prior to her next treatment. They are aware * Telephone Encounter - Cecilia Mckeon OSA [...] Care Team (Late st Contact Info) Description 04/22/2024 8:00 AM EDT Laboratory Laboratory [facility] [place] [address] [place] [phone] Sada, Lab [address] [place] [address] 04/22/2024 8:30 AM EDT Office Visit Hematology/Oncology [facility] [place] [address] [place] [phone] Charlotte Ferreira MD [address] [place] [address] 04/23/2024 8:00 AM EDT Hem/Onc Treatment Hematology/Oncology [facility] [address] [facility] [phone] Sada, Chair 1 Hem Onc [address] [place] [address] 04/27/2024 9:00 AM EDT Laboratory Laboratory [facility] Sada [place] [address] [place] [phone] Sada, Lab [address] [facility] [place], [place] [address] 04/27/2024 9:30 AM EDT Office Visit Hematology/Oncology [facility] [place] [address] [place] [phone] Corina Dong CRNP [address] [facility] [place] [address] 04/28/2024 8:00 AM EDT Hem/Onc Treatment Hematology/Oncology Treatment, [place] [address] [facility] [phone] Sada, Chair 5 Hem Onc [address] [place] [address] 07/10/2024 9:45 AM EST Office Visit General Surgery, [facility] [address] [place] [address] Renzo Rees MD [address] [place] [address] 07/14/2024 11:00 AM EST Telemedicine Genetics HemOnc, [facility] [address] [place] [address] [place], [place] [address] [place] [address] Scheduled Procedures Name Priority Associated Diagnoses Date/Ti [...] Lipid Panel 01/08/2029 01/09/2024, 04/0 12/2018, 09/15/2011 DTap/Tdap Vaccines (3 - Td [...] filedocumented as of this encounter Care Teams Glass Tube Bender Relationship Specialty Start Date End Date Haylee Skinner DO [address] [place] [address] PCP - General Family Medicine 11/13/18 documented as of this encounter
--- OUTSIDE RECORDS SUMMARY | 2024-04-14 22:56 | External Medical Summary | Summary of Care ---
Author Name Unknown Organization [facility] Address [address] [facility] [address] Phone [phone] Care Team Providers Care Recycler Name Role Phone SherieHaylee lawson Primary Care Provider [phone] Reason for Visit * Reason Onset Date Comments Advice 04/13/2024 Encounter Details Date Type Department Care Team (Late st Contact Info) Description 04/13/2024 Telephone Hematology/Oncology [facility] Chinedu Tomlin [address] [place] [phone] Charlotte Ferreira MD [address] [place] [address] Advice Allergies No known active allergiesdocumented as [...] 1 03/18/2024 Active Vitamin D3 1.25 MG (04342 UT) Oral CapsuleIndications :Vitamin D deficiency TAKE [...] mRNA, LNP-s, No Pre serve, 2-Dose Series ([email or web address]) 11/26/2020,11/05/2020 COVID-19, LNP-s, No Preserve , Yusef-sucrose, Ages 12+ ([email or web address]) 05/10/2022,07/25/2021 Seasonal Influenza Virus Vac cine, Unspecified [...] encounter Miscellaneous Notes * Telephone Encounter - Estelita [place] OSA - 04/14/2024 9:17 AM EDT Patient returned call from Cecilia regarding her 04/22 & 04/23 appointments. She asked if her treatment on 04/23 could be rescheduled to a later time. Please contact pt at [phone]. Thank you. * Telephone Encounter - Sammy Schneider RN - 04/14/2024 8:32 AM EDT Pt currently under surgical observation at [facility] pending results of MRCP. Liver enzymes [...] Description 04/22/2024 8:00 AM EDT Laboratory Laboratory [place] [address] [place] [phone] Ian Tomlin [address] [place] [address] 04/22/2024 8:30 AM EDT Office Visit Hematology/Oncology [place] [address] [place] [phone] Charlotte Ferreira MD [address] [place] [address] 04/23/2024 8:00 AM EDT Hem/Onc Treatment Hematology/Oncology [facility] [address] [facility] [phone] Sada, Chair 1 Hem Onc [place] 200 [facility] [place] [address] 04/27/2024 9:00 AM EDT Laboratory Laboratory [facility] [place] [address] [place] [phone] Sada, Lab [facility] 200 [facility] [place] [address] 04/27/2024 9:30 AM EDT Office Visit [facility]ology[facility] [address] [place] [phone] Corina Dong CRNP [address] [facility] [id number] 04/28/2024 8:00 AM EDT Hem/Onc Treatment [facility]cology [facility] [address] [facility] [phone] Sada, Chair 5 Hem Onc [facility] 200 [facility] [place] [address] 07/10/2024 9:45 AM EST Office Visit General Surgery, [facility] [address] [place] [address] Renzo Rees MD [address] [place] [address] 07/14/2024 11:00 AM EST Telemedicine Genetics HemOnc, [facility] [address] [facility] [place] [address] [place], [place] [address] [facility] [place] [address] Scheduled Procedures Name Priority Associated Diagnoses Date/Ti me MASTECTOMY PARTIAL Infiltrating ductal carcinoma of breast, left (HCC) EXCISION OF BREAST LESION RADIOLOGICAL MARKER Infiltrating ductal carcinoma of breast, left (HCC) BIOPSY LYMPH NODE DEEP AXILL RBOERTA OPEN Infiltrating ductal carcinoma of breast, left [...] filedocumented as of this encounter Care Teams Recycler Relationship Specialty Start Date End Date Haylee Skinner DO [address] [place] [address] PCP - General Family Medicine 11/13/18 documented as of this encounter
--- OUTSIDE RECORDS SUMMARY | 2024-04-14 22:56 | External Medical Summary | Summary of Care ---
Author Name Unknown Organization [facility] Address [address] [facility] [address] Phone [phone] Care Team Providers Care Floor Person Name Role Phone SherieHaylee lawson Primary Care Provider [phone] Reason for Visit * Reason Onset Date Comments Advice 04/13/2024 Encounter Details Date Type Department Care Team (Late st Contact Info) Description 04/13/2024 Telephone Hematology/Oncology [facility] Chinedu Tomlin [address] [place] [phone] Charlotte Ferreira MD [address] [place] [address] Advice Allergies No known active allergiesdocumented as [...] 1 03/18/2024 Active Vitamin D3 1.25 MG (81642 UT) Oral CapsuleIndications :Vitamin D deficiency TAKE [...] mRNA, LNP-s, No Pre serve, 2-Dose Series ([place]) 11/26/2020,11/05/2020 COVID-19, LNP-s, No Preserve , Yusef-sucrose, Ages 12+ ([place]) 05/10/2022,07/25/2021 Seasonal Influenza Virus Vac cine, Unspecified [...] EDT Pt currently under surgical observation at [facility] pending results of MRCP. Liver enzymes [...] Description 04/21/2024 8:00 AM EDT Laboratory Laboratory, [facility] [address] [facility] [place] [phone] [facility] [address] [facility] [place] [address] 04/22/2024 8:00 AM EDT Hem/Onc Treatment Hematology/Oncology Treatment, [place] [address] [place] [address] Sada, Chair 1 Hem Onc [facility] [address] [facility] [place] [address] 04/27/2024 9:00 AM EDT Laboratory Laboratory [facility] [place] [address] [place] [phone] Ian [place] [address] [place] [address] 04/27/2024 9:30 AM EDT Office Visit Hematology/Oncology [facility] [place] [address] [place] [phone] Corina Dong CRNP [address] [place] [address] 04/28/2024 8:00 AM EDT Hem/Onc Treatment Hematology/Oncology Treatment, [place] [address] [place], [place] [phone] Sada, Chair 5 Hem Onc [facility] [address] [facility] [place] [address] 07/10/2024 9:45 AM EST Office Visit General Surgery, [facility] [address] [facility] [place] [address] Renzo Rees MD [address] [facility] [address] 07/14/2024 11:00 AM EST Telemedicine Genetics HemOnc, [facility] [address] [place] [address] [place], [place] [address] [facility] [place] [address] Scheduled Procedures Name Priority Associated Diagnoses Date/Ti [...] Blood Test 2018 Sigmoidoscopy 2018 COVID-19 Vaccine (2022-24 season) 2023 05/10/2022, 05/10/2022, 07/25/2021, Additional history [...] filedocumented as of this encounter Care Teams Floor Person Relationship Specialty Start Date End Date Haylee Skinner DO [address] [place] [address] PCP - General Family Medicine 11/13/18 documented as of this encounter
[2024-04-15] MEDS ORDERED: MIDAZOLAM HCL 1 MG/ML 2ML VIAL ONE (07:06)
[2024-04-15] MEDS ORDERED: fentaNYL citrate PF 100 MCG/2 ML VIAL ONE ×2 (07:06→10:48)
[2024-04-15] MEDS ORDERED: PROPOFOL IV EMULSION 10 MG/ML 20 ML VIAL IV ONE ×2 (07:13→10:51)
[2024-04-15] MEDS ORDERED: ROCURONIUM BROMIDE 10 MG/ML 5 ML VIAL IV ONE (07:13)
[2024-04-15] MEDS ORDERED: GLYCOPYRROLATE 0.2 MG/ML VIAL ONE ×2 (07:13→10:59)
[2024-04-15] MEDS ORDERED: ONDANSETRON INJ 2 MG/ML 2 ML VIAL ONE (07:13)
[2024-04-15] MEDS ORDERED: LIDOCAINE 2% 2 ML VIAL/AMP(20MG/ML) INFIL ONE (07:13)
[2024-04-15] MEDS ORDERED: diphenhydrAMINE 50 MG/ML VIAL ONE (07:13)
[2024-04-15] MEDS ORDERED: DEXAMETHASONE SOD INJ 4 MG/ML VIAL ONE (07:13)
[2024-04-15 08:05] LABS: Basophils # (auto) 0.04 K/uL (0.00-0.20); Basophils % (auto) 1.1 %; Eosinophils # (auto) 0.04 K/uL (0.00-0.50); Eosinophils % (auto) 1.1 %; Immature Granulocytes # (auto) 0.11 K/uL (0.01-0.20); Immature Granulocytes % (auto) 3.2 %; Lymphocytes % (auto) 31.6 %; Mean Corpuscular Hemoglobin 28.9 pg (25.0-34.0); Mean Corpuscular Hgb Conc 34.4 g/dL (32.0-36.0); Mean Platelet Volume 9.2 fL (9.4-12.4); Monocytes # (auto) 0.26 K/uL (0.11-0.59); Monocytes % (auto) 7.5 %; Neutrophils # (auto) 1.93 K/uL (1.40-6.50); Neutrophils % (auto) 55.5 %; Platelet Count 311 K/uL (130-400); RDW Coefficient of Variation 13.9 % (11.5-14.5); RDW Standard Deviation 41.3 fL (36.4-46.3); Red Blood Count 3.81 M/uL (4.20-5.40); White Blood Count 3.48 K/ul (4.8-10.8)
[2024-04-15 08:17] LABS: BUN Creatinine Ratio 7.1 (10-20); Calcium 8.4 mg/dl (8.6-10.3); Creatinine Clr Calc Pharmacy 78.7 ml/min; Est GFR (African American) 116.3 ml/min; Est GFR (Non-African American) 100.3 ml/min; Potassium 3.6 mmol/L (3.5-5.1)
[2024-04-15 08:34] LABS: Ferritin 274.2 ng/ml (8-388)
[2024-04-15 08:39] LABS: Albumin Globulin Ratio 1.7 (0.9-2); Bilirubin Direct 0.3 mg/dl (0-0.2); Bilirubin,Total 0.9 mg/dl (0.2-1.0); Globulin 2.4 gm/dl (2.5-4.0); Total Protein 6.4 gm/dl (6.0-8.3)
[2024-04-15 08:45] LABS: Folate (Folic Acid),Ser orPlas 22.08 ng/ml (>5.38)
--- NOTE | 2024-04-15 08:52 | Surgery Progress Note ---
Date of Service April 15, 2024 Assessment & Plan (1) Cholelithiasis: Plan: Cholelithiasis and transaminitis in setting of treatment for breast cancer, MRCP showed no filling defect, labs downtrending. GI spoke with oncology and they stated it was okay to proceed with surgery. plan for robotic assisted laparoscopic cholecystectomy with possible cholangiogram risks discussed to include but not limited to bleeding, infection, retained stone, bile leak, open surgery, damage to surrounding structures including bile duct, need for future or more extensive surgery, failure to treat symptoms, and risks of anesthesia. Potential discharge tomorrow, repeat labs in a.m. (2) Elevated LFTs: (3) Malignant neoplasm of central portion of left breast in female, estrogen receptor positive: Admission and Anticipated Discharge Date Admission Date: April 14, 2024 Subjective Cholelithiasis and transaminitis in setting of treatment for breast cancer. No issues overnight. Physical Exam Constitutional: WD/WN, vitals as above Respiratory: normal respiratory effort, lungs clear to auscultation Cardiovascular: RRR, no murmur, no edema Gastrointestinal (Abdomen): normal bowel sounds, soft, nontender, no hepatosplenomegaly Results & Data Vital Signs (Past 12 Hours) Vital Signs Temp Pulse Resp BP Pulse Ox O2 Del Method 04/15/24 08:06 36.4 C L 78 16 112/73 96 Room Air 04/14/24 21:41 36.4 C L 68 16 114/77 98 Room Air Laboratory Results Laboratory Results - last 24 hr 04/14/24 04/14/24 04/15/24 07:07 15:33 07:24 WBC 3.48 L RBC 3.81 L Hgb 11.0 L Hct 32.0 L MCV 84.0 MCH 28.9 MCHC 34.4 RDW Std Deviation 41.3 RDW Coeff of Lauri 13.9 Plt Count 311 MPV 9.2 L Immature Gran % (Auto) 3.2 Neut % (Auto) 55.5 Lymph % (Auto) 31.6 [place] % (Auto) 7.5 Eos % (Auto) 1.1 Baso % (Auto) 1.1 Neut # (Auto) 1.93 Lymph # (Auto) 1.10 L [place] # (Auto) 0.26 Eos # (Auto) 0.04 Baso # (Auto) 0.04 Immature Gran # (Auto) 0.11 Sodium 139 Potassium 3.6 Chloride 108 H Carbon Dioxide 25 Anion Gap 6 BUN 5 L Creatinine 0.70 Est Cr Clr Drug Dosing 78.7 Est GFR ( Amer) 116.3 Est GFR (Non-Af Amer) 100.3 BUN/Creatinine Ratio 7.1 L Glucose 94 Calcium 8.4 L Iron 44 Transferrin 219 Ferritin 274.2 Total Bilirubin 0.9 Direct Bilirubin 0.4 H 0.3 H AST 203 H ALT Pending Alkaline Phosphatase 121 H Total Protein 6.4 Albumin 4.0 Globulin 2.4 L Albumin/Globulin Ratio 1.7 Lipase 37 Vitamin B12 659 Folate 22.08 Hepatitis A IgM Ab Pending Hep Bs Antigen Pending Hep B Core IgM Ab Pending Hepatitis C Antibody Pending PG Care Time/CCT Total # of Minutes Spent Total Time Spent with Patient: Total time spent is greater than 50% in coordination of care (as documented) at patient's floor/unit and/or counseling patient: Coding Level of Care Code 23568 SUB INP/OBS CARE MIN Diagnoses Cholelithiasis K80.20 Biliary obstruction: without biliary obstruction Cholecystitis presence: without cholecystitis Cholelithiasis location: gallbladder Elevated LFTs R79.89 Malignant neoplasm of central portion of left breast in female, estrogen receptor positive C50.112; Z17.0 (1) Cholelithiasis Biliary obstruction: without biliary obstruction Cholecystitis presence: without cholecystitis Cholelithiasis location: gallbladder Qualified Code(s): K80.20 - Calculus of gallbladder without cholecystitis without obstruction
[2024-04-15] MEDS ORDERED: HYDROmorphone INJ 1 MG/ML SYRINGE IV PRN (08:57)
[2024-04-15] MEDS ORDERED: PROMETHAZINE HCL 6.25 MG in SODIUM CHLORIDE 0.9% 50 ML IV PRN (08:57)
[2024-04-15] MEDS ORDERED: ONDANSETRON INJ 2 MG/ML 2 ML VIAL IV PRN (08:57)
[2024-04-15] MEDS ORDERED: ATROPINE SULFATE 0.1 MG/ML 10ML SYR IV PRN (08:57)
[2024-04-15] MEDS ORDERED: ePHEDrine sulfate 50 MG/ML AMP IV PRN (08:57)
[2024-04-15] MEDS ORDERED: fentaNYL citrate PF 100 MCG/2 ML VIAL IV PRN (08:57)
[2024-04-15] MEDS: SCOPOLAMINE 1 MG/72 HR TDSY PATCH TD ONE (09:02)
[2024-04-15] MEDS: LACTATED RINGER'S 1,000 ML IV SCH (09:02)
--- NOTE | 2024-04-15 09:02 | Anesthesiology Consultation ---
Date of Service April 15, 2024 Assessment & Plan Chart Review Chart Review: Acceptable Risk for Surgery and Patient NOT seen in Pre Admission Testing Consults Requested none ASA ASA3 Proposed Anesthesia Anesthesia Type: General Risk / Benefits Reviewed With: PT / POA / Parent / Guardian, Accepts Plan and Informed Consent Obtained History Surgery Operation Date: 04/15/24 09:15 Proposed Procedures p Robotic Laparoscopic Cholecystectomy - Tex Dodson, DO, FACS Height/Weight Height: 5 ft 3 in Weight: 60.9 kg Allergies Allergy/AdvReac Type Severity Reaction Status Date / Time No Known Allergies Allergy Unknown Verified 02/28/24 07:28 Medications Home Medications Medication Instructions Recorded Confirmed Last Taken levothyroxine 50 mcg tablet 50 mcg PO QAM 09/15/19 04/14/24 04/14/24 ondansetron HCl 8 mg tablet 8 mg PO Q8H PRN Nausea And Vomiting 02/21/24 04/14/24 Unknown prochlorperazine maleate 10 mg 10 mg PO Q6H PRN Nausea And 02/21/24 04/14/24 Unknown tablet Vomiting oxycodone 5 mg tablet 5 - 10 mg (1 - 2 x 5 mg) PO 04/15/24 Unknown .[id number] PRN pain #15 tabs Active Medications Generic Name Dose Route Start Last Admin Trade Name Freq PRN Reason Stop Dose Admin Piperacillin Sod/Tazobactam Sod 4.5 gm in 100 mls @ 25 mls/hr 04/14/24 18:30 04/15/24 07:27 Zosyn IV 04/24/24 18:29 Infused Q8H SHEN Infusion Potassium Chloride/Sodium Chloride 20 meq in 1,000 mls @ 75 mls/hr 04/14/24 18:00 04/15/24 08:25 Normal Saline W/20 Meq Kcl IV 05/14/24 17:59 0 mls/hr .[id number] SHEN Infusion Protocol Lactated Ringer's 1,000 mls @ 15 mls/hr 04/15/24 09:00 04/15/24 09:02 Lr IV 05/15/24 08:59 15 mls/hr .Q24H SHEN Administration Lactobacillus Acidophilus 1,250 mg 04/14/24 09:00 04/14/24 18:22 Advanced Probiotic 625 Mg Capsule PO 05/14/24 08:59 Not Given DAILY SHEN Levothyroxine Sodium 50 mcg 04/14/24 06:30 04/15/24 06:10 Levothyroxine Sodium 50 Mcg Tablet PO 05/14/24 06:29 50 mcg DAILYBB SHEN Administration NPO Date Last Intake of Fluids: 04/14/24 Time Last Intake of Fluids: 19:00 Date Last Intake of Solids: 04/13/24 Past Medical History Medical History Gallstone Nausea after anesthesia Limb alert care status left arm Breast cancer (2023) left History of COVID-19 (2019) Symptoms resolved GERD (gastroesophageal reflux disease) Hypothyroidism History of PCOS H/O dysfunctional uterine bleeding no current issues Exercise / Class Metabolic Activity II 4-5 Yardwork/Stairs/Walk up hill Past Family History Family History Sister Ovarian cancer Onset age 20, recurrence in 30's. Granulosa Cell Tumor Mother Breast cancer, Onset Age: 64 Radiation Therapy Father Prostate cancer Brachytherapy Son No problems noted. Past Surgical History Surgical History History of partial mastectomy of left breast (01/20/24) 01/20/24; limb restriction History of esophagogastroduodenoscopy (EGD) Hx of colonoscopy H/O cervical polypectomy Past Anesthesia History No Hx of Anesthesia Complications and No Family Hx of Anesthesia Complications History of PONV No Hx of PONV and No Hx of Motion Sickness Social History Smoking Status: Never smoker Do You Dip or Chew Tobacco: No Hx Alcohol Use: No alcohol intake frequency: holidays/special occasions only Hx Substance Use: No substance use type: does not use Review of Systems ROS Unobtainable: All systems reviewed & are unremarkable except as noted in HPI & below Physical Exam Vital Signs Last Vital Signs Temp 36.8 C 04/15/24 08:46 Pulse 78 04/15/24 08:46 Resp 20 04/15/24 08:46 BP 129/87 04/15/24 08:46 Pulse Ox 98 04/15/24 08:46 O2 Del Method Room Air 04/15/24 08:46 ENMT Mouth: no TMJ abnormality Thyromental Distance: > or= 3.5 Finger Breadths Mallampati Class: II Neck normal visual inspection and trachea midline; neck extension not limited Respiratory normal respiratory effort Auscultation: lungs clear to auscultation bilaterally Cardiovascular Rate/Rhythm: regular rate and regular rhythm Heart Sounds: no murmur Musculoskeletal Spine: normal cervical ROM Extremities: full ROM of extremities Neurologic moves all extremities Psychiatric Orientation: alert and oriented x 3 Testing Laboratory Results 04/15/24 07:24 04/15/24 07:24 PT 10.5 Seconds (9.0-12.0) 04/14/24 07:07 INR 1.0 (0.9-1.1) 04/14/24 07:07 APTT 22 Seconds (21-31) 04/14/24 07:07 Urine Color Dark Yellow 04/13/24 20:25 Urine Appearance Clear (Clear) 04/13/24 20:25 Urine pH 5.5 (4.5-7.5) 04/13/24 20:25 Ur Specific [place] 1.014 (1.000-1.030) 04/13/24 20:25 Urine Protein Negative (Negative) 04/13/24 20:25 Urine Glucose (UA) Negative (Negative) 04/13/24 20:25 Urine Ketones Negative (Negative) 04/13/24 20:25 Urine Nitrite Negative (Negative) 04/13/24 20:25 Ur Leukocyte Esterase Trace (Negative) H 04/13/24 20:25 Urine WBC (Auto) 0-5 /hpf (0-5) 04/13/24 20:25 Urine RBC (Auto) 0-2 /hpf (0-2) 04/13/24 20:25 U Hyaline Cast (Auto) 0-2 /lpf (0-2) 04/13/24 20:25 U Epithel Cells (Auto) 0-2 /hpf (0-2) 04/13/24 20:25 Urine Bacteria (Auto) None Seen (None Seen) 04/13/24 20:25 Electrocardiogram Date: 01/07/24 Findings: + NSR @ Echocardiogram Date: 02/24/24 EF: 60-64
[2024-04-15] MEDS: INDOCYANINE GREEN 25 MG VIAL INJ ONE (09:04)
[2024-04-15] MEDS ORDERED: ACETAMINOPHEN 1000 MG/100 ML IV IV ONE (09:16)
[2024-04-15] MEDS: BUPIVACAINE 0.5 % 5 MG/1 ML MPF 30ML VIAL ONE (10:25)
[2024-04-15] MEDS ORDERED: KETOROLAC 30 MG/ML VIAL ONE ×2 (10:35→10:58)
[2024-04-15] MEDS ORDERED: DexMEDEtomidine HCL IV 100 MCG/ML VIAL IV ONE (10:36)
[2024-04-15 10:56] LABS: Hep B Surface Ag with confirm Negative (Negative)
[2024-04-15] MEDS ORDERED: NEOSTIGMINE METHYLSULFATE 1 MG/ML 10ML VIAL ONE (10:59)
[2024-04-15 11:00] LABS: Hep C Ab Rflx HepCQuant RNA Negative (Negative)
--- NOTE | 2024-04-15 11:07 | Operative Report ---
PG Post Operative Report Pre & Post Diagnosis Operation Date: 04/15/24 09:15 Pre-Op Diagnosis: Cholelithiasis Post-Op Diagnosis: Cholelithiasis I identified the patient and participated in the time-out.: Yes Procedure Operation Date: 04/15/24 09:15 Actual Procedures p Robotic Assisted Laparoscopic Cholecystectomy(Not Applicable) - Tex Dodson DO, RUI Surgeon Tex Dodson DO, RUI Distribution Warehouse Manager Treasure Fitzgerald Estimated Blood Loss 5 Findings Consistent with Post-Op Diagnosis Mild chronic cholecystitis. Critical view of safety obtained, cystic duct and artery doubly clipped and divided. Specimens Gallbladder Anesthesia Type General Complications none Disposition Accompanied Patient To Recovery: No Disposition: Recovery Room Indications 49-year-old female currently undergoing treatment for breast cancer presented with abdominal pain and transaminitis, ultrasound showed cholelithiasis, MRCP negative for choledocholithiasis, LFTs downtrending, plan for robotic ch olecystectomy. The risks of the procedure were discussed, all questions were answered, and the patient agreed to proceed with surgery as planned. Description of Procedure The patient was properly identified, consented, and taken to the operating room where she was placed in the supine position. 2.5 mg of indocyanine green were administered IV approximately 45 min prior to the surgery. General endotracheal anesthesia was induced. SCDs and a safety belt were placed. Preoperative antibiotics were administered. The patient's abdomen was prepped and draped in the standard sterile fashion. A surgical timeout was performed and all parties were in agreement that this was the correct patient and procedure to be performed and we continued as planned. An incision was made just above the umbilicus and to the left of midline. Veress needle was inserted and saline drop test confirmed entry to the abdomen. The abdomen was insufflated with carbon dioxide which the patient tolerated incident. Veress needle was removed and the abdomen is entered using the Optiview technique and a 5 mm camera. The introducer was removed and the abdomen inspected. No damage from initial trocar placement or Veress needle placement was identified. There were no significant abnormalities to the 4 quadrants of the abdomen. 8 mm robotic ports were then placed on the left and right. An additional 5 mm production administrative assistant port was placed in the lateral right subcostal position. The patient was placed in reverse Trendelenburg position and rotated towards the left. The robot was then docked and the camera and robotic instruments were inserted. The gallbladder was mildly chronically inflamed. The dome of the gallbladder was grasped by the production administrative assistant and retracted towards the left upper quadrant and the infundibulum was retracted toward the right lower quadrant revealing Calot's triangle. Peritoneal attachments were taken down with electrocautery and blunt dissection. The cystic duct and artery were circumferentially dissected. A window of safety was obtained showing the cystic duct entering the gallbladder with no aberrant structures noted. We were able to identify the cystic duct utilizing the ICG. The cystic duct and artery were doubly clipped and divided. The gallbladder was then lifted off the gallbladder fossa with electrocautery. The right upper quadrant was irrigated and hemostasis was found to be good. The gallbladder was placed in an Endo Catch bag and removed through the one of the port sites. The fascia of the site was closed with an 0 Vicryl suture utilizing the Dariel-Benjamin device. The instruments were removed and the robot was undocked. The trochars were removed and the abdomen was allowed to collapse. The skin of all ports was closed with 4-0 Monocryl subcuticular sutures. Dermabond was placed over the wounds. The patient was extubated in the operating room and taken to the PACU where she recovered without apparent incident. All sponge, instrument and needle counts were correct at the conclusion of the procedure. The patient tolerated the procedure well. The nurse practitioner was present and scrubbed for the entirety of the case and was essential in positioning the patient, prepping and draping, retraction and exposure, driving the laparoscope, exchange of the robotic instruments removal of the gallbladder, closure of the incisions, and placement of the dressings. I attest to the content of the Intraoperative Record and any orders documented therein. Any exceptions are noted below.
--- NOTE | 2024-04-15 13:27 | Anesthesiology Progress Note ---
Date of Service April 15, 2024 Anesthesia Post Procedure Vital Signs Vital Signs: Temp Pulse Pulse Resp BP Pulse Ox O2 Del Method 04/15/24 13:00 87 16 108/74 100 Room Air 04/15/24 12:25 36.7 C 61 16 112/79 98 Room Air 04/15/24 12:13 67 18 119/83 97 Room Air 04/15/24 12:00 64 15 119/85 97 Room Air 04/15/24 11:50 36.5 C 67 20 126/85 98 Room Air 04/15/24 11:40 69 16 129/90 100 Room Air 04/15/24 11:30 70 16 118/88 100 Oxymask 04/15/24 11:25 80 12 137/90 100 Oxymask 04/15/24 11:19 36.1 C L 61 16 124/84 100 Oxymask 04/15/24 08:46 36.8 C 78 20 129/87 98 Room Air 04/15/24 08:06 36.4 C L 78 16 112/73 96 Room Air 04/14/24 21:41 36.4 C L 68 16 114/77 98 Room Air 04/14/24 15:24 36.6 C 77 16 114/73 97 Room Air O2 Flow Rate 04/15/24 13:00 04/15/24 12:25 04/15/24 12:13 04/15/24 12:00 04/15/24 11:50 04/15/24 11:40 04/15/24 11:30 4 04/15/24 11:25 6 04/15/24 11:19 6 04/15/24 08:46 04/15/24 08:06 04/14/24 21:41 04/14/24 15:24 Transfer of Care Handoff Completed per policy Notes Mental Status: alert / awake / arousable Patient Amnestic to Procedure: Yes Nausea / Vomiting: adequately controlled Pain: adequately controlled Airway Patency, RR, SpO2: stable & adequate BP & HR: stable & adequate Hydration State: stable & adequate Anesthetic Complications: no major complications apparent and Pt Satisfied with anesthetic care
[2024-04-15] MEDS: ACETAMINOPHEN 500 MG TAB PO PRN (16:40)
[2024-04-15] MEDS: CHECK SCOPOLAMINE PATCH PLACEMENT SCH (16:41)
--- NOTE | 2024-04-15 16:53 | Hospitalist Progress Note ---
Date of Service April 15, 2024 Assessment & Plan (1) Biliary colic: Plan: Cholelithiasis Gallbladder ultrasound: Patient presented with right upper quadrant pain along with nausea Ultrasound of the gallbladder showed distended gallbladder with 2.4 cm calculus MRCP: No CBD obstruction noted LFTs improving General Surgery, underwent Laparoscopic cholecystectomy on 04/11/2024. Start IV Zosyn in light of immunocompromise state from ongoing chemotherapy for breast cancer Hypothyroidism, euthyroid as of recent outpatient TSH Left breast cancer status post surgery ongoing chemotherapy Incidental finding of complex renal cyst on imaging -- Urology service consulted chronic anemia, hemoglobin at baseline DVT prophylaxis. SCDs Full code Disposition Anticipate return home when medically stable Please note the above document was generated using voice recognition software. It may contain grammatical, syntax or spelling errors. Any formal questions or concerns about the content, text or information contained within the body of this dictation should be directly addressed to the provider for clarification Admission and Anticipated Discharge Date Admission Date: April 14, 2024 Subjective Patient underwent surgery. She reports that she has minimal pain and discomfort. No overnight events Review of Systems Review of Systems: All systems reviewed & are unremarkable except as noted in Subjective Physical Exam Physical Exam: General- oriented x 3, not in distress, speaks in sentences with no effort or accessory muscle use Eyes- anicteric Neck- no JVD Lungs- clear breath sounds bilaterally, no rales/wheezes Heart- normal rate, regular rhythm; no murmurs Abdomen- normal bowel sounds, nondistended, soft, nontender Extremities- no pretibial edema, no calf tenderness Neuro- alert, oriented x 3; no gross focal neurologic deficits Skin- warm & dry Results & Data Results & Data Vital Signs (Past 12 Hours) Vital Signs Temp Pulse Pulse Resp BP Pulse Ox O2 Del Method 04/15/24 15:59 36.7 C 70 18 117/75 96 Room Air 04/15/24 14:30 36.7 C 77 16 110/71 98 Room Air 04/15/24 13:29 36.6 C 89 16 123/84 99 Room Air 04/15/24 13:00 87 16 108/74 100 Room Air 04/15/24 12:25 36.7 C 61 16 112/79 98 Room Air 04/15/24 12:13 67 18 119/83 97 Room Air 04/15/24 12:00 64 15 119/85 97 Room Air 04/15/24 11:50 36.5 C 67 20 126/85 98 Room Air 04/15/24 11:40 69 16 129/90 100 Room Air 04/15/24 11:30 70 16 118/88 100 Oxymask 04/15/24 11:25 80 12 137/90 100 Oxymask 04/15/24 11:19 36.1 C L 61 16 124/84 100 Oxymask 04/15/24 08:46 36.8 C 78 20 129/87 98 Room Air 04/15/24 08:06 36.4 C L 78 16 112/73 96 Room Air O2 Flow Rate 04/15/24 15:59 04/15/24 14:30 04/15/24 13:29 04/15/24 13:00 04/15/24 12:25 04/15/24 12:13 04/15/24 12:00 04/15/24 11:50 04/15/24 11:40 04/15/24 11:30 4 04/15/24 11:25 6 04/15/24 11:19 6 04/15/24 08:46 04/15/24 08:06
[2024-04-15] MEDS: oxyCODONE HCL IR 5 MG TAB (IMMEDIATE RELEASE) PO PRN (17:30)
--- NOTE | 2024-04-15 21:48 | Oncology Consultation ---
Date of Consultation April 15, 2024 Assessment & Plan (1) Malignant neoplasm of central portion of left breast in female, estrogen receptor positive: continue outpatient management with my medical oncology colleagues from [facility]. Therapy to be restarted once the patient is discharged based on discussion with Dr. Ferreira (2) Biliary colic: . Continue current inpatient management with our hospital internal medicine colleagues and surgery colleagues if needed. No other recommendations from medical oncology at this point. Plan Medical oncology will continue to follow the patient make appropriate recommendations. Thank you for this interesting oncological consult. History of Present Illness Reason for Consultation: HER2 positive breast cancer Attending Physician: Norman Hand MD History of Present Illness the patient is a very pleasant 49-year-old woman who was recently diagnosed with HER2 positive breast cancer, currently is under the care of my colleague Dr. Ferreira at [facility]. I do not have any of the medical oncology records from [facility] and most of the history was obtained from the EMR as well as the patient herself. She has undergone left breast cancer surgery, partial mastectomy, is currently on adjuvant treatment with Taxol Herceptin. After this cycle of chemotherapy the patient developed biliary pain and was admitted to the hospital. Medical oncology has been consulted to assist in management of this patient with HER2 positive breast cancer currently on systemic therapy and undergoing HER2 directed therapy at [facility]. Allergies Allergy/AdvReac Type Severity Reaction Status Date / Time No Known Allergies Allergy Unknown Verified 02/28/24 07:28 Home Medications Medication Instructions Recorded Confirmed Type levothyroxine 50 mcg tablet 50 mcg PO QAM 09/15/19 04/14/24 History ondansetron HCl 8 mg tablet 8 mg PO Q8H PRN Nausea And Vomiting 02/21/24 4 History prochlorperazine maleate 10 mg 10 mg PO Q6H PRN Nausea And 02/21/24 04/14/24 History tablet Vomiting oxycodone 5 mg tablet 5 - 10 mg (1 - 2 x 5 mg) PO 04/15/24 Rx .[id number] PRN pain #15 tabs Patient History Medical History Gallstone Nausea after anesthesia Limb alert care status left arm Breast cancer (2023) left History of COVID-19 (2019) Symptoms resolved GERD (gastroesophageal reflux disease) Hypothyroidism History of PCOS H/O dysfunctional uterine bleeding no current issues Surgical History (Updated 04/16/24 @ 08:42 by IAN Quintero) Hx laparoscopic cholecystectomy (04/15/24) Robotic Assisted Laparoscopic Cholecystectomy(Not Applicable) - Tex Dodson DO, FACS History of partial mastectomy of left breast (01/20/24) 01/20/24; limb restriction History of esophagogastroduodenoscopy (EGD) Hx of colonoscopy H/O cervical polypectomy Family History Sister Ovarian cancer Onset age 20, recurrence in 30's. Granulosa Cell Tumor Mother Breast cancer, Onset Age: 64 Radiation Therapy Father Prostate cancer Brachytherapy Son No problems noted. Social History Smoking Status: Never smoker Second Hand Exposure: No; Do You Dip or Chew Tobacco: No; Hx Alcohol Use: No Hx Substance Use: No Preferred Language: Nigerian Communication Ability: Effective Visual Impairment: Limited Hearing Ability: Normal Aircraft Riveter Required: No Beliefs That Will Affect Care: None marital status: Current Living Situation: Spouse current occupational status: employed How many Children do You have: 1 Feels Safe at Home: Yes Childhood Exposure to Second-Hand Smoke: Yes Diet: regular caffeine: Yes during the past year weight has: remained stable Dental Care, Regularly: Yes Assistive Devices: None Review of Systems Review of Systems: All systems reviewed & are unremarkable except as noted in HPI & below Abdominal pain, fatigue Constitutional: as per Subjective / HPI Eyes: as per Subjective / HPI Ear, Nose, Mouth, Throat: as per Subjective / HPI Respiratory: as per Subjective / HPI Cardiovascular: as per Subjective / HPI Gastrointestinal: as per Subjective / HPI Genitourinary: as per Subjective / HPI Musculoskeletal: as per Subjective / HPI Integumentary: as per Subjective / HPI Neurologic: as per Subjective / HPI Psychiatric: as per Subjective / HPI Endocrine: as per Subjective / HPI Hematologic / Lymphatic: as per Subjective / HPI Allergy / Immunological: as per Subjective / HPI Physical Exam Constitutional: WD/WN, vitals as above Eyes: PERRL, conjunctivae normal, anicteric sclerae ENMT: external ear and nose normal, oropharynx normal Neck: trachea midline, no thyromegaly Respiratory: normal respiratory effort, lungs clear to auscultation Cardiovascular: RRR, no murmur, no edema Gastrointestinal (Abdomen): normal bowel sounds, soft, nontender, no hepatosplenomegaly Musculoskeletal: no cyanosis or clubbing, extremities motor strength 5/5 Skin: no rashes, warm and dry Neurologic: patellar DTR's 2+ bilat, sensation intact Psychiatric: A+Ox3, euthymic affect Genitourinary: no vaginal lesions, no adnexal mass Results & Data Vital Signs (Past 12 Hours) Vital Signs Temp Pulse Pulse Resp BP Pulse Ox O2 Del Method 04/15/24 20:20 36.7 C 74 20 131/80 96 Room Air 04/15/24 15:59 36.7 C 70 18 117/75 96 Room Air 04/15/24 14:30 36.7 C 77 16 110/71 98 Room Air 04/15/24 13:29 36.6 C 89 16 123/84 99 Room Air 04/15/24 13:00 87 16 108/74 100 Room Air 04/15/24 12:25 36.7 C 61 16 112/79 98 Room Air 04/15/24 12:13 67 18 119/83 97 Room Air 04/15/24 12:00 64 15 119/85 97 Room Air 04/15/24 11:50 36.5 C 67 20 126/85 98 Room Air 04/15/24 11:40 69 16 129/90 100 Room Air 04/15/24 11:30 70 16 118/88 100 Oxymask 04/15/24 11:25 80 12 137/90 100 Oxymask 04/15/24 11:19 36.1 C L 61 16 124/84 100 Oxymask O2 Flow Rate 04/15/24 20:20 04/15/24 15:59 04/15/24 14:30 04/15/24 13:29 04/15/24 13:00 04/15/24 12:25 04/15/24 12:13 04/15/24 12:00 04/15/24 11:50 04/15/24 11:40 04/15/24 11:30 4 04/15/24 11:25 6 04/15/24 11:19 6
[2024-04-16 06:17] LABS: Basophils # (auto) 0.02 K/uL (0.00-0.20); Basophils % (auto) 0.4 %; Hematocrit (blood only) 30.2 % (37.0-47.0); Immature Granulocytes # (auto) 0.12 K/uL (0.01-0.20); Immature Granulocytes % (auto) 2.6 %; Lymphocytes # (auto) 1.22 K/uL (1.20-3.40); Lymphocytes % (auto) 26.3 %; Mean Corpuscular Hemoglobin 28.3 pg (25.0-34.0); Mean Corpuscular Hgb Conc 33.1 g/dL (32.0-36.0); Mean Corpuscular Volume 85.6 fL (80.0-100.0); Mean Platelet Volume 9.3 fL (9.4-12.4); Monocytes # (auto) 0.38 K/uL (0.11-0.59); Monocytes % (auto) 8.2 %; Neutrophils # (auto) 2.89 K/uL (1.40-6.50); Neutrophils % (auto) 62.5 %; Platelet Count 311 K/uL (130-400); RDW Coefficient of Variation 14.2 % (11.5-14.5); RDW Standard Deviation 42.9 fL (36.4-46.3); Red Blood Count 3.53 M/uL (4.20-5.40); White Blood Count 4.63 K/ul (4.8-10.8)
[2024-04-16 06:27] LABS: BUN Creatinine Ratio 4.5 (10-20); Calcium 8.4 mg/dl (8.6-10.3); Creatinine Clr Calc Pharmacy 83.4 ml/min; Est GFR (African American) 118.5 ml/min; Est GFR (Non-African American) 102.3 ml/min; Potassium 3.5 mmol/L (3.5-5.1)
[2024-04-16 06:31] LABS: Albumin Globulin Ratio 1.8 (0.9-2); Albumin Level 3.9 gm/dl (3.4-5.0); Bilirubin,Total 0.7 mg/dl (0.2-1.0); Globulin 2.2 gm/dl (2.5-4.0); Total Protein 6.1 gm/dl (6.0-8.3)
[2024-04-16 07:50] VITALS: BP 111/70; PULSE 65; RESP 18; TEMP 98.2; O2SAT 95
--- NOTE | 2024-04-16 08:45 | Surgery Progress Note ---
Date of Service April 16, 2024 Assessment & Plan (1) S/P laparoscopic cholecystectomy: Plan: POD [address] Dodson tolerating diet full liquids advance as tolerated to reg LFT down trending vss , afebrile expected post surgical discomfort port site CDI dermabond no s/s infection note pt stable for d/c from our standpoint f/u in office 2 week, return precautions reviewed oxycodone sent to pharmacy for pain control Admission and Anticipated Discharge Date Admission Date: April 14, 2024 Supervising Physician Co-Signing Physician Notes Patient discussed with IAN Quintero, labs reviewed, agree with above. POD #1 robotic cholecystectomy, doing well. LFTs continue to trend down. She was discharged to home after tolerating regular diet. She will follow-up with me in 2 weeks in general surgery clinic. Wound care instructions, activity restrictions, and return precautions were reviewed with her prior to and after the surgery yesterday. Subjective expected post surgical discomfort tolerating diet Review of Systems Constitutional: no fever and no chills Respiratory: no dyspnea Cardiovascular: no chest pain Gastrointestinal: + abdominal pain; no nausea and no vomit ing Musculoskeletal: no muscle weakness Physical Exam Constitutional: well developed, cooperative and comfortable; no acute distress Respiratory: normal respiratory effort and able to speak in complete sentences; no respiratory distress Gastrointestinal (Abdomen): Inspection/Auscultation: + abdominal surgical incision (CDI dermabond ); abdomen not distended Percussion/Palpation: abdomen soft Results & Data Vital Signs (Past 12 Hours) Vital Signs Temp Pulse Resp BP Pulse Ox O2 Del Method 04/16/24 07:49 98.2 F 65 18 111/70 95 Room Air 04/16/24 04:00 98.4 F 81 20 115/76 97 Room Air 04/15/24 22:46 98.1 F 71 20 117/70 97 Room Air Results CBC w Diff Results: RBC 3.53 M/uL (4.20-5.40) L 04/16/24 WBC 4.63 K/ul (4.8-10.8) L 04/16/24 Hgb 10.0 g/dl (12.0-16.0) L 04/16/24 Hct 30.2 % (37.0-47.0) L 04/16/24 MCV 85.6 fL (80.0-100.0) 04/16/24 MCH 28.3 pg (25.0-34.0) 04/16/24 MCHC 33.1 g/dL (32.0-36.0) 04/16/24 RDW Standard Deviation 42.9 fL (36.4-46.3) 04/16/24 RDW Coefficient of Variation 14.2 % (11.5-14.5) 04/16/24 Plt Count 311 K/uL (130-400) 04/16/24 MPV 9.3 fL (9.4-12.4) L 04/16/24 Neutrophils (%) (Auto) 62.5 % 04/16/24 Lymphocytes (%) (Auto) 26.3 % 04/16/24 Monocytes # (Auto) 0.38 K/uL (0.11-0.59) 04/16/24 Eosinophils # (Auto) 0.00 K/uL (0.00-0.50) 04/16/24 Immature Granulocyte % (Auto) 2.6 % 04/16/24 Neutrophils # (Auto) 2.89 K/uL (1.40-6.50) 04/16/24 Lymphocytes # (Auto) 1.22 K/uL (1.20-3.40) 04/16/24 Monocytes # (Auto) 0.38 K/uL (0.11-0.59) 04/16/24 Eosinophils # (Auto) 0.00 K/uL (0.00-0.50) 04/16/24 Basophils # (Auto) 0.02 K/uL (0.00-0.20) 04/16/24 Immature Granulocyte # (Auto) 0.12 K/uL (0.01-0.20) 4 Results CMP Results: Na 140 mmol/L (136-145) 04/16/24 K 3.5 mmol/L (3.5-5.1) 04/16/24 Cl 108 mmol/L (98-107) H 04/16/24 CO2 26 mmol/L (21-32) 04/16/24 Anion Gap 6 (3-11) 04/16/24 BUN 3 mg/dl (6-23) L 04/16/24 Creatinine 0.66 mg/dl (0.6-1.2) 04/16/24 Estimated GFR ( Amer) 118.5 ml/min 04/16/24 Estimated GFR (Non-Af Amer) 102.3 ml/min 04/16/24 BUN/Creatinine Ratio 4.5 (10-20) L 04/16/24 Glu 117 mg/dl (70-99(Fasting)) H 04/16/24 Ca 8.4 mg/dl (8.6-10.3) L 04/16/24 Total Bilirubin 0.7 mg/dl (0.2-1.0) 04/16/24 Direct Bilirubin 0.3 mg/dl (0-0.2) H 04/15/24 AST 133 U/L (13-39) H 04/16/24 ALT 480 U/L (7-52) H 04/16/24 Alkaline Phosphatase 103 U/L (34-104) 04/16/24 TP 6.1 gm/dl (6.0-8.3) 04/16/24 Albumin 3.9 gm/dl (3.4-5.0) 04/16/24 Globulin 2.2 gm/dl (2.5-4.0) L 04/16/24 Albumin/Globulin Ratio 1.8 (0.9-2) 04/16/24 PG Care Time/CCT Total # of Minutes Spent Total Time Spent with Patient: Total time spent is greater than 50% in coordination of care (as documented) at patient's floor/unit and/or counseling patient: Coding Level of Care Code 03967 Post Operative Follow-Up Diagnoses S/P laparoscopic cholecystectomy Z90.49
--- NOTE | 2024-04-16 10:12 | Hospitalist Progress Note ---
Date of Service April 16, 2024 Assessment & Plan (1) Biliary colic: Plan: Cholelithiasis Gallbladder ultrasound: Patient presented with right upper quadrant pain along with nausea Ultrasound of the gallbladder showed distended gallbladder with 2.4 cm calculus MRCP: No CBD obstruction noted LFTs improving General Surgery, underwent Laparoscopic cholecystectomy on 04/11/2024. No perioperative or postoperative complications. Patient was tolerated full liquid diet Hypothyroidism, euthyroid as of recent outpatient TSH Left breast cancer status post surgery ongoing chemotherapy Incidental finding of complex renal cyst on imaging -- Urology service consulted. Urology to arrange outpatient follow-up for workup and monitoring of right renal lesion. chronic anemia, hemoglobin at baseline DVT prophylaxis. SCDs Full code Disposition Anticipate return home when medically stable Please note the above document was generated using voice recognition software. It may contain grammatical, syntax or spelling errors. Any formal questions or concerns about the content, text or information contained within the body of this dictation should be directly addressed to the provider for clarification Admission and Anticipated Discharge Date Admission Date: April 14, 2024 Subjective Patient doing well postsurgery; tolerating full liquid diet. No significant event overnight Pain controlled on current regimen. Physical Exam Physical Exam: General- oriented x 3, not in distress, speaks in sentences with no effort or accessory muscle use Eyes- anicteric Neck- no JVD Lungs- clear breath sounds bilaterally, no rales/wheezes Heart- normal rate, regular rhythm; no murmurs Abdomen- Abdominal surgical incision, clean dry and intact. Nondistended. Extremities- no pretibial edema, no calf tenderness Neuro- alert, oriented x 3; no gross focal neurologic deficits Skin- warm & dry Results & Data Results & Data Vital Signs (Past 12 Hours) Vital Signs Temp Pulse Resp BP Pulse Ox O2 Del Method 04/16/24 07:49 36.8 C 65 18 111/70 95 Room Air 04/16/24 04:00 36.9 C 81 20 115/76 97 Room Air 04/15/24 22:46 36.7 C 71 20 117/70 97 Room Air
--- NOTE | 2024-04-16 10:14 | Discharge Summary ---
Date of Service April 16, 2024 Admission HPI Per Admitting Provider History obtained from patient and records. Medical history significant for hypothyroidism, left breast cancer status post surgery ongoing chemotherapy, PCOS, chronic anemia (baseline hemoglobin of 11). Few days history of intermittent postprandial upper abdominal pain attributed to possible gallbladder attack. Some nausea without emesis. No chest pain, no SOB, no fever, no chills. Short-lived episodes the last few months. Discomfort more intense than usual. Abnormal LFTs noted on outpatient blood work today. AST 700, ALT 697, bilirubin 2.3. Patient directed to ER by PCP after being seen at the office. 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 [place] Admission Exam Per Admitting Provider GENERAL: Comfortable, pleasant, no respiratory distress SKIN: Pallor, warm HEENT: Alopecia, pale palpebral conjunctivae, no ptosis, dry buccal mucosa NECK : Supple, no tenderness CHEST : CTA, no tenderness HEART : RRR, no obvious murmurs ABDOMEN: Some distention, epigastric tenderness EXTREMITIES : No LE swelling/tenderness, no other conspicuous deformities noted NEUROLOGIC : Coherent, no facial asymmetry, no other gross focality Principal Diagnosis Symptomatic cholelithiasis status post laparoscopic cholecystectomy Discharge Exam General- oriented x 3, not in distress, speaks in sentences with no effort or accessory muscle use Eyes- anicteric Neck- no JVD Lungs- clear breath sounds bilaterally, no rales/wheezes Heart- normal rate, regular rhythm; no murmurs Abdomen- Abdominal surgical incision, clean dry and intact. Nondistended. Extremities- no pretibial edema, no calf tenderness Neuro- alert, oriented x 3; no gross focal neurologic deficits Skin- warm & dry Discharge Data Allergies Allergy/AdvReac Type Severity Reaction Status Date / Time No Known Allergies Allergy Unknown Verified 02/28/24 07:28 Consultations 04/13/24 21:54 Consult General Surgery Routine 04/13/24 21:59 ED Decision to Admit Stat 04/14/24 00:20 Consult Gastroenterology Routine 04/14/24 08:28 Consult Urology Routine 04/14/24 11:58 Consult Oncology Routine Procedures Performed Operation Date: 04/15/24 09:15 Actual Procedures p Robotic Assisted Laparoscopic Cholecystectomy(Not Applicable) - Tex Dodson DO, FACS Ordered Studies 04/13/24 19:03 US gallbladder Stat 04/13/24 21:59 MR MRCP Urgent Hospital Course (1) Biliary colic: Cholelithiasis s/p Laparoscopic Cholecystecomy Patient presented with right upper quadrant pain along with nausea Ultrasound of the gallbladder showed distended gallbladder with 2.4 cm calculus MRCP: No CBD obstruction noted LFTs improving at discharge General Surgery were consult underwent Laparoscopic cholecystectomy on 04/15/2024. No perioperative or postoperative complications. Patient was tolerated full liquid diet Hypothyroidism, euthyroid as of recent outpatient TSH Left breast cancer status post surgery ongoing chemotherapy Incidental finding of complex renal cyst on imaging -- Urology service consulted. Urology to arrange outpatient follow-up for workup and monitoring of right renal lesion. chronic anemia, hemoglobin at baseline Patient discharge home with instructions to follow up with PCP, Surgery and Urology Please note the above document was generated using voice recognition software. It may contain grammatical, syntax or spelling errors. Any formal questions or concerns about the content, text or information contained within the body of this dictation should be directly addressed to the provider for clarification Total Time Total Time Spent Total Time Spent (In Minutes): 35 Total Time Includes: Examination of the Patient, Discharge Planning, Medication Reconciliation, Communication With Other Providers and Other Discharge Plan Discharge Items Patient Disposition: Home - Self-Care Reason For Visit: ABD PAIN Discharge Diagnosis: Laparoscopic cholecystectomy Activity: Per Instructions section Lifting: No more than 10 pounds Bathing Comment: You can shower tomorrow. No soaking in pools/baths for 2 weeks Exercise/Sports: Wait until after follow-up appointment Driving/Machine Use: Resume 3 days after discharge Non-emergency contact: Surgeon Call non-emergency contact if: you have any medication questions, your temperature is above 101, your temperature is above 101.5, your wound has increased redness, your wound has increased drainage and your wound pain has increased Follow-up/Referrals: Tex Dodson DO, FACS [Physician] - (call office for follow up in 2 weeks ) Haylee Skinner DO [Primary Care Provider] - (Date & Time 04/21/2024 3:20 PM Provider González Shrestha CRNP Department [facility] ) Diet: Regular and Low Fiber Addtl Attending Provider Instructions: Please follow-up with your primary care doctor. You have surgical glue called dermabond on your surgical site incisions. You may shower with this on. This will tend to come off within a couple of weeks. Do not pick at it. You may purchase Tylenol and or Ibuprofen over the counter if needed for addition pain control over the next few days. Take per manufacturers instructions, Do not take more than 3 grams of Tylenol in 24 hours. Pending Studies at Discharge: Yes Studies:: surgical pathology Stand-Alone Forms: Anesthesia/Sedation, Adult, [facility] Medications and DC Order Prescriptions: New oxycodone 5 mg tablet 5 - 10 mg PO .[id number] MDD no more than 6 tabs in 24hours PRN (Reason: pain) Qty: 15 0RF Continued levothyroxine 50 mcg tablet 50 mcg PO QAM ondansetron HCl 8 mg Tablet 8 mg PO Q8H PRN (Reason: Nausea And Vomiting) prochlorperazine maleate 10 mg Tablet 10 mg PO Q6H PRN (Reason: Nausea And Vomiting) Discharge Orders: Discharge Order (Routine); Ordered 04/16/24 Ordered By: Norman Hand Admission Data Admit Date/Time: 04/14/24 17:50 Attending Provider: Norman Hand Admit Provider: Sandor Arnold Primary Care Provider: Haylee Skinner Other Providers: Tex Dodson; Sandor Arnold; Wilfredo Dong; Napoleon Davies; Elif Sommer; Maria L Mandujano; Lauren Alexander; Sari Mcleod; Stefany Reagan; Vahe Puga; Rodrick Rouse; Clovis Lam; Ibeth Lemus; Gigi Arita; Elise Hardin; Sapna Morrison; Niya Cheney; Delma Gonzales; Zoila Gomez; Maksim Barrera; Abdullahi Lopez; Cecilia Malik; April Sosa Jr; Corey Beverly; Janusz Desai; Sanchez Berumen; Blas Huffman; Analy Fernandes; Tony Jennings I; Arnaldo Hendrix; Tex Calzada; Efrain Vuong; Luna Villasenor; Renzo Daniels; Maggi Mckenzie; Corina Hernandez; Devin Rodriguez; Emiliana Erwin; Iker Casiano; Dominique Schultz; Manohar Aleman; Yudith Garcia Other Interventions: Discharge Summary Assessment (RN) Last Done: 04/16/24 12:08
[2024-04-17 15:57] LABS: Hepatitis A Antibody IgM NON-REACTIVE (NON-REACTIVE); Hepatitis B Core Antibody IgM NON-REACTIVE (NON-REACTIVE)
== END 2024-04-16 14:33 | disposition home or self-care (01) | DRG 419 ==
LOC: EDINP 17:33 → ED 17:33 → 3W 04-14 08:46 → SUATTDRO 04-14 17:50
DX: Z17.0 Estrogen receptor positive status [ER+]; E03.9 Hypothyroidism, unspecified; K80.10 Calculus of gallbladder with chronic cholecystitis without obstruction; C50.912 Malignant neoplasm of unspecified site of left female breast; Z79.899 Other long term (current) drug therapy; Z79.890 Hormone replacement therapy; D63.0 Anemia in neoplastic disease; N28.1 Cyst of kidney, acquired; Z90.12 Acquired absence of left breast and nipple